=== PATIENT | male | born 1950 ===

== ENCOUNTER 2021-04-10 09:48 | Outpatient (REF) | payer MEDICARE, MEDICAID, SELFPAY ==
[2021-04-10 10:56] LABS: Alanine Aminotransferase 21 U/L (0-40); Albumin Level 3.9 g/dL (3.5-5.0); Alkaline Phosphatase 98 U/L (39-117); Anion Gap 12 (12-20); Aspartate Amino Transferase 16 U/L (5-37); Bilirubin Total 0.5 mg/dL (0.0-1.0); Blood Urea Nitrogen 16 mg/dL (9-16); Calcium 9.4 mg/dL (8.4-10.2); Carbon Dioxide 27 mmol/L (22-29); Chloride 106 mmol/L (96-108); Cholesterol 157 mg/dL; Estimated Glomerular Filt Rate > 60; Glucose Fasting 119 mg/dL (60-99); HDL Cholesterol 52 mg/dL; LDL Cholesterol Calculated 87 mg/dl; Potassium 4.5 mmol/L (3.3-5.1); Sodium 140 mmol/L (135-145); Triglycerides 91 mg/dL
[2021-04-10 11:18] LABS: TSH reflex Free T4 3.36 uIU/mL (0.32-4.0)
[2021-04-10 11:25] LABS: Estimated Average Glucose 258 mg/dL; Hemoglobin A1c % 10.6 %
[2021-04-10 15:30] LABS: Creatinine Urine 91.51 mg/dL; Microalbum/Creatinine Ratio Ur 170.4 ug/mg cr
== END 2021-04-10 09:49 | disposition home or self-care (01) ==
LOC: HO.WFDLDS 09:48
PROVIDERS: Visit Provider Family Medicine
DX: Z00.00 Encounter for general adult medical examination without abnormal findings (principal); R73.01 Impaired fasting glucose; I10 Essential (primary) hypertension
CPT/HCPCS: 36415; 80053; 80061; 82043; 83036; 84443

== ENCOUNTER → 2021-04-30 09:56 | Outpatient (BNVA) | payer MEDICARE, MEDICAID, SELFPAY | PROVIDERS: Visit Provider Orthopaedic Surgery | DX: M72.0 Palmar fascial fibromatosis [Dupuytren] (principal); M65.331 Trigger finger, right middle finger; M65.341 Trigger finger, right ring finger; M79.642 Pain in left hand; R20.0 Anesthesia of skin; R20.2 Paresthesia of skin | CPT/HCPCS: 99202; J1100 ==

== ENCOUNTER 2021-06-23 13:00 | Outpatient (RCR) | payer MEDICARE, MEDICAID, SELFPAY ==
--- NOTE | 2021-06-24 07:56 | MHC.PT.EP ---
[facility] [place] Office [place] Office [place] Office [address] Veronica Combs [address] [phone] F: [phone] F: [phone] F: [phone] F: [phone] Physical Therapy Plan of Care Date of Evaluation: Date of Surgery: Diagnosis: PT eval and treat; Pain in R shoulder M25.[address] Graff 05/28/21 Assessment: Pt is a pleasant RHD 70 y/o male with PMH significant for L CVA 2019, HTN, poorly controlled DMII, and high cholesterol. Pt was referred to PT from PCP following recent annual physical exam for treatment of R shoulder pain. Upon exam it appears pt's cause of R shoulder pain is multifactorial. Pt exhibits gross strength impairments of trunk, periscap, R shoulder, and R LE following history of L CVA in 2019. Pt exhibits R shoulder sulcus, protracted scap, increased trunk flexion, contributed from years of poor posture, stretched and weakened musculature. He exhibits tenderness and reports history of neck pain/ R UT/ R GH joint/R biceps region. He expresses pain radiating in dermatomal pattern consistent with C5/C6 region and may have underlying radicular sx on top of poor R shoulder ROM, poor strength, and impaired function of his R UE. He exhibited (+) sx of radiating pain into the R UE with AROM end range rotation R>L. Due to chronicity of symptoms and pt's ability to attend appointments, therapist is recommending 1x/weekly x 4-6 weeks to address listed impairments. Due to the severity and intensity of his sx (he was noted to repeatedly rub his shoulder). He was trialed with application of ROCKTAPE applied in a manner to support GH stability as well as support his tight and weakened periscap region. He received an additional piece of tape extending into his R bicep which he stated eased his symptoms considerably post application. Pt was educated re: removal, indications for use, and goals of us, advised to remove tape prior to going to bed in the evening. Pt presents with noted gait instability and would benefit from use of a walker to improve safety and efficiency with ambulation. Pt would benefit from trial of AAROM program to aide in R shoulder ROM as well as cervical/postural stab program. He would also benefit from integration of gentle R LE strength program to address deficits in his knee and hip however due to chronicity of symptoms and questionable carryover with instruction goals may be limited. Pt has a RW at home. Pt prognosis is fair>good due to chronicity of sx, overall health status, and pt carryover. Frequency and Duration: The patient will be seen 1x/week x 4-6 weeks Short Term Goals: 1. Improve R shoulder AAROM flexion to 120. 2. Strength R shoulder flexion 3/5 3. Reduce pain in R shoulder by 25%. 4. Initiate posture awareness in sitting. Flour Blender Goals: 1. AAROM program MOD I for R UE all planes. 2. Strength 4-/5 R UE. 3. I HEP for cervical/postural stab. 4. Reduce pain by 75% R shoulder. Treatment Plan: Modalities to reduce pain, spasms and effusion. Manual therapy to restore motion and function. Therapeutic exercise to improve strength and flexibility. Neuromuscular re-education for posture and balance. Therapeutic activities to return to functional activities of daily living. Electronically signed by: Alberta Hanna, PT, DPT Please sign and return to therapist. Thank you for your referral.
--- NOTE | 2021-06-24 08:06 | MHC.PT.OD ---
[facility] [place] Office [place] Office [place] Office [address] Veronica Combs [address] [phone] F: [phone] F: [phone] F: [phone] F: [phone] Physical Therapy Daily Note Diagnosis: PT eval and treat; Pain in R shoulder M25.[address] Graff 05/28/21 Date of Surgery: Date of Evaluation: 06/05/21 Date of Treatment: 06/23/21 Treatments to Date: 4 Cancellations to Date: No Shows to Date: Authorized Visits: 2 Insurance End Date: Precautions/ Contraindications:hx L CVA 2018 resulting in R UE/R LE weakness hx HTN hx DMII Subjective: Feels about the same really. Pain Score and Location: Objective Flowsheet: Tests & Measures SPO2 96%, HR 74 bpm, BP 134/84 mmHG taken from L UE manually Exercises Seated Krank cycle x five minutes backward and fwd with periodic intermittent rest breaks for movement secondary to fatigue in R proximal shoulder Unsupported seated ROWS with Red stroop bungee with feet flat on mat with tactile and verbal cues for upright posture/stability (improved ability to sit unsupported with improved scap retraction vs upper trap judith observed today, seated shoulder extension with RTB x 2 sets 10R, review of AAROM table slides for shoulder flexion and scaption in sitting, trial supine AAROM cane flexion however increased sx reported down UE. Sit<>stand and stand<>sit with use of UE support chair arms (encouraged to position table in front of him for home to maximize safety for completion) x 2 sets 5R with UE support with cues to use balance/table support in effort to increase functional mobility, strength, and safety. AAROM cane flexion in sitting as poor tolerance was exhibited for trial in supine. Poor previous tolerance for AAROM with R UE via tomas secondary to pain, mechanics of shoulder. Sit<>stand with use of chair with arms for assessment Pt able to complete 3 reps of standing with repeated attempts observed for each in 30 second duration of sx. Held from taping this date to provide skin rest and assess response without use . Education and time spent on postural cues and impact of performing HEP at home to make gains in mobility HEP sheet in chart to address Seated ROW issued RTB for home, sit<>stand and stand<>with use of chair with arms positioned in front of table for balance/safety concerns, iso scap retraction, LAQ Modalities Held from [facility] today with focus on active therapy to Assessment: Rey has attended 4 session of PT to date, continues with pain and gross weakness in R proximal shoulder. He has demonstrated limited gains in overall improvement thus far due to poor compliance/carryover with HEP. He has pain with attempt for AAROM but has been encouraged to use arm within ranges to tolerance. He was trialed with a postural/support taping for GH instability patterning expressing limited short term relief of sx. 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 Pt expressing onset of R shoulder pain following history of stroke. He also demonstrates weakness of his R LE as well. He has been encouraged to use a RW to maximize safety and mobility, however he continues to present to the office with use of std cane. He demonstrates occassional bouts of instability when in the office and appears unstable when performing dynamic standing tasks such as donning a coat. He requires CGA for safety; he expresses he is seeing his PCP on of this week for a routine follow-up. He will continue to be seen in therapy at a frequency of 1x/week. He was issued several exercises for home program at time of session today and we will assess his tolerance, compliance, and carryover going forward. 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
== END 2022-01-02 13:28 | disposition home or self-care (01) ==
LOC: HO.PTWFD 13:00
PROVIDERS: PCP Family Medicine; Visit Provider Family Medicine
DX: M25.511 Pain in right shoulder (principal)
CPT/HCPCS: 97110; 97140; 97163; 97535

== ENCOUNTER → 2021-08-06 12:44 | Outpatient (BNVA) | payer MEDICARE, MEDICAID, SELFPAY | PROVIDERS: PCP Family Medicine; Visit Provider Orthopaedic Surgery | DX: M65.341 Trigger finger, right ring finger (principal); M65.331 Trigger finger, right middle finger; M72.0 Palmar fascial fibromatosis [Dupuytren]; M79.642 Pain in left hand; R20.0 Anesthesia of skin; R20.2 Paresthesia of skin | CPT/HCPCS: 99212 ==

== ENCOUNTER 2021-08-21 11:58 | Outpatient (REF) | payer MEDICARE, MEDICAID, SELFPAY ==
[2021-08-21 14:31] LABS: Alanine Aminotransferase 21 U/L (0-40); Albumin Level 3.7 g/dL (3.5-5.0); Alkaline Phosphatase 92 U/L (39-117); Anion Gap 11 (12-20); Aspartate Amino Transferase 19 U/L (5-37); Bilirubin Total 0.5 mg/dL (0.0-1.0); Blood Urea Nitrogen 19 mg/dL (9-16); Calcium 8.9 mg/dL (8.4-10.2); Carbon Dioxide 28 mmol/L (22-29); Chloride 106 mmol/L (96-108); Estimated Glomerular Filt Rate > 60; Glucose Random 109 mg/dL (60-115); Potassium 4.7 mmol/L (3.3-5.1); Sodium 140 mmol/L (135-145); Total Protein 6.4 g/dL (6.5-8.0)
[2021-08-21 14:52] LABS: Vitamin D 25-OH Total 21.9 ng/mL (>30)
[2021-08-21 15:16] LABS: Erythrocyte Sedimentation Rate 16 MM/HR (0-15)
== END 2021-08-21 11:59 | disposition home or self-care (01) ==
LOC: HO.WFDLDS 11:58
PROVIDERS: Visit Provider Family Medicine
DX: R25.2 Cramp and spasm (principal); E55.9 Vitamin D deficiency, unspecified
CPT/HCPCS: 36415; 80053; 82306; 85652; 86141

== ENCOUNTER 2022-05-12 22:34 | Observation (INO) | payer MEDICARE, OTHER, SELFPAY ==
--- NOTE | 2022-05-12 | ECG_ITS ---
Test Reason : CHEST PAIN Blood Pressure : / mmHG Vent. Rate : 069 BPM Atrial Rate : 069 BPM P-R Int : 158 ms QRS Dur : 078 ms QT Int : 412 ms P-R-T Axes : 048 -11 011 degrees QTc Int : 441 ms Normal sinus rhythm Normal ECG When compared with ECG of 02-APR-2019 13:34, No significant change was found Referred By: Generic ED Physician Electronically Signed By:CARL BROWN MD
--- NOTE | ~2022-05-12 | CT_ITS ---
EXAMINATION: CT ANGIOGRAM OF THE CHEST WITH AND WITHOUT CONTRAST (CT PULMONARY ANGIOGRAM FOR PE) CT ABDOMEN AND PELVIS WITH CONTRAST CLINICAL INFORMATION: Diffuse abdominal pain. Pleuritic chest pain with shortness of breath. COMPARISON: None TECHNIQUE: Prior to contrast administration, noncontrast localization images were obtained. Subsequently, multidetector volumetric imaging was performed from the thoracic inlet to the pubic symphysis following the administration of 85 mL Omnipaque 350 intravenous contrast. This was followed by multidetector acquisition of the abdomen and pelvis. No contrast reaction reported Sagittal, coronal, and MIP oblique sagittal reformatted images were obtained on the CT workstation, uploaded to PACS, and reviewed. This CT examination was performed using dose optimization techniques as appropriate, variously including the following: *Automated exposure control *Adjustment of mA and/or kV according to patient size (this includes techniques or standardized protocols for targeted exams where dose is matched to indication/reason for exam; i.e. extremities or head) *Use of iterative reconstruction technique Total exam dose-length product 1234 mGy-cm FINDINGS: QUALITY OF STUDY/CONTRAST BOLUS: Satisfactory. PULMONARY ARTERIES: No central or segmental pulmonary emboli. THORACIC AORTA: No aneurysm or dissection. LUNG: No focal consolidation, nodules or masses. The central airways are patent. Mild bronchial wall thickening noted. Minimal groundglass opacification in the right lower lobe. PLEURA: No pleural effusion or pneumothorax. MEDIASTINUM: Normal heart size. Coronary artery calcifications. No pericardial effusion. No hilar or mediastinal lymphadenopathy. No evidence of septal bowing or right heart strain. CHEST WALL/AXILLA: No axillary or internal mammary lymphadenopathy. Bilateral gynecomastia . LIVER, GALLBLADDER, AND BILIARY TREE: The liver is normal in size, shape, and attenuation. No focal hepatic lesion or biliary ductal dilatation is present. Multiple small stones. No wall thickening or adjacent inflammation. PANCREAS: Unremarkable. SPLEEN: Unremarkable. ADRENAL GLANDS: Unremarkable. KIDNEYS AND URETERS: The kidneys are normal in size, shape, and attenuation. No hydronephrosis, hydroureter, or calculi seen. No perinephric stranding. Hypoattenuating lesion at the midpole of the left kidney measures 1.9 cm. This measures higher than simple attenuation. BLADDER: Unremarkable. GASTROINTESTINAL TRACT: The small and large bowel are unremarkable. The appendix is unremarkable. ABDOMINAL WALL: No significant hernia is appreciated. LYMPH NODES: Normal. VASCULAR: Normal caliber aorta with mild atherosclerotic calcification. PELVIC VISCERA: The prostate and seminal vesicles are unremarkable. OSSEOUS STRUCTURES: No acute or suspicious osseous abnormality. Degenerative changes throughout the spine. Mild degenerative changes of the hips. CT/CT angio chest PE protocol IMPRESSION: 1. No pulmonary embolism. 2. Bronchial wall thickening can be seen with a small airways process such as asthma or atypical/viral infection. Minimal groundglass opacification in the right lower lobe may be associated with infectious/inflammatory process. 3. Cholelithiasis without evidence of acute cholecystitis. VTE: negative
--- NOTE | ~2022-05-12 | US_ITS ---
EXAMINATION: US VENOUS ULTRASOUND WITH DOPPLER LOWER EXTREMITY, BILATERAL CLINICAL INFORMATION: Bilateral lower extremity swelling. COMPARISON: None TECHNIQUE: Ultrasound of the deep veins is performed from the hip to the calf with compression sonography and color and pulse Doppler assessment. Spectral analysis with color-flow imaging is performed. FINDINGS: RIGHT: There is normal venous compression and respiratory variation and augmented flow. The visualized common femoral vein, superficial femoral vein, profunda femoral vein, popliteal vein, and the trifurcation region shows no evidence of deep venous thrombosis. Mcdowell's cyst measures 2.7 x 0.8 x 0.8 cm. There is a deeper component measuring up to 1.9 cm. LEFT: There is normal venous compression and respiratory variation and augmented flow. The visualized common femoral vein, superficial femoral vein, profunda femoral vein, popliteal vein, and the trifurcation region shows no evidence of deep venous thrombosis. 3.7 x 0.8 x 1.7 cm Mcdowell's cyst. If the patient's symptoms persist, followup ultrasound in 5 days 7 days might be of value to exclude proximal propagation from a non-visualized calf vein. US/US venous duplex LE BI IMPRESSION: No DVT demonstrated in the bilateral lower extremities. Bilateral Mcdowell's cysts.
--- NOTE | ~2022-05-12 | CT_ITS ---
EXAMINATION: CT HEAD WITHOUT CONTRAST CLINICAL INFORMATION: Headache COMPARISON: 04/03/2019 TECHNIQUE: Contiguous axial imaging was performed from the skull base to vertex without intravenous contrast. This CT examination was performed using dose optimization techniques as appropriate, variously including the following: * Automated exposure control * Adjustment of mA and/or kV according to patient size (this includes techniques or standardized protocols for targeted exams where dose is matched to indication/reason for exam; i.e. extremities or head) Use of iterative reconstruction technique DLP: 699 mGy-cm. FINDINGS: There is no evidence of acute intracranial hemorrhage or territorial infarction. No abnormal mass effect or midline shift is seen. Kimbrough to white matter differentiation is well preserved. No extra-axial fluid collections are identified. No hydrocephalus. Proportional prominence of the ventricles and sulcal spaces is consistent with mild volume loss. Patchy periventricular and deep white matter hypoattenuation is consistent with mild small vessel ischemic changes. The osseous structures and soft tissues are normal. The mastoid air cells and visualized portions of the paranasal sinuses are well aerated. CT/CT head/brain wo IV con IMPRESSION: No acute intracranial pathology.
[2022-05-12 22:35] VITALS: BP 167/74; PULSE 76; RESP 20; TEMP 36.4; O2SAT 98; BMI 27.7
--- NOTE | 2022-05-12 23:01 | ED.CHESTPAIN ---
HPI - Chest Pain General Chief Complaint: Chest Pain Stated Complaint: Chest pain, headache Time Seen by Provider: 05/12/22 23:01 Source: patient and family Mode of arrival: ambulatory Limitations: no limitations History of Present Illness HPI narrative: 71-year-old male with past medical history is significant for hypertension, hyperlipidemia, insulin-dependent diabetes with A1c of 9.7 who has been experiencing chest pain, SOB x1 day history most reported through son states that he has had a recent flight approximately 24 hours back from his home country approximately 24 hours agp and over the past day or so has had some increased chest pain, sob also been complaining of more severe headache and what seems to be slightly more altered at times. Patient reports substernal chest pain that time radiates to bilateral side, pain is sharp, uncomfortable in nature, has a hard time rating it on a scale of 1-10. Tells me that chest pain is worse with deep breathing and is also associated with shortness of breath both at rest and with exertion. Symptoms have been gone for greater than a week however chest pain only today. He is supposed to be on Plavix for prior TIA however he has not been taking his for past several months as he was on vacation and ran out. Out patient MRI today showed lacunar infarct. LKWT 1 week ago. Related Data Home Medications Medication Instructions Recorded Confirmed meclizine 25 mg tablet mg PO 04/09/21 blood sugar diagnostic (FreeStyle #10 ea 05/27/21 Lite Strips) blood-glucose meter (FreeStyle #1 ea 05/27/21 [place] Lite kit) lancets 28 gauge (FreeStyle #100 ea 05/27/21 Lancets) Previous Rx's Medication Instructions Recorded miscellaneous medical supply #1 ea 04/09/21 naproxen 500 mg tablet 500 mg PO BID PRN pain 14 days #28 07/23/21 tabs aspirin 81 mg tablet,delayed 81 mg PO DAILY #90 tabs 07/28/21 release betamethasone dipropionate 0.05 % 1 appl topical BID PRN itching 30 09/24/21 topical spray with pump days #120 mL atorvastatin 40 mg tablet 40 mg PO DAILY #90 tabs 10/06/21 cholecalciferol (vitamin D3) 50 50 mcg PO DAILY #90 caps 10/06/21 mcg (2,000 unit) capsule clopidogrel 75 mg tablet 75 mg PO DAILY 90 days #90 tabs 10/06/21 cyanocobalamin (vitamin B-12) 1,000 mcg PO DAILY 90 days #90 tabs 10/06/21 1,000 mcg tablet dulaglutide 0.75 mg/0.5 mL 0.75 mg (0.5 mL) subcut QWEEK 90 10/06/21 subcutaneous pen injector days #6.5 mL (Trulicity) gabapentin 600 mg tablet 600 mg PO TID 90 days #270 tabs 10/06/21 hydroxyzine HCl 25 mg tablet 25 mg PO TID 90 days #270 tabs 10/06/21 insulin aspart U-100 100 unit/mL 1 sliding scale dose subcut 10/06/21 (3 mL) subcutaneous pen (Novolog TIDWMEAL 3 months #15 mL Flexpen U-100 Insulin aspart) insulin glargine 100 unit/mL (3 See Rx Instructions subcut BID 90 10/06/21 mL) subcutaneous pen (Basaglar days #21 mL KwikPen U-100 Insulin) lidocaine 5 % topical gel 1 ea topical BID 30 days #113 grams 10/06/21 lidocaine 5 % topical patch 1 patch topical DAILY 30 days #30 10/06/21 (Lidoderm) ea lisinopril 10 mg tablet 10 mg PO BID 90 days #180 tabs 10/06/21 metformin 1,000 mg tablet 1,000 mg PO BID 90 days #180 tabs 10/06/21 omeprazole 20 mg capsule,delayed 40 mg PO DAILY 90 days #180 caps 10/06/21 release pen needle, diabetic 31 gauge x #1,200 ea 05/03/2211/03 (BD Ultra-Fine Short Pen Needle) Allergies Allergy/AdvReac Type Severity Reaction Status Date / Time No Known Allergies Allergy Verified 10/06/21 11:03 [No Known Allergies*] Review of Systems Review of Systems: Constitutional : No Weight loss, No Fever, No Chills, No Fatigue, No Malaise ENT/Mouth : No sore throat, No Rhinorrhea Eyes: No Eye Pain, No Swelling, No Redness Cardiovascular : + Chest Pain, + SOB, + Dyspnea on Exertion, No Orthopnea, No Edema, No Palpitations Respiratory : No Cough, No Sputum, No Wheezing Gastrointestinal : No Nausea, No Vomiting, No Diarrhea, No Constipation, No abdominal Pain, No Hematochezia, No Melena Genitourinary : No Dysuria, No Urinary Frequency, No Hematuria, Musculoskeletal : No joint pain, No Myalgias, No Joint Swelling Skin : No Skin Lesions, No rash Neuro : No Weakness, No Numbness, No Dizziness, No Headache Psych : No Anxiety/Panic, No Depression All other systems reviewed and are negative Yes all other systems are reviewed and are negative [facility] Past Medical History Attestation statement: The following information was validated with the patient. 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 Oriented X3.? No acute distress.? Head: Normocephalic, atraumatic, no step-offs or deformities Eyes: Pupils equal, round and reactive to light.? Neck: Normal inspection.? Neck supple.? CVS: Normal heart rate and rhythm.? Pulses normal.? Respiratory: No respiratory distress.? Breath sounds diminished b/l.? Abdomen: Soft and + diffusely tender.? Skin: Skin warm and dry.? Normal skin color.? Normal skin turgor.? Extremities: 1+ non pitting edema b/l.? No calf ttp. 4/5 strength to right upper and right lower extremities. 5/5 to left UE and LE. Neuro: Oriented X 3.? No motor deficit.? No sensory deficit. CN 2-12 intact. Ambulating with steady gait with cane w/ normal coordination. Normal [id number]. 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 Negative pronator drift. NIHSS- Course Reevaluation(s) Reevaluation #1: Patient's CBC appears to have a normocytic anemia which appears to be chronic in nature. Chemistry with no acute electrolyte abnormalities requiring intervention. Patient's troponin negative, BNP within normal limits. Patient has a normal D-dimer. However CTA was obtained which was negative for PE. COVID negative. Although patient had an outpatient MRI patient did complain of a sudden-onset headache dry CT was obtained which showed no acute findings. CTA of the chest with no pulmonary embolism, CT negative. Concerns for possible viral infection with noted ground-glass opacification in the right lower lobe. Cholelithiasis without evidence of acute cholecystitis noted. Will give ceftriaxone for possible infection. Venous duplex pending. Plan is for hospital admission for acute CVA noted on outpatient MRI. Time: 01:58 Reevaluation #2: Negative venous duplex. Time: 02:06 Medications Administered Discontinued Medications Generic Name Dose Route Start Last Admin Trade Name Freq PRN Reason Stop Dose Admin Iohexol 85 ml 05/13/22 01:20 05/13/22 01:21 Iohexol 350 Mg/Ml 100 Ml Infus..Btl IV 05/13/22 01:21 85 ml ONCE ONE Administration Morphine Sulfate 4 mg 05/12/22 23:44 05/13/22 00:15 Morphine Sulfate 4 Mg/Ml Cartridge IVPUSH 05/12/22 23:45 4 mg ONCE ONE Administration Protocol MDM - Chest Pain MDM Narrative Medical decision making narrative: [id number] 71-year-old male presents with pleuritic chest pain, shortness of breath, weakness times a week worsening. Recent long travel overseas within the past week. Patient was on Plavix however patient has not taken for a while as he was on vacation and ran out. An outpatient MRI was obtained from [facility] which showed punctate focus of restricted diffusion within the left body of the corpus callosum most likely a punctate acute clean or infarct. No mass effect and there is no hemorrhagic transformation. There is global cerebellar volume loss as well as moderate chronic microangiopathy and there are chronic lacunar infarcts within the supratentorial white matter that are increased in number when compared to previous MRI of 04/03/2019. MRI report in patient's chart. Physical exam with 1+ nonpitting edema to bilateral lower extremities, negative Gy[place] bilaterally. Diffusely tender abdomen. Regular rate and rhythm. Diminished breath sounds bilaterally. Neuro nonfocal. Vital signs stable. Concerns for possible PE/DVT will rule these out. Will also rule out ACS. Unlikely that this is pneumonia however will obtain chest x-ray. Will also rule out electrolyte abnormalities and urinary tract infection. Medical Records Data Attestation: I reviewed the patient's medical records. Lab Data Attestation: I reviewed the patient's lab results. Result diagrams: 05/12/22 23:40 05/12/22 23:40 Labs: Lab Results 05/12/22 05/12/22 05/12/22 Range/Units 23:39 23:39 23:39 WBC (4.8-10.8) X10*3/uL RBC (4.60-5.80) X10*6/uL Hgb (14.0-18.0) g/dl Hct (42.0-52.0) % MCV (80.0-98.0) fL MCH (27.0-33.0) pg MCHC (31.0-36.0) g/dl RDW (11.0-16.0) % Plt Count (160-400) X10*3/uL MPV (9.4-12.4) fL Immature Gran % (Auto) (0.0-0.4) % Neut % (Auto) (45-73) % Lymph % (Auto) (20-40) % [place] % (Auto) (2-11) % Eos % (Auto) (0-4) % Baso % (Auto) (0-2) % Lymph # (Auto) (1.2-4.9) X10*3/uL [place] # (Auto) (0.1-1.2) X10*3/uL Eos # (Auto) (0.0-0.4) X10*3/uL Baso # (Auto) (0.0-0.2) X10*3/uL Abs Immat Gran (auto) (0.00-0.03) X10*3/uL Absolute Neuts (auto) (2.0-8.3) x10*3/uL Absolute Nucleated RBC (0.0-0.012) X10*3/uL Nucleated RBC % (auto) (0.0-0.2) /100WBC D-Dimer High Sensitivty NG/ML Sodium (135-145) mmol/L Potassium (3.3-5.1) mmol/L Chloride (96-108) mmol/L Carbon Dioxide (22-29) mmol/L Anion Gap (12-20) BUN (9-16) mg/dL Creatinine (0.5-1.4) mg/dL Estim Creat Clear Calc Estimated GFR Random Glucose (60-115) mg/dL Calcium (8.4-10.2) mg/dL Magnesium 1.9 (1.6-2.6) mg/dL Total Bilirubin (0.0-1.0) mg/dL AST (5-37) U/L ALT (0-40) U/L Alkaline Phosphatase (39-117) U/L Troponin I High Sens 3.5 (<3.5-35.0) ng/L B-Natriuretic Peptide (<100) pg/mL Total Protein (6.5-8.0) g/dL Albumin (3.5-5.0) g/dL COVID-19 ([facility]) Negative (Negative) COVID-19 Clin Com See Note 05/12/22 05/12/22 05/12/22 Range/Units 23:39 23:40 23:40 WBC 8.3 (4.8-10.8) X10*3/uL RBC 4.54 L (4.60-5.80) X10*6/uL Hgb 12.3 L (14.0-18.0) g/dl Hct 37.9 L (42.0-52.0) % MCV 83.5 (80.0-98.0) fL MCH 27.1 (27.0-33.0) pg MCHC 32.5 (31.0-36.0) g/dl RDW 14.9 (11.0-16.0) % Plt Count 276 (160-400) X10*3/uL MPV 11.3 (9.4-12.4) fL Immature Gran % (Auto) 0.2 (0.0-0.4) % Neut % (Auto) 52.4 (45-73) % Lymph % (Auto) 34.8 (20-40) % [place] % (Auto) 8.3 (2-11) % Eos % (Auto) 3.6 (0-4) % Baso % (Auto) 0.7 (0-2) % Lymph # (Auto) 2.9 (1.2-4.9) X10*3/uL [place] # (Auto) 0.7 (0.1-1.2) X10*3/uL Eos # (Auto) 0.3 (0.0-0.4) X10*3/uL Baso # (Auto) 0.1 (0.0-0.2) X10*3/uL Abs Immat Gran (auto) 0.02 (0.00-0.03) X10*3/uL Absolute Neuts (auto) 4.3 (2.0-8.3) x10*3/uL Absolute Nucleated RBC 0.000 (0.0-0.012) X10*3/uL Nucleated RBC % (auto) 0.0 (0.0-0.2) /100WBC D-Dimer High Sensitivty 185 NG/ML Sodium (135-145) mmol/L Potassium (3.3-5.1) mmol/L Chloride (96-108) mmol/L Carbon Dioxide (22-29) mmol/L Anion Gap (12-20) BUN (9-16) mg/dL Creatinine (0.5-1.4) mg/dL Estim Creat Clear Calc Estimated GFR Random Glucose (60-115) mg/dL Calcium (8.4-10.2) mg/dL Magnesium (1.6-2.6) mg/dL Total Bilirubin (0.0-1.0) mg/dL AST (5-37) U/L ALT (0-40) U/L Alkaline Phosphatase (39-117) U/L Troponin I High Sens (<3.5-35.0) ng/L B-Natriuretic Peptide 26 (<100) pg/mL Total Protein (6.5-8.0) g/dL Albumin (3.5-5.0) g/dL COVID-19 ([facility]) (Negative) COVID-19 Clin Com 11/22/22 Range/Units 23:40 WBC (4.8-10.8) X10*3/uL RBC (4.60-5.80) X10*6/uL Hgb (14.0-18.0) g/dl Hct (42.0-52.0) % MCV (80.0-98.0) fL MCH (27.0-33.0) pg MCHC (31.0-36.0) g/dl RDW (11.0-16.0) % Plt Count (160-400) X10*3/uL MPV (9.4-12.4) fL Immature Gran % (Auto) (0.0-0.4) % Neut % (Auto) (45-73) % Lymph % (Auto) (20-40) % [place] % (Auto) (2-11) % Eos % (Auto) (0-4) % Baso % (Auto) (0-2) % Lymph # (Auto) (1.2-4.9) X10*3/uL [place] # (Auto) (0.1-1.2) X10*3/uL Eos # (Auto) (0.0-0.4) X10*3/uL Baso # (Auto) (0.0-0.2) X10*3/uL Abs Immat Gran (auto) (0.00-0.03) X10*3/uL Absolute Neuts (auto) (2.0-8.3) x10*3/uL Absolute Nucleated RBC (0.0-0.012) X10*3/uL Nucleated RBC % (auto) (0.0-0.2) /100WBC D-Dimer High Sensitivty NG/ML Sodium 137 (135-145) mmol/L Potassium 4.2 (3.3-5.1) mmol/L Chloride 103 (96-108) mmol/L Carbon Dioxide 23 (22-29) mmol/L Anion Gap 15 (12-20) BUN 13 (9-16) mg/dL Creatinine 0.92 (0.5-1.4) mg/dL Estim Creat Clear Calc 84.4 Estimated GFR > 60 Random Glucose 266 H D (60-115) mg/dL Calcium 8.9 (8.4-10.2) mg/dL Magnesium (1.6-2.6) mg/dL Total Bilirubin 0.3 (0.0-1.0) mg/dL AST 21 (5-37) U/L ALT 29 (0-40) U/L Alkaline Phosphatase 106 (39-117) U/L Troponin I High Sens (<3.5-35.0) ng/L B-Natriuretic Peptide (<100) pg/mL Total Protein 7.2 (6.5-8.0) g/dL Albumin 4.0 (3.5-5.0) g/dL COVID-19 ([facility]) (Negative) COVID-19 Clin Com Critical Care Time Critical Care Time Critical Care Time: No Discharge Plan Discharge Clinical Impression: Acute CVA (cerebrovascular accident), Chest pain, Shortness of breath, Headache Patient Disposition: Admitted As Inpatient
[2022-05-13] VITALS (7 sets, daily range): BP systolic 119–172; BP diastolic 56–82; PULSE 66–69; RESP 15–20; TEMP 36.5–36.9; O2SAT 95–98
--- NOTE | 2022-05-13 | ECG_ITS ---
Test Reason : cp Blood Pressure : / mmHG Vent. Rate : 071 BPM Atrial Rate : 071 BPM P-R Int : 164 ms QRS Dur : 078 ms QT Int : 412 ms P-R-T Axes : 044 000 001 degrees QTc Int : 447 ms Normal sinus rhythm Nonspecific T wave abnormality Borderline ECG When compared with ECG of 12-MAY-2022 22:41, No significant change was found Referred By: Aguila Choe Electronically Signed By:CARL BROWN MD
[2022-05-13 00:13] LABS: Basophils Absolute Auto 0.1 X10*3/uL (0.0-0.2); Basophils Percent Auto 0.7 % (0-2); Eosinophils Absolute Auto 0.3 X10*3/uL (0.0-0.4); Eosinophils Percent Auto 3.6 % (0-4); Hematocrit 37.9 % (42.0-52.0); Hemoglobin 12.3 g/dl (14.0-18.0); Imm Gran Abs Auto 0.02 X10*3/uL (0.00-0.03); Imm Gran Pct Auto 0.2 % (0.0-0.4); Lymphocytes Absolute Auto 2.9 X10*3/uL (1.2-4.9); Lymphocytes Percent Auto 34.8 % (20-40); MANUAL DIFF FLAG NO; Mean Corpuscular HGB Conc 32.5 g/dl (31.0-36.0); Mean Corpuscular Hemoglobin 27.1 pg (27.0-33.0); Mean Corpuscular Volume 83.5 fL (80.0-98.0); Mean Platelet Volume 11.3 fL (9.4-12.4); Monocytes Absolute Auto 0.7 X10*3/uL (0.1-1.2); Monocytes Percent Auto 8.3 % (2-11); Neutrophils Absolute Auto 4.3 x10*3/uL (2.0-8.3); Neutrophils Percent Auto 52.4 % (45-73); Platelet Count 276 X10*3/uL (160-400); Red Blood Count 4.54 X10*6/uL (4.60-5.80); Red Cell Distribution Width 14.9 % (11.0-16.0); White Blood Count 8.3 X10*3/uL (4.8-10.8)
[2022-05-13] MEDS: Morphine Sulfate 4 MG/ML CARTRIDGE IVPUSH ×2 (00:15→06:38)
[2022-05-13 00:32] LABS: Magnesium 1.9 mg/dL (1.6-2.6)
[2022-05-13 00:34] LABS: Alanine Aminotransferase 29 U/L (0-40); Alkaline Phosphatase 106 U/L (39-117); Anion Gap 15 (12-20); Aspartate Amino Transferase 21 U/L (5-37); Bilirubin Total 0.3 mg/dL (0.0-1.0); Blood Urea Nitrogen 13 mg/dL (9-16); Calcium 8.9 mg/dL (8.4-10.2); Carbon Dioxide 23 mmol/L (22-29); Chloride 103 mmol/L (96-108); Creatinine Clr Calc Pharmacy 84.4; Estimated Glomerular Filt Rate > 60; Glucose Random 266 mg/dL (60-115); Potassium 4.2 mmol/L (3.3-5.1); Sodium 137 mmol/L (135-145); Total Protein 7.2 g/dL (6.5-8.0)
[2022-05-13 00:37] LABS: COVID-19 Test Negative (Negative); IDNOW Serial# BCCEAD1C
[2022-05-13 00:39] LABS: D Dimer High Sensitivity 185 NG/ML
[2022-05-13 00:39] LABS: B Type Natriuretic Peptide 26 pg/mL (<100); Troponin-I High Sensitivity 3.5 ng/L (<3.5-35.0)
[2022-05-13] MEDS: iohexoL 350 MG/ML 100 ML INFUS..BTL 85 ML IV (01:21)
[2022-05-13 02:10] LABS: Prothrombin Time 10.9 SEC (10.0-13.1)
[2022-05-13 02:32] LABS: Glucose, Whole Blood 153 mg/dL (60-115)
--- NOTE | 2022-05-13 02:32 | P.HPHOSP_ITS ---
History of Present Illness Date of Service: 05/13/22 Chief Complaint: weakness, lethargy 71-year-old male with past medical history of CVA, HTN, HLD, diabetes brought in by son for increased weakness, and chest pain. Patient reports the chest pain is midsternal, burning stabbing in sensation, going of his chest, not radiating to the left arm or right, the discomfort started about few days ago on and off, not associated with exertion or not relieved with rest. Patient also complaining of weakness on the right side. Son reports that he noticed him sleeping more than usual, and obtained an MRI outpatient which showed a acute punctate lacunar infarct. When asked about any weakness patient reports that he has chronic right-sided weakness but has worsened in the past week and a half. Specially in the lower extremity. Patient is also complaining of shortness of breath, coughing for 1 week. He felt febrile and chills. Of note patient just came back from pockets done after 6 months drip, it appears that he ran out of his Plavix for over a month and has not been taking it. Patient otherwise denies any nausea, no vomiting, no abdominal pain, no diarrhea constipation, no urinary symptoms and no lower extremity edema. On arrival to the ED patient hemodynamically stable no significant abnormal vitals Labs are significant for WBC count of 8.3, hemoglobin 12.3, troponin negative x2, BNP negative, UA negative, CT angiogram shows no pulmonary embolism, is shows a small airway process which may be seen with atypical viral infection, minimal ground-glass opacity in the right lower lobe associated with infection/inflammatory process. Cholelithiasis without cholecystitis. Review of Systems Review of Systems: Yes all other systems are reviewed and are negative [facility] Medical History (Updated 05/13/22 @ 06:04 by Aguila Choe MD) Diabetes type 2, uncontrolled Dupuytren's disease of palm Essential hypertension History of CVA (cerebrovascular accident) Neuropathy Trigger finger, right ring finger Surgical History No pertinent past surgical history Social History Household Members: Family Housing: House Do you presently have visiting nurse or other home services: No Alcohol intake: never Patient Tobacco Use Status: Never used Tobacco Smoked in Last 30 Days: No e-Cigarette/Vaping Use: Never Used Second Hand Smoke Exposure: No Use of substances other than those prescribed or required for medical reasons: No Have you been hit, kicked, punched, or otherwise hurt by someone within the past year? 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 Current occupational exposures/hazards: No Cognitive needs: Yes (Cane) Hearing needs: No Vision needs: Yes (Glasses) Meds Allergies Allergy/AdvReac Type Severity Reaction Status Date / Time No Known Allergies Allergy Verified 10/06/21 11:03 [No Known Allergies*] Active Medications: Current Medications Pharmacy Consult (Consult Rx Perform Med Rec) 1 each MISCELLANE ONCE PRN PRN Reason: Consult order Home Medications Medication Instructions Recorded Confirmed Last Taken Type meclizine 25 mg tablet mg PO 04/09/21 Unknown History blood sugar diagnostic (FreeStyle #10 ea 05/27/21 Unknown History Lite Strips) blood-glucose meter (FreeStyle #1 ea 05/27/21 Unknown History [place] Lite kit) lancets 28 gauge (FreeStyle #100 ea 05/27/21 Unknown History Lancets) Physical Exam Vital Signs and Narrative: Vital Signs: Last Vital Signs Temp 97.6 F 05/12/22 22:35 Pulse 76 05/12/22 22:35 Resp 20 05/12/22 22:35 BP 167/74 H 05/12/22 22:35 Pulse Ox 98 05/12/22 22:35 O2 Del Method 05/12/22 22:35 BMI result Body Mass Index 27.7 Const: General: cooperative and no acute distress Orientation/consciousness: patient oriented x3 Eyes: General: appearance normal, both eyes and all related structures Pupils: Equal, round and reactive pupils present Resp: Effort & Inspection: normal respiratory effort Auscultation: clear to auscultation bilaterally Cardio: Rate: regular rate Rhythm: regular rhythm GI: Palpation (GI): Soft to palpation Auscultation: normal bowel sounds Skin: General skin exam: no rashes or lesions noted Neuro: Other: Strength is 3/5 in right lower extremity 4/5 in right upper extremity Normal speech, cranial nerves 2-12 intact General: patient oriented x3 Cranial nerves: Yes Equal, round and reactive pupils present Cognition (Neuro): normal cognition Extrem: General: Yes normal to inspection and Yes no pedal edema Results Labs CBC and Chem 7: 05/12/22 23:40 05/12/22 23:40 Labs: Laboratory Results - last 24 hr 05/12/22 05/12/22 05/12/22 23:39 23:39 23:39 MCV MCH MCHC RDW Plt Count MPV Immature Gran % (Auto) Neut % (Auto) Lymph % (Auto) [place] % (Auto) Eos % (Auto) Baso % (Auto) Lymph # (Auto) [place] # (Auto) Eos # (Auto) Baso # (Auto) Abs Immat Gran (auto) Absolute Neuts (auto) Absolute Nucleated RBC Nucleated RBC % (auto) PT INR D-Dimer High Sensitivty Anion Gap Estim Creat Clear Calc Estimated GFR POC Glucose Random Glucose Calcium Magnesium 1.9 Total Bilirubin AST ALT Alkaline Phosphatase Troponin I High Sens 3.5 B-Natriuretic Peptide Total Protein Albumin COVID-19 ([facility]) Negative COVID-19 Clin Com See Note 05/12/22 05/12/22 05/12/22 23:39 23:40 23:40 MCV 83.5 MCH 27.1 MCHC 32.5 RDW 14.9 Plt Count 276 MPV 11.3 Immature Gran % (Auto) 0.2 Neut % (Auto) 52.4 Lymph % (Auto) 34.8 [place] % (Auto) 8.3 Eos % (Auto) 3.6 Baso % (Auto) 0.7 Lymph # (Auto) 2.9 [place] # (Auto) 0.7 Eos # (Auto) 0.3 Baso # (Auto) 0.1 Abs Immat Gran (auto) 0.02 Absolute Neuts (auto) 4.3 Absolute Nucleated RBC 0.000 Nucleated RBC % (auto) 0.0 PT 10.9 INR 1.0 D-Dimer High Sensitivty 185 Anion Gap Estim Creat Clear Calc Estimated GFR POC Glucose Random Glucose Calcium Magnesium Total Bilirubin AST ALT Alkaline Phosphatase Troponin I High Sens B-Natriuretic Peptide 26 Total Protein Albumin COVID-19 ([facility]) COVID-19 [email or web address] Com 05/12/22 05/13/22 23:40 02:27 MCV MCH MCHC RDW Plt Count MPV Immature Gran % (Auto) Neut % (Auto) Lymph % (Auto) [place] % (Auto) Eos % (Auto) Baso % (Auto) Lymph # (Auto) [place] # (Auto) Eos # (Auto) Baso # (Auto) Abs Immat Gran (auto) Absolute Neuts (auto) Absolute Nucleated RBC Nucleated RBC % (auto) PT INR D-Dimer High Sensitivty Anion Gap 15 Estim Creat Clear Calc 84.4 Estimated GFR > 60 POC Glucose 153 H Random Glucose 266 H D Calcium 8.9 Magnesium Total Bilirubin 0.3 AST 21 ALT 29 Alkaline Phosphatase 106 Troponin I High Sens B-Natriuretic Peptide Total Protein 7.2 Albumin 4.0 COVID-19 ([facility]) COVID-19 Clin Com Imaging Radiologist's Impressions: Impressions Head CT 05/13/22 01:07 IMPRESSION: No acute intracranial pathology. Abdomen/Pelvis CT 05/13/22 01:22 IMPRESSION: 1. No pulmonary embolism. 2. Bronchial wall thickening can be seen with a small airways process such as asthma or atypical/viral infection. Minimal groundglass opacification in the right lower lobe may be associated with infectious/inflammatory process. 3. Cholelithiasis without evidence of acute cholecystitis. VTE: negative Chest CTA 05/13/22 01:22 IMPRESSION: 1. No pulmonary embolism. 2. Bronchial wall thickening can be seen with a small airways process such as asthma or atypical/viral infection. Minimal groundglass opacification in the right lower lobe may be associated with infectious/inflammatory process. 3. Cholelithiasis without evidence of acute cholecystitis. VTE: negative Venous Duplex 05/13/22 01:45 IMPRESSION: No DVT demonstrated in the bilateral lower extremities. Bilateral Mcdowell's cysts. Assessment and Plan (1) Acute CVA (cerebrovascular accident): Status: Acute (2) Chest pain: Qualifiers: Chest pain type: other chest pain Qualified Code(s): R07.89 - Other chest pain Status: Acute (3) Shortness of breath: Status: Acute (4) Pneumonia: Qualifiers: Pneumonia type: due to unspecified organism Laterality: right Lung location: lower lobe of lung Qualified Code(s): J18.9 - Pneumonia, unspecified organism Status: Acute Plan 71-year-old male with past medical history of CVA, diabetes, hypertension presents to the hospital with complaints of weakness increased lethargy found to have acute # acute CVA - patient with history of CVA, mass Plavix for more than 1 month while on vacation - MRI done outpatient showed lacunar infarct - will resume Plavix, high-dose statin - consult neurology - echocardiogram - admit to telemetry # chest pain - likely secondary to heartburn - not cardiogenic, has not troponin negative x2, EKG with no changes suggestive of ACS - patient admitted to telemetry - will treat with heartburn medications # shortness of breath - likely secondary to pneumonia - evidence of pneumonia on chest CT - will treat with IV antibiotics, - no hypoxia # pneumonia - community-acquired pneumonia - will cover with IV antibiotics - follow cultures # diabetes - low-dose sinus scale insulin - diabetic diet # hypertension - stable - stable continue home antihypertensives DVT prophylaxis: Lovenox Quality Stroke Does the patient have a stroke diagnosis?: No VTE Prior VTE?: No VTE Risk Level:: Medical - moderate - high VTE Device Contraindication: Patient Refused VTE Drug Contraindication: N/A - Med Ordered
[2022-05-13 02:36] LABS: Appearance Urine Clear; Color Urine Yellow; Glucose Urine UA 500 mg/dL (Negative); Leukocyte Esterase Urine Negative (Negative); Nitrite Urine Negative (Negative); Specific Gravity - Urine 1.015 (1.005-1.025); UMIC TRIGGER UACC YES; Urine Blood Trace (Negative); Urine Ketones Negative (Negative); Urine Protein Negative (Neg-Trace)
[2022-05-13 02:39] LABS: Lactic Acid 1.6 mmol/L (0.5-2.0)
--- OUTSIDE RECORDS SUMMARY | 2022-05-13 02:41 | XMS_ITS | Continuity of Care Document ---
:1950 Author Organization [facility] Address [address] [place] [id number]- Care Team Providers Name Role Phone Edgar Sidhu MD Primary Care Physician Encounter [facility] [place] Date(s): 08/29/21 - 09/28/21 [facility] [address] [place] [id number] Attending Physician: Ling Fried Admitting Physician: AdmtrLing Referring Physician: Admtr, Ar8 Allergies, Adverse Reactions, Alerts No Known Allergies Medications aspirin 81 mg oral tablet 1 tablet = 81 mg, By Mouth, Daily, # 30 tablet, 0 Refills, Maintenance, 04/06/19 17:34:40 EDT, Tablet Start Date: 04/06/19 Status: Ordereddocusate sodium 100 mg oral capsule 100 mg, 1, capsule, By Mouth, 2 times a day, # 60 capsule, Refills 0, Tot. Refills 0, Maintenance, 04/19/19 9:32:29 EDT, Print Requisition Start Date: 04/19/19 Status: Orderedgabapentin 300 mg oral capsule 300 mg, By Mouth, 3 times a day, # 90 capsule, Refills 0, Tot. Refills 0, Maintenance, 04/19/19 8:17:26 EDT, Print Requisition Start Date: 04/19/19 Status: Orderedinsulin glargine 100 units/mL subcutaneous solution 0.55 mL = 55 units, Subcutaneous Injection, Daily at bedtime, # 16.5 mL, 0 Refills, Maintenance, 04/19/19 8:17:54 EDT, Injection Start Date: 04/19/19 Status: Orderedinsulin lispro 100 u/ml subcutaneous injection 3-12 units, Subcutaneous Injection, 3 times a day before meals, << Sliding Scale Comments >> 201 - 250 3 units Call if less than 70 251 - 300 6 units 301 - 350 9 units 351 - 400 12 units Call if greater than 400 << Sliding Scale Comment... Start Date: 04/19/19 Status: OrderedLipitor 40 mg oral tablet 1 tablet = 40 mg, By Mouth, Daily at bedtime, # 30 tablet, 0 Refills, Maintenance, 04/19/19 8:16:28 EDT, Tablet Start Date: 04/19/19 Status: Orderedlisinopril 10 mg oral tablet 10 mg, 1, tablet, By Mouth, Daily, # 30 tablet, Refills 0, Maintenance, 04/06/19 17:35:03 EDT Start Date: 04/06/19 Status: OrderedmetFORMIN 1000 mg oral tablet 1 tablet = 1,000 mg, By Mouth, 2 times a day, # 60 tablet, 0 Refills, Maintenance, 04/06/19 17:31:59EDT, Tablet Start Date: 04/06/19 Status: OrderedPlavix 75 mg oral tablet 75 mg, 1, tablet, By Mouth, Daily, # 30 tablet, Refills 0, Tot. Refills 0, Maintenance, 04/19/19 8:16:34 EDT, Print Requisition Start Date: 04/19/19 Status: OrderedProtonix 40 mg oral delayed release tablet 1 tablet = 40 mg, By Mouth, Daily, # 30 tablet, 0 Refills, Maintenance, 04/06/19 17:24:34 EDT, EC Tablet Start Date: 04/06/19 Status: OrderedVitamin B-12 1000 mcg oral tablet 1,000 mcg, 1, tablet, By Mouth, Daily, # 30 tablet, Refills 0, Tot. Refills 0, Maintenance, :17:18 EDT, Print Requisition Start Date: 04/19/19 Status: Orderedwheeled walker wheeled walker, See Instructions, # 1 units, Refills 0, Tot. Refills 0, Maintenance, as dorected, 04/12/19 11:36:09 EDT, Compound Start Date: 04/12/19 Status: Ordered Problem List Condition Effective Dates Status Health Status Informant CVA (cerebral vascular Active accident)(Confirmed) DM (diabetes mellitus)(Confirmed) Active GERD (gastroesophageal reflux Active disease)(Confirmed) Hyperlipidemia(Confirmed) Active HTN (hypertension)(Confirmed) Active OA (osteoarthritis)(Confirmed) Active
--- OUTSIDE RECORDS SUMMARY | 2022-05-13 02:41 | XMS_ITS | Continuity of Care Document ---
:1950 Author Organization [facility] Address [address] [place] [id number]- Care Team Providers Name Role Phone Edgar Sidhu MD Primary Care Physician Encounter [facility] [place] Date(s): 08/25/21 - 09/28/21 [facility] [address] [place] [id number] Attending Physician: Valreie Cortez MD Admitting Physician: Valerie Cortez MD Referring Physician: John Graff MD Allergies, Adverse Reactions, Alerts No Known Allergies [...]
[2022-05-13 02:49] LABS: Troponin-I High Sensitivity 4.1 ng/L (<3.5-35.0)
[2022-05-13 02:55] LABS: Bacteria Urine Trace (None Seen); Calcium Oxalate Crystals Urine Present; Hyaline Casts Urine 0-2 /LPF (0-2); RBC Urine 0-2 /HPF (0-2); Squamous Epithelial Cell Urine 0-2 /HPF (0-2); WBC Urine 0-5 /HPF (0-5)
--- NOTE | 2022-05-13 03:01 | PC.NURSE ---
pt is content, he used rest room , gave him a pitcher of water and 2 warm blankets, pt is resting comfortably
[2022-05-13] MEDS: cefTRIAXone sodium 1 GM in 0.9 % Sodium Chloride 50 ML IV (04:09)
--- NOTE | 2022-05-13 06:01 | CA_ITS ---
Transthoracic Echocardiogram Patient (Last, First, Middle): Anupama Marroquin, Gender: Male Date of : 1950 Age: 71 Procedure Date: 05/13/2022 Procedure Type: Transthoracic Echocardiogram Location: [facility] [place] Height: 185.42 cm Weight: 95.26 kg BSA: 2.20 m2 Heart Rate: 64 bpm BP: 172 / 82 mmHg Highballer: FANG Referring MD: Aguila Choe MD Symptoms: CVA Study Quality: Poor/Contrast ECG Rhythm: Sinus Conclusions: - The left ventricular systolic function is normal. The visually estimated ejection fraction is between 65-70%. - There is moderate septal and moderate basal asymmetric hypertrophy. - No obvious valvular pathology seen on this study. Findings Procedure Information Contrast agent, definity, is being given per protocol without apparent complications. Left Ventricle Normal left ventricular cavity size. There is mildly increased left ventricular wall thickness. The left ventricular systolic function is normal. The visually estimated ejection fraction is between 65-70%. There is no evidence of regional wall motion abnormalities. Diastolic function is normal for age. There is moderate septal and moderate basal asymmetric hypertrophy. Right Ventricle Normal right ventricular cavity size and systolic function. Atria Both atria are normal in size. Aortic Valve There is a normal trileaflet aortic valve. There is no aortic valve stenosis. There is no aortic valve regurgitation. Mitral Valve The mitral valve appears normal. There is no mitral valve regurgitation. There is no mitral valve stenosis. Pulmonic Valve The pulmonic valve is likely normal. Tricuspid Valve There is no tricuspid valve regurgitation. Tricuspid regurgitation envelope is inadequate for calculation of right ventricular systolic pressure. Great Vessels There is mild dilatation of the ascending aorta measuring 4.00 cm. Venous The inferior vena cava was not well visualized. Pericardium/Pleural There is no evidence of pericardial effusion. Prior Study Comparison No prior study available for comparison. Recommendations, Care & Conclusions No obvious valvular pathology seen on this study. Measurements 2D Linear Measurements IVSd: 1.04 0.6-0.9/0.6-1.0 cm LVIDd: 5.26 3.9-5.3/4.2-5.9 cm LVIDd Index: 2.39 2.4-3.2/2.2-3.1 cm/m2 LVIDs: 2.50 2.0-3.6 cm LVPWd: 1.02 0.7-1.1 cm LA Diam: 3.90 2.7-3.8/3.0-4.0 cm LAIDs Index: 1.77 1.5-2.3 cm/m2 LV Mass: 256.56 67-162/88-224 g LV Mass Index: 116.62 43-95/49-115 g/m2 LVOT Diam: 2.20 3.0+(-)1.3 cm 2D Systolic Function EF 4C: 70.80 >55% EF 2C: 73.00 >55% EF BiP: 70.50 >55% Mitral Valve MV Pk E: 0.72 MV PK A: 0.85 MV Decel Time: 274.00 E/A: 0.80 E'Lateral: 7.27 E'Medial: 5.34 E/E' Med: 13.40 E/E' Lat: 9.80 PHT: 80.00 MVA PHT: 2.75 Decel [place]: 2.61 Aortic Valve AoV Pk Edu: 1.07 AoV Mn Edu: 0.81 AoV VTI: 0.27 AoV Pk Grad: 5.00 Aov Mn Grad: 3.00 SRIKANTH Cont.VTI: 3.31 LVOT LVOT Pk Edu: 0.89 LVOT Mn Edu: 0.66 LVOT VTI: 0.23 LVOT Pk Grad: 3.00 LVOT Mn Grad: 2.00 LVOT Diam: 2.20 LVOT Area: 3.80 Diastolic Function MV Pk E: 0.72 MV Pk A: 0.85 E/A: 0.80 E'Medial: 5.34 E/E' Med: 13.40 E' Laterial: 7.27 E/E' Lat: 9.80 Right Ventricle TAPSE (mm): 21.40 TVS' Edu: 13.40 Great Vessels Aorta Sinus of Valsalva: 4.00 2.0-3.5 cm Ao Asc: 4.00 2.1-3.4 cm Pulmonary Valve PV Pk Edu: 0.95 Peak PV Grad: 4.00 Updated in Other Vendor System with Status of Final Isai Peacock MD electronically signed on 05/13/2022 1:20:40 PM with status of Final
[2022-05-13 06:19] LABS: MANUAL DIFF FLAG NO
[2022-05-13 06:21] LABS: Basophils Absolute Auto 0.1 X10*3/uL (0.0-0.2); Basophils Percent Auto 0.8 % (0-2); Eosinophils Absolute Auto 0.3 X10*3/uL (0.0-0.4); Eosinophils Percent Auto 3.5 % (0-4); Hematocrit 38.8 % (42.0-52.0); Hemoglobin 12.8 g/dl (14.0-18.0); Imm Gran Abs Auto 0.01 X10*3/uL (0.00-0.03); Imm Gran Pct Auto 0.1 % (0.0-0.4); Lymphocytes Absolute Auto 2.7 X10*3/uL (1.2-4.9); Mean Corpuscular Hemoglobin 27.9 pg (27.0-33.0); Mean Corpuscular Volume 84.5 fL (80.0-98.0); Mean Platelet Volume 11.6 fL (9.4-12.4); Monocytes Absolute Auto 0.7 X10*3/uL (0.1-1.2); Monocytes Percent Auto 8.5 % (2-11); Neutrophils Absolute Auto 4.7 x10*3/uL (2.0-8.3); Neutrophils Percent Auto 55.1 % (45-73); Platelet Count 252 X10*3/uL (160-400); Red Blood Count 4.59 X10*6/uL (4.60-5.80); Red Cell Distribution Width 14.9 % (11.0-16.0); White Blood Count 8.6 X10*3/uL (4.8-10.8)
[2022-05-13 06:38] LABS: Anion Gap 15 (12-20); Blood Urea Nitrogen 10 mg/dL (9-16); Carbon Dioxide 22 mmol/L (22-29); Chloride 105 mmol/L (96-108); Creatinine Clr Calc Pharmacy 98.3; Estimated Glomerular Filt Rate > 60; Glucose Random 173 mg/dL (60-115); Potassium 4.4 mmol/L (3.3-5.1); Sodium 138 mmol/L (135-145)
[2022-05-13] MEDS: Azithromycin 500 MG in 0.9 % Sodium Chloride 250 ML 125 MG IV (06:38)
[2022-05-13] MEDS: Magnesium Hydrox/Alum Hydrox 30 ML ORAL.SUSP 15 ML PO (06:38)
[2022-05-13 06:49] LABS: Troponin-I High Sensitivity 4.3 ng/L (<3.5-35.0)
[2022-05-13 08:01] LABS: Glucose, Whole Blood 144 mg/dL (60-115)
--- NOTE | 2022-05-13 08:44 | MHC.CM.PN ---
CM met with Patient at bedside and addressed GUY with him, providing him with the original and placing a copy on the chart. Patient lives in a house with his Son/HCP and he uses both a cane and a walker to assist with mobility. Home, self care is the goal and CM has initiated and will follow for dc planning. Patient has received Covid vax x2 and his PCP is Dr. John Graff.
--- NOTE | 2022-05-13 08:49 | MHC.CM.PN ---
CORRECTION! PT is recommending Acute Rehab; CM will make appropriate referrals and continue to follow.
[2022-05-13] MEDS: 0.9 % Sodium Chloride Flush 3 ML SYRINGE IVFLUSH ×2 (09:38→16:55)
[2022-05-13] MEDS: Clopidogrel Bisulfate 75 MG TABLET PO (09:38)
[2022-05-13] MEDS: Enoxaparin Sodium 40 MG/0.4 ML SYRINGE SUBCUT (09:38)
[2022-05-13] MEDS: ondansetron HCL 4 MG/2 ML VIAL IVPUSH (10:00)
--- NOTE | 2022-05-13 10:18 | PM.EVENT ---
Event Note Date of Service: 05/13/22 Event Note: Pt admitted this morning d/t stroke, PNA. Clinically doing fine, awaiting Neuro eval and proable DC to subacute rehab
--- NOTE | 2022-05-13 10:43 | PM.NEUROCN ---
History of Present Illness Data of Consult Service Date: 05/13/22 Primary Care Provider: John Graff MD [facility] Reason for consult: Stroke 71 years old man of [place] origin suffering from hypertension for some reason stopped taking his medicines including clopidogrel few months ago while he was in [place]. He got admitted few days ago in [place] and stated that this was due to high blood pressure. [place] complain of lethargy chest pain and right-sided weakness. He had an MRI of brain few days ago at [facility] that revealed a punctate area of restricted diffusion in left carpus callosum. He got admitted in this hospital with chest discomfort. Review of Systems Review of Systems: No recent cold or flu-like illness though he was complaining of chest discomfort. [facility] Past Medical History Medical History Diabetes type 2, uncontrolled Dupuytren's disease of palm Essential hypertension History of CVA (cerebrovascular accident) Neuropathy Trigger finger, right ring finger Surgical History Surgical History No pertinent past surgical history Social History Social History Household Members: Family Housing: House Do you presently have visiting nurse or other home services: No Alcohol intake: never Patient Tobacco Use Status: Never used Tobacco Smoked in Last 30 Days: No e-Cigarette/Vaping Use: Never Used Second Hand Smoke Exposure: No Use of substances other than those prescribed or required for medical reasons: No Have you been hit, kicked, punched, or otherwise hurt by someone within the past year? 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 Current occupational exposures/hazards: No Cognitive needs: Yes (Canaudra) Hearing needs: No Vision needs: Yes (Glasses) Meds Allergies Allergy/AdvReac Type Severity Reaction Status Date / Time No Known Allergies Allergy Verified 10/06/21 11:03 [No Known Allergies*] Active Medications: Current Medications Acetaminophen (Acetaminophen 325 Mg Tablet) 650 mg PO Q6H PRN PRN Reason: Pain, Mild (Pain Scale 1-3) Al Hydroxide/Mg Hydroxide (Magnesium Hydrox/Alum Hydrox 30 Ml Oral.Susp) 15 ml PO Q4H PRN PRN Reason: eheartburn Last Admin: 05/13/22 06:38 Dose: 15 ml Atorvastatin Calcium (Atorvastatin Calcium 80 Mg Tablet) 80 mg PO BEDTIME JOSE LUIS Calcium Carbonate (Calcium Carbonate 750 Mg Tab.Chew) 750 mg PO Q6H PRN PRN Reason: heartburn Clopidogrel Bisulfate (Clopidogrel Bisulfate 75 Mg Tablet) 75 mg PO DAILY [facility] Last Admin: 05/13/22 09:38 Dose: 75 mg Dextrose (Dextrose 50 % 25 Gm/50 Ml Syringe) 25 gm IVPUSH Q15M PRN; Protocol PRN Reason: per Hypoglycemia Standing Ord. Docusate Sodium (Docusate Sodium 100 Mg Capsule) 100 mg PO DAILY PRN PRN Reason: Constipation Enoxaparin Sodium (Enoxaparin Sodium 40 Mg/0.4 Ml Syringe) 40 mg SUBCUT Q24H [facility] Last Admin: 05/13/22 09:38 Dose: 40 mg Glucose (Glucose Gel 15 Gm Gel..Gram.) 15 gm PO Q15M PRN; Protocol PRN Reason: per Hypoglycemia Standing Ord. Ceftriaxone Sodium 1 gm/ (Sodium Chloride) 50 mls @ 100 mls/hr IV Q24H [facility] Azithromycin 500 mg/ Sodium (Chloride) 250 mls @ 125 mls/hr IV Q24H [facility] Last Infusion: 05/13/22 10:04 Dose: Infused Insulin Human Lispro (Insulin Lispro 100 Unit/Ml 3 Ml Vial) 0 unit SUBCUT QIDACHS [facility]; Protocol Last Admin: 05/13/22 08:31 Dose: Not Given Ondansetron HCl (Ondansetron Hcl 4 Mg/2 Ml Vial) 4 mg IVPUSH Q8H PRN PRN Reason: Nausea and Vomiting Last Admin: 05/13/22 10:00 Dose: 4 mg Pharmacy Consult (Consult Rx Perform Med Rec) 1 each MISCELLANE ONCE PRN PRN Reason: Consult order Sodium Chloride (0.9 % Sodium Chloride Flush 3 Ml Syringe) 3 ml IVFLUSH QSHIFT [facility] Last Admin: 05/13/22 09:38 Dose: 3 ml Home Medications Medication Instructions Recorded Confirmed Last Taken Type meclizine 25 mg tablet mg PO 04/09/21 Unknown History blood sugar diagnostic (FreeStyle #10 ea 05/27/21 Unknown History Lite Strips) blood-glucose meter (FreeStyle #1 ea 05/27/21 Unknown History [place] Lite kit) lancets 28 gauge (FreeStyle #100 ea 05/27/21 Unknown History Lancets) Physical Exam Vital Signs: Vital Signs: Last Vital Signs Temp 98.5 F 05/13/22 07:27 Pulse 66 05/13/22 08:29 Resp 20 05/13/22 07:27 BP 144/70 H 05/13/22 09:43 Pulse Ox 95 05/13/22 08:29 O2 Del Method 05/13/22 07:27 BMI result Body Mass Index 27.7 Neuro: Other: He was alert and awake with normal spontaneity of speech fluency comprehension and affect. Face was symmetrical. Visual kelley are full. There was no obvious focal weakness. Deep tendon reflexes are absent. Results Labs CBC & Chem 7: 05/13/22 06:06 05/13/22 06:06 Labs: Short CBC 05/12/22 05/13/22 Range/Units 23:40 06:06 WBC 8.3 8.6 (4.8-10.8) X10*3/uL Hgb 12.3 L 12.8 L (14.0-18.0) g/dl Hct 37.9 L 38.8 L (42.0-52.0) % Plt Count 276 252 (160-400) X10*3/uL BMP 05/12/22 05/13/22 23:40 06:06 Sodium 137 138 Potassium 4.2 4.4 Chloride 103 105 Carbon Dioxide 23 22 BUN 13 10 Creatinine 0.92 0.79 Calcium 8.9 9.0 Liver Function 05/12/22 Range/Units 23:40 Total Bilirubin 0.3 (0.0-1.0) mg/dL AST 21 (5-37) U/L ALT 29 (0-40) U/L Alkaline Phosphatase 106 (39-117) U/L Albumin 4.0 (3.5-5.0) g/dL Urine 05/13/22 Range/Units 02:09 Urine Color Yellow Urine Appearance Clear Urine pH 6.0 (5.0-9.0) Ur Specific [place] 1.015 (1.005-1.025) Urine Protein Negative (Neg-Trace) mg/dL Urine Glucose (UA) 500 H (Negative) mg/dL noncontrast head CT revealed [id number] diffuse cerebral atrophy and [id number] chronic microvascular ischemic changes. Assessment and Plan (1) Acute CVA (cerebrovascular accident): Status: Acute 71 years old man with underlying hypertension and associated atherothrombotic microvascular disease of brain stop taking his medicines while he was in [place]. On coming back, he has complained of multiple symptoms including lethargy, chest pain, right-sided weakness. He had an MRI of brain done at [facility] few days ago that revealed a punctate area of acute ischemic infarction in left carpus callosum. This time he was admitted with chest discomfort. His examination did not reveal any change from his baseline. He was educated about value of taking these medicines on regular basis and not stopping them. Recommendation is to continue blood pressure medicines, anti-platelet agent and statin. He should follow through with his primary care physician Procedures Date of Service Date of Service: 05/13/22
[2022-05-13] MEDS: Acetaminophen 325 MG TABLET 650 MG PO (10:52)
[2022-05-13 11:07] LABS: Glucose, Whole Blood 165 mg/dL (60-115)
--- NOTE | 2022-05-13 11:35 | PHA.MEDREC ---
Pharmacy Consult ? Medication Reconciliation Pharmacy has completed the medication reconciliation. Patient's son and patient confirmed medicaitons. Reports a new medications for sleep but unsure the name. Abby Gallegos, VickeyD
[2022-05-13] MEDS: Insulin Lispro 100 UNIT/ML 3 ML VIAL SUBCUT ×2 (12:16→16:55)
--- NOTE | 2022-05-13 12:27 | P.DS_ITS ---
DS: Providers Provider Date of Service: 05/13/22 Date of admission: 05/13/22 01:48 Primary care physician: John Graff MD Consults: 05/13/22 02:30 Consult to Neurology Routine Consulting Provider: [facility] Reason for consultation: CVA Has provider been notified: No DS: Diagnosis Discharge Diagnosis (1) Acute CVA (cerebrovascular accident): Status: Inactive DS: Summary Hospital Course Hospital Course: ?71 years old man with underlying hypertension and associated atherothrombotic microvascular disease of brain, hypertension, hyperlipidemia, insulin- dependent diabetes with A1c of 9.7 who has been experiencing chest pain, SOB x1. He .? On coming back, he has complained of multiple symptoms including lethargy, chest pain, right-sided weakness.? He had an MRI of brain done at [facility] few days ago that revealed a punctate area of acute ischemic infarction in left carpus callosum.? This time he was admitted with chest discomfort.? His examination did not reveal any change from his baseline.? He was educated about value of taking these medicines on regular basis and not stopping them.? Recommendation is to continue blood pressure medicines, anti- platelet agent and statin.? He should follow through with his primary care physician Time Spent with Patient Time attestation: Total time spent providing and/or coordinating discharge services: Discharge coordination time: Greater than 30 minutes Quality: Safe Use of Opioids Does Pt have an Active Cancer Diagnosis on the Problem List?: No Quality: Stroke Does the patient have a stroke diagnosis?: No Physical Exam Vital Signs: Vital Signs: Last Vital Signs Temp 97.7 F 05/13/22 11:34 Pulse 67 05/13/22 11:34 Resp 20 05/13/22 11:34 BP 130/56 L 05/13/22 11:34 Pulse Ox 97 05/13/22 11:34 O2 Del Method 05/13/22 11:34 BMI result Body Mass Index 27.7 DS: Data Data Completed and Pending Labs on day of discharge: Laboratory Results - last 24 hr 05/12/22 05/12/22 05/12/22 23:39 23:39 23:39 WBC RBC Hgb Hct MCV MCH MCHC RDW Plt Count MPV Immature Gran % (Auto) Neut % (Auto) Lymph % (Auto) [place] % (Auto) Eos % (Auto) Baso % (Auto) Lymph # (Auto) [place] # (Auto) Eos # (Auto) Baso # (Auto) Abs Immat Gran (auto) Absolute Neuts (auto) Absolute Nucleated RBC Nucleated RBC % (auto) PT INR D-Dimer High Sensitivty Sodium Potassium Chloride Carbon Dioxide Anion Gap BUN Creatinine Estim Creat Clear Calc Estimated GFR POC Glucose Random Glucose Lactic Acid Calcium Magnesium 1.9 Total Bilirubin AST ALT Alkaline Phosphatase Troponin I High Sens 3.5 B-Natriuretic Peptide Total Protein Albumin Urine Color Urine Appearance Urine pH Ur Specific [place] Urine Protein Urine Glucose (UA) Urine Ketones Urine Blood Urine Nitrite Ur Leukocyte Esterase Urine RBC Urine WBC Ur Squamous Epith Cells Calcium Oxalate Crystal Urine Bacteria Hyaline Casts COVID-19 ([facility]) Negative COVID-19 Clin Com See Note 05/12/22 05/12/22 05/12/22 23:39 23:40 23:40 WBC 8.3 RBC 4.54 L Hgb 12.3 L Hct 37.9 L MCV 83.5 MCH 27.1 MCHC 32.5 RDW 14.9 Plt Count 276 MPV 11.3 Immature Gran % (Auto) 0.2 Neut % (Auto) 52.4 Lymph % (Auto) 34.8 [place] % (Auto) 8.3 Eos % (Auto) 3.6 Baso % (Auto) 0.7 Lymph # (Auto) 2.9 [place] # (Auto) 0.7 Eos # (Auto) 0.3 Baso # (Auto) 0.1 Abs Immat Gran (auto) 0.02 Absolute Neuts (auto) 4.3 Absolute Nucleated RBC 0.000 Nucleated RBC % (auto) 0.0 PT 10.9 INR 1.0 D-Dimer High Sensitivty 185 Sodium Potassium Chloride Carbon Dioxide Anion Gap BUN Creatinine Estim Creat Clear Calc Estimated GFR POC Glucose Random Glucose Lactic Acid Calcium Magnesium Total Bilirubin AST ALT Alkaline Phosphatase Troponin I High Sens B-Natriuretic Peptide 26 Total Protein Albumin Urine Color Urine Appearance Urine pH Ur Specific [place] Urine Protein Urine Glucose (UA) Urine Ketones Urine Blood Urine Nitrite Ur Leukocyte Esterase Urine RBC Urine WBC Ur Squamous Epith Cells Calcium Oxalate Crystal Urine Bacteria Hyaline Casts COVID-19 ([facility]ESA) COVID-Shoppilot Com 05/12/22 05/13/22 05/13/22 23:40 02:09 02:19 WBC RBC Hgb Hct MCV MCH MCHC RDW Plt Count MPV Immature Gran % (Auto) Neut % (Auto) Lymph % (Auto) [place] % (Auto) Eos % (Auto) Baso % (Auto) Lymph # (Auto) [place] # (Auto) Eos # (Auto) Baso # (Auto) Abs Immat Gran (auto) Absolute Neuts (auto) Absolute Nucleated RBC Nucleated RBC % (auto) PT INR D-Dimer High Sensitivty Sodium 137 Potassium 4.2 Chloride 103 Carbon Dioxide 23 Anion Gap 15 BUN 13 Creatinine 0.92 Estim Creat Clear Calc 84.4 Estimated GFR > 60 POC Glucose Random Glucose 266 H D Lactic Acid 1.6 Calcium 8.9 Magnesium Total Bilirubin 0.3 AST 21 ALT 29 Alkaline Phosphatase 106 Troponin I High Sens B-Natriuretic Peptide Total Protein 7.2 Albumin 4.0 Urine Color Yellow Urine Appearance Clear Urine pH 6.0 Ur Specific [place] 1.015 Urine Protein Negative Urine Glucose (UA) 500 H Urine Ketones Negative Urine Blood Trace Urine Nitrite Negative Ur Leukocyte Esterase Negative Urine RBC 0-2 Urine WBC 0-5 Ur Squamous Epith Cells 0-2 Calcium Oxalate Crystal Present Urine Bacteria Trace Hyaline Casts 0-2 COVID-19 ([facility]) COVID-19 Clin Com 05/13/22 05/13/22 05/13/22 02:19 02:27 06:06 WBC 8.6 RBC 4.59 L Hgb 12.8 L Hct 38.8 L MCV 84.5 MCH 27.9 MCHC 33.0 RDW 14.9 Plt Count 252 MPV 11.6 Immature Gran % (Auto) 0.1 Neut % (Auto) 55.1 Lymph % (Auto) 32.0 [place] % (Auto) 8.5 Eos % (Auto) 3.5 Baso % (Auto) 0.8 Lymph # (Auto) 2.7 [place] # (Auto) 0.7 Eos # (Auto) 0.3 Baso # (Auto) 0.1 Abs Immat Gran (auto) 0.01 Absolute Neuts (auto) 4.7 Absolute Nucleated RBC 0.000 Nucleated RBC % (auto) 0.0 PT INR D-Dimer High Sensitivty Sodium Potassium Chloride Carbon Dioxide Anion Gap BUN Creatinine Estim Creat Clear Calc Estimated GFR POC Glucose 153 H Random Glucose Lactic Acid Calcium Magnesium Total Bilirubin AST ALT Alkaline Phosphatase Troponin I High Sens 4.1 B-Natriuretic Peptide Total Protein Albumin Urine Color Urine Appearance Urine pH Ur Specific [place] Urine Protein Urine Glucose (UA) Urine Ketones Urine Blood Urine Nitrite Ur Leukocyte Esterase Urine RBC Urine WBC Ur Squamous Epith Cells Calcium Oxalate Crystal Urine Bacteria Hyaline Casts COVID-19 ([facility]) COVID-19 Clin Com 05/13/22 05/13/22 05/13/22 06:06 06:06 07:29 WBC RBC Hgb Hct MCV MCH MCHC RDW Plt Count MPV Immature Gran % (Auto) Neut % (Auto) Lymph % (Auto) [place] % (Auto) Eos % (Auto) Baso % (Auto) Lymph # (Auto) [place] # (Auto) Eos # (Auto) Baso # (Auto) Abs Immat Gran (auto) Absolute Neuts (auto) Absolute Nucleated RBC Nucleated RBC % (auto) PT INR D-Dimer High Sensitivty Sodium 138 Potassium 4.4 Chloride 105 Carbon Dioxide 22 Anion Gap 15 BUN 10 Creatinine 0.79 Estim Creat Clear Calc 98.3 Estimated GFR > 60 POC Glucose 144 H Random Glucose 173 H Lactic Acid Calcium 9.0 Magnesium Total Bilirubin AST ALT Alkaline Phosphatase Troponin I High Sens 4.3 B-Natriuretic Peptide Total Protein Albumin Urine Color Urine Appearance Urine pH Ur Specific [place] Urine Protein Urine Glucose (UA) Urine Ketones Urine Blood Urine Nitrite Ur Leukocyte Esterase Urine RBC Urine WBC Ur Squamous Epith Cells Calcium Oxalate Crystal Urine Bacteria Hyaline Casts COVID-19 ([facility]) COVID-19 Clin Com 05/13/22 11:02 WBC RBC Hgb Hct MCV MCH MCHC RDW Plt Count MPV Immature Gran % (Auto) Neut % (Auto) Lymph % (Auto) [place] % (Auto) Eos % (Auto) Baso % (Auto) Lymph # (Auto) [place] # (Auto) Eos # (Auto) Baso # (Auto) Abs Immat Gran (auto) Absolute Neuts (auto) Absolute Nucleated RBC Nucleated RBC % (auto) PT INR D-Dimer High Sensitivty Sodium Potassium Chloride Carbon Dioxide Anion Gap BUN Creatinine Estim Creat Clear Calc Estimated GFR POC Glucose 165 H Random Glucose Lactic Acid Calcium Magnesium Total Bilirubin AST ALT Alkaline Phosphatase Troponin I High Sens B-Natriuretic Peptide Total Protein Albumin Urine Color Urine Appearance Urine pH Ur Specific [place] Urine Protein Urine Glucose (UA) Urine Ketones Urine Blood Urine Nitrite Ur Leukocyte Esterase Urine RBC Urine WBC Ur Squamous Epith Cells Calcium Oxalate Crystal Urine Bacteria Hyaline Casts COVID-19 ([facility]) COVID-19 Clin Com Discharge Plan Discharge Anticipated Discharge Date/Time: 05/13/22 12:07 Patient Disposition: Home, Self-Care Discharge Diagnosis: Post stroke headaches Referrals: John Graff MD [Primary Care Provider] - 1 Week Palma Roth MD [Physician] - 2 Weeks (headaches) Discharge Medications: Continued aspirin 81 mg tablet,delayed release (DR/EC) 81 mg PO DAILY Qty: 90 1RF lidocaine [Lidoderm] 5 % adhesive patch,medicated 1 patch topical DAILY PRN (Reason: Pain) Rx Instructions: leave on most painful area for up to 12 hrs meclizine 25 mg tablet 25 mg PO Q8H PRN (Reason: Dizziness) (DME) miscellaneous medical supply [facility] See Rx Instructions .ROUTE .MEDSUPPLY Qty: 1 0RF Rx Instructions: Diabetic Shoes, Daily As directed. 999 days. 1 Pair (DME) lancets [FreeStyle Lancets] 28 gauge [facility] See Rx Instructions topical .MEDSUPPLY Qty: 100 Rx Instructions: As directed atorvastatin 40 mg tablet 40 mg PO DAILY Qty: 90 2RF cyanocobalamin (vitamin B-12) 1,000 mcg tablet 1,000 mcg PO DAILY 90 Days Qty: 90 2RF gabapentin 600 mg tablet 600 mg PO TID 90 Days Qty: 270 2RF lisinopril 10 mg tablet 10 mg PO BID 90 Days Qty: 180 4RF metformin 1,000 mg tablet 1,000 mg PO BID 90 Days Qty: 180 3RF omeprazole 20 mg capsule,delayed release(DR/EC) 40 mg PO DAILY 90 Days Qty: 180 3RF No Action (DME) pen needle, diabetic [BD Ultra-Fine Short Pen Needle] 31 gauge x 5/16 needle See Rx Instructions subcut .MEDSUPPLY Qty: 400 2RF Rx Instructions: 4 times a day As directed. 90 days clopidogrel 75 mg tablet 75 mg PO DAILY 90 Days Qty: 90 3RF (DME) FreeStyle Lite Strips Strip See Rx Instructions Not Applicable .MEDSUPPLY Qty: 400 3RF Rx Instructions: Test BS 4 times daily, As directed, 90 days (DME) blood-glucose meter [FreeStyle [place] Lite] Kit See Rx Instructions .ROUTE .MEDSUPPLY Qty: 1 0RF Rx Instructions: Test BS 4 times a day. As directed, 999 days insulin aspart U-100 [Novolog FlexPen U-100 Insulin] 100 unit/mL (3 mL) insulin pen 15 unit subcut TIDAC 30 Days Qty: 15 3RF Rx Instructions: 15-20 units tid. Pt is travelling and needs 3 month supply (DME) miscellaneous medical supply Misc See Rx Instructions .ROUTE .MEDSUPPLY Qty: 1 0RF Rx Instructions: Diabetic shoes. Daily As directed, 999 days. One pair. ferrous sulfate 325 mg (65 mg iron) tablet 325 mg PO DAILY insulin glargine [Lantus Solostar U-100 Insulin] 100 unit/mL (3 mL) insulin pen 60 unit subcut QPM 30 Days Qty: 21 3RF quetiapine [Seroquel] 25 mg tablet 25 mg PO BEDTIME 30 Days Qty: 30 1RF clobetasol 0.05 % cream 1 appl topical BID 14 Days Qty: 60 1RF (DME) FreeStyle [place]ole 2 [place] Misc See Rx Instructions .Route Qty: 1 8RF Rx Instructions: As directed (DME) FreeStyle Nikole 2 [place] Misc See Rx Instructions .Route Qty: 1 8RF Rx Instructions: As directed topiramate 50 mg tablet 50 mg PO BID 30 Days Qty: 60 3RF diclofenac sodium [Arthritis Pain (diclofenac)] 1 % gel 2 g topical QID 30 Days Qty: 100 2RF Rx Instructions: apply to single elbow, wrist or hand; for hand includes palm/fingers/back of hand metoprolol succinate 25 mg tablet extended release 24 hr 12.5 mg PO DAILY 30 Days Qty: 15 1RF Discharge Orders: Discharge Order (Routine); Ordered 05/13/22 Ordered By: Meet Bloom Diet: Advance to usual diet Activity on Discharge: As tolerated Stand Alone Forms: Patient Portal Discharge page Care Plan Goals: full recovery from recent stroke and headaches Health Concerns: headache, weakness from recent stroke, pneumonia Plan of Treatment: Please take all your medications as directed Follow up with Dr Roth for headaches take Fioricet as needed for headache Assessment: As above Discharge Date/Time: 05/13/22 19:10
[2022-05-13] MEDS: Atorvastatin Calcium 40 MG TABLET PO (13:45)
[2022-05-13] MEDS: Aspirin Enteric Coated 81 MG TABLET.DR PO (13:45)
[2022-05-13] MEDS: Gabapentin 600 MG TABLET PO (13:45)
[2022-05-13] MEDS: Omeprazole 40 MG CAPSULE.DR PO (13:45)
[2022-05-13] MEDS: lisinopriL 10 MG TABLET PO (13:45)
[2022-05-13] MEDS: Cyanocobalamin (Vitamin B-12) 1,000 MCG TABLET 1000 MCG PO (13:45)
--- NOTE | 2022-05-13 13:51 | MHC.CM.PN ---
Patient has been accepted at all 3 Acute Rehab facilities in this area(recommended by PT & OT). Per MD, the plan is home with [facility]. CM will follow.
[2022-05-13] MEDS: NaPROXEN 500 MG TABLET PO (13:57)
--- NOTE | 2022-05-13 14:05 | MHC.CM.PN ---
Per MD, Patient likely to dc to home tomorrow. [facility] accepted Patient and CM will continue to follow.
[2022-05-13 16:11] LABS: Glucose, Whole Blood 269 mg/dL (60-115)
--- NOTE | 2022-05-13 16:19 | MHC.STROKE ---
Subacute Stroke, MRI done at [facility]. See Dr. Roth's neurology note.
== END 2022-05-13 19:10 | disposition home or self-care (01) ==
LOC: HO.ED 05-13 01:56 → HO.EDOVER 05-13 02:39 → HO.IMC 05-13 03:01
PROVIDERS: Physician Assistant; Admitting Provider Internal Medicine; Emergency Provider Emergency Medicine; PCP Family Medicine; Visit Provider Internal Medicine
DX: R06.02 Shortness of breath (principal); R07.89 Other chest pain; E11.9 Type 2 diabetes mellitus without complications; R60.0 Localized edema; R51.9 Headache, unspecified; R26.81 Unsteadiness on feet; Z20.822 Contact with and (suspected) exposure to COVID-19; Z79.4 Long term (current) use of insulin; Z79.899 Other long term (current) drug therapy; Z91.14 Patient's other noncompliance with medication regimen; Z86.73 Personal history of transient ischemic attack (TIA), and cerebral infarction without residual deficits
CPT/HCPCS: 36415; 70450; 71275; 74177; 80048; 80053; 81001; 82947; 83605; 83735; 83880; 84484; 85025; 85379; 85610; 87040; 87635; 93005; 93306; 93970; 96365; 96366; 96372; 96375; 97162; 97166; 99219; 99285; J0456; J0696; J1650; J2270; J2405; Q9957; Q9967

== ENCOUNTER → 2022-06-17 14:12 | Outpatient (BNVA) | payer MEDICARE, OTHER, SELFPAY | PROVIDERS: PCP Family Medicine; Visit Provider Orthopaedic Surgery | DX: M65.331 Trigger finger, right middle finger (principal); M65.341 Trigger finger, right ring finger; M72.0 Palmar fascial fibromatosis [Dupuytren]; M79.642 Pain in left hand; R20.0 Anesthesia of skin; R20.2 Paresthesia of skin | CPT/HCPCS: 20550; 99212; J1100 ==

== ENCOUNTER 2022-06-18 14:40 | Emergency (ER) | payer MEDICARE, OTHER, SELFPAY ==
[2022-06-18 14:55] VITALS: BMI 26.4
[2022-06-18 15:01] VITALS: BP 168/77; PULSE 67; RESP 16; TEMP 37.1; O2SAT 98
[2022-06-18 15:06] LABS: Glucose, Whole Blood 293 mg/dL (60-115)
--- NOTE | 2022-06-18 15:44 | ED.GENADULT ---
HPI - General Adult General Chief complaint: Psychiatric Symptoms <ENDER Crespo Last Filed: 06/18/22 17:45> Stated complaint: SEC 12 FOR SI FROM MD OFFICE PER EMS <ENDER Crespo - Last Filed: 06/18/22 17:45> Time Seen by Provider: 06/18/22 15:43 <ENDER Crespo Last Filed: 06/18/22 17:45> Source: patient and EMS <ENDER Crespo Last Filed: 06/18/22 17:45> Mode of arrival: EMS <ENDER Crespo Last Filed: 06/18/22 17:45> Limitations: no limitations <ENDER Crespo Last Filed: 06/18/22 17:45> History of Present Illness HPI narrative: Patient is a 71 year old assigned male at with a history of DM presenting to the emergency department today with suicidal ideation. Patient's primary physician called and stated the patient was in the office and was very cavalier about killing himself by taking his insulin. Patient's primary care doctor states that the patient seemed very serious about this and he recommended the patient be evaluated here. Patient states that he wishes he was and wants to kill himself with his insulin. Patient denies any dizziness, lightheadedness, abdominal pain, nausea, vomiting, fever, chills, blurry vision, double vision, loss of vision, chest pain, difficulty breathing, shortness of breath, back pain, night sweats, pain with urination, increased urinary frequency, increased urinary urgency, blood in his urine or stool, syncope or a near syncopal episode, recent trauma or falls, bowel incontinence, bladder incontinence, bowel retention, bladder retention, or any other complaints at this time. <ENDER Crespo - Last Filed: 06/18/22 17:45> Onset (ago): day(s) <ENDER Crespo Last Filed: 06/18/22 17:45> Severity: moderate <ENDER Crespo Last Filed: 06/18/22 17:45> Severity scale (1-10): 4 <ENDER Crespo Last Filed: 06/18/22 17:45> Relieving factors: none <ENDER Crespo Last Filed: 06/18/22 17:45> Exacerbating factors: none <ENDER Crespo - Last Filed: 06/18/22 17:45> Associated symptoms: denies other symptoms <ENDER Crespo - Last Filed: 06/18/22 17:45> Treatments prior to arrival: none <ENDER Crespo - Last Filed: 06/18/22 17:45> Related Data Home medications: Home Medications Medication Instructions Recorded Confirmed meclizine 25 mg tablet 25 mg PO Q8H PRN Dizziness 04/09/21 05/13/22 lancets 28 gauge (FreeStyle #100 ea 05/27/21 Lancets) lidocaine 5 % topical patch 1 patch topical DAILY PRN Pain 05/13/22 05/13/22 (Lidoderm) Previous Rx's Medication Instructions Recorded miscellaneous medical supply #1 ea 04/09/21 aspirin 81 mg tablet,delayed 81 mg PO DAILY #90 tabs 07/28/21 release atorvastatin 40 mg tablet 40 mg PO DAILY #90 tabs 10/06/21 cyanocobalamin (vitamin B-12) 1,000 mcg PO DAILY 90 days #90 tabs 10/06/21 1,000 mcg tablet gabapentin 600 mg tablet 600 mg PO TID 90 days #270 tabs 10/06/21 lisinopril 10 mg tablet 10 mg PO BID 90 days #180 tabs 10/06/21 metformin 1,000 mg tablet 1,000 mg PO BID 90 days #180 tabs 10/06/21 omeprazole 20 mg capsule,delayed 40 mg PO DAILY 90 days #180 caps 10/06/21 release pen needle, diabetic 31 gauge x #400 ea 05/13/22/ (BD Ultra-Fine Short Pen Needle) flash glucose scanning reader #1 ea 05/20/22 (FreeStyle Nikole 2 [place]) flash glucose scanning reader #1 ea 05/20/22 (FreeStyle Nikole 2 [place]) blood sugar diagnostic (FreeStyle #400 ea 05/29/22 Lite Strips) blood-glucose meter (FreeStyle #1 ea 05/29/22 [place] Lite kit) clopidogrel 75 mg tablet 75 mg PO DAILY 90 days #90 tabs 05/29/22 insulin aspart U-100 100 unit/mL 15 unit (0.15 mL) subcut TIDAC 30 05/29/22 (3 mL) subcutaneous pen (Novo days #15 mL Flexpen U-100 Insulin aspart) diclofenac sodium 1 % topical gel 2 g topical QID 30 days #100 grams 06/01/22 (Arthritis Pain (diclofenac)) metoprolol succinate 25 mg 12.5 mg PO DAILY 30 days #15 tabs 06/01/22 tablet,extended release 24 hr topiramate 50 mg tablet 50 mg PO BID 30 days #60 tabs 06/01/22 insulin glargine 100 unit/mL (3 67 unit (0.67 mL) subcut BEDTIME 06/18/22 mL) subcutaneous pen (Basaglar 30 days #21 mL KwikPen U-100 Insulin) quetiapine 25 mg tablet (Seroquel) 25 mg PO BEDTIME 30 days #30 tabs 06/18/22 <ENDER Crespo Last Filed: 06/18/22 17:45> Allergies/adverse reactions: Allergies Allergy/AdvReac Type Severity Reaction Status Date / Time No Known Allergies Allergy Verified 06/18/22 13:21 [No Known Allergies*] <ENDER Crespo Last Filed: 06/18/22 17:45> Review of Systems Constitutional: Constitutional: Reports no additional constitutional complaints, Denies chills, Denies fever(s) and Denies night sweats <ENDER Crespo Last Filed: 06/18/22 17:45> Eyes: Eyes: Reports no additional eye complaints, Denies blurry vision, Denies change in vision, Denies diplopia, Denies eye discharge, Denies loss of vision and Denies eye pain <ENDER Crespo Last Filed: 06/18/22 17:45> ENT: Denies dizziness <ENDER Crespo Last Filed: 06/18/22 17:45> Cardiovascular: Cardiovascular: Reports no additional cardiovascular complaints, Denies chest pain, Denies lightheadedness, Denies Loss of Consciousness and Denies dyspnea <ENDER Crespo Last Filed: 06/18/22 17:45> Respiratory: Respiratory: Reports no additional respiratory complaints and Denies dyspnea <ENDER Crespo Last Filed: 06/18/22 17:45> Gastrointestinal: Gastrointestinal: Reports no additional gastrointestinal complaints, Denies abdominal pain, Denies melena, Denies hematochezia, Denies change in bowel habits and Denies change in stool character <ENDER Crespo - Last Filed: 06/18/22 17:45> Genitourinary: Genitourinary: Reports no additional male genitourinary complaints, Denies hematuria, Denies oliguria, Denies difficulty urinating, Denies dysuria, Denies urinary frequency, Denies urinary hesitancy, Denies urinary incontinence and Denies urinary urgency <ENDER Crespo - Last Filed: 06/18/22 17:45> Musculoskeletal: Musculoskeletal: Reports no additional musculoskeletal complaints, Denies numbness and Denies tingling <ENDER Crespo - Last Filed: 06/18/22 17:45> Neurologic: Denies dizziness, Denies loss of vision, Denies numbness and Denies tingling <ENDER Crespo - Last Filed: 06/18/22 17:45> Psychiatric: Psychiatric: Reports no additional psychiatric complaints and Reports suicidal ideation <ENDER Crespo - Last Filed: 06/18/22 17:45> Endocrine: Endocrine: Reports no additional endocrine complaints <ENDER Crespo - Last Filed: 06/18/22 17:45> Hematologic/Lymphatic: Hematologic/Lymphatic: Reports no additional hematologic/lymphatic complaints <ENDER Crespo - Last Filed: 06/18/22 17:45> Allergic/Immunologic: Allergic/Immunologic: Reports no additional allergic/immunologic complaints <ENDER Crespo - Last Filed: 06/18/22 17:45> [facility] Past Medical History Attestation statement: The following information was validated with the patient. <ENDER Crespo - Last Filed: 06/18/22 17:45> Source: old records reviewed and nursing notes reviewed <ENDER Crespo - Last Filed: 06/18/22 17:45> Medical History: Medical History Acute CVA (cerebrovascular accident) Diabetes type 2, uncontrolled Dupuytren's disease of palm Essential hypertension History of CVA (cerebrovascular accident) Neuropathy Trigger finger, right ring finger <ENDER Crespo - Last Filed: 06/18/22 17:45> Surgical History: Surgical History No pertinent past surgical history <ENDER Crespo - Last Filed: 06/18/22 17:45> Social History Social History: Social History Household Members: Family Housing: House Do you presently have visiting nurse or other home services: No Alcohol intake: never Patient Tobacco Use Status: Never used Tobacco e-Cigarette/Vaping Use: Never Used Second Hand Smoke Exposure: No Advance Directives: No Advance Directives Information Provided: No service: No Current occupational status: disabled Current occupation: rt hand Current occupational exposures/hazards: No Cognitive needs: Yes (Cane) Hearing needs: No Vision needs: Yes (Glasses) <ENDER Crespo - Last Filed: 06/18/22 17:45> Physical Exam ED Vital Signs: Vital Signs - 24 hr 06/18/22 15:01 Temperature 98.7 F Pulse Rate 67 Respiratory Rate 16 Blood Pressure 168/77 H Pulse Oximetry 98 Oxygen Delivery Method Room Air BMI result Body Mass Index 26.4 <ENDER Crespo - Last Filed: 06/18/22 17:45> Vital Signs - 24 hr 06/18/22 15:01 Temperature 98.7 F Pulse Rate 67 Respiratory Rate 16 Blood Pressure 168/77 H Pulse Oximetry 98 Oxygen Delivery Method Room Air BMI result Body Mass Index 26.4 <ENDER Sandoval - Last Filed: 06/18/22 19:59> Const General: cooperative, no acute distress, alert and awake <ENDER Crespo - Last Filed: 06/18/22 17:45> Nutritional Appearance: well nourished <ENDER Crespo - Last Filed: 06/18/22 17:45> Orientation/consciousness: patient oriented x3 <ENDER Crespo - Last Filed: 06/18/22 17:45> Limitations: no limitations <ENDER Crespo Last Filed: 06/18/22 17:45> HENMT Head: Yes normal to inspection and Yes atraumatic <ENDER Crespo - Last Filed: 06/18/22 17:45> Ears: hearing grossly normal bilaterally and external ears normal <Ale Mathewselsa PA - Last Filed: 06/18/22 17:45> General nose exam: Normal external nose present, no nasal discharge noted and no epistaxis <Ale Mathewselsa PA - Last Filed: 06/18/22 17:45> Face and sinus: Yes normal facial exam, No abrasion and No laceration <Ale MathewsENDER hunter - Last Filed: 06/18/22 17:45> Mouth: Normal oral and palatal mucosa present, no drooling and no muffled voice <Ale Mathewselsa PA - Last Filed: 06/18/22 17:45> Eyes General: appearance normal, both eyes and all related structures <Alecharbel MathewsENDER hunter - Last Filed: 06/18/22 17:45> Periorbital: periorbital findings normal <Ale MathewsENDER hunter - Last Filed: 06/18/22 17:45> Eyelids: Yes eyelids normal <Alecharbel Mathewselsa CO - Last Filed: 06/18/22 17:45> Conjunctivae: conjunctivae normal <Ale Mathewselsa CO - Last Filed: 06/18/22 17:45> Pupils: Equal, round and reactive pupils present <Ale MathewsENDER hunter - Last Filed: 06/18/22 17:45> EOM: EOMs intact bilaterally <Ale Mathewselsa CO - Last Filed: 06/18/22 17:45> Neck Neck: Yes normal visual inspection, Yes full ROM and Yes no lymphadenopathy <ENDER Cerspo - Last Filed: 06/18/22 17:45> Chest Chest palpation & inspection: normal inspection of the chest <Ale Natalia PA - Last Filed: 06/18/22 17:45> Resp Effort & Inspection: normal respiratory effort and able to speak in complete sentences <ENDER Crespo - Last Filed: 06/18/22 17:45> Auscultation: clear to auscultation bilaterally <Ale ENDER Fisher - Last Filed: 06/18/22 17:45> Cardio Rate: regular rate <ENDER Crespo - Last Filed: 06/18/22 17:45> Rhythm: regular rhythm <ENDER Crespo - Last Filed: 06/18/22 17:45> GI Inspection: Yes normal to inspection <Ale Fisher PA - Last Filed: 06/18/22 17:45> Neuro General: patient oriented x3 and moves all extremities <Ale Fisher PA - Last Filed: 06/18/22 17:45> Cranial nerves: Yes Equal, round and reactive pupils present <Ale Fisher ENDER - Last Filed: 06/18/22 17:45> Cognition (Neuro): normal cognition <Ale Fisher ENDER - Last Filed: 06/18/22 17:45> Motor exam (neuro): 5/5 motor strength present throughout <Ale Fisher PA - Last Filed: 06/18/22 17:45> Sensory Exam: Normal double simultaneous stimulation for sensation <Ale Fisher PA - Last Filed: 06/18/22 17:45> Coordination: [id number] test normal <Ale Fisher ENDER - Last Filed: 06/18/22 17:45> Extrem General: Yes normal to inspection, Yes full ROM and Yes capillary refill normal <Ale Fisher PA - Last Filed: 06/18/22 17:45> Psych Mental Status: mental status grossly normal <Ale Fisher ENDER - Last Filed: 06/18/22 17:45> Affect: Indifferent affect present <Ale Fisher ENDER - Last Filed: 06/18/22 17:45> Attitude: Guarded attititude/behavior present <Ale Fisher ENDER - Last Filed: 06/18/22 17:45> Thought process: Circumstantial thought process present <Ale Fisher ENDER - Last Filed: 06/18/22 17:45> Thought content: Suicidality present <Ale Fisher PA - Last Filed: 06/18/22 17:45> Insight: Limited insight present (Psych) <Ale FisherENDER - Last Filed: 06/18/22 17:45> Judgement: Limited judgement present (Psych) <Ale FisherENDER - Last Filed: 06/18/22 17:45> Course Reevaluation(s) Reevaluation #1: Spoke to CARE team linsey Castillo depression, patient has a good support system. Reports depression sp stroke. No si or hi. Family very supportive. Educated patient on diagnosis and treatment plan, answered all question, patient verbalizes understanding. At this time patient will be discharged home, advised to return with new or worsening symptoms. Educated on worrisome signs and symptoms and when to return. At this time I feel comfortable discharge home. <ENDER Sandoval - Last Filed: 06/18/22 19:59> Time: 19:58 <ENDER Sandoval - Last Filed: 06/18/22 19:59> Medical Decision Making Medical Decision Making MDM Narrative: Patient is a 71 year old assigned male at with a history of DM presenting to the emergency department today with suicidal ideation. Patient's physical exam showed a depressed male who is suicidal. Patient's blood work was unremarkable. Patient's urine showed no acute process. I explained my physical exam findings as well as all test results to the patient. I answered all questions asked by the patient. Patient presently awaiting behavioral health evaluation. Patient should be kept on section 12 pending evaluation. <ENDER Crespo - Last Filed: 06/18/22 17:45> Differential Diagnosis Differential Diagnoses: The differential diagnosis associated with the presentation includes <ENDER Crespo - Last Filed: 06/18/22 17:45> suicidal ideation <ENDER Crespo - Last Filed: 06/18/22 17:45> Lab Data Result Diagrams: : 06/18/22 16:18 06/18/22 16:18 <ENDER Crespo - Last Filed: 06/18/22 17:45> Labs: Lab Results 06/18/22 06/18/22 06/18/22 Range/Units 15:02 16:11 16:18 WBC 11.1 H (4.8-10.8) X10*3/uL RBC 4.26 L (4.60-5.80) X10*6/uL Hgb 11.9 L (14.0-18.0) g/dl Hct 35.5 L (42.0-52.0) % MCV 83.3 (80.0-98.0) fL MCH 27.9 (27.0-33.0) pg MCHC 33.5 (31.0-36.0) g/dl RDW 14.3 (11.0-16.0) % Plt Count 235 (160-400) X10*3/uL MPV 11.3 (9.4-12.4) fL Immature Gran % (Auto) 0.3 (0.0-0.4) % Neut % (Auto) 63.0 (45-73) % Lymph % (Auto) 28.2 (20-40) % [place] % (Auto) 6.7 (2-11) % Eos % (Auto) 1.4 (0-4) % Baso % (Auto) 0.4 (0-2) % Lymph # (Auto) 3.1 (1.2-4.9) X10*3/uL [place] # (Auto) 0.7 (0.1-1.2) X10*3/uL Eos # (Auto) 0.2 (0.0-0.4) X10*3/uL Baso # (Auto) 0.0 (0.0-0.2) X10*3/uL Abs Immat Gran (auto) 0.03 (0.00-0.03) X10*3/uL Absolute Neuts (auto) 7.0 (2.0-8.3) x10*3/uL Absolute Nucleated RBC 0.000 (0.0-0.012) X10*3/uL Nucleated RBC % (auto) 0.0 (0.0-0.2) /100WBC Sodium (135-145) mmol/L Potassium (3.3-5.1) mmol/L Chloride (96-108) mmol/L Carbon Dioxide (22-29) mmol/L Anion Gap (12-20) BUN (9-16) mg/dL Creatinine (0.5-1.4) mg/dL Estim Creat Clear Calc Estimated GFR POC Glucose 293 H (60-115) mg/dL Random Glucose (60-115) mg/dL Calcium (8.4-10.2) mg/dL Total Bilirubin (0.0-1.0) mg/dL AST (5-37) U/L ALT (0-40) U/L Alkaline Phosphatase (39-117) U/L Total Protein (6.5-8.0) g/dL Albumin (3.5-5.0) g/dL Urine Color Urine Appearance Urine pH (5.0-9.0) Ur Specific [place] (1.005-1.025) Urine Protein (Neg-Trace) mg/dL Urine Glucose (UA) (Negative) mg/dL Urine Ketones (Negative) mg/dL Urine Blood (Negative) Urine Nitrite (Negative) Ur Leukocyte Esterase (Negative) Urine RBC (0-2) /HPF Urine WBC (0-5) /HPF Ur Squamous Epith Cells (0-2) /HPF Urine Bacteria (None Seen) Hyaline Casts (0-2) /LPF Salicylates (15-30) mg/dL Urine Opiates Screen (Not Detect) Urine Fentanyl Screen (Not Detect) Acetaminophen (<30) mcg/mL Ur Barbiturates Screen (Not Detect) Ur Phencyclidine Scrn (Not Detect) Ur Amphetamines Screen (Not Detect) U Benzodiazepines Scrn (Not Detect) Urine Cocaine Screen (Not Detect) U Marijuana (THC) Screen (Not Detect) Ethyl Alcohol mg/dL COVID-19 ([facility]) Negative (Negative) COVID-19 Clin Com See Note 06/18/22 06/18/22 06/18/22 Range/Units 16:18 18:14 18:34 WBC (4.8-10.8) X10*3/uL RBC (4.60-5.80) X10*6/uL Hgb (14.0-18.0) g/dl Hct (42.0-52.0) % MCV (80.0-98.0) fL MCH (27.0-33.0) pg MCHC (31.0-36.0) g/dl RDW (11.0-16.0) % Plt Count (160-400) X10*3/uL MPV (9.4-12.4) fL Immature Gran % (Auto) (0.0-0.4) % Neut % (Auto) (45-73) % Lymph % (Auto) (20-40) % [place] % (Auto) (2-11) % Eos % (Auto) (0-4) % Baso % (Auto) (0-2) % Lymph # (Auto) (1.2-4.9) X10*3/uL [place] # (Auto) (0.1-1.2) X10*3/uL Eos # (Auto) (0.0-0.4) X10*3/uL Baso # (Auto) (0.0-0.2) X10*3/uL Abs Immat Gran (auto) (0.00-0.03) X10*3/uL Absolute Neuts (auto) (2.0-8.3) x10*3/uL Absolute Nucleated RBC (0.0-0.012) X10*3/uL Nucleated RBC % (auto) (0.0-0.2) /100WBC Sodium 137 (135-145) mmol/L Potassium 4.9 (3.3-5.1) mmol/L Chloride 106 (96-108) mmol/L Carbon Dioxide 21 L (22-29) mmol/L Anion Gap 15 (12-20) BUN 25 H (9-16) mg/dL Creatinine 1.26 (0.5-1.4) mg/dL Estim Creat Clear Calc 61.6 Estimated GFR 57 POC Glucose 220 H (60-115) mg/dL Random Glucose 342 H (60-115) mg/dL Calcium 9.3 (8.4-10.2) mg/dL Total Bilirubin 0.2 (0.0-1.0) mg/dL AST 19 (5-37) U/L ALT 23 (0-40) U/L Alkaline Phosphatase 105 (39-117) U/L Total Protein 6.8 (6.5-8.0) g/dL Albumin 3.8 (3.5-5.0) g/dL Urine Color Yellow Urine Appearance Clear Urine pH 5.0 (5.0-9.0) Ur Specific [place] 1.020 (1.005-1.025) Urine Protein Negative (Neg-Trace) mg/dL Urine Glucose (UA) >=1000 H (Negative) mg/dL Urine Ketones Negative (Negative) mg/dL Urine Blood Negative (Negative) Urine Nitrite Negative (Negative) Ur Leukocyte Esterase Negative (Negative) Urine RBC 0-2 (0-2) /HPF Urine WBC 0-5 (0-5) /HPF Ur Squamous Epith Cells 0-2 (0-2) /HPF Urine Bacteria None Seen (None Seen) Hyaline Casts 3-5 (0-2) /LPF Salicylates < 5.0 L (15-30) mg/dL Urine Opiates Screen (Not Detect) Urine Fentanyl Screen (Not Detect) Acetaminophen 5 (<30) mcg/mL Ur Barbiturates Screen (Not Detect) Ur Phencyclidine Scrn (Not Detect) Ur Amphetamines Screen (Not Detect) U Benzodiazepines Scrn (Not Detect) Urine Cocaine Screen (Not Detect) U Marijuana (THC) Screen (Not Detect) Ethyl Alcohol < 10 mg/dL COVID-19 ([facility]) (Negative) COVID-19 Clin Com 06/18/22 Range/Units 18:34 WBC (4.8-10.8) X10*3/uL RBC (4.60-5.80) X10*6/uL Hgb (14.0-18.0) g/dl Hct (42.0-52.0) % MCV (80.0-98.0) fL MCH (27.0-33.0) pg MCHC (31.0-36.0) g/dl RDW (11.0-16.0) % Plt Count (160-400) X10*3/uL MPV (9.4-12.4) fL Immature Gran % (Auto) (0.0-0.4) % Neut % (Auto) (45-73) % Lymph % (Auto) (20-40) % [place] % (Auto) (2-11) % Eos % (Auto) (0-4) % Baso % (Auto) (0-2) % Lymph # (Auto) (1.2-4.9) X10*3/uL [place] # (Auto) (0.1-1.2) X10*3/uL Eos # (Auto) (0.0-0.4) X10*3/uL Baso # (Auto) (0.0-0.2) X10*3/uL Abs Immat Gran (auto) (0.00-0.03) X10*3/uL Absolute Neuts (auto) (2.0-8.3) x10*3/uL Absolute Nucleated RBC (0.0-0.012) X10*3/uL Nucleated RBC % (auto) (0.0-0.2) /100WBC Sodium (135-145) mmol/L Potassium (3.3-5.1) mmol/L Chloride (96-108) mmol/L Carbon Dioxide (22-29) mmol/L Anion Gap (12-20) BUN (9-16) mg/dL Creatinine (0.5-1.4) mg/dL Estim Creat Clear Calc Estimated GFR POC Glucose (60-115) mg/dL Random Glucose (60-115) mg/dL Calcium (8.4-10.2) mg/dL Total Bilirubin (0.0-1.0) mg/dL AST (5-37) U/L ALT (0-40) U/L Alkaline Phosphatase (39-117) U/L Total Protein (6.5-8.0) g/dL Albumin (3.5-5.0) g/dL Urine Color Urine Appearance Urine pH (5.0-9.0) Ur Specific [place] (1.005-1.025) Urine Protein (Neg-Trace) mg/dL Urine Glucose (UA) (Negative) mg/dL Urine Ketones (Negative) mg/dL Urine Blood (Negative) Urine Nitrite (Negative) Ur Leukocyte Esterase (Negative) Urine RBC (0-2) /HPF Urine WBC (0-5) /HPF Ur Squamous Epith Cells (0-2) /HPF Urine Bacteria (None Seen) Hyaline Casts (0-2) /LPF Salicylates (15-30) mg/dL Urine Opiates Screen Not Detected (Not Detect) Urine Fentanyl Screen Not Detected (Not Detect) Acetaminophen (<30) mcg/mL Ur Barbiturates Screen Not Detected (Not Detect) Ur Phencyclidine Scrn Not Detected (Not Detect) Ur Amphetamines Screen Not Detected (Not Detect) U Benzodiazepines Scrn Not Detected (Not Detect) Urine Cocaine Screen Not Detected (Not Detect) U Marijuana (THC) Screen Not Detected (Not Detect) Ethyl Alcohol mg/dL COVID-19 ([facility]) (Negative) COVID-19 Clin Com <ENDER Crespo - Last Filed: 06/18/22 17:45> Lab Results 06/18/22 06/18/22 06/18/22 Range/Units 15:02 16:11 16:18 WBC 11.1 H (4.8-10.8) X10*3/uL RBC 4.26 L (4.60-5.80) X10*6/uL Hgb 11.9 L (14.0-18.0) g/dl Hct 35.5 L (42.0-52.0) % MCV 83.3 (80.0-98.0) fL MCH 27.9 (27.0-33.0) pg MCHC 33.5 (31.0-36.0) g/dl RDW 14.3 (11.0-16.0) % Plt Count 235 (160-400) X10*3/uL MPV 11.3 (9.4-12.4) fL Immature Gran % (Auto) 0.3 (0.0-0.4) % Neut % (Auto) 63.0 (45-73) % Lymph % (Auto) 28.2 (20-40) % [place] % (Auto) 6.7 (2-11) % Eos % (Auto) 1.4 (0-4) % Baso % (Auto) 0.4 (0-2) % Lymph # (Auto) 3.1 (1.2-4.9) X10*3/uL [place] # (Auto) 0.7 (0.1-1.2) X10*3/uL Eos # (Auto) 0.2 (0.0-0.4) X10*3/uL Baso # (Auto) 0.0 (0.0-0.2) X10*3/uL Abs Immat Gran (auto) 0.03 (0.00-0.03) X10*3/uL Absolute Neuts (auto) 7.0 (2.0-8.3) x10*3/uL Absolute Nucleated RBC 0.000 (0.0-0.012) X10*3/uL Nucleated RBC % (auto) 0.0 (0.0-0.2) /100WBC Sodium (135-145) mmol/L Potassium (3.3-5.1) mmol/L Chloride (96-108) mmol/L Carbon Dioxide (22-29) mmol/L Anion Gap (12-20) BUN (9-16) mg/dL Creatinine (0.5-1.4) mg/dL Estim Creat Clear Calc Estimated GFR POC Glucose 293 H (60-115) mg/dL Random Glucose (60-115) mg/dL Calcium (8.4-10.2) mg/dL Total Bilirubin (0.0-1.0) mg/dL AST (5-37) U/L ALT (0-40) U/L Alkaline Phosphatase (39-117) U/L Total Protein (6.5-8.0) g/dL Albumin (3.5-5.0) g/dL Urine Color Urine Appearance Urine pH (5.0-9.0) Ur Specific [place] (1.005-1.025) Urine Protein (Neg-Trace) mg/dL Urine Glucose (UA) (Negative) mg/dL Urine Ketones (Negative) mg/dL Urine Blood (Negative) Urine Nitrite (Negative) Ur Leukocyte Esterase (Negative) Urine RBC (0-2) /HPF Urine WBC (0-5) /HPF Ur Squamous Epith Cells (0-2) /HPF Urine Bacteria (None Seen) Hyaline Casts (0-2) /LPF Salicylates (15-30) mg/dL Urine Opiates Screen (Not Detect) Urine Fentanyl Screen (Not Detect) Acetaminophen (<30) mcg/mL Ur Barbiturates Screen (Not Detect) Ur Phencyclidine Scrn (Not Detect) Ur Amphetamines Screen (Not Detect) U Benzodiazepines Scrn (Not Detect) Urine Cocaine Screen (Not Detect) U Marijuana (THC) Screen (Not Detect) Ethyl Alcohol mg/dL COVID-19 ([facility]) Negative (Negative) COVID-19 Clin Com See Note 06/18/22 06/18/22 06/18/22 Range/Units 16:18 18:14 18:34 WBC (4.8-10.8) X10*3/uL RBC (4.60-5.80) X10*6/uL Hgb (14.0-18.0) g/dl Hct (42.0-52.0) % MCV (80.0-98.0) fL MCH (27.0-33.0) pg MCHC (31.0-36.0) g/dl RDW (11.0-16.0) % Plt Count (160-400) X10*3/uL MPV (9.4-12.4) fL Immature Gran % (Auto) (0.0-0.4) % Neut % (Auto) (45-73) % Lymph % (Auto) (20-40) % [place] % (Auto) (2-11) % Eos % (Auto) (0-4) % Baso % (Auto) (0-2) % Lymph # (Auto) (1.2-4.9) X10*3/uL [place] # (Auto) (0.1-1.2) X10*3/uL Eos # (Auto) (0.0-0.4) X10*3/uL Baso # (Auto) (0.0-0.2) X10*3/uL Abs Immat Gran (auto) (0.00-0.03) X10*3/uL Absolute Neuts (auto) (2.0-8.3) x10*3/uL Absolute Nucleated RBC (0.0-0.012) X10*3/uL Nucleated RBC % (auto) (0.0-0.2) /100WBC Sodium 137 (135-145) mmol/L Potassium 4.9 (3.3-5.1) mmol/L Chloride 106 (96-108) mmol/L Carbon Dioxide 21 L (22-29) mmol/L Anion Gap 15 (12-20) BUN 25 H (9-16) mg/dL Creatinine 1.26 (0.5-1.4) mg/dL Estim Creat Clear Calc 61.6 Estimated GFR 57 POC Glucose 220 H (60-115) mg/dL Random Glucose 342 H (60-115) mg/dL Calcium 9.3 (8.4-10.2) mg/dL Total Bilirubin 0.2 (0.0-1.0) mg/dL AST 19 (5-37) U/L ALT 23 (0-40) U/L Alkaline Phosphatase 105 (39-117) U/L Total Protein 6.8 (6.5-8.0) g/dL Albumin 3.8 (3.5-5.0) g/dL Urine Color Yellow Urine Appearance Clear Urine pH 5.0 (5.0-9.0) Ur Specific [place] 1.020 (1.005-1.025) Urine Protein Negative (Neg-Trace) mg/dL Urine Glucose (UA) >=1000 H (Negative) mg/dL Urine Ketones Negative (Negative) mg/dL Urine Blood Negative (Negative) Urine Nitrite Negative (Negative) Ur Leukocyte Esterase Negative (Negative) Urine RBC 0-2 (0-2) /HPF Urine WBC 0-5 (0-5) /HPF Ur Squamous Epith Cells 0-2 (0-2) /HPF Urine Bacteria None Seen (None Seen) Hyaline Casts 3-5 (0-2) /LPF Salicylates < 5.0 L (15-30) mg/dL Urine Opiates Screen (Not Detect) Urine Fentanyl Screen (Not Detect) Acetaminophen 5 (<30) mcg/mL Ur Barbiturates Screen (Not Detect) Ur Phencyclidine Scrn (Not Detect) Ur Amphetamines Screen (Not Detect) U Benzodiazepines Scrn (Not Detect) Urine Cocaine Screen (Not Detect) U Marijuana (THC) Screen (Not Detect) Ethyl Alcohol < 10 mg/dL COVID-19 ([facility]) (Negative) COVID-19 Clin Com 06/18/22 Range/Units 18:34 WBC (4.8-10.8) X10*3/uL RBC (4.60-5.80) X10*6/uL Hgb (14.0-18.0) g/dl Hct (42.0-52.0) % MCV (80.0-98.0) fL MCH (27.0-33.0) pg MCHC (31.0-36.0) g/dl RDW (11.0-16.0) % Plt Count (160-400) X10*3/uL MPV (9.4-12.4) fL Immature Gran % (Auto) (0.0-0.4) % Neut % (Auto) (45-73) % Lymph % (Auto) (20-40) % [place] % (Auto) (2-11) % Eos % (Auto) (0-4) % Baso % (Auto) (0-2) % Lymph # (Auto) (1.2-4.9) X10*3/uL [place] # (Auto) (0.1-1.2) X10*3/uL Eos # (Auto) (0.0-0.4) X10*3/uL Baso # (Auto) (0.0-0.2) X10*3/uL Abs Immat Gran (auto) (0.00-0.03) X10*3/uL Absolute Neuts (auto) (2.0-8.3) x10*3/uL Absolute Nucleated RBC (0.0-0.012) X10*3/uL Nucleated RBC % (auto) (0.0-0.2) /100WBC Sodium (135-145) mmol/L Potassium (3.3-5.1) mmol/L Chloride (96-108) mmol/L Carbon Dioxide (22-29) mmol/L Anion Gap (12-20) BUN (9-16) mg/dL Creatinine (0.5-1.4) mg/dL Estim Creat Clear Calc Estimated GFR POC Glucose (60-115) mg/dL Random Glucose (60-115) mg/dL Calcium (8.4-10.2) mg/dL Total Bilirubin (0.0-1.0) mg/dL AST (5-37) U/L ALT (0-40) U/L Alkaline Phosphatase (39-117) U/L Total Protein (6.5-8.0) g/dL Albumin (3.5-5.0) g/dL Urine Color Urine Appearance Urine pH (5.0-9.0) Ur Specific [place] (1.005-1.025) Urine Protein (Neg-Trace) mg/dL Urine Glucose (UA) (Negative) mg/dL Urine Ketones (Negative) mg/dL Urine Blood (Negative) Urine Nitrite (Negative) Ur Leukocyte Esterase (Negative) Urine RBC (0-2) /HPF Urine WBC (0-5) /HPF Ur Squamous Epith Cells (0-2) /HPF Urine Bacteria (None Seen) Hyaline Casts (0-2) /LPF Salicylates (15-30) mg/dL Urine Opiates Screen Not Detected (Not Detect) Urine Fentanyl Screen Not Detected (Not Detect) Acetaminophen (<30) mcg/mL Ur Barbiturates Screen Not Detected (Not Detect) Ur Phencyclidine Scrn Not Detected (Not Detect) Ur Amphetamines Screen Not Detected (Not Detect) U Benzodiazepines Scrn Not Detected (Not Detect) Urine Cocaine Screen Not Detected (Not Detect) U Marijuana (THC) Screen Not Detected (Not Detect) Ethyl Alcohol mg/dL COVID-19 ([facility]) (Negative) COVID-19 Clin Com <ENDER Sandoval - Last Filed: 06/18/22 19:59> Discharge Plan Discharge Clinical Impression: Suicidal ideation, Depression <ENDER Crespo - Last Filed: 06/18/22 17:45> Patient Disposition: Home, Self-Care <ENDER Crespo - Last Filed: 06/18/22 17:45> Instructions: Depression (ED), Suicide Prevention (ED), Help Prevent Suicide (ED), Help Prevent Suicide in Older Adults (ED) <ENDER Crespo - Last Filed: 06/18/22 17:45> Additional Instructions: Take your medications as prescribed. If you were prescribed antibiotics today, it is important that you take your medication to their entirety, do not skip any doses, do not finish them early. Follow-up with your primary care provider this week. Return to the emergency department with new or worsening symptoms. Such as fevers, chills, chest pain, shortness of breath, nausea, vomiting, dizziness, headache, vision changes, lethargy In case of emergency call 911 <ENDER Crespo - Last Filed: 06/18/22 17:45> Prescriptions: No Action aspirin 81 mg tablet,delayed release (DR/EC) 81 mg PO DAILY Qty: 90 1RF (DME) pen needle, diabetic [BD Ultra-Fine Short Pen Needle] 31 gauge x 5/16 needle See Rx Instructions subcut .MEDSUPPLY Qty: 400 2RF Rx Instructions: 4 times a day As directed. 90 days clopidogrel 75 mg tablet 75 mg PO DAILY 90 Days Qty: 90 3RF (DME) FreeStyle Lite Strips Strip See Rx Instructions Not Applicable .MEDSUPPLY Qty: 400 3RF Rx Instructions: Test BS 4 times daily, As directed, 90 days (DME) blood-glucose meter [FreeStyle [place] Lite] Kit See Rx Instructions .ROUTE .MEDSUPPLY Qty: 1 0RF Rx Instructions: Test BS 4 times a day. As directed, 999 days insulin aspart U-100 [Novolog Flexpen U-100 Insulin] 100 unit/mL (3 mL) insulin pen 15 unit subcut TIDAC 30 Days Qty: 15 3RF Rx Instructions: 15-20 units tid. Pt is travelling and needs 3 month supply lidocaine [Lidoderm] 5 % adhesive patch,medicated 1 patch topical DAILY PRN (Reason: Pain) Rx Instructions: leave on most painful area for up to 12 hrs meclizine 25 mg tablet 25 mg PO Q8H PRN (Reason: Dizziness) (DME) miscellaneous medical supply Misc See Rx Instructions .ROUTE .MEDSUPPLY Qty: 1 0RF Rx Instructions: Diabetic Shoes, Daily As directed. 999 days. 1 Pair (DME) lancets [FreeStyle Lancets] 28 gauge misc See Rx Instructions topical .MEDSUPPLY Qty: 100 Rx Instructions: As directed atorvastatin 40 mg tablet 40 mg PO DAILY Qty: 90 2RF cyanocobalamin (vitamin B-12) 1,000 mcg tablet 1,000 mcg PO DAILY 90 Days Qty: 90 2RF gabapentin 600 mg tablet 600 mg PO TID 90 Days Qty: 270 2RF lisinopril 10 mg tablet 10 mg PO BID 90 Days Qty: 180 4RF metformin 1,000 mg tablet 1,000 mg PO BID 90 Days Qty: 180 3RF omeprazole 20 mg capsule,delayed release(DR/EC) 40 mg PO DAILY 90 Days Qty: 180 3RF quetiapine [Seroquel] 25 mg tablet 25 mg PO BEDTIME 30 Days Qty: 30 1RF insulin glargine [Basaglar KwikPen U-100 Insulin] 100 unit/mL (3 mL) insulin pen 67 unit subcut BEDTIME 30 Days Qty: 21 3RF (DME) FreeStyle Nikole 2 [place] Misc See Rx Instructions .Route Qty: 1 8RF Rx Instructions: As directed (DME) FreeStyle [place]ole 2 [place] Misc See Rx Instructions .Route Qty: 1 8RF Rx Instructions: As directed topiramate 50 mg tablet 50 mg PO BID 30 Days Qty: 60 3RF diclofenac sodium [Arthritis Pain (diclofenac)] 1 % gel 2 g topical QID 30 Days Qty: 100 2RF Rx Instructions: apply to single elbow, wrist or hand; for hand includes palm/fingers/back of hand metoprolol succinate 25 mg tablet extended release 24 hr 12.5 mg PO DAILY 30 Days Qty: 15 1RF <ENDER Crespo - Last Filed: 06/18/22 17:45> Referrals: [facility] [Provider Group] - 1 day <ENDER Crespo - Last Filed: 06/18/22 17:45>
[2022-06-18 16:24] LABS: MANUAL DIFF FLAG NO
[2022-06-18 16:31] LABS: Basophils Percent Auto 0.4 % (0-2); Eosinophils Absolute Auto 0.2 X10*3/uL (0.0-0.4); Eosinophils Percent Auto 1.4 % (0-4); Hematocrit 35.5 % (42.0-52.0); Hemoglobin 11.9 g/dl (14.0-18.0); Imm Gran Abs Auto 0.03 X10*3/uL (0.00-0.03); Imm Gran Pct Auto 0.3 % (0.0-0.4); Lymphocytes Absolute Auto 3.1 X10*3/uL (1.2-4.9); Lymphocytes Percent Auto 28.2 % (20-40); Mean Corpuscular HGB Conc 33.5 g/dl (31.0-36.0); Mean Corpuscular Hemoglobin 27.9 pg (27.0-33.0); Mean Corpuscular Volume 83.3 fL (80.0-98.0); Mean Platelet Volume 11.3 fL (9.4-12.4); Monocytes Absolute Auto 0.7 X10*3/uL (0.1-1.2); Monocytes Percent Auto 6.7 % (2-11); Platelet Count 235 X10*3/uL (160-400); Red Blood Count 4.26 X10*6/uL (4.60-5.80); Red Cell Distribution Width 14.3 % (11.0-16.0); White Blood Count 11.1 X10*3/uL (4.8-10.8)
[2022-06-18 16:49] LABS: COVID-19 Test Negative (Negative); IDNOW Serial# 16C4AD1C
[2022-06-18 16:54] LABS: Alanine Aminotransferase 23 U/L (0-40); Albumin Level 3.8 g/dL (3.5-5.0); Alkaline Phosphatase 105 U/L (39-117); Anion Gap 15 (12-20); Aspartate Amino Transferase 19 U/L (5-37); Bilirubin Total 0.2 mg/dL (0.0-1.0); Blood Urea Nitrogen 25 mg/dL (9-16); Calcium 9.3 mg/dL (8.4-10.2); Carbon Dioxide 21 mmol/L (22-29); Chloride 106 mmol/L (96-108); Creatinine Clr Calc Pharmacy 61.6; Estimated Glomerular Filt Rate 57; Ethanol < 10 mg/dL; Glucose Random 342 mg/dL (60-115); Potassium 4.9 mmol/L (3.3-5.1); Salicylate < 5.0 mg/dL (15-30); Sodium 137 mmol/L (135-145); Total Protein 6.8 g/dL (6.5-8.0)
[2022-06-18 17:31] LABS: Acetaminophen LAB 5 mcg/mL (<30)
[2022-06-18 18:18] LABS: Glucose, Whole Blood 220 mg/dL (60-115)
[2022-06-18 18:44] LABS: Appearance Urine Clear; Color Urine Yellow; Glucose Urine UA >=1000 mg/dL (Negative); Leukocyte Esterase Urine Negative (Negative); Nitrite Urine Negative (Negative); UMIC TRIGGER UA YES; Urine Blood Negative (Negative); Urine Ketones Negative (Negative); Urine Protein Negative (Neg-Trace)
[2022-06-18 18:54] LABS: Amphetamine Screen Urine Not Detected (Not Detect); Barbiturates, Urine Not Detected (Not Detect); Benzodiazepines Screen Urine Not Detected (Not Detect); Cannabinoid Screen Urine Not Detected (Not Detect); Cocaine Screen Urine Not Detected (Not Detect); Fentanyl, urine Not Detected (Not Detect); Opiate Screen Urine Not Detected (Not Detect); Phencyclidine Screen Urine Not Detected (Not Detect)
[2022-06-18 18:55] LABS: Bacteria Urine None Seen (None Seen); RBC Urine 0-2 /HPF (0-2); Squamous Epithelial Cell Urine 0-2 /HPF (0-2); WBC Urine 0-5 /HPF (0-5)
--- NOTE | 2022-06-18 21:00 | MHC.CARE ---
CARE TEAM met with patient in POD 2 due to arriving via EMS after endorsing suicidal ideation with a plan to overdose on insulin to his primary care doctor. Patient explained he has been experiencing severe headaches that radiate down his right side. He reported when experiencing this pain, he often lays in a dark room for about 30 mins or until pain has subsided. Patient expressed depressive and frustrated feelings due to loss of independence secondary to his medical concerns. He reported experiencing several strokes in the last couple months. He however denies current suicidal and homicidal ideation, plan or intent. [facility] [phone] (son) Son reported patient has suffered several strokes and since has been experiencing severe headaches. He explained patient had been prescribed several medications however reported patient has had no relief. He disclosed patient has family support at home and denied any safety concerns. Patient is a 71-year old, [place]ag[place] male who appears his stated age. He is observed laying on hospital bed. He is alert and orientated throughout assessment. Speech is clear. Eye contact is maintained. Memory is intact. Insight, judgment and impulse control appears to be fair. He reports lack of sleep due to racing thoughts and reports appetite is normal. He denies suicidal and homicidal ideation; and does not appear to be responding to an internal stimuli. It is in my clinical opinion that, patient appears to be experiencing increase depression which is exasperated by his severe headaches. Patient may benefit from following up with his Neurologist, to address his headaches. He may also benefit from being referred a mental health provider to address his depressive symptoms. Son was provided with referral information. Consulted with MATHEW Hubbard
== END 2022-06-18 20:26 | disposition home or self-care (01) ==
PROVIDERS: Physician Assistant Medical; Emergency Provider Student in an Organized Health Care Education/Training Program; PCP Family Medicine
DX: R45.851 Suicidal ideations (principal); F32.A Depression, unspecified; E11.9 Type 2 diabetes mellitus without complications; I10 Essential (primary) hypertension; E78.5 Hyperlipidemia, unspecified; Z86.73 Personal history of transient ischemic attack (TIA), and cerebral infarction without residual deficits; Z79.82 Long term (current) use of aspirin; Z79.02 Long term (current) use of antithrombotics/antiplatelets; Z79.4 Long term (current) use of insulin; Z79.899 Other long term (current) drug therapy; Z20.822 Contact with and (suspected) exposure to COVID-19
CPT/HCPCS: 36415; 80053; 80143; 80179; 80307; 81001; 82077; 82947; 85025; 87635; 99283

== ENCOUNTER → 2022-07-17 14:43 | Outpatient (BNVA) | payer MEDICARE, OTHER, SELFPAY | PROVIDERS: PCP Family Medicine; Visit Provider Orthopaedic Surgery | DX: M65.341 Trigger finger, right ring finger (principal); M65.331 Trigger finger, right middle finger; M72.0 Palmar fascial fibromatosis [Dupuytren]; M79.642 Pain in left hand; M65.332 Trigger finger, left middle finger; R20.0 Anesthesia of skin; R20.2 Paresthesia of skin; E11.65 Type 2 diabetes mellitus with hyperglycemia | CPT/HCPCS: 99212; J1100 ==

== ENCOUNTER → 2022-07-29 07:35 | Outpatient (BNVA) | payer MEDICARE, MEDICAID, SELFPAY | PROVIDERS: PCP Family Medicine; Visit Provider Student in an Organized Health Care Education/Training Program | DX: M67.911 Unspecified disorder of synovium and tendon, right shoulder (principal); M17.0 Bilateral primary osteoarthritis of knee | CPT/HCPCS: 99202 ==

== ENCOUNTER 2022-09-07 17:44 | Outpatient (REF) | payer OTHER, MEDICAID, SELFPAY ==
--- NOTE | ~2022-09-07 | US_ITS ---
EXAMINATION: US VENOUS ULTRASOUND WITH DOPPLER LOWER EXTREMITY, RIGHT CLINICAL INFORMATION: Right lower extremity edema COMPARISON: Bilateral DVT study 05/13/2022 TECHNIQUE: Ultrasound of the deep veins is performed from the hip to the calf with compression sonography and color and pulse Doppler assessment. Spectral analysis with color-flow imaging is performed. FINDINGS: There is normal venous compression and respiratory variation and augmented flow. The visualized common femoral vein, superficial femoral vein, profunda femoral vein, popliteal vein, and the trifurcation region shows no evidence of deep venous thrombosis. There is no significant popliteal fossa cyst. There is a prominent right groin lymph node is present measuring 2 cm. If the patient's symptoms persist, followup ultrasound in 5 days 7 days might be of value to exclude proximal propagation from a non-visualized calf vein. US/US venous duplex LE RT IMPRESSION: No DVT demonstrated in the right lower extremity.
== END 2022-09-07 17:45 | disposition home or self-care (01) ==
LOC: HO.US 17:44
PROVIDERS: Visit Provider Nurse Practitioner Primary Care
DX: M79.604 Pain in right leg (principal)
CPT/HCPCS: 93971

== ENCOUNTER 2022-10-21 10:47 | Outpatient (REF) | payer MEDICARE, MEDICAID, SELFPAY ==
--- NOTE | ~2022-10-21 | XR_ITS ---
EXAMINATION: Knee x-ray CLINICAL INFORMATION: Polyarticular osteoarthritis COMPARISON: Previous knee x-rays from 2017 and 2019 TECHNIQUE: 4 views of each knee FINDINGS: Right: Bone alignment is normal. No fracture or dislocation. Femoral tibial joints are normal. There is arthritis at the patellofemoral joint with small osteophytes. There is a small joint effusion. There are periarticular soft tissue calcifications. Left: Bone alignment is normal. No fracture or dislocation. There is arthritis at the medial femoral tibial and patellofemoral joints with joint space narrowing and osteophyte formation. There is an osteophyte at the quadriceps tendon insertion to the patella. There is a small joint effusion. XR/XR knee LT 3V IMPRESSION: Bilateral osteoarthritis, left greater than right.
--- NOTE | ~2022-10-21 | XR_ITS ---
EXAMINATION: Bilateral shoulder x-ray CLINICAL INFORMATION: Pain COMPARISON: None. TECHNIQUE: 3 views of each shoulder FINDINGS: Right: Bone alignment is normal. No fracture or dislocation. Osteoarthritis at the glenohumeral and acromioclavicular joints with joint space narrowing and osteophyte formation. Degenerative changes of the greater tuberosity. Normal soft tissues. Left: Bone alignment is normal. No fracture or dislocation. Normal glenohumeral joint. Arthritis at the acromioclavicular joint with joint space narrowing and osteophyte formation. Degenerative changes of the greater tuberosity. Normal soft tissues. XR/XR shoulder LT min 2V IMPRESSION: Bilateral osteoarthritis.
--- NOTE | ~2022-10-21 | XR_ITS ---
EXAMINATION: Knee x-ray CLINICAL INFORMATION: Polyarticular osteoarthritis COMPARISON: Previous knee x-rays from 2017 and 2019 TECHNIQUE: 4 views of each knee FINDINGS: Right: Bone alignment is normal. No fracture or dislocation. Femoral tibial joints are normal. There is arthritis at the patellofemoral joint with small osteophytes. There is a small joint effusion. There are periarticular soft tissue calcifications. Left: Bone alignment is normal. No fracture or dislocation. There is arthritis at the medial femoral tibial and patellofemoral joints with joint space narrowing and osteophyte formation. There is an osteophyte at the quadriceps tendon insertion to the patella. There is a small joint effusion. XR/XR knee RT 3V IMPRESSION: Bilateral osteoarthritis, left greater than right.
--- NOTE | ~2022-10-21 | XR_ITS ---
EXAMINATION: Bilateral shoulder x-ray CLINICAL INFORMATION: Pain COMPARISON: None. TECHNIQUE: 3 views of each shoulder FINDINGS: Right: Bone alignment is normal. No fracture or dislocation. Osteoarthritis at the glenohumeral and acromioclavicular joints with joint space narrowing and osteophyte formation. Degenerative changes of the greater tuberosity. Normal soft tissues. Left: Bone alignment is normal. No fracture or dislocation. Normal glenohumeral joint. Arthritis at the acromioclavicular joint with joint space narrowing and osteophyte formation. Degenerative changes of the greater tuberosity. Normal soft tissues. XR/XR shoulder RT min 2V IMPRESSION: Bilateral osteoarthritis.
--- NOTE | ~2022-10-21 | XR_ITS ---
EXAMINATION: Knee x-ray CLINICAL INFORMATION: Polyarticular osteoarthritis COMPARISON: Previous knee x-rays from 2017 and 2019 TECHNIQUE: 4 views of each knee FINDINGS: Right: Bone alignment is normal. No fracture or dislocation. Femoral tibial joints are normal. There is arthritis at the patellofemoral joint with small osteophytes. There is a small joint effusion. There are periarticular soft tissue calcifications. Left: Bone alignment is normal. No fracture or dislocation. There is arthritis at the medial femoral tibial and patellofemoral joints with joint space narrowing and osteophyte formation. There is an osteophyte at the quadriceps tendon insertion to the patella. There is a small joint effusion. XR/XR knee standing BI IMPRESSION: Bilateral osteoarthritis, left greater than right.
== END 2022-10-21 10:48 | disposition home or self-care (01) ==
LOC: HO.XRAY 10:47
PROVIDERS: PCP Family Medicine; Visit Provider Student in an Organized Health Care Education/Training Program
DX: M15.9 Polyosteoarthritis, unspecified (principal); M25.561 Pain in right knee; M25.562 Pain in left knee; M25.511 Pain in right shoulder; M25.512 Pain in left shoulder
CPT/HCPCS: 73030; 73562; 73564; 73565

== ENCOUNTER → 2022-10-23 10:16 | Outpatient (BNVA) | payer MEDICARE, MEDICAID, SELFPAY | PROVIDERS: PCP Family Medicine; Visit Provider Student in an Organized Health Care Education/Training Program | DX: M79.7 Fibromyalgia (principal) | CPT/HCPCS: 99212 ==

== ENCOUNTER → 2022-10-27 14:58 | Outpatient (BNVA) | payer MEDICARE, MEDICAID, SELFPAY | PROVIDERS: PCP Family Medicine; Visit Provider Orthopaedic Surgery | DX: M65.341 Trigger finger, right ring finger (principal); M65.331 Trigger finger, right middle finger; M65.332 Trigger finger, left middle finger; M72.0 Palmar fascial fibromatosis [Dupuytren]; M79.642 Pain in left hand; R20.0 Anesthesia of skin; R20.2 Paresthesia of skin; E11.65 Type 2 diabetes mellitus with hyperglycemia | CPT/HCPCS: 99212 ==

== ENCOUNTER → 2022-11-05 14:06 | Outpatient (BNVA) | payer MEDICARE, MEDICAID, SELFPAY | PROVIDERS: PCP Family Medicine; Visit Provider Internal Medicine Endocrinology, Diabetes & Metabolism | DX: E11.65 Type 2 diabetes mellitus with hyperglycemia (principal); Z79.4 Long term (current) use of insulin | CPT/HCPCS: 82947; 99202 ==

== ENCOUNTER → 2022-12-17 16:08 | Outpatient (BNVA) | payer MEDICARE, MEDICAID, SELFPAY | PROVIDERS: PCP Family Medicine; Visit Provider Internal Medicine Endocrinology, Diabetes & Metabolism | DX: E11.65 Type 2 diabetes mellitus with hyperglycemia (principal) | CPT/HCPCS: 82947; 99212 ==

== ENCOUNTER 2023-01-19 14:11 | Outpatient (AMB) | payer MEDICARE, MEDICAID, SELFPAY ==
--- NOTE | 2023-01-19 14:14 | MHC.PC.OV ---
Vital Signs 01/19/23 14:20 Height 6 ft 1 in Weight 225 lb BMI 29.7 BP 130/78 Blood Pressure Location Rt brachial Position Sitting Pulse 76 Pulse Source Pulse Oximeter Pulse Oximetry (%) 97 Intake Visit Reasons: f/u diabetes and chronic conditions Intake Note: pt is here for f/u dm and chronic cond Medical Office Representative Required: No Allergies No Known Allergies [No Known Allergies*] Allergy (Verified 01/19/23 14:14) Medication List - Last Reconciled 01/19/23 by John Graff MD aspirin 81 mg PO DAILY atorvastatin 40 mg PO DAILY blood sugar diagnostic (FreeStyle Lite Strips) DX: E11.9, test blood sugar 4 times a day, 90 days blood sugar diagnostic (FreeStyle Lite Strips) Test BS 4 times daily, As directed, 90 days blood-glucose meter (FreeStyle Lite Meter kit) DX: E11.9, test blood sugar 4 times a day, duration 999 days cholecalciferol (vitamin D3) (Vitamin D3) 50 mcg PO DAILY 90 days clobetasol 0.05% 1 appl topical BID 2 weeks clopidogrel 75 mg PO DAILY 90 days cyanocobalamin (vitamin B-12) 1,000 mcg PO DAILY 90 days diclofenac sodium 1% (Arthritis Pain (diclofenac)) 2 grams topical QID 30 days ferrous sulfate 325 mg PO DAILY flash glucose scanning reader (FreeStyle Nikole 2 [place]) As directed flash glucose scanning reader (FreeStyle [place] 2 [place]) As directed flash glucose sensor (FreeStyle [place] 2 Sensor kit) As directed gabapentin 600 mg PO TID 90 days insulin aspart U-100 (Novolog FlexPen U-100 Insulin aspart) 150 - 200 take 2 Units, 201- 250 take 4 Units, 251 - 300 take 6 Units, 301 - 350 take 8 Units, 351 - 400 take 10 Units, 401 or more take 12 Units and call physician 30 days insulin glargine (Lantus Solostar U-100 Insulin) 55 units subcut BID lancets (FreeStyle Lancets) Test blood sugar 4 times a day As directed, 90 days lidocaine 5% (Lidoderm) 1 patch topical DAILY 30 days lisinopril-hydrochlorothiazide 20-12.5 mg 1 tab PO DAILY 30 days meclizine 25 mg PO Q8H PRN metformin 1,000 mg PO BID 90 days metoprolol succinate ER 12.5 mg (1/2 x 25 mg) PO DAILY 30 days miscellaneous medical supply Diabetic Shoes, Daily As directed. 999 days. 1 Pair miscellaneous medical supply Diabetic shoes. Daily As directed, 999 days. One pair. omeprazole 40 mg (2 x 20 mg) PO DAILY 90 days pen needle, diabetic (BD Ultra-Fine Mini Pen Needle) As directed pen needle, diabetic (BD Ultra-Fine Short Pen Needle) 4 times a day As directed. 90 days quetiapine (Seroquel) 25 mg PO BEDTIME 30 days topiramate 50 mg PO BID Tobacco use date assessed: 08/10/22 Fall risk assessment: No Falls in past year Last assessed Fall Risk: 01/19/23 Dental Screening Dental Screen Date: 01/19/23 Did you have a dental visit in the last 12 months?: Yes Did you have a dental problem in the last 6 months where you did not have access to dental care?: No Was dental information given to patient?: Patient has dentist HPI f/u diabetes and chronic conditions HPI Details Patient is here to discuss increasing [employer] hours and review diabetes. Diabetes now managed by endocrinology, Dr. Hampton. Pt notes he has not used Trulicity before. Patient has a history of CVA and also worsening diabetic retinopathy and neuropathy. Currently receiving 14.5 hours per week [employer] care Since his last evaluation 09/25/22, he has had worsening unsteadiness of gait and neuropathy in lower extremities with resultant lower extremity weakness and deconditioning. Also worsening retinopathy and vision. HPI Comments History of Present Illness Details Documentation assistance for John Graff MD, was provided by Leonardo Mclean, [employer]oultry [employer] on 01/19/2023 2:35 PM DEXTER. Veto, Dr. Graff, have read, observed, and verified documentation. [facility] Medical History Acute CVA (cerebrovascular accident) Diabetes type 2, uncontrolled Dupuytren's disease of palm Essential hypertension History of CVA (cerebrovascular accident) Neuropathy Trigger finger, right ring finger Surgical History No pertinent past surgical history Social History Household Members: Family Housing: House Do you presently have visiting nurse or other home services: No Alcohol intake: never Patient Tobacco Use Status: Never used Tobacco e-Cigarette/Vaping Use: Never Used Second Hand Smoke Exposure: No service: No Current occupational status: disabled Current occupational exposures/hazards: No Cognitive needs: Yes (Cane) Hearing needs: No Vision needs: Yes (Glasses) Questionnaire SHAYNA-7 AMB Questionnaire SHAYNA-7 Date SHAYNA - 7 assessed: 07/23/22 Source: Developed by Drs. Tam Andrews, Cathy Barajas, Jesse Stewart and colleagues, with an educational carolin from [employer]. Review of Systems Const Denies chills, Denies fatigue, Denies fever(s), Denies headache(s) and Denies weakness ENT Denies dizziness and Denies headache(s) Card Denies chest pain, Denies lightheadedness, Denies dyspnea and Denies other (Palpitations) Resp Denies cough, Denies dyspnea, Denies wheezing and Denies other ( shortness of breath) Musc Denies numbness and Denies tingling Neuro Denies dizziness, Denies headache(s), Denies numbness, Denies tingling, Denies paresthesias and Denies weakness Psych Reports anxiety and Reports depression Endo Denies fatigue Aller/Immun Denies wheezing Physical exam (Primary Care) Vital Signs: Last Vital Signs Pulse 76 01/19/23 14:20 BP 130/78 01/19/23 14:20 Pulse Ox 97 01/19/23 14:20 BMI result Body Mass Index 29.7 Tobacco/Smoking Status: Tobacco use Status Tobacco use date assessed 08/10/22 01/19/23 14:17 Patient Tobacco Use Status Never used Tobacco 01/19/23 14:17 e-Cigarette/Vaping Use Never Used 01/19/23 14:17 Const General: no acute distress and well developed Nutritional Appearance: well nourished Orientation/consciousness: patient oriented x3 HENMT Head: Yes normocephalic and Yes atraumatic Eyes General: appearance normal, both eyes and all related structures Pupils: Equal, round and reactive pupils present EOM: EOMs intact bilaterally Resp Effort & Inspection: normal respiratory effort Auscultation: clear to auscultation bilaterally Cardio Rate: regular rate Rhythm: regular rhythm Heart sounds: S1 normal heart sound present, S2 normal heart sound present, no gallops, no murmurs and no rubs Neuro General: patient oriented x3 and gait normal Cranial nerves: Yes Equal, round and reactive pupils present Gait exam (Neuro): gait abnormal and Assisted gait required (Cane) Psych Affect: normal affect Results AMB Hemoglobin A1c AMB Hemoglobin A1c 9.0 % Last Edit by Jack Mehta CMA on 01/19/23 14:44 Assessment and Plan Assessment & Plan (1) Diabetes type 2, uncontrolled: Code(s): E11.65 - Type 2 diabetes mellitus with hyperglycemia Plan: A1c 9.0% Followed by Dr. Hampton, endocrinology who mentioned starting Trulicity Will start low-dose Trulicity and he has a follow-up appointment with Dr. Hampton month Positive diabetic retinopathy on recent eye exam in August Positive lower extremity neuropathy, some of which is due to diabetes and some is due to lumbar radiculopathy (2) Physical deconditioning: Code(s): R53.81 - Other malaise Plan: Unsteady gait and patient has back pain and neuropathy which lead to decreased ambulation and physical deconditioning He is using a cane Advise physical therapy Increased [employer] hours; currently getting up 14.5 hours weekly and I recommend a minimum of an additional 4 hours, up to an additional 5.5 hours. Filled out paperwork today (3) Unsteady gait: Code(s): R26.81 - Unsteadiness on feet Plan: As above (4) Lower extremity weakness: Code(s): R29.898 - Other symptoms and signs involving the musculoskeletal system Plan: Partly due to lumbar radiculopathy, neuropathy and partly due to prior CVA Referred back to Neurology (5) Depression with anxiety: Code(s): F41.8 - Other specified anxiety disorders Plan: He has an appointment with a therapist but notes that he has worsened depression today I have asked our nurse navigator to see him and evaluate. Orders: Orders AMB Hemoglobin A1c Today E11.40 - Type 2 diabetes mellitus with diabetic neuropathy, unspecified, E11.65 - Type 2 diabetes mellitus with hyperglycemia, E11.69 - Type 2 diabetes mellitus with other specified complication, E78.2 - Mixed hyperlipidemia Coding Level of Care Code Est Pt Level 4 (00344) Diagnoses Diabetes type 2, uncontrolled E11.65 Physical deconditioning R53.81 Unsteady gait R26.81 Lower extremity weakness R29.898 Depression with anxiety F41.8
[2023-01-19 14:20] VITALS: BP 130/78; PULSE 76; O2SAT 97; BMI 29.7
== END 2023-01-19 15:05 | disposition home or self-care (01) ==
PROVIDERS: PCP Family Medicine; Visit Provider Family Medicine
DX: E11.65 Type 2 diabetes mellitus with hyperglycemia (principal); F41.8 Other specified anxiety disorders; E11.40 Type 2 diabetes mellitus with diabetic neuropathy, unspecified; E11.69 Type 2 diabetes mellitus with other specified complication; R53.81 Other malaise; R29.898 Other symptoms and signs involving the musculoskeletal system; R26.81 Unsteadiness on feet; E78.2 Mixed hyperlipidemia
CPT/HCPCS: 83036; 99214

== ENCOUNTER 2023-02-18 12:54 | Outpatient (AMB) | payer MEDICARE, MEDICAID, SELFPAY ==
[2023-02-18 12:59] VITALS: BP 118/64; PULSE 70; RESP 12; TEMP 36.6; O2SAT 99; BMI 30.8
--- NOTE | 2023-02-18 12:59 | A.OFFPC_ITS ---
Vital Signs 02/18/23 12:59 Height 6 ft 1 in Weight 233 lb 8 oz BMI 30.8 BP 118/64 Blood Pressure Location Rt brachial Position Sitting Respiration 12 Pulse 70 Pulse Source Pulse Oximeter Temp 97.8 F Temp Source Temporal Artery Scan Pulse Oximetry (%) 99 Oxygen Delivery Method Room Air Intake Visit Reasons: f/u Chronic conditions Intake Note: Patient states that one of his medication is causing dizziness. Came into today appt a little dizzy. Patient states he needs a refill on his Meclizine. 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 Accompanied by: Self / Same As Patient Allergies No Known Allergies [No Known Allergies*] Allergy (Verified 02/18/23 13:08) Medication List - Last Reconciled 02/18/23 by John Graff MD aspirin 81 mg PO DAILY atorvastatin 40 mg PO DAILY blood sugar diagnostic (FreeStyle Lite Strips) DX: E11.9, test blood sugar 4 times a day, 90 days blood sugar diagnostic (FreeStyle Lite Strips) Test BS 4 times daily, As directed, 90 days blood-glucose meter (FreeStyle Lite Meter kit) DX: E11.9, test blood sugar 4 times a day, duration 999 days cholecalciferol (vitamin D3) (Vitamin D3) 50 mcg PO DAILY 90 days clobetasol 0.05% 1 appl topical BID 2 weeks clopidogrel 75 mg PO DAILY 90 days cyanocobalamin (vitamin B-12) 1,000 mcg PO DAILY 90 days diclofenac sodium 1% (Arthritis Pain (diclofenac)) 2 grams topical QID 30 days dulaglutide (Trulicity) 0.75 mg (0.5 mL) subcut QWEEK 28 days ferrous sulfate 325 mg PO DAILY flash glucose scanning reader (FreeStyle Nikole 2 [place]) As directed flash glucose sensor (FreeStyle Nikole 2 Sensor kit) As directed gabapentin 600 mg PO TID 90 days insulin aspart U-100 (Novolog FlexPen U-100 Insulin aspart) 150 - 200 take 2 Units, 201- 250 take 4 Units, 251 - 300 take 6 Units, 301 - 350 take 8 Units, 351 - 400 take 10 Units, 401 or more take 12 Units and call physician 30 days insulin glargine (Lantus Solostar U-100 Insulin) 55 units subcut BID lancets (FreeStyle Lancets) Test blood sugar 4 times a day As directed, 90 days lidocaine 5% (Lidoderm) 1 patch topical DAILY 30 days lisinopril-hydrochlorothiazide 20-12.5 mg 1 tab PO DAILY 30 days meclizine 25 mg PO Q8H PRN metformin 1,000 mg PO BID 90 days metoprolol succinate ER 12.5 mg (1/2 x 25 mg) PO DAILY 30 days miscellaneous medical supply Diabetic Shoes, Daily As directed. 999 days. 1 Pair miscellaneous medical supply Diabetic shoes. Daily As directed, 999 days. One pair. omeprazole 40 mg (2 x 20 mg) PO DAILY 90 days pen needle, diabetic (BD Ultra-Fine Mini Pen Needle) As directed pen needle, diabetic (BD Ultra-Fine Short Pen Needle) 4 times a day As directed. 90 days quetiapine (Seroquel) 25 mg PO BEDTIME 30 days topiramate 50 mg PO BID Tobacco use date assessed: 08/10/22 Fall risk assessment: No Falls in past year Last assessed Fall Risk: 02/18/23 Dental Screening Dental Screen Date: 02/18/23 Did you have a dental visit in the last 12 months?: No Did you have a dental problem in the last 6 months where you did not have access to dental care?: No Was dental information given to patient?: Patient has dentist HPI f/u Chronic conditions HPI Details 72 y/o male presents to f/u chronic conditions. Pt reports dizziness and questions whether or not it could be one of his medication. Random blood sugar today 192. He is being managed by Dr. Hampton for his blood sugars. Headaches and I increased topiramate. Lidoderm patches for neuropathy and back pain. He reports he does not think it has been helping much. He reports he has not seen pain management. He reports chest wall pain. He does note some shortness of breath associated with the chest pain. HPI Comments History of Present Illness Details Documentation assistance for John Graff MD, was provided by Leonardo Mclean,? Adolescent Coordinator on 02/18/2023 1:36 PM EST. I, Dr. Graff, have read, observed, and verified documentation.? [facility] Medical History Acute CVA (cerebrovascular accident) Diabetes type 2, uncontrolled Dupuytren's disease of palm Essential hypertension History of CVA (cerebrovascular accident) Neuropathy Trigger finger, right ring finger Surgical History No pertinent past surgical history Social History Household Members: Family Housing: House Do you presently have visiting nurse or other home services: No Alcohol intake: never Patient Tobacco Use Status: Former Tobacco user e-Cigarette/Vaping Use: Never Used Second Hand Smoke Exposure: No service: No Current occupational status: disabled Current occupational exposures/hazards: No Cognitive needs: Yes (Cane) Hearing needs: No Vision needs: Yes (Glasses) Questionnaire SHAYNA-7 AMB Questionnaire SHAYNA-7 Date SHAYNA - 7 assessed: 07/23/22 Source: Developed by Drs. Tam Andrews, Cathy Barajas, Jesse Stewart and colleagues, with an educational carolin from [employer]. Review of Systems Const Denies fatigue and Reports headache(s) ENT Reports headache(s) Card Denies chest pain, Denies lightheadedness, Denies dyspnea and Denies other (Palpitations) Resp Denies cough, Denies dyspnea, Denies wheezing and Denies other ( shortness of breath) Musc Reports back pain Neuro Reports headache(s) Psych Denies anxiety and Denies depression Endo Denies fatigue Aller/Immun Denies wheezing Physical exam (Primary Care) Vital Signs: Last Vital Signs Temp 97.8 F 02/18/23 12:59 Pulse 70 02/18/23 12:59 Resp 12 02/18/23 12:59 BP 118/64 02/18/23 12:59 Pulse Ox 99 02/18/23 12:59 Oxygen Delivery Method Room Air 02/18/23 12:59 BMI result Body Mass Index 30.8 Tobacco/Smoking Status: Tobacco use Status Tobacco use date assessed 08/10/22 02/18/23 13:12 Patient Tobacco Use Status Former Tobacco user 02/18/23 13:12 e-Cigarette/Vaping Use Never Used 02/18/23 13:12 Const General: no acute distress and well developed Nutritional Appearance: well nourished Orientation/consciousness: patient oriented x3 HENMT Head: Yes normocephalic and Yes atraumatic Eyes General: appearance normal, both eyes and all related structures Pupils: Equal, round and reactive pupils present EOM: EOMs intact bilaterally Resp Effort & Inspection: normal respiratory effort Auscultation: clear to auscultation bilaterally Cardio Rate: regular rate Rhythm: regular rhythm Heart sounds: S1 normal heart sound present, S2 normal heart sound present, no gallops, no murmurs and no rubs Neuro General: patient oriented x3 and gait normal Cranial nerves: Yes Equal, round and reactive pupils present Gait exam (Neuro): gait abnormal and Assisted gait required Psych Affect: normal affect Results AMB Random Glucose (hemocue) AMB Random Glucose (hemocue) 192 mg/dL Last Edit by Janie Eric CMA on 02/18/23 13:31 Results Reviewed Results Reviewed: Laboratory Last Values Random Glu (Clinic) 192 mg/dL 02/18/23 13:28 Assessment and Plan Assessment & Plan (1) Diabetes type 2, uncontrolled: Code(s): E11.65 - Type 2 diabetes mellitus with hyperglycemia Plan: Followed by Dr. Hampton Random fasting blood sugar today 192 checked due to complaints of some dizziness. No low blood sugar Continue follow-up with endocrinology for diabetes care (2) Unsteady gait: Code(s): R26.81 - Unsteadiness on feet Plan: Ongoing lower extremity weakness with multifactorial causes including Back pain Dizziness Neuropathy Deconditioning Have asked him to follow-up with Neurology though he has still not had an appointment. Had asked the office to help him with arranging an appointment but this has still not happened. Have sent a message to administration today and will continue to insist that he is scheduled as soon as possible. (3) Dizziness: Code(s): R42 - Dizziness and giddiness Plan: Dizziness today. Blood pressure is okay and blood sugar is not low. He seems to think this may coincide with increasing his topiramate but this medication has been helping with his severe headaches and is part of the issue for which he needs to be seen by Neurology. 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 Referral is made. Hopefully this will improve his ability to walk and improved conditioning and gait (5) Unsteady gait: Code(s): R26.81 - Unsteadiness on feet Plan: As above (6) Chest wall pain: Code(s): R07.89 - Other chest pain Plan: At end of visit patient notes he has been having some left-sided chest pain. This appears reproducible but patient does acknowledge it sometimes coincides with some shortness of breath and he requests an EKG EKG: (7) Atypical chest pain: Code(s): R07.89 - Other chest pain Plan: As above Orders: Orders AMB Random Glucose (hemocue) Today E11.65 - Type 2 diabetes mellitus with hyperglycemia, R42 - Dizziness and giddiness AMB EKG-In Office Today R07.89 - Other chest pain Referrals Physiatry Referral E11.40 - Type 2 diabetes mellitus with diabetic neuropathy, unspecified, M17.0 - Bilateral primary osteoarthritis of knee, M54.9 - Dorsalgia, unspecified, R26.81 - Unsteadiness on feet, R29.898 - Other symptoms and signs involving the musculoskeletal system, R53.81 - Other malaise Medications: Changed From meclizine 25 mg PO Q8H PRN Dizziness To meclizine 25 mg PO Q8H 30 days PRN 30 tabs 1RF Dizziness Coding Level of Care Code Est Pt Level 4 (26455) Diagnoses Diabetes type 2, uncontrolled E11.65 Unsteady gait R26.81 Dizziness R42 Back pain M54.9 Chest wall pain R07.89 Atypical chest pain R07.89
== END 2023-02-18 14:37 | disposition home or self-care (01) ==
PROVIDERS: PCP Family Medicine; Visit Provider Family Medicine
DX: E11.65 Type 2 diabetes mellitus with hyperglycemia (principal); R26.81 Unsteadiness on feet; R42 Dizziness and giddiness; M54.9 Dorsalgia, unspecified; R07.89 Other chest pain
CPT/HCPCS: 82948; 99214

== ENCOUNTER 2023-04-16 21:07 | Emergency (ER) | payer MEDICARE, MEDICAID, SELFPAY ==
--- NOTE | 2023-04-16 | ECG_ITS ---
Test Reason : WEAKNESS Blood Pressure : / mmHG Vent. Rate : 063 BPM Atrial Rate : 063 BPM P-R Int : 154 ms QRS Dur : 082 ms QT Int : 426 ms P-R-T Axes : 051 006 041 degrees QTc Int : 435 ms Normal sinus rhythm Normal ECG When compared with ECG of 13-MAY-2022 05:15, No significant change was found Referred By: Generic ED Physician Electronically Signed By:CARL BROWN MD
--- NOTE | ~2023-04-16 | CT_ITS ---
EXAMINATION: CT ABDOMEN AND PELVIS WITH CONTRAST CLINICAL INFORMATION: Lower abdominal pain, nausea, diarrhea COMPARISON: 05/13/2022 TECHNIQUE: Multidetector volumetric images were obtained from the superior aspect of the liver through the pubic symphysis following administration 85 mL of Omnipaque 350 intravenous contrast. Sagittal and coronal reformatted images were obtained on the technologist's workstation. Oral contrast: No This CT examination was performed using dose optimization techniques as appropriate, variously including the following: *Automated exposure control *Adjustment of mA and/or kV according to patient size (this includes techniques or standardized protocols for targeted exams where dose is matched to indication/reason for exam; i.e. extremities or head) *Use of iterative reconstruction technique DLP: 851 mGy-cm FINDINGS: LUNG BASES: The visualized lung bases are unremarkable. Coronary artery calcifications are present. LIVER, GALLBLADDER, AND BILIARY TREE: The liver is normal in size, shape, and attenuation. No focal hepatic lesion or biliary ductal dilatation is present. Multiple gallstones are present. No appreciable gallbladder wall thickening or surrounding inflammation. PANCREAS: Unremarkable. SPLEEN: Unremarkable. ADRENAL GLANDS: Unremarkable. KIDNEYS AND URETERS: Bilateral nephrograms are symmetric. No hydronephrosis or obstructing calculus identified. There is an approximately 2 cm mildly hypodense lesion in the mid left kidney, not cystic by CT criteria and similar to prior. BLADDER: Mildly distended and grossly unremarkable. GASTROINTESTINAL TRACT: There is some fecalization of distal small bowel loops suggesting delayed intestinal transit, without convincing evidence for obstruction. No significant bowel wall thickening. Moderate stool in the colon. The appendix is unremarkable. No free fluid or free air is seen. ABDOMINAL WALL: No significant hernia is appreciated. LYMPH NODES: Normal. VASCULAR: Scattered atherosclerotic calcification. PELVIC VISCERA: Unremarkable. OSSEOUS STRUCTURES: Multilevel degenerative changes in the spine. CT/CT abdomen pelvis w IV con IMPRESSION: 1. Fecalization of distal small bowel loops suggesting delayed intestinal transit, without convincing evidence for obstruction. Moderate stool in the colon. 2. Cholelithiasis. 3. Approximately 2 cm mildly hypodense lesion in the mid left kidney, not cystic by CT criteria. This may represent a complex cyst, though a solid mass cannot be excluded. Further workup with renal ultrasound is recommended. 4. Coronary artery calcifications. Correlation with cardiac risk factors is recommended.
[2023-04-16 21:11] VITALS: BP 153/64; PULSE 65; RESP 16; TEMP 36.7; O2SAT 95; BMI 25.1
--- NOTE | 2023-04-16 21:18 | MHC.EDTECH ---
Patient check his Blood Sugar while in Triage chair, with his own- 194
--- NOTE | 2023-04-16 21:36 | ED.GENADULT ---
HPI - General Adult General Chief complaint: Weakness Stated complaint: Weakness Time Seen by Provider: 04/16/23 21:36 Source: patient, family and RN notes reviewed Limitations: no limitations History of Present Illness HPI narrative: 72-year-old male with history of hypertension, diabetes, CVA with residual right-sided deficit, hyperlipidemia, presents with family for evaluation of weakness, diarrhea. Patient and family report that the patient began having episodes of diarrhea approximately 2 weeks ago. He reports it as loose and watery during this time. He had been taking Pepto-Bismol which offered some relief. He actually reports that he had approximately 3 days without diarrhea. Today, patient began having intermittent episodes of nausea, and burning, epigastric pain as well. He denies any chest pain or shortness of breath. He denies any hematochezia or melena. No syncope. No nocturnal symptoms. He has had decreased PO intake. Related Data Home Medications Medication Instructions Recorded Confirmed ferrous sulfate 325 mg (65 mg 325 mg PO DAILY 07/08/22 02/18/23 iron) tablet pen needle, diabetic 31 gauge x #50 ea 08/10/22 02/18/2309/03 (BD Ultra-Fine Mini Pen Needle) Previous Rx's Medication Instructions Recorded miscellaneous medical supply #1 ea 04/09/21 aspirin 81 mg tablet,delayed 81 mg PO DAILY #90 tabs 07/28/21 release blood sugar diagnostic (FreeStyle #400 ea 05/29/22 Lite Strips) clopidogrel 75 mg tablet 75 mg PO DAILY 90 days #90 tabs 05/29/22 miscellaneous medical supply #1 ea 06/19/22 omeprazole 20 mg capsule,delayed 40 mg (2 x 20 mg) PO DAILY 90 days 07/12/22 release #180 caps blood sugar diagnostic (FreeStyle #400 ea 08/10/22 Lite Strips) blood-glucose meter (FreeStyle #1 ea 08/10/22 Lite Meter kit) flash glucose scanning reader #1 ea 09/15/22 (FreeStyle Nikole 2 [place]) atorvastatin 40 mg tablet 40 mg PO DAILY #90 tabs 11/03/22 clobetasol 0.05 % topical cream 1 appl topical BID 2 weeks #60 11/03/22 grams lidocaine 5 % topical patch 1 patch topical DAILY 30 days #30 12/15/22 (Lidoderm) ea cyanocobalamin (vitamin B-12) 1,000 mcg PO DAILY 90 days #90 tabs 12/28/22 1,000 mcg tablet lancets 28 gauge (FreeStyle #400 ea 12/28/22 Lancets) cholecalciferol (vitamin D3) 50 50 mcg PO DAILY 90 days #90 tabs 12/29/22 mcg (2,000 unit) tablet (Vitamin D3) pen needle, diabetic 31 gauge x #400 ea 12/29/22 5/16 (BD Ultra-Fine Short Pen Needle) dulaglutide 0.75 mg/0.5 mL 0.75 mg (0.5 mL) subcut QWEEK 28 01/19/23 subcutaneous pen injector days #2 mL (Trulicity) metoprolol succinate 25 mg 12.5 mg (1/2 x 25 mg) PO DAILY 30 01/21/23 tablet,extended release 24 hr days #15 tabs quetiapine 25 mg tablet (Seroquel) 25 mg PO BEDTIME 30 days #30 tabs 01/24/23 diclofenac sodium 1 % topical gel 2 g topical QID 30 days #100 grams 01/25/23 (Arthritis Pain (diclofenac)) topiramate 50 mg tablet 50 mg PO BID #60 tabs 03/03/23 lisinopril 20 1 tab PO DAILY 30 days #90 tabs 03/29/23 mg-hydrochlorothiazide 12.5 mg tablet insulin glargine 100 unit/mL (3 55 unit (0.55 mL) subcut DAILY 90 04/12/23 mL) subcutaneous pen (Lantus days #49.5 mL Solostar U-100 Insulin) metformin 1,000 mg tablet 1,000 mg PO BID 90 days #180 tabs 04/12/23 flash glucose sensor (FreeStyle #6 ea 04/13/23 Nikole 2 Sensor kit) gabapentin 600 mg tablet 600 mg PO TID 90 days #270 tabs 04/14/23 meclizine 25 mg tablet 25 mg PO Q8H PRN Dizziness 30 days 04/14/23 #30 tabs Allergies Allergy/AdvReac Type Severity Reaction Status Date / Time No Known Allergies Allergy Verified 02/18/23 13:08 [No Known Allergies*] Review of Systems Constitutional: Constitutional: Denies chills, Denies fever(s) and Denies headache(s) Eyes: Eyes: Denies change in vision ENT: Denies headache(s), Denies nasal congestion, Denies nasal discharge, Denies neck pain and Denies sore throat Cardiovascular: Cardiovascular: Denies chest pain, Denies palpitations, Denies dyspnea, Denies dyspnea on exertion and Denies orthopnea Respiratory: Respiratory: Denies cough, Denies dyspnea and Denies dyspnea on exertion Gastrointestinal: Gastrointestinal: Reports abdominal pain, Denies melena, Denies hematochezia, Denies constipation, Reports diarrhea, Reports nausea and Denies vomiting Genitourinary: Genitourinary: Denies difficulty urinating, Denies dysuria and Denies urinary urgency Musculoskeletal: Musculoskeletal: Denies back pain, Denies muscle weakness, Denies neck pain and Denies numbness Integumentary/Breasts: Skin/Breast: Denies rash Neurologic: Denies headache(s), Denies focal weakness and Denies numbness Psychiatric: Psychiatric: Denies depression Endocrine: Endocrine: Denies palpitations PMFSH Past Medical History Attestation statement: The following information was validated with the patient. Medical History Acute CVA (cerebrovascular accident) Diabetes type 2, uncontrolled Dupuytren's disease of palm Essential hypertension History of CVA (cerebrovascular accident) Neuropathy Trigger finger, right ring finger Surgical History No pertinent past surgical history Social History Social History Household Members: Family Housing: House Do you presently have visiting nurse or other home services: No Alcohol intake: never Patient Tobacco Use Status: Former Tobacco user Smoked in Last 30 Days: No e-Cigarette/Vaping Use: Never Used Second Hand Smoke Exposure: No Use of substances other than those prescribed or required for medical reasons: No Advance Directives: No Advance Directives Information Provided: No service: No Current occupational status: disabled Current occupational exposures/hazards: No Cognitive needs: Yes (Cane) Hearing needs: No Vision needs: Yes (Glasses) Physical Exam ED Vital Signs: Vital Signs - 24 hr 04/16/23 21:11 04/16/23 22:03 Temperature 98.1 F 98.8 F Pulse Rate 65 64 Respiratory Rate 16 18 Blood Pressure 153/64 H 155/65 H Pulse Oximetry 95 Oxygen Delivery Method Room Air BMI result Body Mass Index 25.1 Const General: cooperative, alert and awake; No acute distress Resp Effort & Inspection: normal respiratory effort Auscultation: clear to auscultation bilaterally Cardio Rate: regular rate Rhythm: regular rhythm GI Palpation (GI): Soft to palpation and Tenderness to palpation present (GI) (Mild periumbilical tenderness) Rectal Exam - Male: Yes other (Patient refused rectal exam) Extrem Other: No calf tenderness or pedal edema Course Reevaluation(s) Reevaluation #1: Patient is awake and alert and resting comfortably at this time. He denies any nausea. Reviewed all labs with daughter. No acute process. Patient is requesting discharge home. CT of the abdomen and pelvis is still pending at this time. IV fluids are nearly completely. Patient does report continued mid abdominal epigastric burning, sour eructations. Trial of a GI cocktail for symptomatic relief. Time: 22:56 Reevaluation #2: CT returned, no acute process. Moderate stool is noted. The CT results were reviewed with the patient and his daughter. Remainder of labs also reviewed. Patient is requesting discharge home and he is feeling better after IV fluids and antiemetics. Symptoms resolved after GI cocktail. Patient states he takes omeprazole at home and will continue this. Patient was previously taking Pepto-Bismol. He actually just picked up a modicum today but did not start taking it. He will try this. Reviewed all discharge instructions including brat diet. Time: 23:40 Medications Administered Discontinued Medications Generic Name Dose Route Start Last Admin Trade Name Brandie PRN Reason Stop Dose Admin Al Hydroxide/Mg Hydroxide 30 ml 04/16/23 22:55 04/16/23 23:04 Magnesium Hydrox/Alum Hydrox 30 Ml Oral.Susp PO 04/16/23 22:56 30 ml ONCE ONE Administration Sodium Chloride 1,000 mls @ 999 mls/hr 04/16/23 22:00 04/16/23 22:29 Ns IV 04/16/23 23:00 999 mls/hr .Q1H1M JOSE LUIS Administration Iohexol 100 ml 04/16/23 22:28 04/16/23 22:28 Iohexol 350 Mg/Ml 100 Ml Infus..Btl IV 04/16/23 22:29 85 ml ONCE ONE Administration Lidocaine HCl 15 ml 04/16/23 22:55 04/16/23 23:04 Lidocaine Hcl Viscous 2 % 15 Ml Solution MUCOUS MEM 04/16/23 22:56 15 ml ONCE ONE Administration Ondansetron HCl 4 mg 04/16/23 21:47 04/16/23 22:29 Ondansetron Hcl 4 Mg/2 Ml Vial IVPUSH 04/16/23 21:48 4 mg ONCE ONE Administration Medical Decision Making Medical Decision Making [facility] Narrative: 72-year-old male with a history of CVA, diabetes, presents for evaluation of prolonged diarrhea. Increased weakness and nausea today. Associated lower abdominal pain which is new. Check labs, CT. Differential Diagnosis Differential Diagnoses: The differential diagnosis associated with the presentation includes Colitis Diverticulitis GI bleed Dehydration Metabolic abnormality Lab Data 04/16/23 21:32 04/16/23 21:32 Labs: Lab Results 04/16/23 04/16/23 Range/Units 21:32 22:08 WBC 8.4 (4.8-10.8) X10*3/uL RBC 4.21 L (4.60-5.80) X10*6/uL Hgb 12.0 L (14.0-18.0) g/dl Hct 35.5 L (42.0-52.0) % MCV 84.3 (80.0-98.0) fL MCH 28.5 (27.0-33.0) pg MCHC 33.8 (31.0-36.0) g/dl RDW 13.9 (11.0-16.0) % Plt Count 245 (160-400) X10*3/uL MPV 11.1 (9.4-12.4) fL Immature Gran % (Auto) 0.2 (0.0-0.4) % Neut % (Auto) 52.5 (45-73) % Lymph % (Auto) 36.5 (20-40) % [facility] % (Auto) 7.4 (2-11) % Eos % (Auto) 2.7 (0-4) % Baso % (Auto) 0.7 (0-2) % Lymph # (Auto) 3.1 (1.2-4.9) X10*3/uL [facility] # (Auto) 0.6 (0.1-1.2) X10*3/uL Eos # (Auto) 0.2 (0.0-0.4) X10*3/uL Baso # (Auto) 0.1 (0.0-0.2) X10*3/uL Abs Immat Gran (auto) 0.02 (0.00-0.03) X10*3/uL Absolute Neuts (auto) 4.4 (2.0-8.3) x10*3/uL Absolute Nucleated RBC 0.000 (0.0-0.012) X10*3/uL Nucleated RBC % (auto) 0.0 (0.0-0.2) /100WBC Sodium 139 (135-145) mmol/L Potassium 4.2 (3.3-5.1) mmol/L Chloride 106 (96-108) mmol/L Carbon Dioxide 22 (22-29) mmol/L Anion Gap 15 (12-20) BUN 17 H (9-16) mg/dL Creatinine 0.88 (0.5-1.4) mg/dL Estim Creat Clear Calc 87.0 Estimated GFR > 60 Random Glucose 184 H (60-115) mg/dL Calcium 9.5 (8.4-10.2) mg/dL Magnesium 1.9 (1.6-2.6) mg/dL Total Bilirubin 0.3 (0.0-1.0) mg/dL Direct Bilirubin 0.1 (0.0-0.5) mg/dL AST 22 (5-37) U/L ALT 23 (0-40) U/L Alkaline Phosphatase 92 (39-117) U/L Troponin I High Sens < 2.7 (<3.5-35.0) ng/L Total Protein 7.6 (6.5-8.0) g/dL Albumin 4.2 (3.5-5.0) g/dL Lipase 47 (8-78) U/L Urine Color Yellow Urine Appearance Clear Urine pH 5.5 (5.0-9.0) Ur Specific [place] 1.025 (1.005-1.025) Urine Protein Trace (Neg-Trace) mg/dL Urine Glucose (UA) Negative (Negative) mg/dL Urine Ketones Negative (Negative) mg/dL Urine Blood Small (1+) H (Negative) Urine Nitrite Negative (Negative) Ur Leukocyte Esterase Negative (Negative) Urine RBC 6-10 H (0-2) /HPF Urine WBC 0-5 (0-5) /HPF Ur Squamous Epith Cells 0-2 (0-2) /HPF Urine Bacteria None Seen (None Seen) Hyaline Casts 0-2 (0-2) /LPF Radiology Impression Discussion of test interpretation with radiology: I have reviewed the radiologist's reading. Radiologist Impression: [address] [address] [address] Scan Report Signed Patient: Anupama Marroquin MR#: [id number] : 1950 Acct:[id number] Age/Sex: 72 / M ADM Date: 04/16/23 Loc: .ED Attending Dr: Ordering Physician: Keo Monroe Date of Service: 04/16/23 Procedure(s): CT abdomen pelvis w IV con Accession Number(s): [id number] cc: John Graff MD; Keo Monroe~ EXAMINATION: CT ABDOMEN AND PELVIS WITH CONTRAST CLINICAL INFORMATION: Lower abdominal pain, nausea, diarrhea COMPARISON: 05/13/2022 TECHNIQUE: Multidetector volumetric images were obtained from the superior aspect of the liver through the pubic symphysis following administration 85 mL of Omnipaque 350 intravenous contrast. Sagittal and coronal reformatted images were obtained on the technologist's workstation. Oral contrast: No This CT examination was performed using dose optimization techniques as appropriate, variously including the following: *Automated exposure control *Adjustment of mA and/or kV according to patient size (this includes techniques or standardized protocols for targeted exams where dose is matched to indication/reason for exam; i.e. extremities or head) *Use of iterative reconstruction technique DLP: 851 mGy-cm FINDINGS: LUNG BASES: The visualized lung bases are unremarkable. Coronary artery calcifications are present. LIVER, GALLBLADDER, AND BILIARY TREE: The liver is normal in size, shape, and attenuation. No focal hepatic lesion or biliary ductal dilatation is present. Multiple gallstones are present. No appreciable gallbladder wall thickening or surrounding inflammation. PANCREAS: Unremarkable. SPLEEN: Unremarkable. ADRENAL GLANDS: Unremarkable. KIDNEYS AND URETERS: Bilateral nephrograms are symmetric. No hydronephrosis or obstructing calculus identified. There is an approximately 2 cm mildly hypodense lesion in the mid left kidney, not cystic by CT criteria and similar to prior. BLADDER: Mildly distended and grossly unremarkable. GASTROINTESTINAL TRACT: There is some fecalization of distal small bowel loops suggesting delayed intestinal transit, without convincing evidence for obstruction. No significant bowel wall thickening. Moderate stool in the colon. The appendix is unremarkable. No free fluid or free air is seen. ABDOMINAL WALL: No significant hernia is appreciated. LYMPH NODES: Normal. VASCULAR: Scattered atherosclerotic calcification. PELVIC VISCERA: Unremarkable. OSSEOUS STRUCTURES: Multilevel degenerative changes in the spine. CT/CT abdomen pelvis w IV con IMPRESSION: 1. Fecalization of distal small bowel loops suggesting delayed intestinal transit, without convincing evidence for obstruction. Moderate stool in the colon. 2. Cholelithiasis. 3. Approximately 2 cm mildly hypodense lesion in the mid left kidney, not cystic by CT criteria. This may represent a complex cyst, though a solid mass cannot be excluded. Further workup with renal ultrasound is recommended. 4. Coronary artery calcifications. Correlation with cardiac risk factors is recommended. Dictated By: Ridge Woo MD Signed By: <Electronically signed by Ridge Woo MD in [place]> 04/16/232315 DD/ 46 TD/TT: [place]ame [place]er: TH Discharge Plan Discharge Clinical Impression: Diarrhea Qualifiers: Diarrhea type: unspecified type Qualified Code(s): R19.7 - Diarrhea, unspecified Abdominal pain Qualifiers: Abdominal location: periumbilical Qualified Code(s): R10.33 - Periumbilical pain Patient Disposition: Home, Self-Care Instructions: Acute Abdominal Pain (ED) Additional Instructions: Drink plenty of fluids. Trial of Imodium, as directed. Brat diet: bananas, white rice, applesauce, toast. Follow-up with your primary care provider. Call this week to schedule a follow-up appointment. Return to the emergency department if you have any worsening of symptoms, or any concerns. Get well soon! Prescriptions: No Action aspirin 81 mg tablet,delayed release (DR/EC) 81 mg PO DAILY Qty: 90 1RF clopidogrel 75 mg tablet 75 mg PO DAILY 90 Days Qty: 90 3RF (DME) FreeStyle Lite Strips Strip See Rx Instructions Not Applicable .MEDSUPPLY Qty: 400 3RF Rx Instructions: Test BS 4 times daily, As directed, 90 days omeprazole 20 mg capsule,delayed release(DR/EC) 40 mg PO DAILY 90 Days Qty: 180 3RF (DME) FreeStyle Nikole 2 [place] Misc See Rx Instructions .Route Qty: 1 8RF Rx Instructions: As directed clobetasol 0.05 % cream 1 appl topical BID 14 Days Qty: 60 1RF atorvastatin 40 mg tablet 40 mg PO DAILY Qty: 90 2RF cyanocobalamin (vitamin B-12) 1,000 mcg tablet 1,000 mcg PO DAILY 90 Days Qty: 90 2RF (DME) lancets [FreeStyle Lancets] 28 gauge misc See Rx Instructions topical .MEDSUPPLY Qty: 400 0RF Rx Instructions: Test blood sugar 4 times a day As directed, 90 days (DME) pen needle, diabetic [BD Ultra-Fine Short Pen Needle] 31 gauge x 5/16 needle See Rx Instructions subcut .MEDSUPPLY Qty: 400 2RF Rx Instructions: 4 times a day As directed. 90 days cholecalciferol (vitamin D3) [Vitamin D3] 50 mcg (2,000 unit) tablet 50 mcg PO DAILY 90 Days Qty: 90 3RF metoprolol succinate 25 mg tablet extended release 24 hr 12.5 mg PO DAILY 30 Days Qty: 15 1RF quetiapine [Seroquel] 25 mg tablet 25 mg PO BEDTIME 30 Days Qty: 30 1RF diclofenac sodium [Arthritis Pain (diclofenac)] 1 % gel 2 g topical QID 30 Days Qty: 100 2RF Rx Instructions: apply to single elbow, wrist or hand; for hand includes palm/fingers/back of hand topiramate 50 mg tablet 50 mg PO BID Qty: 60 0RF lisinopril-hydrochlorothiazide 20-12.5 mg tablet 1 tab PO DAILY 30 Days Qty: 90 0RF insulin glargine [Lantus Solostar U-100 Insulin] 100 unit/mL (3 mL) insulin pen 55 unit subcut DAILY 90 Days Qty: 49.5 5RF metformin 1,000 mg tablet 1,000 mg PO BID 90 Days Qty: 180 3RF (DME) FreeStyle Nikole 2 Sensor Kit See Rx Instructions .Route Qty: 6 3RF Rx Instructions: As directed change every 14 days gabapentin 600 mg tablet 600 mg PO TID 90 Days Qty: 270 2RF meclizine 25 mg tablet 25 mg PO Q8H PRN (Reason: Dizziness) 30 Days Qty: 30 1RF (DME) [facility] See Rx Instructions .ROUTE .MEDSUPPLY Qty: 1 0RF Rx Instructions: Diabetic Shoes, Daily As directed. 999 days. 1 Pair (DME) [facility] medical supply [facility] See Rx Instructions .ROUTE .MEDSUPPLY Qty: 1 0RF Rx Instructions: Diabetic shoes. Daily As directed, 999 days. One pair. ferrous sulfate 325 mg (65 mg iron) tablet 325 mg PO DAILY (DME) pen needle, diabetic [BD Ultra-Fine Mini Pen Needle] 31 gauge x 3/16 needle See Rx Instructions .ROUTE QID Qty: 50 Rx Instructions: As directed (DME) FreeStyle Lite Strips Strip See Rx Instructions .ROUTE .MEDSUPPLY Qty: 400 4RF Rx Instructions: DX: E11.9, test blood sugar 4 times a day, 90 days (DME) blood-glucose meter [FreeStyle Lite Meter] Kit See Rx Instructions .ROUTE .MEDSUPPLY Qty: 1 0RF Rx Instructions: DX: E11.9, test blood sugar 4 times a day, duration 999 days lidocaine [Lidoderm] 5 % adhesive patch,medicated 1 patch topical DAILY 30 Days Qty: 30 3RF Rx Instructions: leave on most painful area for up to 12 hrs Trulicity 0.75 mg/0.5 mL pen injector 0.75 mg subcut QWEEK 28 Days Qty: 2 2RF
[2023-04-16 21:37] LABS: MANUAL DIFF FLAG NO
[2023-04-16 21:39] LABS: Basophils Absolute Auto 0.1 X10*3/uL (0.0-0.2); Basophils Percent Auto 0.7 % (0-2); Eosinophils Absolute Auto 0.2 X10*3/uL (0.0-0.4); Eosinophils Percent Auto 2.7 % (0-4); Hematocrit 35.5 % (42.0-52.0); Imm Gran Abs Auto 0.02 X10*3/uL (0.00-0.03); Imm Gran Pct Auto 0.2 % (0.0-0.4); Lymphocytes Absolute Auto 3.1 X10*3/uL (1.2-4.9); Lymphocytes Percent Auto 36.5 % (20-40); Mean Corpuscular HGB Conc 33.8 g/dl (31.0-36.0); Mean Corpuscular Hemoglobin 28.5 pg (27.0-33.0); Mean Corpuscular Volume 84.3 fL (80.0-98.0); Mean Platelet Volume 11.1 fL (9.4-12.4); Monocytes Absolute Auto 0.6 X10*3/uL (0.1-1.2); Monocytes Percent Auto 7.4 % (2-11); Neutrophils Absolute Auto 4.4 x10*3/uL (2.0-8.3); Neutrophils Percent Auto 52.5 % (45-73); Platelet Count 245 X10*3/uL (160-400); Red Blood Count 4.21 X10*6/uL (4.60-5.80); Red Cell Distribution Width 13.9 % (11.0-16.0); White Blood Count 8.4 X10*3/uL (4.8-10.8)
[2023-04-16 22:01] LABS: Alanine Aminotransferase 23 U/L (0-40); Albumin Level 4.2 g/dL (3.5-5.0); Alkaline Phosphatase 92 U/L (39-117); Anion Gap 15 (12-20); Aspartate Amino Transferase 22 U/L (5-37); Bilirubin Direct 0.1 mg/dL (0.0-0.5); Bilirubin Total 0.3 mg/dL (0.0-1.0); Blood Urea Nitrogen 17 mg/dL (9-16); Calcium 9.5 mg/dL (8.4-10.2); Carbon Dioxide 22 mmol/L (22-29); Chloride 106 mmol/L (96-108); Estimated Glomerular Filt Rate > 60; Glucose Random 184 mg/dL (60-115); Lipase 47 U/L (8-78); Magnesium 1.9 mg/dL (1.6-2.6); Potassium 4.2 mmol/L (3.3-5.1); Sodium 139 mmol/L (135-145); Total Protein 7.6 g/dL (6.5-8.0)
[2023-04-16 22:03] VITALS: BP 155/65; PULSE 64; RESP 18; TEMP 37.1
[2023-04-16 22:19] LABS: Appearance Urine Clear; Color Urine Yellow; Glucose Urine UA Negative (Negative); Leukocyte Esterase Urine Negative (Negative); Nitrite Urine Negative (Negative); PH 5.5 (5.0-9.0); Specific Gravity - Urine 1.025 (1.005-1.025); UMIC TRIGGER UACC YES; Urine Blood Small (1+) (Negative); Urine Ketones Negative (Negative); Urine Protein Trace mg/dL (Neg-Trace)
[2023-04-16 22:24] LABS: Bacteria Urine None Seen (None Seen); Hyaline Casts Urine 0-2 /LPF (0-2); Squamous Epithelial Cell Urine 0-2 /HPF (0-2); WBC Urine 0-5 /HPF (0-5)
[2023-04-16] MEDS: iohexoL 350 MG/ML 100 ML INFUS..BTL IV (22:28)
[2023-04-16] MEDS: ondansetron HCL 4 MG/2 ML VIAL IVPUSH (22:29)
[2023-04-16] MEDS: 0.9 % Sodium Chloride 1,000 ML 999 ML IV (22:29)
--- NOTE | 2023-04-16 22:34 | PC.NURSE ---
Pt medicated per aug. Pt IV started. Plan of care ongoing.
[2023-04-16 22:37] LABS: Troponin-I High Sensitivity < 2.7 ng/L (<3.5-35.0)
[2023-04-16] MEDS: Lidocaine HCl Viscous 2 % 15 ML SOLUTION MUCOUS MEM (23:04)
[2023-04-16] MEDS: Magnesium Hydrox/Alum Hydrox 30 ML ORAL.SUSP PO (23:04)
--- NOTE | 2023-04-16 23:08 | PC.NURSE ---
Pt ca&ox4, no signs of distress. Pt reports less lethargy and beginning to feel better. Pts family remains at bedside. Plan of care ongoing.
== END 2023-04-16 23:58 | disposition home or self-care (01) ==
PROVIDERS: Physician Assistant; Emergency Provider Emergency Medicine; PCP Family Medicine
DX: R10.33 Periumbilical pain (principal); R19.7 Diarrhea, unspecified; R53.1 Weakness; E11.9 Type 2 diabetes mellitus without complications; I10 Essential (primary) hypertension; I69.351 Hemiplegia and hemiparesis following cerebral infarction affecting right dominant side; E78.5 Hyperlipidemia, unspecified; Z87.891 Personal history of nicotine dependence; Z79.82 Long term (current) use of aspirin; Z79.899 Other long term (current) drug therapy; Z79.4 Long term (current) use of insulin; Z79.02 Long term (current) use of antithrombotics/antiplatelets
CPT/HCPCS: 36415; 74177; 80053; 80076; 81001; 82248; 83690; 83735; 84484; 85025; 93005; 96374; 99284; J2405; Q9967

== ENCOUNTER 2023-04-22 13:33 | Outpatient (AMB) | payer MEDICARE, MEDICAID, SELFPAY ==
[2023-04-22 13:34] VITALS: BP 122/72; PULSE 84; O2SAT 98; BMI 29.9
--- NOTE | 2023-04-22 13:34 | A.OFFPC_ITS ---
Vital Signs 04/22/23 13:34 Height 6 ft 1 in Weight 227 lb BMI 29.9 BP 122/72 Blood Pressure Location Rt brachial Position Sitting Pulse 84 Pulse Source Pulse Oximeter Pulse Oximetry (%) 98 Oxygen Delivery Method Room Air Intake Visit Reasons: 1 mth f/u chronic conditions Intake Note: Patient is here for follow up on chronic conditions. Allergies No Known Allergies [No Known Allergies*] Allergy (Verified 04/22/23 13:38) Tobacco use date assessed: 04/22/23 Fall risk assessment: No Falls in past year Last assessed Fall Risk: 04/22/23 HPI 1 mth f/u chronic conditions HPI Details 72 y/o male [facility] Pt had went to the ED 04/16/23 with chief complaint of weakness and intermittent episodes of nausea, burning and epigastric pain. CT scan showed mildly hypodense lesion in mid L kidney. Further work up was recommended. A1c today 04/22/23 is 8.0%. [facility] Medical History History of CVA (cerebrovascular accident) Acute CVA (cerebrovascular accident) Trigger finger, right ring finger Dupuytren's disease of palm Diabetes type 2, uncontrolled Neuropathy Essential hypertension Surgical History No pertinent past surgical history Social History Household Members: Family Housing: House Do you presently have visiting nurse or other home services: No Alcohol intake: never Patient Tobacco Use Status: Former Tobacco user e-Cigarette/Vaping Use: Never Used Second Hand Smoke Exposure: No service: No Current occupational status: disabled Current occupational exposures/hazards: No Cognitive needs: Yes (Cane) Hearing needs: No Vision needs: Yes (Glasses) Questionnaire SHAYNA-7 AMB Questionnaire SHAYNA-7 Date SHAYNA - 7 assessed: 07/23/22 Source: Developed by Drs. Tam Andrews, Cathy Barajas, Jesse Stewart and colleagues, with an educational carolin from [employer]. Physical exam (Primary Care) Vital Signs: Last Vital Signs Pulse 84 04/22/23 13:34 BP 122/72 04/22/23 13:34 Pulse Ox 98 04/22/23 13:34 Oxygen Delivery Method Room Air 04/22/23 13:34 BMI result Body Mass Index 29.9 Tobacco/Smoking Status: Tobacco use Status Tobacco use date assessed 04/22/23 04/22/23 13:51 Patient Tobacco Use Status Former Tobacco user 04/22/23 13:39 e-Cigarette/Vaping Use Never Used 04/22/23 13:39 Results AMB Hemoglobin A1c AMB Hemoglobin A1c 8.0 % Last Edit by Janie Eric CMA on 04/22/23 13:57 Results Reviewed Results Reviewed: Laboratory Last Values Hgb A1c (Clinic) 8.0 % (4.0-6.0) H 04/22/23 13:56 Assessment and Plan Assessment & Plan (1) Mass of left kidney: Code(s): N28.89 - Other specified disorders of kidney and ureter Plan: Check?ultrasound (2) Diabetes type 2, uncontrolled: Code(s): E11.65 - Type 2 diabetes mellitus with hyperglycemia Plan: A1c?continues?to?improve.??Now?8.0%.??Goal?is?7% Will?increase?Trulicity Continue?metformin?and?basal?and?mealtime?insulin Follow-up?with?endocrinology?as?recommended (3) Diarrhea: Code(s): R19.7 - Diarrhea, unspecified Qualifiers: Diarrhea type: unspecified type Qualified Code(s): R19.7 - Diarrhea, unspecified Plan: Controlled?with?Imodium Can?continue?Imodium?and?wean?off?as?tolerated Orders: Orders US renal BI Today N28.89 - Other specified disorders of kidney and ureter AMB Hemoglobin A1c Today Z13.9 - Encounter for screening, unspecified Medications: Changed From dulaglutide (Trulicity) 0.75 mg (0.5 mL) subcut QWEEK 28 days 2 mL 2RF To dulaglutide 1.5 mg (0.5 mL) subcut QWEEK 28 days 2 mL 2RF From lisinopril-hydrochlorothiazide 20-12.5 mg 1 tab PO DAILY 30 days 90 tabs 0RF To lisinopril-hydrochlorothiazide 20-12.5 mg 1 tab PO DAILY 90 days 90 tabs 3RF Refilled gabapentin 600 mg PO TID 90 days 270 tabs 2RF insulin glargine (Lantus Solostar U-100 Insulin) 55 units (0.55 mL) subcut DAILY 90 days 60 mL 5RF Discontinued Novolog PenFill U-100 Insulin (insulin aspart U-100) Discontinued Reason: Doctor's Order Sq 24-26 units before meals subcutaneously 3 times a day; 90 days 45 mL 6RF NS Coding Level of Care Code Est Pt Level 4 (53342) Diagnoses Mass of left kidney N28.89 Diabetes type 2, uncontrolled E11.65 Diarrhea R19.7 Diarrhea type: unspecified type
== END 2023-04-22 14:18 | disposition home or self-care (01) ==
PROVIDERS: PCP Family Medicine; Visit Provider Family Medicine
DX: N28.89 Other specified disorders of kidney and ureter (principal); E11.65 Type 2 diabetes mellitus with hyperglycemia; R19.7 Diarrhea, unspecified
CPT/HCPCS: 83036; 99214

== ENCOUNTER 2023-04-23 12:00 | Outpatient (REF) | payer MEDICARE, MEDICAID, SELFPAY ==
--- NOTE | ~2023-04-23 | US_ITS ---
EXAMINATION: US RETROPERITONEAL LIMITED (RENAL ONLY) CLINICAL INFORMATION: Prior abnormal imaging. COMPARISON: CT abdomen/pelvis 04/16/2023 TECHNIQUE: Real-time imaging of the kidneys. FINDINGS: RIGHT KIDNEY: 10.7 x 4.4 x 5.0 cm (SAG x AP x TRV). The kidney is normal in size, contour, and echogenicity. Renal cortical thickness is normal. No calculi or focal parenchymal lesions. No hydronephrosis. LEFT KIDNEY: 10.9 x 5.7 x 5.2 cm (SAG x AP x TRV). The kidney is normal in size, contour, and echogenicity. Renal cortical thickness is normal. No calculi. No hydronephrosis. There is a solid lesion midpole left kidney measuring 2.4 x 2.1 x 2.5 cm. There is internal color Doppler flow. US/US renal BI IMPRESSION: Solid mass midpole left kidney measuring 2.4 x 2.1 x 2.5 cm likely representing neoplasm. MRI is recommended for further characterization. Advise consultation with urology.
== END 2023-04-23 12:01 | disposition home or self-care (01) ==
LOC: HO.US 12:00
PROVIDERS: PCP Family Medicine; Visit Provider Family Medicine
DX: N28.89 Other specified disorders of kidney and ureter (principal)
CPT/HCPCS: 76775

== ENCOUNTER 2023-04-29 16:09 | Outpatient (AMB) | payer MEDICARE, MEDICAID, SELFPAY ==
--- NOTE | 2023-04-29 16:22 | MHC.PC.OV ---
Intake Visit Reasons: follow up us results Intake Note: Patient is calling to follow up on ultrasound results. Allergies No Known Allergies [No Known Allergies*] Allergy (Verified 04/22/23 13:38) Tobacco use date assessed: 04/22/23 HPI follow up us results HPI Details Pt presents to f/u ultrasound for his mass of L kidney. Renal ultrasound 04/23/23 shows: Solid mass midpole left kidney measuring 2.4 x 2.1 x 2.5 cm likely representing neoplasm. MRI is recommended for further characterization. Had made a referral to urology. HPI Comments History of Present Illness Details Documentation assistance for John Graff MD, was provided by Leonardo Mclean, [employer] on 04/29/2023 5:27 PM EST. I, Dr. Graff, have read, observed, and verified documentation. [facility] Medical History (Reviewed 04/29/23 @ 16:25 by Janie Eric [facility]) History of CVA (cerebrovascular accident) Acute CVA (cerebrovascular accident) Trigger finger, right ring finger Dupuytren's disease of palm Diabetes type 2, uncontrolled Neuropathy Essential hypertension Surgical History No pertinent past surgical history Social History (Reviewed 04/29/23 @ 16:25 by Janie Eric [facility]) Household Members: Family Housing: House Do you presently have visiting nurse or other home services: No Alcohol intake: never Patient Tobacco Use Status: Former Tobacco user e-Cigarette/Vaping Use: Never Used Second Hand Smoke Exposure: No service: No Current occupational status: disabled Current occupational exposures/hazards: No Cognitive needs: Yes (Cane) Hearing needs: No Vision needs: Yes (Glasses) Questionnaire SHAYNA-7 AMB Questionnaire SHAYNA-7 Date SHAYNA - 7 assessed: 07/23/22 Source: Developed by Drs. Tam Andrews, Cathy Barajas, Jesse Stewart and colleagues, with an educational carolin from [employer]. Review of Systems Const Denies chills, Denies fatigue, Denies fever(s), Denies headache(s) and Denies weakness ENT Denies dizziness and Denies headache(s) Card Denies dyspnea Resp Denies cough, Denies dyspnea, Denies wheezing and Denies other (shortness of breath) Musc Denies numbness and Denies tingling Neuro Denies dizziness, Denies headache(s), Denies numbness, Denies tingling and Denies weakness Psych Denies anxiety and Denies depression Endo Denies fatigue Aller/Immun Denies wheezing Physical exam (Primary Care) Tobacco/Smoking Status: Tobacco use Status Tobacco use date assessed 04/22/23 04/29/23 16:27 Patient Tobacco Use Status Former Tobacco user 04/29/23 16:27 e-Cigarette/Vaping Use Never Used 04/29/23 16:27 Telehealth Telehealth Minutes spent on Phone/Video with Pt.: 5 Assessment and Plan Assessment & Plan (1) Mass of left kidney: Code(s): N28.89 - Other specified disorders of kidney and ureter Plan: Ultrasound?shows?neoplasm?on?left?kidney.??Recommends?MRI?and?referral?to?urology?which?are?made, however,?patient?is?leaving?for?the?next?3?months. Concern?for?malignancy. Discussed?with?daughter?need?to?get?more?information?by?MRI?and?possibly?biopsy. I?have?requested daughter's?phone?number?so?we?can?reach?him. [phone] Orders: Orders MR kidney wo/w con Today N28.89 - Other specified disorders of kidney and ureter Coding Level of Care Code Tele Est Pt Level 2 (02973) Diagnoses Mass of left kidney N28.89
== END 2023-04-30 16:18 | disposition home or self-care (01) ==
PROVIDERS: PCP Family Medicine; Visit Provider Family Medicine
DX: N28.89 Other specified disorders of kidney and ureter (principal)
CPT/HCPCS: 99441

== ENCOUNTER 2023-08-30 13:01 | Outpatient (AMB) | payer MEDICARE, MEDICAID, SELFPAY ==
--- NOTE | 2023-08-30 13:04 | MHC.OFFVIS ---
Intake Vital Signs 08/30/23 13:05 Height 6 ft 1 in Weight 235 lb 10.786 oz BMI 31.1 BP 130/68 Blood Pressure Location Lt brachial Position Sitting Pulse 75 Pulse Source Pulse Oximeter Intake Visit Reasons: DM-lvm Intake Note: Patient present today to follow up on Type 2 Diabetes Mellitus. Last Diabetic Eye exam: 02.26.2023 [facility] Last Podiatry Visit: Doesn't have one Random Glucose: 155 mg/dl HgA1C: 10.5% Hammerer Required: No Accompanied by: Self / Same As Patient Allergies No Known Allergies [No Known Allergies*] Allergy (Verified 08/30/23 13:10) Medication List - Last Reconciled 08/30/23 by Tam Hampton MD aspirin 81 mg PO DAILY atorvastatin 40 mg PO DAILY cholecalciferol (vitamin D3) (Vitamin D3) 50 mcg PO DAILY 90 days clobetasol 0.05% 1 appl topical BID 2 weeks clopidogrel 75 mg PO DAILY 90 days cyanocobalamin (vitamin B-12) 1,000 mcg PO DAILY 90 days diclofenac sodium 1% (Arthritis Pain (diclofenac)) 2 grams topical QID 30 days dulaglutide 1.5 mg (0.5 mL) subcut QWEEK 28 days ferrous sulfate 325 mg PO DAILY flash glucose scanning reader ([employer]Style Nikole 2 [place]) As directed flash glucose sensor (FreeStyle Nikole 2 Sensor kit) As directed change every 14 days gabapentin 600 mg PO TID 90 days insulin aspart (niacinamide) 100 unit/mL (3 mL) (Fiasp FlexTouch U-100 Insulin) 24-26 units subcutaneously 3 times a day; insulin glargine (Lantus Solostar U-100 Insulin) 55 units (0.55 mL) subcut DAILY 90 days lidocaine 5% (Lidoderm) 1 patch topical DAILY 30 days lisinopril-hydrochlorothiazide 20-12.5 mg 1 tab PO DAILY 90 days meclizine 25 mg PO Q8H PRN 30 days metformin 1,000 mg PO BID 90 days metoprolol succinate ER 12.5 mg (1/2 x 25 mg) PO DAILY 30 days miscellaneous medical supply Diabetic Shoes, Daily As directed. 999 days. 1 Pair miscellaneous medical supply Diabetic shoes. Daily As directed, 999 days. One pair. omeprazole 40 mg (2 x 20 mg) PO DAILY 90 days pen needle, diabetic (BD Ultra-Fine Mini Pen Needle) As directed pen needle, diabetic (BD Ultra-Fine Short Pen Needle) 4 times a day As directed. 90 days quetiapine (Seroquel) 25 mg PO BEDTIME 30 days topiramate 50 mg PO BID HPI HPI Comments History of Present Illness Details 73 YO M who is seen in consultation for T2DM at the request of PCP. Initially diagnosed with T2DM in 18 yrs . Never seen endo before Was initially started on treatment with metformin . Current regimen metformin 1000 mg BID Lantus 45 units NovoLog scale for breakfast and dinner 81-150 20 units , 151-200 22 units, >200 24 units (he never made the changes from the previous visit ) Per the CGM Nikole CGMS data the patient's predicted A1C is 8.5% Avg glucose is 218 . Variability of 36.5 The patient's blood sugars were in target 36% of the time, above bywvch99 % of the time, and below target 0% of the time. Pattern shows elevated point of cares post breakfast . Pattern shows increased point cares after breakfast with drops in blood sugar overnight Reports low sugars very occasionally over night . Treats lows with eats something . Checks sugar after to ensure it is rising. Treats 30 min later No Family history of T2DM Has eyes checked yearly, last eye exam 4 mos ago , has retinopathy. Denies neuropathy, , Does sees podiatry. Wants referral locally Denies nephropathy, on RADHA/ARB. . Has HLD, on statin. Denies CAD.Hx of CVA Not Had diabetes education. [facility] Medical History History of CVA (cerebrovascular accident) Acute CVA (cerebrovascular accident) Trigger finger, right ring finger Dupuytren's disease of palm Diabetes type 2, uncontrolled Neuropathy Essential hypertension Surgical History No pertinent past surgical history Social History Household Members: Family Housing: House Do you presently have visiting nurse or other home services: No Alcohol intake: never Comment: PT refuse bed alarm Patient Tobacco Use Status: Former Tobacco user e-Cigarette/Vaping Use: Never Used Second Hand Smoke Exposure: No service: No Current occupational status: disabled Current occupational exposures/hazards: No Cognitive needs: Yes (Cane) Hearing needs: No Vision needs: Yes (Glasses) Physical Exam Vital Signs: Last Vital Signs Pulse 75 08/30/23 13:05 BP 130/68 08/30/23 13:05 BMI result Body Mass Index 31.1 Results AMB Hemoglobin A1c AMB Hemoglobin A1c 10.5 % Last Edit by BITA Mayorga on 08/30/23 13:46 Results Reviewed Results Reviewed: Laboratory Last Values Glucose (Clinic) 155 mg/dL (60-115) H 08/30/23 13:12 Hgb A1c (Clinic) 10.5 % (4.0-6.0) H 08/30/23 13:16 Assessment & Plan Assessment & Plan (1) Diabetes type 2, uncontrolled: Code(s): E11.65 - Type 2 diabetes mellitus with hyperglycemia Plan: This is a 72-year-old male with a history of type 2 diabetes being treated with metformin and basal-bolus insulin with poor glycemic control and known microvascular and macrovascular complications namely retinopathy, neuropathy and CVA. Plan is to decrease Lantus to 40 units and increase the NovoLog scale for breakfast and dinner 81-150 20 units , 151-200 22 units, >200 24 units . Will also refer patient to restaurant kitchen manager and shipboard intelligence analyst. Will also check anti-GAD65 antibodies to rule out type 1 diabetes considering lack of family history. Assuming antibodies are negative, would consider adding a GLP 1 agonist like Trulicity. Will also check lipid profile and microalbumin to creatinine ratio. I did stress to the patient the necessity of doing the blood work and urine as well seen the restaurant kitchen manager and shipboard intelligence analyst. Glycemic management is somewhat limited by memory/neurocognitive impairment. I did suggest to the patient that he bring his daughter with him to follow-up appointments and to appointments with the educator and shipboard intelligence analyst Orders: Orders AMB Hemoglobin A1c Today E11.65 - Type 2 diabetes mellitus with hyperglycemia, Z13.9 - Encounter for screening, unspecified Coding Level of Care Code Est Pt Level 4 (70775) Diagnoses Diabetes type 2, uncontrolled E11.65
[2023-08-30 13:05] VITALS: BP 130/68; PULSE 75; BMI 31.1
[2023-08-30 13:16] LABS: Glucose, Whole Blood 155 mg/dL (60-115)
== END 2023-08-30 14:02 | disposition home or self-care (01) ==
PROVIDERS: PCP Family Medicine; Referring Provider Family Medicine; Visit Provider Internal Medicine Endocrinology, Diabetes & Metabolism
DX: Z13.9 Encounter for screening, unspecified (principal); E11.65 Type 2 diabetes mellitus with hyperglycemia
CPT/HCPCS: 99214

== ENCOUNTER → 2023-08-30 13:01 | Outpatient (BNVA) | payer MEDICARE, MEDICAID, SELFPAY | PROVIDERS: PCP Family Medicine; Referring Provider Family Medicine; Visit Provider Internal Medicine Endocrinology, Diabetes & Metabolism | DX: E11.65 Type 2 diabetes mellitus with hyperglycemia (principal); Z79.4 Long term (current) use of insulin; Z79.84 Long term (current) use of oral hypoglycemic drugs | CPT/HCPCS: 82947; 83036; 99212 ==

== ENCOUNTER 2023-09-03 14:41 | Outpatient (AMB) | payer MEDICARE, MEDICAID, SELFPAY ==
--- NOTE | 2023-09-03 14:41 | MHC.PC.OV ---
Intake Visit Reasons: follow up mri Allergies No Known Allergies [No Known Allergies*] Allergy (Verified 09/03/23 14:41) Tobacco use date assessed: 09/02/23 Fall risk assessment: 2 + Falls in past year Last assessed Fall Risk: 09/03/23 Dental Screening Dental Screen Date: 09/03/23 Did you have a dental visit in the last 12 months?: Yes Did you have a dental problem in the last 6 months where you did not have access to dental care?: No Was dental information given to patient?: Patient has dentist HPI follow up mri HPI Details Patient went to ED 04/16/[address] scan showed an incidental left renal mass. At Follow-up for ED visit, an ultrasound was ordered and we discussed the results on 04/29/2023. Patient had a solid mass of the left kidney suspicious for renal cancer. MRI was ordered. However, patient was going way for 3 months and was not going to be able to get this done in time at [facility]. Apparently, patient's son ordered MRI which was then done in [place], [place]. Daughter called this week to request an appointment to follow-up on results. However, the results were not sent to this office as the MRI was that was performed was not ordered by me and results not sent to us until yesterday. MRI shows left kidney midpole nonenhancing lesion measuring 2 cm. Renal cell carcinoma can not be excluded. Could also represent a complex proteinaceous cyst. Follow-up workup is recommended. Also, a 4 x 7 x 4 mm cystic lesion in the tail of pancreas is also seen and could represent IPMN. [facility] Medical History History of CVA (cerebrovascular accident) Acute CVA (cerebrovascular accident) Trigger finger, right ring finger Dupuytren's disease of palm Diabetes type 2, uncontrolled Neuropathy Essential hypertension Surgical History No pertinent past surgical history Social History Household Members: Family Housing: House Do you presently have visiting nurse or other home services: No Alcohol intake: never Comment: PT refuse bed alarm Patient Tobacco Use Status: Former Tobacco user e-Cigarette/Vaping Use: Never Used Second Hand Smoke Exposure: No service: No Current occupational status: disabled Current occupational exposures/hazards: No Cognitive needs: Yes (Cane) Hearing needs: No Vision needs: Yes (Glasses) Questionnaire PHQ-9 Over the last 2 weeks, how often have you been bothered by any of the following problems? 1. Little interest or pleasure in doing things: several days 2. Feeling down, depressed, or hopeless: nearly every day 3. Trouble falling or staying asleep, or sleeping too much: more than half the days 4. Feeling tired or having little energy: several days 5. Poor appetite or overeating: nearly every day 6. Feeling bad about yourself - or that you are a failure or have let yourself or your family down: nearly every day 7. Trouble concentrating on things, such as reading the newspaper or watching television: more than half the days 8. Moving or speaking so slowly that other people could have noticed. Or the opposite - being so fidgety or restless that you have been moving around a lot more than usual: more than half the days 9. Thoughts that you would be better off or of hurting yourself in some way: not at all Total score: 17 Depression Screening Interpretation: Positive Depression Screening Done: Yes Source: Developed by Drs. Tam Andrews, Cathy Barajas, Jesse Stewart and colleagues, with an educational carolin from [employer]. Thrive Questionnaire Date Thrive assessed: 07/08/22 I am a: Patient What is your living situation today?: I have a steady place to live Within the past 12 months, did the food you bought not last and you didn't have the money to get more?: Never true Within the past 12 months, did you worry whether your food would run out before you got money to buy more?: Never true Do you have trouble paying for medicines?: No Do you have trouble getting transportation to medical appointments?: No Do you have trouble paying your heating and electricity bill?: No Do you have trouble taking care of your child, family member or friend?: No Do you have trouble with day-to-day activities such as bathing, preparing meals, shopping, managing finances, etc.?: No Are you currently unemployed and looking for a job?: No Are you interested in more education?: No THRIVE Score: 0 AUDIT C Alcohol Use Questionnaire (AUDIT-C) 1. How often do you have a drink containing alcohol?: Never 3. How often do you have six or more drinks on one occasion?: Never Total Score: 0 SHAYNA-7 AMB Questionnaire SHAYNA-7 Date SHAYNA - 7 assessed: 07/23/22 Feeling nervous, anxious, or on edge: 3 = Nearly every day Not being able to stop or control worryin = Nearly every day Worrying too much about different things: 3 = Nearly every day Trouble relaxin = Nearly every day Being so restless that it is hard to sit still: 3 = Nearly every day Becoming easily annoyed or irritable: 3 = Nearly every day Feeling afraid as if something awful might happen: 0 = Not at all Total SHAYNA-7 score (0-4 normal; 5-9 mild; 10-14 moderate; 15-21 severe): 18 Source: Developed by Drs. Tam Andrews, Cathy Barajas, Jesse Stewart and colleagues, with an educational carolin from [employer]. SHAYNA-7 Assessment Billing SHAYNA-7 Assessment Tool: SHAYNA-7 Assessment 65148 Physical exam (Primary Care) Tobacco/Smoking Status: Tobacco use Status Tobacco use date assessed 09/02/23 09/03/23 14:44 Patient Tobacco Use Status Former Tobacco user 09/03/23 14:44 e-Cigarette/Vaping Use Never Used 09/03/23 14:44 PHQ-9: PHQ-9 Score PHQ-9: Total score 17 09/03/23 14:44 Depression Screening Interpretation: Positive Thrive Assessment: Date of Thrive Assessment Date Thrive assessed 07/08/22 09/03/23 14:44 Assessment and Plan Assessment & Plan (1) Mass of left kidney: Code(s): N28.89 - Other specified disorders of kidney and ureter Plan: Patient?was?somewhat?lost?to?follow-up?as?he?left?on?a?vacation?for?3?months?and?the?MRI?that?I?had?ordered?could?not?be?performed?at?[facility]. Another?practitioner?ordered?an?MRI?which?was?performed?in?the?[place]?area?but?results?were?not?sent?to?us?until?yesterday. Possible renal cell carcinoma verses complex proteinaceous cyst Will refer to Nephrology. We?discussed?that?he?may?need?a?biopsy?and?may?need?referral?to?Hematology-Oncology (2) Pancreatic cyst: Code(s): K86.2 - Cyst of pancreas Plan: Possible intraductal papillary mucinous neoplasm (IPMN) Will reimage after 6 months to evaluate for stability Orders: Orders Complete Blood Count Auto Diff Today N28.89 - Other specified disorders of kidney and ureter, Z00.00 - Encounter for general adult medical examination without abnormal findings Comprehensive Met. Panel Today N28.89 - Other specified disorders of kidney and ureter UA and rflx microscopic Today N28.89 - Other specified disorders of kidney and ureter, Z00.00 - Encounter for general adult medical examination without abnormal findings Referrals Nephrology Referral N28.89 - Other specified disorders of kidney and ureter Coding Level of Care Code Tele Est Pt Level 2 (65593) Diagnoses Mass of left kidney N28.89 Pancreatic cyst K86.2 Additional Codes SHAYNA-7 Assessment Billing - SHAYNA-7 Assessment Tool: SHAYNA-7 Assessment [id number] ([id number])
== END 2023-09-03 15:27 | disposition home or self-care (01) ==
PROVIDERS: PCP Family Medicine; Visit Provider Family Medicine
DX: N28.89 Other specified disorders of kidney and ureter (principal); K86.2 Cyst of pancreas
CPT/HCPCS: 99441

== ENCOUNTER 2023-09-15 11:28 | Outpatient (AMB) | payer MEDICARE, MEDICAID, SELFPAY ==
[2023-09-15 11:30] VITALS: BP 116/64; PULSE 91; O2SAT 95; BMI 30.5
--- NOTE | 2023-09-15 11:30 | HO.NEPHOV_ITS ---
HPI HPI Comments History of Present Illness Details Pleasant 73-year-old man with history of essentially normal renal function was found to have renal mass of 2 cm. This mass was seen 2 years ago. The repeat CT scan showed the same mass and follow-up MRI revealed the same. He has been referred for the same. He has no gross hematuria. He has had chronic back pain from lumbar issues. He has a longstanding history of diabetes mellitus with minimal proteinuria He was accompanied by his family [facility] Medical History History of CVA (cerebrovascular accident) Acute CVA (cerebrovascular accident) Trigger finger, right ring finger Dupuytren's disease of palm Diabetes type 2, uncontrolled Neuropathy Essential hypertension Surgical History No pertinent past surgical history Social History Household Members: Family Housing: House Do you presently have visiting nurse or other home services: No Alcohol intake: never Comment: PT refuse bed alarm Patient Tobacco Use Status: Former Tobacco user e-Cigarette/Vaping Use: Never Used Second Hand Smoke Exposure: No service: No Current occupational status: disabled Current occupational exposures/hazards: No Cognitive needs: Yes (Cane) Hearing needs: No Vision needs: Yes (Glasses) Vital Signs 09/15/23 11:30 Height 6 ft 1 in Weight 231 lb BMI 30.5 BP 116/64 Blood Pressure Location Lt brachial Position Sitting Pulse 91 Pulse Source Pulse Oximeter Pulse Oximetry (%) 95 Oxygen Delivery Method Room Air Physical Exam Vital Signs: Last Vital Signs Pulse 91 09/15/23 11:30 BP 116/64 09/15/23 11:30 Pulse Ox 95 09/15/23 11:30 Oxygen Delivery Method Room Air 09/15/23 11:30 BMI result Body Mass Index 30.5 Repeat blood pressure 90/60 no orthostatic changes. He was lightheaded Const General: comfortable Nutritional Appearance: well nourished Orientation/consciousness: patient oriented x3 HEENT Head: No normal to inspection Mouth: moist mucous membranes Neck Neck: Yes supple and Yes no JVD Resp Auscultation: clear to auscultation bilaterally, no rales and rub present Cardio Jugular venous distension: no JVD Palpation: no palpable S3 and no palpable S4 Heart sounds: no rubs GI Palpation (GI): Soft to palpation and nontender Percussion: No Fluid wave present General: Yes no CVA tenderness Back/Spine/Pelvis Back: no CVA tenderness Skin General skin exam: no rashes or lesions noted Neuro General: patient oriented x3 Extrem General: Yes no pedal edema and No clubbing Assessment & Plan Assessment & Plan (1) Mass of left kidney: Code(s): N28.89 - Other specified disorders of kidney and ureter Plan: Obtain urine cytology. Referred to Urology. 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 Blood sugar needs to be tightly controlled to maintain A1c of less than 7% You will benefit from SGLT2 inhibitor (3) Essential hypertension: Code(s): I10 - Essential (primary) hypertension Plan: Blood pressure rather low today and he is symptomatic therefore I will hold the lisinopril HCTZ for the time being. Once that renal hemodynamics improve renal function should improve as well. I will restart RADHA inhibitors once blood pressure stabilizes Orders: Orders UA and rflx microscopic 09/15/23 N28.89 - Other specified disorders of kidney and ureter Urine Cytology 09/15/23 N28.89 - Other specified disorders of kidney and ureter Urine Culture 09/15/23 N28.89 - Other specified disorders of kidney and ureter Referrals Urology Referral N28.89 - Other specified disorders of kidney and ureter Medications: On Hold lisinopril-hydrochlorothiazide 20-12.5 mg Hold Comment: Doctor's Order 1 tab PO DAILY 90 days 90 tabs 3RF Coding Level of Care Code New Pt Level 4 (76710) Diagnoses Mass of left kidney N28.89 CKD (chronic kidney disease) N18.9 Essential hypertension I10 Results Reviewed Nephrology Results: Hgb 12.3 g/dl (14.0-18.0) L 09/15/23 WBC 5.8 X10*3/uL (4.8-10.8) 09/15/23 Plt Count 231 X10*3/uL (160-400) 09/15/23 Sodium 135 mmol/L (135-145) 09/15/23 Potassium 4.4 mmol/L (3.3-5.1) 09/15/23 Chloride 102 mmol/L (96-108) 09/15/23 Carbon Dioxide 24 mmol/L (22-29) 09/15/23 BUN 16 mg/dL (9-16) 09/15/23 Creatinine 1.01 mg/dL (0.5-1.4) 09/15/23 Calcium 9.2 mg/dL (8.4-10.2) 09/15/23 Urine Protein 30 (1+) mg/dL (Neg-Trace) H 09/15/23 Urine Creatinine 125.50 mg/dL 09/15/23 Renal US 04/23/23
== END 2023-09-15 12:21 | disposition home or self-care (01) ==
PROVIDERS: PCP Family Medicine; Referring Provider Family Medicine; Visit Provider Internal Medicine Hypertension Specialist
DX: N28.89 Other specified disorders of kidney and ureter (principal); I12.9 Hypertensive chronic kidney disease with stage 1 through stage 4 chronic kidney disease, or unspecified chronic kidney disease; E11.22 Type 2 diabetes mellitus with diabetic chronic kidney disease; N18.2 Chronic kidney disease, stage 2 (mild)
CPT/HCPCS: 99204

== ENCOUNTER → 2023-09-15 11:28 | Outpatient (BNVA) | payer MEDICARE, MEDICAID, SELFPAY | PROVIDERS: PCP Family Medicine; Referring Provider Family Medicine; Visit Provider Internal Medicine Hypertension Specialist ==

== ENCOUNTER 2023-09-15 12:09 | Outpatient (REF) | payer MEDICARE, MEDICAID, SELFPAY ==
[2023-09-15 18:21] LABS: MANUAL DIFF FLAG NO
[2023-09-15 18:23] LABS: Urine Cytology See Pathology rpt
[2023-09-15 18:39] LABS: Basophils Absolute Auto 0.1 X10*3/uL (0.0-0.2); Eosinophils Absolute Auto 0.2 X10*3/uL (0.0-0.4); Eosinophils Percent Auto 3.3 % (0-4); Hematocrit 37.4 % (42.0-52.0); Hemoglobin 12.3 g/dl (14.0-18.0); Imm Gran Abs Auto 0.01 X10*3/uL (0.00-0.03); Imm Gran Pct Auto 0.2 % (0.0-0.4); Lymphocytes Absolute Auto 1.3 X10*3/uL (1.2-4.9); Lymphocytes Percent Auto 21.9 % (20-40); Mean Corpuscular HGB Conc 32.9 g/dl (31.0-36.0); Mean Corpuscular Hemoglobin 28.3 pg (27.0-33.0); Mean Corpuscular Volume 86.2 fL (80.0-98.0); Mean Platelet Volume 12.2 fL (9.4-12.4); Monocytes Absolute Auto 0.7 X10*3/uL (0.1-1.2); Monocytes Percent Auto 11.9 % (2-11); Neutrophils Absolute Auto 3.6 x10*3/uL (2.0-8.3); Neutrophils Percent Auto 61.7 % (45-73); Platelet Count 231 X10*3/uL (160-400); Red Blood Count 4.34 X10*6/uL (4.60-5.80); Red Cell Distribution Width 13.7 % (11.0-16.0); White Blood Count 5.8 X10*3/uL (4.8-10.8)
[2023-09-15 18:54] LABS: Appearance Urine Clear; Color Urine Yellow; Glucose Urine UA Negative (Negative); Leukocyte Esterase Urine Negative (Negative); Nitrite Urine Negative (Negative); PH 5.5 (5.0-9.0); Specific Gravity - Urine 1.015 (1.005-1.025); UMIC TRIGGER UA YES; Urine Blood Moderate (2+) (Negative); Urine Ketones Negative (Negative); Urine Protein 30 (1+) mg/dL (Neg-Trace)
[2023-09-15 18:54] LABS: Alanine Aminotransferase 36 U/L (0-40); Albumin Level 3.9 g/dL (3.5-5.0); Alkaline Phosphatase 102 U/L (39-117); Anion Gap 13 (12-20); Aspartate Amino Transferase 37 U/L (5-37); Bilirubin Total 0.3 mg/dL (0.0-1.0); Blood Urea Nitrogen 16 mg/dL (9-16); Calcium 9.2 mg/dL (8.4-10.2); Carbon Dioxide 24 mmol/L (22-29); Chloride 102 mmol/L (96-108); Cholesterol 249 mg/dL (<200); Estimated Glomerular Filt Rate > 60; Glucose Random 177 mg/dL (60-115); HDL Cholesterol 56 mg/dL (>40); LDL Cholesterol Calculated 169 mg/dL (<100); Potassium 4.4 mmol/L (3.3-5.1); Sodium 135 mmol/L (135-145); Total Protein 7.4 g/dL (6.5-8.0); Triglycerides 121 mg/dL (<150)
[2023-09-15 20:01] LABS: Bacteria Urine None Seen (None Seen); Squamous Epithelial Cell Urine 0-2 /HPF (0-2); WBC Urine 0-5 /HPF (0-5)
[2023-09-15 21:30] LABS: Microalbum/Creatinine Ratio Ur 168.9 ug/mg cr (<30)
[2023-09-19 15:28] LABS: Glutamic acid decarboxylase Ab <5 IU/mL (<5)
== END 2023-09-15 12:10 | disposition home or self-care (01) ==
LOC: HO.HKASLDS 12:09
PROVIDERS: Internal Medicine Endocrinology, Diabetes & Metabolism; Internal Medicine Hypertension Specialist; Referring Provider Psychiatry & Neurology Neurology; Visit Provider Family Medicine
DX: Z00.00 Encounter for general adult medical examination without abnormal findings (principal); E11.65 Type 2 diabetes mellitus with hyperglycemia; N28.89 Other specified disorders of kidney and ureter; M54.9 Dorsalgia, unspecified; G89.29 Other chronic pain; I12.9 Hypertensive chronic kidney disease with stage 1 through stage 4 chronic kidney disease, or unspecified chronic kidney disease; N18.9 Chronic kidney disease, unspecified
CPT/HCPCS: 36415; 80053; 80061; 81001; 82043; 82570; 85025; 86341; 87086; 88112; 99202

== ENCOUNTER 2023-09-27 13:05 | Outpatient (AMB) | payer MEDICARE, MEDICAID, SELFPAY ==
[2023-09-27 13:17] VITALS: BMI 30.4
--- NOTE | 2023-09-27 13:17 | A.OFFVIS_ITS ---
Intake VS Expanded 09/27/23 13:17 09/30/23 12:29 Height 6 ft 1 in 6 ft 1 in Weight 230 lb 9.656 oz 231 lb BMI 30.4 30.5 Intake Visit Reasons: DM/CONFIRMED Allergies No Known Allergies [No Known Allergies*] Allergy (Verified 09/28/23 14:14) HPI Nutrition Presentation Details Pt presents for MNT for T2DM The Pt was referred by Dr. Hampton, visitor service assistant Pt reports eating with family members Pt reports having 3 meals/day and snacks in between meals B: hot cereal with milk and nuts and dried fruits L: bread, legumes, chicken,) water or tea D: same as lunch or salad , fruit juices snacks on dried fruits, nuts KAI-Rzlkzwe-Uk.Jeor Equation Height 6 ft 1 in Weight 231 lb Resting Metabolic Rate 1856.39 Calculated Activity Level Mild Activity Calories Needed to Maintain Weight 2552.54 Diagnosis Nutrition problem #1 food nutri know defi As related to (etiology) #1 diagnosis As evidenced by (sign/symptom) #1 knowledge deficit of diet Monitoring/Goals Nutrition problem monitoring level of knowledge/skill Nutrition goal/outcome list 3 CHO foods Learning/Education Readiness to learn fair Stages of change preparation Educational materials provided Yes (Meal planning) Most Recent Diabetes Results: Microalb/Creat Ratio 168.9 ug/mg cr (<30) H 09/15/23 Cholesterol 249 mg/dL (<200) H 09/15/23 HDL Cholesterol 56 mg/dL (>40) 09/15/23 Triglycerides 121 mg/dL (<150) 09/15/23 Creatinine 1.01 mg/dL (0.5-1.4) 09/15/23 Blood Urea Nitrogen 16 mg/dL (9-16) 09/15/23 Sodium 135 mmol/L (135-145) 09/15/23 Potassium 4.4 mmol/L (3.3-5.1) 09/15/23 Chloride 102 mmol/L (96-108) 09/15/23 Carbon Dioxide 24 mmol/L (22-29) 09/15/23 Calcium 9.2 mg/dL (8.4-10.2) 09/15/23 AST 37 U/L (5-37) 09/15/23 ALT 36 U/L (0-40) 09/15/23 Total Protein 7.4 g/dL (6.5-8.0) 09/15/23 Albumin 3.9 g/dL (3.5-5.0) 09/15/23 [facility] Medical History History of CVA (cerebrovascular accident) Acute CVA (cerebrovascular accident) Trigger finger, right ring finger Dupuytren's disease of palm Diabetes type 2, uncontrolled Neuropathy Essential hypertension Surgical History No pertinent past surgical history Social History Household Members: Family Housing: House Do you presently have visiting nurse or other home services: No Alcohol intake: never Comment: PT refuse bed alarm Patient Tobacco Use Status: Former Tobacco user e-Cigarette/Vaping Use: Never Used Second Hand Smoke Exposure: No service: No Current occupational status: disabled Current occupational exposures/hazards: No Cognitive needs: Yes (Cane) Hearing needs: No Vision needs: Yes (Glasses) Assessment & Plan Assessment & Plan (1) Diabetes type 2, uncontrolled: Code(s): E11.65 - Type 2 diabetes mellitus with hyperglycemia Plan: Wt: 105 Kg ( 10/12 ) Est kcal needs as per MSJ: 2600 (40% carb, 30% protein/fat) Est fluid needs as per 30 ml/d: 3200 Est prot per day as per 1 g/kg bw: 105 Recommend fiber intake : 8-10 g per day and gradually increase to 25-28 g per day for women and 35-38 g for men or as tolerated Recommend sodium intake per day : less than 1500 mg less than 2000 mg Educated patient on: ( R = reviewed V = verbalizes understanding N/R = needs review N/A = not applicable * Food sources of carbohydrate, adequate serving sizes and its role in various health conditions: R * Differences between complex carbohydrates a simple carbohydrates, role of fiber in diet: R V N/R * Lean protein sources of foods: R * Differences between types of fats and role in diet (mono on saturated fat fatty acids, saturated fatty acids, trans fats): R V N/R * Food sources of sodium in salt and healthy modifications for heart health in kidney health: R V R/V * Vitamins and minerals: N/R * Healthy plate method concept: R * Physical activity: Benefits a precaution: R V N/R * Hypoglycemia protocol (rule of 15): R V N/R * Dietary prevention of Hyperglycemia: R V R/V Medications: Discontinued insulin aspart (niacinamide) 100 unit/mL (3 mL) (Fiasp FlexTouch U-100 Insulin) Discontinued Reason: Doctor's Order 24-26 units subcutaneously 3 times a day; 45 mL 5RF Patient Instructions: Drink water with meals/snacks Do not add sugar to tea Have a yogurt in place of pastries 1-2 a day Coding Level of Care Code Nutr Indiv Intake (22002) Diagnoses Diabetes type 2, uncontrolled E11.65 Time Spent (min) 30
[2023-09-30 12:29] VITALS: BMI 30.5
== END 2023-09-27 13:41 | disposition home or self-care (01) ==
PROVIDERS: PCP Family Medicine; Visit Provider Dietitian, Registered
DX: E11.65 Type 2 diabetes mellitus with hyperglycemia (principal)

== ENCOUNTER → 2023-09-27 13:05 | Outpatient (BNVA) | payer MEDICARE, MEDICAID, SELFPAY | PROVIDERS: PCP Family Medicine; Visit Provider Dietitian, Registered | DX: E11.65 Type 2 diabetes mellitus with hyperglycemia (principal); E11.40 Type 2 diabetes mellitus with diabetic neuropathy, unspecified; Z71.3 Dietary counseling and surveillance | CPT/HCPCS: 97802 ==

== ENCOUNTER 2023-09-28 14:03 | Outpatient (AMB) | payer MEDICARE, MEDICAID, SELFPAY ==
[2023-09-28 14:08] VITALS: BP 118/66; PULSE 82; O2SAT 96; BMI 30.5
--- NOTE | 2023-09-28 14:08 | A.OFFPC_ITS ---
Vital Signs 09/28/23 14:08 Height 6 ft 1 in Weight 231 lb BMI 30.5 BP 118/66 Blood Pressure Location Lt brachial Position Sitting Pulse 82 Pulse Source Pulse Oximeter Pulse Oximetry (%) 96 Intake Visit Reasons: follow up chronic conditions Intake Note: Patient is here for follow up on chronic conditions. Patient is comolaining of left lower leg rash. Allergies No Known Allergies [No Known Allergies*] Allergy (Verified 09/28/23 14:14) Medication List - Last Reconciled 09/28/23 by John Graff MD aspirin 81 mg PO DAILY atorvastatin 40 mg PO DAILY cholecalciferol (vitamin D3) (Vitamin D3) 50 mcg PO DAILY 90 days clobetasol 0.05% 1 appl topical BID 2 weeks clopidogrel 75 mg PO DAILY 90 days cyanocobalamin (vitamin B-12) 1,000 mcg PO DAILY 90 days diclofenac sodium 1% (Arthritis Pain (diclofenac)) 2 grams topical QID 30 days dulaglutide 1.5 mg (0.5 mL) subcut QWEEK 28 days ferrous sulfate 325 mg PO DAILY flash glucose scanning reader (Ecozen SolutionsStyle Nikole 2 Wells) As directed flash glucose sensor (FreeStyle Nikole 2 Sensor kit) As directed change every 14 days gabapentin 600 mg PO TID 90 days insulin aspart U-100 (Novolog FlexPen U-100 Insulin aspart) 24 - 26 units (0.24 - 0.26 mL) subcut TID Lantus Solostar U-100 Insulin (insulin glargine) 55 units (0.55 mL) subcut DAILY 90 days NS lidocaine 5% (Lidoderm) 1 patch topical DAILY PRN lisinopril-hydrochlorothiazide 20-12.5 mg 1 tab PO DAILY 90 days meclizine 25 mg PO Q8H PRN 30 days metformin 1,000 mg PO BID 90 days metoprolol succinate ER 12.5 mg (1/2 x 25 mg) PO DAILY 30 days miscellaneous medical supply Diabetic Shoes, Daily As directed. 999 days. 1 Pair miscellaneous medical supply Diabetic shoes. Daily As directed, 999 days. One pair. omeprazole 40 mg (2 x 20 mg) PO DAILY 90 days pen needle, diabetic (BD Ultra-Fine Mini Pen Needle) As directed pen needle, diabetic (BD Ultra-Fine Short Pen Needle) 4 times a day As directed. 90 days quetiapine (Seroquel) 25 mg PO BEDTIME 30 days topiramate 50 mg PO BID Tobacco use date assessed: 09/28/23 Dental Screening Dental Screen Date: 09/28/23 HPI follow up chronic conditions HPI Details 73 y/o male presents to f/u renal mass a s well as pancreatic lesion seen on MRI. Had referred to nephrology. Had seen nephrology 09/15/23. They had referred to urology to obtain urine cytology. They recommended tight blood sugar control and A1c of less than 7%. They held his lisinopril-HCTZ. Last A1c 08/30/23 10.5%. Pt reports he has been taking novolog, Jardiance and metformin for his diabetes regimen. He notes blood sugars this morning was 207. HPI Comments History of Present Illness Details Documentation assistance for John Graff MD, was provided by Leonardo Mclean, Bee Rancher on 09/28/2023 3:05 PM EST. I, Dr. Graff, have read, observed, and verified documentation. [facility] Medical History History of CVA (cerebrovascular accident) Acute CVA (cerebrovascular accident) Trigger finger, right ring finger Dupuytren's disease of palm Diabetes type 2, uncontrolled Neuropathy Essential hypertension Surgical History No pertinent past surgical history Social History Household Members: Family Housing: House Do you presently have visiting nurse or other home services: No Alcohol intake: never Comment: PT refuse bed alarm Patient Tobacco Use Status: Former Tobacco user e-Cigarette/Vaping Use: Never Used Second Hand Smoke Exposure: No service: No Current occupational status: disabled Current occupational exposures/hazards: No Cognitive needs: Yes (Cane) Hearing needs: No Vision needs: Yes (Glasses) Questionnaire Thrive Questionnaire Date Thrive assessed: 07/08/22 SHAYNA-7 AMB Questionnaire SHAYNA-7 Date SHAYNA - 7 assessed: 07/23/22 Source: Developed by Drs. Tam Andrews, Cathy Barajas, Jesse Stewart and colleagues, with an educational carolin from [employer]. Review of Systems Const Denies chills, Denies fatigue, Denies fever(s), Denies headache(s) and Denies weakness ENT Denies dizziness and Denies headache(s) Card Denies dyspnea Resp Denies cough, Denies dyspnea, Denies wheezing and Denies other (shortness of breath) Musc Denies numbness and Denies tingling Neuro Denies dizziness, Denies headache(s), Denies numbness, Denies tingling and Denies weakness Psych Denies anxiety and Denies depression Endo Denies fatigue Aller/Immun Denies wheezing Physical exam (Primary Care) Vital Signs: Last Vital Signs Pulse 82 09/28/23 14:08 BP 118/66 09/28/23 14:08 Pulse Ox 96 09/28/23 14:08 BMI result Body Mass Index 30.5 Tobacco/Smoking Status: Tobacco use Status Tobacco use date assessed 09/28/23 09/28/23 14:17 Patient Tobacco Use Status Former Tobacco user 09/28/23 14:10 e-Cigarette/Vaping Use Never Used 09/28/23 14:10 Thrive Assessment: Date of Thrive Assessment Date Thrive assessed 07/08/22 09/28/23 14:10 Const General: well developed; No acute distress Nutritional Appearance: well nourished Orientation/consciousness: patient oriented x3 HENMT Head: Yes normocephalic and Yes atraumatic Eyes General: appearance normal, both eyes and all related structures Pupils: Equal, round and reactive pupils present EOM: EOMs intact bilaterally Resp Effort & Inspection: normal respiratory effort Auscultation: clear to auscultation bilaterally Cardio Rate: regular rate Rhythm: regular rhythm Heart sounds: S1 normal heart sound present, S2 normal heart sound present, no gallops, no murmurs and no rubs Neuro General: patient oriented x3 and gait normal Cranial nerves: Yes Equal, round and reactive pupils present Psych Affect: normal affect Assessment and Plan Assessment & Plan (1) CKD (chronic kidney disease): Comment: Mild CKD with 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 Blood?sugars?are?still?running?high?and?he?has?not?been?able?to?get?all?of?his?m edications. Refilled?Jardiance Continue?metformin Continue?insulins - follow-up?with?endocrinology?regardin g?getting?these?medications?and?prior?authorization (4) Essential hypertension: Code(s): I10 - Essential (primary) hypertension Plan: Blood?pressure?is?controlled.??Goal?is?less?than?140/90 Continue?current?medication (5) Dermatitis: Code(s): L30.9 - Dermatitis, unspecified Plan: Dermatitis?with?broken?skin?and?bilateral?infection/cellulitis Start?cephalexin (6) Pancreatic cyst: Code(s): K86.2 - Cyst of pancreas Plan: Pancreatic?cyst?seen?on?MRI Will?repeat?to?follow-up (7) Cellulitis: Code(s): L03.90 - Cellulitis, unspecified Plan: As above start cephalexin Orders: Orders MR abdomen wo con Today K86.89 - Other specified diseases of pancreas Medications: New empagliflozin (Jardiance) 25 mg PO QAM 90 days 90 tabs 2RF cephalexin 500 mg PO Q12H 10 days 20 caps 0RF Refilled meclizine 25 mg PO Q8H 30 days PRN 30 tabs 1RF Dizziness gabapentin 600 mg PO TID 90 days 270 tabs 2RF Coding Level of Care Code Est Pt Level 4 (07708) Diagnoses CKD (chronic kidney disease) N18.9 Mass of left kidney N28.89 Diabetes type 2, uncontrolled E11.65 Essential hypertension I10 Dermatitis L30.9 Pancreatic cyst K86.2 Cellulitis L03.90
== END 2023-09-28 15:34 | disposition home or self-care (01) ==
PROVIDERS: PCP Family Medicine; Visit Provider Family Medicine
DX: I12.9 Hypertensive chronic kidney disease with stage 1 through stage 4 chronic kidney disease, or unspecified chronic kidney disease (principal); E11.65 Type 2 diabetes mellitus with hyperglycemia; N18.9 Chronic kidney disease, unspecified; N28.89 Other specified disorders of kidney and ureter; L30.9 Dermatitis, unspecified; K86.2 Cyst of pancreas; L03.90 Cellulitis, unspecified
CPT/HCPCS: 99214

== ENCOUNTER 2023-10-06 13:29 | Outpatient (AMB) | payer MEDICARE, MEDICAID, SELFPAY ==
[2023-10-06 13:30] VITALS: BP 140/64; PULSE 75; O2SAT 96
--- NOTE | 2023-10-06 13:30 | HO.NEPHOV ---
HPI HPI Comments History of Present Illness Details Pleasant 73-year-old man with history of essentially normal renal function was found to have renal mass of 2 cm. This mass was seen 2 years ago. The repeat CT scan showed the same mass and follow-up MRI revealed the same. He has been referred for the same. He has no gross hematuria. He has had chronic back pain from lumbar issues. He has a longstanding history of diabetes mellitus with minimal proteinuria 10/06/23 BP was low last visit Lisinopril HCT 20/12.5 was stopped Feels better now Has Appointment next week for renal mass [facility] Medical History History of CVA (cerebrovascular accident) Acute CVA (cerebrovascular accident) Trigger finger, right ring finger Dupuytren's disease of palm Diabetes type 2, uncontrolled Neuropathy Essential hypertension Surgical History No pertinent past surgical history Social History Household Members: Family Housing: House Do you presently have visiting nurse or other home services: No Alcohol intake: never Comment: PT refuse bed alarm Patient Tobacco Use Status: Former Tobacco user e-Cigarette/Vaping Use: Never Used Second Hand Smoke Exposure: No service: No Current occupational status: disabled Current occupational exposures/hazards: No Cognitive needs: Yes (Cane) Hearing needs: No Vision needs: Yes (Glasses) Vital Signs 10/06/23 13:30 Height 6 ft 1 in BP 140/64 H Blood Pressure Location Lt brachial Position Sitting Pulse 75 Pulse Source Pulse Oximeter Pulse Oximetry (%) 96 Oxygen Delivery Method Room Air Physical Exam Vital Signs: Last Vital Signs Pulse 75 10/06/23 13:30 BP 140/64 H 10/06/23 13:30 Pulse Ox 96 10/06/23 13:30 Oxygen Delivery Method Room Air 10/06/23 13:30 Repeat blood pressure 90/60 no orthostatic changes. He was lightheaded Const General: comfortable Nutritional Appearance: well nourished Orientation/consciousness: patient oriented x3 HEENT Head: No normal to inspection Mouth: moist mucous membranes Neck Neck: Yes supple and Yes no JVD Resp Auscultation: clear to auscultation bilaterally, no rales and rub present Cardio Jugular venous distension: no JVD Palpation: no palpable S3 and no palpable S4 Heart sounds: no rubs GI Palpation (GI): Soft to palpation and nontender Percussion: No Fluid wave present General: Yes no CVA tenderness Back/Spine/Pelvis Back: no CVA tenderness Skin General skin exam: no rashes or lesions noted Neuro General: patient oriented x3 Extrem General: Yes no pedal edema and No clubbing Assessment & Plan Assessment & Plan (1) Mass of left kidney: Code(s): N28.89 - Other specified disorders of kidney and ureter Plan: urine cytology - unremarkable UA shows trace blood Referred to Urology. Has appointment next week (2) CKD (chronic kidney disease): Comment: Mild CKD with microalbuminuria due to underlying diabetic kidney disease Code(s): N18.9 - Chronic kidney disease, unspecified Plan: Goal is to slow the portion disease Agree with RADHA inhibition. Blood sugar needs to be tightly controlled to maintain A1c of less than 7% You will benefit from SGLT2 inhibitor (3) Essential hypertension: Comment: BP has improved after stopping Lisinopril HCT 20/12.5 daily during last visit Code(s): I10 - Essential (primary) hypertension Plan: I will restart RADHA inhibitors - Lisinopril 10 mg DAILY No need for HCTZ yet Orders: Orders Basic Metabolic Panel Today N18.9 - Chronic kidney disease, unspecified Medications: New lisinopril 10 mg PO DAILY 30 tabs 3RF Discontinued lisinopril-hydrochlorothiazide 20-12.5 mg Discontinued Reason: Doctor's Order 1 tab PO DAILY 90 days 90 tabs 3RF Coding Level of Care Code Est Pt Level 4 (37014) Diagnoses Mass of left kidney N28.89 CKD (chronic kidney disease) N18.9 Essential hypertension I10 Results Reviewed Nephrology Results: Hgb 12.3 g/dl (14.0-18.0) L 09/15/23 WBC 5.8 X10*3/uL (4.8-10.8) 09/15/23 Plt Count 231 X10*3/uL (160-400) 09/15/23 Sodium 135 mmol/L (135-145) 09/15/23 Potassium 4.4 mmol/L (3.3-5.1) 09/15/23 Chloride 102 mmol/L (96-108) 09/15/23 Carbon Dioxide 24 mmol/L (22-29) 09/15/23 BUN 16 mg/dL (9-16) 09/15/23 Creatinine 1.01 mg/dL (0.5-1.4) 09/15/23 Calcium 9.2 mg/dL (8.4-10.2) 09/15/23 Urine Protein 30 (1+) mg/dL (Neg-Trace) H 09/15/23 Urine Creatinine 125.50 mg/dL 09/15/23
== END 2023-10-06 13:59 | disposition home or self-care (01) ==
PROVIDERS: PCP Family Medicine; Visit Provider Internal Medicine Hypertension Specialist
DX: N28.89 Other specified disorders of kidney and ureter (principal); I12.9 Hypertensive chronic kidney disease with stage 1 through stage 4 chronic kidney disease, or unspecified chronic kidney disease; N18.9 Chronic kidney disease, unspecified
CPT/HCPCS: 99214

== ENCOUNTER → 2023-10-06 13:29 | Outpatient (BNVA) | payer MEDICARE, MEDICAID, SELFPAY | PROVIDERS: PCP Family Medicine; Visit Provider Internal Medicine Hypertension Specialist | DX: I12.9 Hypertensive chronic kidney disease with stage 1 through stage 4 chronic kidney disease, or unspecified chronic kidney disease (principal); N18.9 Chronic kidney disease, unspecified; N28.89 Other specified disorders of kidney and ureter | CPT/HCPCS: 99212 ==

== ENCOUNTER 2023-11-02 12:55 | Outpatient (AMB) | payer MEDICARE, MEDICAID, SELFPAY ==
--- NOTE | 2023-11-02 13:01 | A.OFFVIS_ITS ---
VS Expanded 11/02/23 13:02 Height 6 ft 1 in Weight 229 lb 11.547 oz BMI 30.3 Intake Visit Reasons: DM/ CONFIRMED Allergies No Known Allergies [No Known Allergies*] Allergy (Verified 10/06/23 13:32) Nutrition Presentation Details: Pt presents for MNT follow up for T2DM with ckd Pt reports doing ok, has 3 meals a day and including a variety of foods home made B: toast with nut butter or eggs or oats with fruit, milk and tea L/D rice/vegetables/poultry, water or tea or juice snacks on fruits and seeds or has cookies Reports taking insulin with meals as rx by MD , no questions or concerns expressed at this time. BS Monitoring Most Recent Diabetes Results: Microalb/Creat Ratio 168.9 ug/mg cr (<30) H 09/15/23 Cholesterol 249 mg/dL (<200) H 09/15/23 HDL Cholesterol 56 mg/dL (>40) 09/15/23 Triglycerides 121 mg/dL (<150) 09/15/23 Creatinine 1.01 mg/dL (0.5-1.4) 09/15/23 Blood Urea Nitrogen 16 mg/dL (9-16) 09/15/23 Sodium 135 mmol/L (135-145) 09/15/23 Potassium 4.4 mmol/L (3.3-5.1) 09/15/23 Chloride 102 mmol/L (96-108) 09/15/23 Carbon Dioxide 24 mmol/L (22-29) 09/15/23 Calcium 9.2 mg/dL (8.4-10.2) 09/15/23 AST 37 U/L (5-37) 09/15/23 ALT 36 U/L (0-40) 09/15/23 Total Protein 7.4 g/dL (6.5-8.0) 09/15/23 Albumin 3.9 g/dL (3.5-5.0) 09/15/23 [facility] Medical History History of CVA (cerebrovascular accident) Acute CVA (cerebrovascular accident) Trigger finger, right ring finger Dupuytren's disease of palm Diabetes type 2, uncontrolled Neuropathy Essential hypertension Surgical History No pertinent past surgical history Social History Household Members: Family Housing: House Do you presently have visiting nurse or other home services: No Alcohol intake: never Comment: PT refuse bed alarm Patient Tobacco Use Status: Former Tobacco user e-Cigarette/Vaping Use: Never Used Second Hand Smoke Exposure: No service: No Current occupational status: disabled Current occupational exposures/hazards: No Cognitive needs: Yes (Cane) Hearing needs: No Vision needs: Yes (Glasses) Assessment & Plan Assessment & Plan (1) Diabetes type 2, uncontrolled: Code(s): E11.65 - Type 2 diabetes mellitus with hyperglycemia Category: Medical Plan: Wt: 105 Kg ( 10/12, 10/2023 Est kcal needs as per MSJ: 2600 (40% carb, 30% protein/fat) Est fluid needs as per 30 ml/d: 3200 Est prot per day as per 1 g/kg bw: 105 Recommend fiber intake : 8-10 g per day and gradually increase to 25-28 g per day for women and 35-38 g for men or as tolerated Recommend sodium intake per day : less than 1500 mg less than 2000 mg Educated patient on: ( R = reviewed V = verbalizes understanding N/R = needs review N/A = not applicable * Food sources of carbohydrate, adequate serving sizes and its role in various health conditions: R * Differences between complex carbohydrates a simple carbohydrates, role of fiber in diet: R * Lean protein sources of foods: R * Differences between types of fats and role in diet (mono on saturated fat fatty acids, saturated fatty acids, trans fats): R V N/R * Food sources of sodium in salt and healthy modifications for heart health in kidney health: R * Healthy plate method concept: R * Physical activity: Benefits a precaution: R * Hypoglycemia protocol (rule of 15): R V * Dietary prevention of Hyperglycemia: R V Patient Instructions: Reduce on fried foods including foods with batter due to high fat/salt and its effect on blood glucose Include fish in your diet at least twice a week Do not add salt to the foods (table salt) be mindful of high salt foods (pastries/cookies and similar foods) choose a fruit instead , aim at having at least 2 fruits a day Coding Level of Care Code Nutr Indiv Subseq (51113) Diagnoses Diabetes type 2, uncontrolled E11.65 Time Spent (min) 30
[2023-11-02 13:02] VITALS: BMI 30.3
== END 2023-11-02 13:27 | disposition home or self-care (01) ==
PROVIDERS: PCP Family Medicine; Visit Provider Dietitian, Registered
DX: E11.65 Type 2 diabetes mellitus with hyperglycemia (principal)

== ENCOUNTER → 2023-11-02 12:55 | Outpatient (BNVA) | payer MEDICARE, MEDICAID, SELFPAY | PROVIDERS: PCP Family Medicine; Visit Provider Dietitian, Registered | DX: E11.65 Type 2 diabetes mellitus with hyperglycemia (principal); Z79.4 Long term (current) use of insulin; Z71.3 Dietary counseling and surveillance | CPT/HCPCS: 97803 ==

== ENCOUNTER 2023-11-22 11:40 | Outpatient (AMB) | payer MEDICARE, MEDICAID, SELFPAY ==
--- NOTE | 2023-11-22 11:47 | MHC.PC.OV ---
Vital Signs 11/22/23 11:48 Height 6 ft 1 in Weight 231 lb BMI 30.5 BP 136/58 L Blood Pressure Location Lt brachial Position Sitting Pulse 81 Pulse Source Pulse Oximeter Pulse Oximetry (%) 96 Oxygen Delivery Method Room Air Intake Visit Reasons: f/u chronic conditions Intake Note: Patient is here with complaint of bilateral leg pain, right one is worse. Patient is also requesting refills of his Freestyle Nikole sensors. Allergies No Known Allergies [No Known Allergies*] Allergy (Verified 11/22/23 11:52) Medication List - Last Reconciled 11/22/23 by John Graff MD aspirin 81 mg PO DAILY atorvastatin 40 mg PO DAILY cephalexin 500 mg PO Q12H 10 days cholecalciferol (vitamin D3) (Vitamin D3) 50 mcg PO DAILY 90 days clobetasol 0.05% 1 appl topical BID 2 weeks clopidogrel 75 mg PO DAILY 90 days cyanocobalamin (vitamin B-12) 1,000 mcg PO DAILY 90 days diclofenac sodium 1% (Arthritis Pain (diclofenac)) 2 grams topical QID 30 days dulaglutide 1.5 mg (0.5 mL) subcut QWEEK 28 days empagliflozin (Jardiance) 25 mg PO QAM 90 days ferrous sulfate 325 mg PO DAILY flash glucose scanning reader (FreeStyle Nikole 2 [place]) As directed flash glucose sensor (FreeStyle Nikole 2 Sensor kit) As directed change every 14 days gabapentin 600 mg PO TID 90 days insulin aspart (niacinamide) 100 unit/mL (3 mL) (Fiasp FlexTouch U-100 Insulin) 26 units subcut TID insulin degludec (Tresiba FlexTouch U-100 insulin) 55 units (0.55 mL) subcut DAILY lidocaine 5% (Lidoderm) 1 patch topical DAILY PRN lisinopril 10 mg PO DAILY meclizine 25 mg PO Q8H PRN 30 days metformin 1,000 mg PO BID 90 days metoprolol succinate ER 12.5 mg (1/2 x 25 mg) PO DAILY 30 days miscellaneous medical supply Diabetic Shoes, Daily As directed. 999 days. 1 Pair miscellaneous medical supply Diabetic shoes. Daily As directed, 999 days. One pair. omeprazole 40 mg (2 x 20 mg) PO DAILY 90 days pen needle, diabetic (BD Ultra-Fine Mini Pen Needle) As directed pen needle, diabetic (BD Ultra-Fine Short Pen Needle) 4 times a day As directed. 90 days quetiapine (Seroquel) 25 mg PO BEDTIME 30 days topiramate 50 mg PO BID Tobacco use date assessed: 09/28/23 Fall risk assessment: 2 + Falls in past year Last assessed Fall Risk: 11/22/23 Dental Screening Dental Screen Date: 09/28/23 HPI f/u chronic conditions HPI Details 73 y/o male presents to f/u diabetes. A1c today 11/22/23 8.9%. Last A1c 08/30/23 10.5%. He has an appt. with Dr. Hampton Endocrinology in December. Pt has complaints of bilateral knee/leg pain. [facility] Medical History History of CVA (cerebrovascular accident) Acute CVA (cerebrovascular accident) Trigger finger, right ring finger Dupuytren's disease of palm Diabetes type 2, uncontrolled Neuropathy Essential hypertension Surgical History No pertinent past surgical history Social History (Reviewed 10/06/23 @ 13:32 by Minnie Rankin, [facility]) Household Members: Family Housing: House Do you presently have visiting nurse or other home services: No Alcohol intake: never Comment: PT refuse bed alarm Patient Tobacco Use Status: Former Tobacco user e-Cigarette/Vaping Use: Never Used Second Hand Smoke Exposure: No service: No Current occupational status: disabled Current occupational exposures/hazards: No Cognitive needs: Yes (Cane) Hearing needs: No Vision needs: Yes (Glasses) Questionnaire Thrive Questionnaire Date Thrive assessed: 07/08/22 SHAYNA-7 AMB Questionnaire SHAYNA-7 Date SHAYNA - 7 assessed: 07/23/22 Source: Developed by Drs. Tam Andrews, Cathy Barajas, Jesse Stewart and colleagues, with an educational carolin from [employer]. Review of Systems Const Denies chills, Denies fatigue, Denies fever(s), Denies headache(s) and Denies weakness ENT Denies dizziness and Denies headache(s) Card Denies chest pain, Denies lightheadedness, Denies dyspnea and Denies other (Palpitations) Resp Denies cough, Denies dyspnea, Denies wheezing and Denies other ( shortness of breath) Musc Denies numbness and Denies tingling Neuro Denies dizziness, Denies headache(s), Denies numbness, Denies tingling, Denies paresthesias and Denies weakness Psych Denies anxiety and Denies depression Endo Denies fatigue Aller/Immun Denies wheezing Physical exam (Primary Care) Vital Signs: Last Vital Signs Pulse 81 11/22/23 11:48 BP 136/58 L 11/22/23 11:48 Pulse Ox 96 11/22/23 11:48 Oxygen Delivery Method Room Air 11/22/23 11:48 BMI result Body Mass Index 30.5 Tobacco/Smoking Status: Tobacco use Status Tobacco use date assessed 09/28/23 11/22/23 11:48 Patient Tobacco Use Status Former Tobacco user 11/22/23 11:48 e-Cigarette/Vaping Use Never Used 11/22/23 11:48 Thrive Assessment: Date of Thrive Assessment Date Thrive assessed 07/08/22 11/22/23 11:48 Const General: no acute distress and well developed Nutritional Appearance: well nourished Orientation/consciousness: patient oriented x3 HENMT Head: Yes normocephalic and Yes atraumatic Eyes General: appearance normal, both eyes and all related structures Pupils: Equal, round and reactive pupils present EOM: EOMs intact bilaterally Resp Effort & Inspection: normal respiratory effort Auscultation: clear to auscultation bilaterally Cardio Rate: regular rate Rhythm: regular rhythm Heart sounds: S1 normal heart sound present, S2 normal heart sound present, no gallops, no murmurs and no rubs Neuro General: patient oriented x3 and gait normal Cranial nerves: Yes Equal, round and reactive pupils present Psych Affect: normal affect Results AMB Hemoglobin A1c AMB Hemoglobin A1c 8.9 % Last Edit by Janie Eric CMA on 11/22/23 12:15 Results Reviewed Results Reviewed: Laboratory Last Values Hgb A1c (Clinic) 8.9 % (4.0-6.0) H 11/22/23 12:04 Assessment and Plan Assessment & Plan (1) Diabetes type 2, uncontrolled: Code(s): E11.65 - Type 2 diabetes mellitus with hyperglycemia Plan: A1c?has?improved?from?10%?to?8.9%. Will?increase?dulaglutide?to?3?mg?weekly Continue?remainder?of?diabetic?regimen?as?prescribed Follow-up?with?endocrinology?as?recommended - appreciate?endocrinology?is?help (2) Bilateral knee pain: Code(s): M25.561 - Pain in right knee; M25.562 - Pain in left knee Plan: Start?physical?therapy Ice/heat Acetaminophen If?not?improving?will?refer?to?ortho (3) Mass of left kidney: Code(s): N28.89 - Other specified disorders of kidney and ureter Plan: 2?cm?mass?of?left?kidney Patient?was?referred?to?Urology?but?missed?his?appointment?due?to?memory?changes Will?ask?Urology?to?reschedule?patient (4) Memory changes: Code(s): R41.3 - Other amnesia Orders: Orders AMB Hemoglobin A1c 11/22/23 Z13.9 - Encounter for screening, unspecified PT Evaluation and Treatment 11/22/23 M25.561 - Pain in right knee, M25.562 - Pain in left knee Referrals [facility] Referral I10 - Essential (primary) hypertension, R41.3 - Other amnesia Neuropsychiatry Referral R41.3 - Other amnesia Medications: Changed From dulaglutide 1.5 mg (0.5 mL) subcut QWEEK 28 days 2 mL 2RF To dulaglutide 3 mg (0.5 mL) subcut QWEEK 2 mL 2RF 28 days Refilled flash glucose sensor (FreeStyle Nikole 2 Sensor kit) As directed change every 14 days 6 ea 3RF E11.65 - Type 2 diabetes mellitus with hyperglycemia Coding Level of Care Code Est Pt Level 4 (15818) Diagnoses Diabetes type 2, uncontrolled E11.65 Bilateral knee pain M25.561; M25.562 Mass of left kidney N28.89 Memory changes R41.3
[2023-11-22 11:48] VITALS: BP 136/58; PULSE 81; O2SAT 96; BMI 30.5
== END 2023-11-22 12:54 | disposition home or self-care (01) ==
PROVIDERS: PCP Family Medicine; Visit Provider Family Medicine
DX: E11.65 Type 2 diabetes mellitus with hyperglycemia (principal); M25.561 Pain in right knee; M25.562 Pain in left knee; N28.89 Other specified disorders of kidney and ureter; R41.3 Other amnesia
CPT/HCPCS: 83036; 99214

== ENCOUNTER 2023-12-30 12:57 | Outpatient (AMB) | payer MEDICARE, MEDICAID, SELFPAY ==
[2023-12-30 13:00] VITALS: BP 118/60; PULSE 79
--- NOTE | 2023-12-30 13:00 | A.OFFVIS_ITS ---
Vital Signs 12/30/23 13:00 Height 6 ft 1 in Weight 227 lb 8.273 oz BMI 30.0 BP 118/60 Blood Pressure Location Rt brachial Position Sitting Pulse 79 Pulse Source Pulse Oximeter Intake Visit Reasons: DM-lvm Intake Note: Patient presents today to follow up on D2MT. 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 Initially diagnosed with T2DM in 18 yrs . Never seen endo before Was initially started on treatment with metformin . Current regimen metformin 1000 mg BID Lantus 45 units NovoLog scale for breakfast and dinner 81-150 26 units , 151-200 32 units, >200 26 units (he never made the changes from the previous visit ) jardiance 25 mg QD Trulicity 3 mg Qwkly Per the CGM Nikole CGMS data the patient's predicted A1C is 7.5% Avg glucose is 174 . Variability of 40.2 The patient's blood sugars were in target 61% of the time, above target 38 % of the time, and below target 1% of the time. Pattern shows elevated point of cares post breakfast and post dinner. Pattern shows increased point cares after breakfast with drops in blood sugar overnight Reports low sugars very occasionally over night . Treats lows with eats something . Checks sugar after to ensure it is rising. Treats 30 min later No Family history of T2DM Has eyes checked yearly, last eye exam this mo , has retinopathy. Denies neuropathy, , Does sees podiatry. Wants referral locally Denies nephropathy, on RADHA/ARB. . Has HLD, on statin. Denies CAD.Hx of CVA Not Had diabetes education. [facility] Medical History History of CVA (cerebrovascular accident) Acute CVA (cerebrovascular accident) Trigger finger, right ring finger Dupuytren's disease of palm Diabetes type 2, uncontrolled Neuropathy Essential hypertension Surgical History No pertinent past surgical history Social History Household Members: Family Housing: House Do you presently have visiting nurse or other home services: No Alcohol intake: never Comment: PT refuse bed alarm Patient Tobacco Use Status: Former Tobacco user e-Cigarette/Vaping Use: Never Used Second Hand Smoke Exposure: No service: No Current occupational status: disabled Current occupational exposures/hazards: No Cognitive needs: Yes (Cane) Hearing needs: No Vision needs: Yes (Glasses) Physical Exam Vital Signs: Last Vital Signs Pulse 79 12/30/23 13:00 BP 118/60 12/30/23 13:00 BMI result Body Mass Index 30.0 Absence of Cushingoid features. Absence of acromegalic features. Neck exam reveals nl size thyroid about 15 gms. No thyroid nodules palpable. No carotid bruits present. Lungs CTA. Heart S1 S2, Reg R/R. No M/R/ G. Skin exam reveals absence of vitiligo or acanthosis nigricans. Abdominal exam reveals Soft NT/ND with NA BS. No organomegaly present. Neck Other: . Extrem Other: Visual exam of foot performed. No ulcerations or open lesions. No onchomycosis, no callouses.Pulses 2 + distally Sensation intact to monofilament exam. Vibratory sensation sensed is decreased with 128 Hz tuning fork Assessment & Plan Assessment & Plan (1) Diabetes type 2, uncontrolled: Code(s): E11.65 - Type 2 diabetes mellitus with hyperglycemia Category: Medical Plan: This is a 72-year-old male with a history of type 2 diabetes being treated with metformin, Jardiance 25 and Trulicity and basal-bolus insulin with improving but fair glycemic control and known microvascular and macrovascular complications namely retinopathy, neuropathy and CVA. Patient has pancreatic cyst which is a relative contraindication to starting a GLP 1 Plan is to increase the NovoLog scale for breakfast and dinner 81-150 32 units , 151-200 22 units, >200 36 units . Will have patient follow-up with the primary care diabetes team here (2) Combined hyperlipidemia associated with type 2 diabetes mellitus: Code(s): E11.69 - Type 2 diabetes mellitus with other specified complication; E78.2 - Mixed hyperlipidemia Category: Medical Plan: Patient was previously noncompliant with the atorvastatin but now admits to compliance. Recheck lipid profile Orders: Orders Lipid Panel Today E11.69 - Type 2 diabetes mellitus with other specified complication, E78.2 - Mixed hyperlipidemia Medications: New insulin aspart U-100 (Novolog U-100 Insulin aspart) 36 units (0.36 mL) subcut TID 30 mL 4RF Discontinued insulin aspart (niacinamide) 100 unit/mL (3 mL) (Fiasp FlexTouch U-100 Insulin) Discontinued Reason: Doctor's Order 26 units subcut TID 30 mL 4RF Coding Level of Care Code Est Pt Level 4 (04788) Complex EM visit Add On G2211 Diagnoses Diabetes type 2, uncontrolled E11.65 Combined hyperlipidemia associated with type 2 diabetes mellitus E11.69; E78.2
[2023-12-30 13:14] LABS: Glucose, Whole Blood 198 mg/dL (60-115)
== END 2023-12-30 13:52 | disposition home or self-care (01) ==
PROVIDERS: PCP Family Medicine; Visit Provider Internal Medicine Endocrinology, Diabetes & Metabolism
DX: E11.65 Type 2 diabetes mellitus with hyperglycemia (principal); E11.69 Type 2 diabetes mellitus with other specified complication; E78.2 Mixed hyperlipidemia
CPT/HCPCS: 99214; G2211

== ENCOUNTER → 2023-12-30 12:57 | Outpatient (BNVA) | payer MEDICARE, MEDICAID, SELFPAY | PROVIDERS: PCP Family Medicine; Visit Provider Internal Medicine Endocrinology, Diabetes & Metabolism | DX: E11.65 Type 2 diabetes mellitus with hyperglycemia (principal); E11.69 Type 2 diabetes mellitus with other specified complication; E78.2 Mixed hyperlipidemia; Z79.4 Long term (current) use of insulin; Z79.84 Long term (current) use of oral hypoglycemic drugs; Z79.85 Long-term (current) use of injectable non-insulin antidiabetic drugs | CPT/HCPCS: 82947; 99212 ==

== ENCOUNTER 2023-12-31 12:58 | Outpatient (REF) | payer MEDICARE, MEDICAID, SELFPAY ==
--- NOTE | ~2023-12-31 | MR_ITS ---
EXAMINATION: MR ABDOMEN WITHOUT AND WITH CONTRAST CLINICAL INFORMATION: Evaluate pancreas. COMPARISON: 04/16/2023 TECHNIQUE: MR abdomen was performed without and with use of 10 mL intravenous Gadavist gadolinium contrast. Postcontrast images are performed in multiphase dynamic sequences. Imaging was performed in 3 planes. MRCP was also performed. FINDINGS: LUNG BASES: No pleural or pericardial effusion. Gynecomastia. LIVER, GALLBLADDER, AND BILIARY TREE: Hepatic steatosis. No focal hepatic lesion or biliary ductal dilatation is present. Cholelithiasis. PANCREAS: 7 mm T2 hyperintense focus in the head of the pancreas. No abnormal enhancement. No definite communication with the main pancreatic duct. No dilatation of main pancreatic duct. No peripancreatic stranding. SPLEEN: Not enlarged. ADRENAL GLANDS: No adrenal mass. KIDNEYS AND URETERS: Relatively hypoenhancing solid midpole left renal mass measuring 2.1 x 2.3 cm. No hydronephrosis or perinephric fluid collection. GASTROINTESTINAL TRACT: No bowel obstruction. No ascites or fluid collection. ABDOMINAL WALL: No significant hernia is appreciated. LYMPH NODES: No bulky lymphadenopathy. VASCULAR: Normal caliber abdominal aorta. MR/MR abdomen wo/w con IMPRESSION: 2.1 x 2.3 cm midpole left renal mass suspicious for neoplasm. This was previously identified on renal ultrasound performed 04/23/2023. Cholelithiasis. Hepatic steatosis. 7 mm cystic lesion in the head of the pancreas. Follow-up imaging in 2 years is recommended.
[2023-12-31] MEDS: gadobutroL 10 ML VIAL IVPUSH (14:37)
== END 2023-12-31 12:59 | disposition home or self-care (01) ==
LOC: HO.MRI 12:58
PROVIDERS: PCP Family Medicine; Visit Provider Family Medicine
DX: K86.89 Other specified diseases of pancreas (principal)
CPT/HCPCS: 74183; A9585

== ENCOUNTER 2024-01-11 15:11 | Outpatient (AMB) | payer MEDICARE, MEDICAID, SELFPAY ==
--- NOTE | 2024-01-11 15:25 | A.OFFPC_ITS ---
Vital Signs 01/11/24 15:32 Height 6 ft 1 in Weight 225 lb 2 oz BMI 29.7 BP 122/60 Blood Pressure Location Lt brachial Position Sitting Respiration 1 L Pulse 61 Pulse Source Pulse Oximeter Pulse Oximetry (%) 97 Oxygen Delivery Method Room Air Intake Visit Reasons: f/u diabetes, chronic conditions Intake Note: Follow up diabetes. Needs refill on aspirin 81, meclizine 25, Atorvastatin 40, and Novolog Head Sulfide Operator Required: No Allergies No Known Allergies [No Known Allergies*] Allergy (Verified 12/30/23 13:06) Medication List - Last Reconciled 01/11/24 by John Graff MD aspirin 81 mg PO DAILY atorvastatin 40 mg PO DAILY cholecalciferol (vitamin D3) (Vitamin D3) 50 mcg PO DAILY 90 days clobetasol 0.05% 1 appl topical BID 2 weeks clopidogrel 75 mg PO DAILY 90 days cyanocobalamin (vitamin B-12) 1,000 mcg PO DAILY 90 days diclofenac sodium 1% (Arthritis Pain (diclofenac)) 2 grams topical QID 30 days dulaglutide 3 mg (0.5 mL) subcut QWEEK 28 days empagliflozin (Jardiance) 25 mg PO QAM 90 days famotidine 20 mg PO BID 90 days ferrous sulfate 325 mg PO DAILY flash glucose scanning reader ([email or web address] Nikole 2 [place]) As directed flash glucose sensor (FreeStyle Nikole 2 Sensor kit) As directed change every 14 days gabapentin 600 mg PO TID 90 days insulin aspart (niacinamide) 100 unit/mL (Fiasp U-100 Insulin) 36 units subcut TID insulin aspart U-100 (Novolog FlexPen U-100 Insulin aspart) 1 sliding scale dose subcut USEASDIRECTD 30 days MDD 108 units insulin degludec (Tresiba FlexTouch U-100 insulin) 55 units (0.55 mL) subcut DAILY lidocaine 5% (Lidoderm) 1 patch topical DAILY PRN lisinopril 10 mg PO DAILY meclizine 25 mg PO Q8H PRN 30 days metformin 1,000 mg PO BID 90 days metoprolol succinate ER 12.5 mg (1/2 x 25 mg) PO DAILY 30 days miscellaneous medical supply Diabetic Shoes, Daily As directed. 999 days. 1 Pair miscellaneous medical supply Diabetic shoes. Daily As directed, 999 days. One pair. pen needle, diabetic (BD Ultra-Fine Mini Pen Needle) As directed pen needle, diabetic (BD Ultra-Fine Short Pen Needle) 4 times a day As directed. 90 days pen needle, diabetic (BD Ultra-Fine Sara Pen Needle) 100 ea miscellaneous .3x/day quetiapine (Seroquel) 25 mg PO BEDTIME 30 days topiramate 50 mg PO BID Tobacco use date assessed: 09/28/23 Fall risk assessment: No Falls in past year Last assessed Fall Risk: 01/11/24 Dental Screening Dental Screen Date: 09/28/23 HPI f/u diabetes, chronic conditions HPI Details 73 y/o male presents to f/u diabetes, ch ronic conditions. Last A1c 11/22/23 8.9%. A1c today 01/11/24 worsened to 9.1%. Had recently seen Dr. Hampton endocrinology. They had planned to increase NovoLog scale for breakfast and dinner. Pt notes he is out of his Trulicity and his novolog. [facility] Medical History History of CVA (cerebrovascular accident) Acute CVA (cerebrovascular accident) Trigger finger, right ring finger Dupuytren's disease of palm Diabetes type 2, uncontrolled Neuropathy Essential hypertension Surgical History No pertinent past surgical history Social History Household Members: Family Housing: House Do you presently have visiting nurse or other home services: No Alcohol intake: never Comment: PT refuse bed alarm Patient Tobacco Use Status: Former Tobacco user e-Cigarette/Vaping Use: Never Used Second Hand Smoke Exposure: No service: No Current occupational status: disabled Current occupational exposures/hazards: No Cognitive needs: Yes (Cane) Hearing needs: No Vision needs: Yes (Glasses) Questionnaire Thrive Questionnaire Date Thrive assessed: 07/08/22 SHAYNA-7 AMB Questionnaire SHAYNA-7 Date SHAYNA - 7 assessed: 07/23/22 Source: Developed by Drs. Tam Andrews, Cathy Barajas, Jesse Stewart and colleagues, with an educational carolin from [employer]. Review of Systems Const Denies chills, Denies fatigue, Denies fever(s), Denies headache(s) and Denies weakness ENT Denies dizziness and Denies headache(s) Card Denies dyspnea Resp Denies cough, Denies dyspnea, Denies wheezing and Denies other (shortness of breath) Musc Denies numbness and Denies tingling Neuro Denies dizziness, Denies headache(s), Denies numbness, Denies tingling and Denies weakness Psych Denies anxiety and Denies depression Endo Denies fatigue Aller/Immun Denies wheezing Physical exam (Primary Care) Vital Signs: Last Vital Signs Pulse 61 01/11/24 15:32 Resp 1 L 01/11/24 15:32 BP 122/60 01/11/24 15:32 Pulse Ox 97 01/11/24 15:32 Oxygen Delivery Method Room Air 01/11/24 15:32 BMI result Body Mass Index 29.7 Tobacco/Smoking Status: Tobacco use Status Tobacco use date assessed 09/28/23 01/11/24 15:25 Patient Tobacco Use Status Former Tobacco user 01/11/24 15:25 e-Cigarette/Vaping Use Never Used 01/11/24 15:25 Thrive Assessment: Date of Thrive Assessment Date Thrive assessed 07/08/22 01/11/24 15:25 Const General: well developed; No acute distress Nutritional Appearance: well nourished Orientation/consciousness: patient oriented x3 HENMT Head: Yes normocephalic and Yes atraumatic Eyes General: appearance normal, both eyes and all related structures Pupils: Equal, round and reactive pupils present EOM: EOMs intact bilaterally Resp Effort & Inspection: normal respiratory effort Neuro General: patient oriented x3 and gait normal Cranial nerves: Yes Equal, round and reactive pupils present Psych Affect: normal affect Results AMB Hemoglobin A1c AMB Hemoglobin A1c 9.1 % Last Edit by Domenica Hough CMA on 01/11/24 15:36 Results Reviewed Results Reviewed: Laboratory Last Values Hgb A1c (Clinic) 9.1 % (4.0-6.0) H 01/11/24 15:35 Assessment and Plan Assessment & Plan (1) Diabetes type 2, uncontrolled: Code(s): E11.65 - Type 2 diabetes mellitus with hyperglycemia Plan: A1c?9.1%.??Uncontrolled?diabetes.??Goal?is?7.0% He?is?taking?Tresiba?but?has?not?been?able?to?get?NovoLog.??Will?try?switching?t o?Humalog. No?changes?to?his?other?medications?at?this?time Relative?contraindication?to?GLP?1?due?to?pancreatic?cyst.??Will?consider?discon tinuing?when?he?has?a?more?stable?blood?sugar?control?and?regimen. Follow-up?with?endocrinology?as?recommended (2) Mass of left kidney: Code(s): N28.89 - Other specified disorders of kidney and ureter Plan: Patient?was?referred?to?Urology?but?missed?the?appointment. Had?ask?the?office?to?get?him?another?appointment?but?he?is?still?not?scheduled. Made?new?referral?to?urology. Close?follow-up.? (3) Vertigo: Code(s): R42 - Dizziness and giddiness Plan: Refilled?meclizine Orders: Orders AMB Hemoglobin A1c Today E11.69 - Type 2 diabetes mellitus with other specified complication, E78.2 - Mixed hyperlipidemia Referrals Urology Referral N28.89 - Other specified disorders of kidney and ureter Medications: New insulin lispro (Humalog KwikPen (U-100) Insulin) 36 units (0.36 mL) subcut TID 33 mL 3RF 30 days Refilled aspirin 81 mg PO DAILY 90 tabs 1RF meclizine 25 mg PO Q8H PRN 30 tabs 1RF Dizziness 30 days Coding Level of Care Code Est Pt Level 3 (10844) Diagnoses Diabetes type 2, uncontrolled E11.65 Mass of left kidney N28.89 Vertigo R42
[2024-01-11 15:32] VITALS: BP 122/60; PULSE 61; RESP 1; O2SAT 97; BMI 29.7
== END 2024-01-11 15:56 | disposition home or self-care (01) ==
PROVIDERS: PCP Family Medicine; Visit Provider Family Medicine
DX: E11.65 Type 2 diabetes mellitus with hyperglycemia (principal); E11.69 Type 2 diabetes mellitus with other specified complication; N28.89 Other specified disorders of kidney and ureter; R42 Dizziness and giddiness; E78.2 Mixed hyperlipidemia
CPT/HCPCS: 83036; 99213

== ENCOUNTER 2024-02-02 14:07 | Outpatient (AMB) | payer MEDICARE, MEDICAID, SELFPAY ==
--- NOTE | 2024-02-02 14:08 | A.OFFVIS_ITS ---
Vital Signs 02/02/24 14:19 Height 6 ft 1 in Weight 227 lb 1.218 oz BMI 30.0 BP 130/78 Blood Pressure Location Rt brachial Position Sitting Pulse 86 Pulse Source Pulse Oximeter Intake Visit Reasons: DM/CONFIRMED Intake Note: Patient presents today to re-establish treatment on Type 2 Diabetes Mellitus: Last Diabetic Eye exam: DUE Last Podiatry Exam: Does not see a Networking Technician Most recent HbA1c: 9.1%, 01/11/2024 Random Glucose- 149 mg/dL, Today Servicer Travel Trailers Required: No Accompanied by: Self / Same As Patient Allergies No Known Allergies [No Known Allergies*] Allergy (Verified 02/02/24 14:09) HPI Comments Details: 73 YO M who is seen in follow up for type 2 diabetes Medical history: CVA, HTN, HLD. PCP: Dr Graff Initially diagnosed with T2DM 20 years ago Was initially started on treatment with metformin . Current regimen metformin 1000 mg BID Lantus/Tresiba 45 units TWICE daily NovoLog/Humalog 25 units with breakfast and dinner. jardiance 25 mg QD Trulicity 3 mg Qwkly A1C 12/2023 9.1%. Per the CGM Nikole avg 150, GMI 6.9% 26% high, 73% target, low 1%. Most lows are overnight though has had infrequent daytime in 60s. Patient reports the recent improvement in glucose control came after starting the long acting insulin twice daily. No Family history of T2DM Has eyes checked frequently: (+) retinopathy. Denies neuropathy, , Does sees podiatry. Denies nephropathy, on RADHA/ARB. . Has HLD, on statin. Denies CAD. Hx of CVA ROS CONSTITUTIONAL: Denies weight loss, fever and chills. HEENT: Denies changes in vision and hearing. RESPIRATORY: Denies SOB and cough. CV: Denies palpitations and CP GI: Denies abdominal pain, nausea, vomiting and diarrhea. : Denies dysuria and urinary frequency. MSK: Denies new myalgia and joint pain. SKIN: Denies rash and pruritus. NEUROLOGICAL: Denies headache PSYCHIATRIC: Denies recent changes in mood. PHYSICAL EXAM: GENERAL: Alert and oriented x 3. NAD EYES: EOMI. Anicteric. HENT: Moist mucous membranes. No scleral icterus. No cervical lymphadenopathy. LUNGS: Clear to auscultation bilaterally. CARDIOVASCULAR: Regular rate and rhythm. ABDOMEN: Soft, non-tender +bs EXTREMITIES: No edema. Non-tender. SKIN: No rashes or lesions. Warm. NEUROLOGIC: No NEW focal neurological deficits. PSYCHIATRIC: Cooperative. Appropriate mood and affect [facility] Medical History History of CVA (cerebrovascular accident) Acute CVA (cerebrovascular accident) Trigger finger, right ring finger Dupuytren's disease of palm Diabetes type 2, uncontrolled Neuropathy Essential hypertension Surgical History No pertinent past surgical history Social History Household Members: Family Housing: House Do you presently have visiting nurse or other home services: No Alcohol intake: never Comment: PT refuse bed alarm Patient Tobacco Use Status: Former Tobacco user e-Cigarette/Vaping Use: Never Used Second Hand Smoke Exposure: No service: No Current occupational status: disabled Current occupational exposures/hazards: No Cognitive needs: Yes (Cane) Hearing needs: No Vision needs: Yes (Glasses) Physical Exam Vital Signs: Last Vital Signs Pulse 86 02/02/24 14:19 BP 130/78 02/02/24 14:19 BMI result Body Mass Index 30.0 Results Reviewed Results Reviewed: Laboratory Last Values Glucose (Clinic) 149 mg/dL (60-115) H 02/02/24 14:24 Assessment & Plan Assessment & Plan (1) Diabetes type 2, uncontrolled: Code(s): E11.65 - Type 2 diabetes mellitus with hyperglycemia Category: Medical Qualifiers: Glycemic state: with hyperglycemia Qualified Code(s): E11.65 - Type 2 diabetes mellitus with hyperglycemia Plan: Controlled but with lows. Decrease long acting insulin to 40 units twice daily. Decrease short acting insulin from 25 twice dailly to 25 with breakfast and 20 with dinner. Instructions written to patient. (2) Diabetic neuropathy: Code(s): E11.40 - Type 2 diabetes mellitus with diabetic neuropathy, unspecified Category: Medical Qualifiers: Diabetes mellitus complication detail: diabetic polyneuropathy Diabetes mellitus type: type 2 Qualified Code(s): E11.42 - Type 2 diabetes mellitus with diabetic polyneuropathy Plan: see above (3) Non-proliferative diabetic retinopathy: Code(s): E11.3299 - Type 2 diabetes mellitus with mild nonproliferative diabetic retinopathy without macular edema, unspecified eye Category: Medical Plan: continue routine eye exam Medications: Changed From insulin degludec (Tresiba FlexTouch U-100 insulin) 55 units (0.55 mL) subcut DAILY 30 mL 4RF To insulin degludec (Tresiba FlexTouch U-100 insulin) 40 units (0.4 mL) subcut BID 72 mL 4RF 90 days From insulin lispro (Humalog KwikPen (U-100) Insulin) 36 units (0.36 mL) subcut TID 30 days 33 mL 3RF To Humalog KwikPen Insulin (insulin lispro) Inject 25 units subcutaneous daily with breakfast, 20 units daily with dinner. If you eat lunch take 20 units with lunch; 45 mL 3RF 90 days NS From pen needle, diabetic (BD Ultra-Fine Sara Pen Needle) 100 ea miscellaneous .3x/day 100 ea 5RF E11.65 - Type 2 diabetes mellitus with hyperglycemia To BD Ultra-Fine Sara Pen Needle (pen needle, diabetic) 1 ea miscellaneous QID 400 ea 3RF 90 days NS E11.65 - Type 2 diabetes mellitus with hyperglycemia Discontinued insulin aspart (niacinamide) 100 unit/mL (Fiasp U-100 Insulin) Discontinued Reason: Doctor's Order 36 units subcut TID 45 mL 5RF insulin aspart U-100 (Novolog FlexPen U-100 Insulin aspart) 81-150 32 units 151-200 22 units over 200 36 units Discontinued Reason: Doctor's Order 1 sliding scale dose subcut USEASDIRECTD 30 days 35 mL 6RF diabetes MDD 108 units E11.65 - Type 2 diabetes mellitus with hyperglycemia Coding Level of Care Code Est Pt Level 4 (66077) Diagnoses Uncontrolled type 2 diabetes mellitus with hyperglycemia E11.65 Glycemic state: with hyperglycemia Diabetic polyneuropathy associated with type 2 diabetes mellitus E11.42 Diabetes mellitus complication detail: diabetic polyneuropathy Diabetes mellitus type: type 2 Non-proliferative diabetic retinopathy E11.9704
[2024-02-02 14:19] VITALS: BP 130/78; PULSE 86
[2024-02-02 14:28] LABS: Glucose, Whole Blood 149 mg/dL (60-115)
== END 2024-02-02 14:50 | disposition home or self-care (01) ==
PROVIDERS: PCP Family Medicine; Visit Provider Internal Medicine
DX: E11.65 Type 2 diabetes mellitus with hyperglycemia (principal); E11.42 Type 2 diabetes mellitus with diabetic polyneuropathy; E11.3299 Type 2 diabetes mellitus with mild nonproliferative diabetic retinopathy without macular edema, unspecified eye
CPT/HCPCS: 99214

== ENCOUNTER → 2024-02-02 14:07 | Outpatient (BNVA) | payer MEDICARE, MEDICAID, SELFPAY | PROVIDERS: PCP Family Medicine; Visit Provider Internal Medicine | DX: E11.65 Type 2 diabetes mellitus with hyperglycemia (principal); E11.42 Type 2 diabetes mellitus with diabetic polyneuropathy; E11.3299 Type 2 diabetes mellitus with mild nonproliferative diabetic retinopathy without macular edema, unspecified eye; E78.5 Hyperlipidemia, unspecified; Z86.73 Personal history of transient ischemic attack (TIA), and cerebral infarction without residual deficits; Z79.4 Long term (current) use of insulin | CPT/HCPCS: 82947; 99212 ==

== ENCOUNTER 2024-02-17 13:31 | Outpatient (AMB) | payer MEDICARE, MEDICAID, SELFPAY ==
--- NOTE | 2024-02-17 13:47 | MHC.PC.OV ---
Vital Signs 02/17/24 13:52 02/17/24 13:58 Height 5 ft 11 in Weight 229 lb BMI 31.9 BP 160/80 H 124/60 Blood Pressure Location Rt brachial Rt brachial Position Sitting Sitting Respiration 16 Pulse 68 Pulse Source Pulse Oximeter Temp 96.0 F L Temp Source Tympanic Pulse Oximetry (%) 97 Oxygen Delivery Method Room Air Intake Visit Reasons: f/u diabetes, chronic conditions Intake Note: follow up for DM pt also states he was having blurr vision and headache before coming to visit Allergies No Known Allergies [No Known Allergies*] Allergy (Verified 02/17/24 13:49) Medication List - Last Reconciled 02/17/24 by John Graff MD aspirin 81 mg PO DAILY atorvastatin 40 mg PO DAILY BD Ultra-Fine Sara Pen Needle (pen needle, diabetic) 1 ea miscellaneous QID 90 days NS cholecalciferol (vitamin D3) (Vitamin D3) 50 mcg PO DAILY 90 days clobetasol 0.05% 1 appl topical BID 2 weeks clopidogrel 75 mg PO DAILY 90 days cyanocobalamin (vitamin B-12) 1,000 mcg PO DAILY 90 days diclofenac sodium 1% (Arthritis Pain (diclofenac)) 2 grams topical QID 30 days dulaglutide 3 mg (0.5 mL) subcut QWEEK 28 days empagliflozin (Jardiance) 25 mg PO QAM 90 days famotidine 20 mg PO BID 90 days ferrous sulfate 325 mg PO DAILY flash glucose scanning reader (FreeStyle Nikole 2 [place]) As directed flash glucose sensor (FreeStyle Nikole 2 Sensor kit) As directed change every 14 days gabapentin 600 mg PO TID 90 days Humalog KwikPen Insulin (insulin lispro) Inject 25 units subcutaneous daily with breakfast, 20 units daily with dinner. If you eat lunch take 20 units with lunch; 90 days NS insulin degludec (Tresiba FlexTouch U-100 insulin) 40 units (0.4 mL) subcut BID 90 days lidocaine 5% (Lidoderm) 1 patch topical DAILY PRN lisinopril 10 mg PO DAILY meclizine 25 mg PO Q8H PRN 30 days metformin 1,000 mg PO BID 90 days metoprolol succinate ER 12.5 mg (1/2 x 25 mg) PO DAILY 30 days miscellaneous medical supply Diabetic Shoes, Daily As directed. 999 days. 1 Pair miscellaneous medical supply Diabetic shoes. Daily As directed, 999 days. One pair. pen needle, diabetic (BD Ultra-Fine Mini Pen Needle) As directed pen needle, diabetic (BD Ultra-Fine Short Pen Needle) 4 times a day As directed. 90 days quetiapine (Seroquel) 25 mg PO BEDTIME 30 days topiramate 50 mg PO BID Tobacco use date assessed: 09/28/23 Dental Screening Dental Screen Date: 09/28/23 HPI f/u diabetes, chronic conditions HPI Details 73 y/o male presents to f/u diabetes, chronic conditions. Last A1c 01/11/24 9.1%. Pt had been taking Tresiba but had not been able to get NovoLog. Had met endocrinology 02/02/24 and has an appt. with them next month. He is on Jardiance 25mg, dulaglutide 3mg, Tresiba 40 units, metformin 1000mg b.i.d. Pt notes blood sugars continue to fluctuate, most between 96-150, some high numbers in the low 300s. He notes he has been watching his diet. Blood pressure today 124/60, 68p. He is on lisinopril 10mg, metoprolol 12.5mg daily. Has complaints of a headache which was worse earlier. Ongoing complaints of blurry visions. HPI Comments History of Present Illness Details Documentation assistance for John Graff MD, was provided by Leonardo Mclean, Manufacturing Quality Engineer on 02/17/2024 at 2:09 PM EST. I, Dr. Graff, have read, observed, and verified documentation. [facility] Medical History History of CVA (cerebrovascular accident) Acute CVA (cerebrovascular accident) Trigger finger, right ring finger Dupuytren's disease of palm Diabetes type 2, uncontrolled Neuropathy Essential hypertension Surgical History No pertinent past surgical history Social History Household Members: Family Housing: House Do you presently have visiting nurse or other home services: No Alcohol intake: never Comment: PT refuse bed alarm Patient Tobacco Use Status: Former Tobacco user e-Cigarette/Vaping Use: Never Used Second Hand Smoke Exposure: No service: No Current occupational status: disabled Current occupational exposures/hazards: No Cognitive needs: Yes (Cane) Hearing needs: No Vision needs: Yes (Glasses) Questionnaire Thrive Questionnaire Date Thrive assessed: 07/08/22 SHAYNA-7 AMB Questionnaire SHAYNA-7 Date SHAYNA - 7 assessed: 07/23/22 Source: Developed by Drs. Tam Andrews, Cathy Barajas, Jesse Stewart and colleagues, with an educational carolin from [email or web address]. Review of Systems Const Reports headache(s) ENT Reports headache(s) Neuro Reports headache(s) Physical exam (Primary Care) Vital Signs: Last Vital Signs Temp 96.0 F L 02/17/24 13:52 Pulse 68 02/17/24 13:52 Resp 16 02/17/24 13:52 BP 124/60 02/17/24 13:58 Pulse Ox 97 02/17/24 13:52 Oxygen Delivery Method Room Air 02/17/24 13:52 BMI result Body Mass Index 31.9 Tobacco/Smoking Status: Tobacco use Status Tobacco use date assessed 09/28/23 02/17/24 13:57 Patient Tobacco Use Status Former Tobacco user 02/17/24 13:57 e-Cigarette/Vaping Use Never Used 02/17/24 13:57 Thrive Assessment: Date of Thrive Assessment Date Thrive assessed 07/08/22 02/17/24 13:57 Assessment and Plan Assessment & Plan (1) Diabetes type 2, uncontrolled: Code(s): E11.65 - Type 2 diabetes mellitus with hyperglycemia Qualifiers: Glycemic state: with hyperglycemia Qualified Code(s): E11.65 - Type 2 diabetes mellitus with hyperglycemia Plan: Now?followed?closely?by?endocrinology Recent?medication?changes?made?2?weeks?ago. His?continuous?glucose?monitor?show?most?of?his?blood?sugars?are?between?90?and?140?though?in?the?afternoons?it?is?going?higher. No?medication?changes?made?today Follow-up?with?endocrinology?as?recommended Encouraged?diabetic?diet (2) Pancreatic cyst: Code(s): K86.2 - Cyst of pancreas Plan: May?recommend?switching?him?off?of?GLP?1?when?his?blood?sugars?are?more?stable. (3) Hypertension: Code(s): I10 - Essential (primary) hypertension Plan: Blood?pressure?is?controlled.??Goal?is?less?than?140/90 Continue?current?medications (4) Headache: Code(s): R51.9 - Headache, unspecified Plan: Mild?headaches?in?the?morning.??Worse?with?loud?noise Also?associated?with?sinus?pressure. Hydrate?well Can?try?Flonase (5) Vision changes: Code(s): H53.9 - Unspecified visual disturbance Plan: Not?always?associated?with?his?headaches. Referred?him?back?to?his?renewable energy consultant (6) Mass of left kidney: Code(s): N28.89 - Other specified disorders of kidney and ureter Plan: Has?appointment?with?urology?next?month. Reminded?patient?of?appointment?date Orders: Referrals Ophthalmology Referral H53.9 - Unspecified visual disturbance Medications: New fluticasone propionate 50 mcg/actuation (Flonase Allergy Relief) administer into each nostril 1 spray intranasal Q12H 30 days 16 grams 2RF Refilled empagliflozin (Jardiance) 25 mg PO QAM 90 days 90 tabs 2RF gabapentin 600 mg PO TID 90 days 270 tabs 2RF Coding Level of Care Code Est Pt Level 4 (99359) Diagnoses Uncontrolled type 2 diabetes mellitus with hyperglycemia E11.65 Glycemic state: with hyperglycemia Pancreatic cyst K86.2 Hypertension I10 Headache R51.9 Vision changes H53.9 Mass of left kidney N28.89
[2024-02-17 13:52] VITALS: BP 160/80; PULSE 68; RESP 16; TEMP 35.6; O2SAT 97; BMI 31.9
[2024-02-17 13:58] VITALS: BP 124/60
== END 2024-02-17 14:26 | disposition home or self-care (01) ==
PROVIDERS: PCP Family Medicine; Visit Provider Family Medicine
DX: E11.65 Type 2 diabetes mellitus with hyperglycemia (principal); K86.2 Cyst of pancreas; I10 Essential (primary) hypertension; R51.9 Headache, unspecified; H53.9 Unspecified visual disturbance; N28.89 Other specified disorders of kidney and ureter
CPT/HCPCS: 99214

== ENCOUNTER 2024-03-09 14:47 | Outpatient (AMB) | payer MEDICARE, MEDICAID, SELFPAY ==
--- OUTSIDE RECORDS SUMMARY | 2024-03-09 14:49 | XMS_ITS | Continuity of Care Document ---
Author Organization [facility] ter Address [address] [place] [id number]- Care Team Providers Care Caving Guide Name Role Phone Prerna MASTERSON, John Caldera Primary Care Physician [phone] Encounter [facility] Date(s): 10/30/23 - 10/31/[address] [address]- Encounter Diagnosis Aphasia(Final) - 10/30/23 Altered mental status(Final) - 10/30/23 History of depression(Final) - 10/30/23 Discharge Disposition: A-D/C Home Attending Physician: Palma Torres MD Admitting Physician: Yael Guevara DO Referring Physician: Not on Staff, Referring MD Allergies, Adverse Reactions, Alerts No Known Allergies Medications aspirin 81 mg oral tablet 1 tablet = 81 mg, By Mouth, Daily, # 30 tablet, 0 Refills, Maintenance, 04/06/19 17:34:40 EDT, Tablet Start Date: 04/06/19 Status: Ordered docusate sodium 100 mg oral capsule 100 mg, 1, capsule, By Mouth, 2 times a day, # 60 capsule, Refills 0, Tot. Refills 0, Maintenance, 04/19/19 9:32:29 EDT, Print Requisition Start Date: 04/19/19 Status: Ordered gabapentin 300 mg oral capsule 600 mg, Capsule, By Mouth, 10/31/23 9:00:00 EDT Start Date: 10/31/23 Stop Date: 10/31/23 Status: Completed gabapentin 600 mg oral tablet 1 tablet = 600 mg, By Mouth, 3 times a day, # 270 tablet, 0 Refills, Maintenance, 10/30/23 15:31:00EDT, Tablet, Partial fill upon patient request if the prescription is for a schedule II opioid drug. Start Date: 10/30/23 Status: Ordered insulin glargine 100 units/mL subcutaneous solution 0.55 mL = 55 units, Subcutaneous Injection, Daily at bedtime, # 16.5 mL, 0 Refills, Maintenance, 04/19/19 8:17:54 EDT, Injection Start Date: 04/19/19 Status: Ordered insulin lispro 100 u/ml subcutaneous injection = 20 units, Subcutaneous Injection, 3 times a day before meals, # 10 mL, 0 Refills, Maintenance, 04/19/19 8:18:54 EDT, Injection Start Date: 04/19/19 Status: Ordered Jardiance 25 mg oral tablet 1 tablet = 25 mg, By Mouth, Daily in AM, # 30 tablet, 0 Refills, Maintenance, 10/30/23 15:30:00 EDT, Tablet, Partial fill upon patient request if the prescription is for a schedule II opioid drug. Start Date: 10/30/23 Status: Ordered Lipitor 80 mg oral tablet 1 tablet = 80 mg, By Mouth, Daily, # 90 tablet, 1 Refills, Maintenance, 10/31/23 9:26:00 EDT, Tablet, [facility]/pharmacy #[id number], Partial fill upon patient request if the prescription is for a schedule II opioid drug., 180, cm, 10/31/23 7:47:00 EDT, Height, 8... Start Date: 10/31/23 Status: Ordered lisinopril 10 mg oral tablet 10 mg, 1, tablet, By Mouth, Daily, # 30 tablet, Refills 0, Maintenance, 04/06/19 17:35:03 EDT Start Date: 04/06/19 Status: Ordered metFORMIN 1000 mg oral tablet 1 tablet = 1,000 mg, By Mouth, 2 times a day, # 60 tablet, 0 Refills, Maintenance, 04/06/19 17:31:59 EDT, Tablet Start Date: 04/06/19 Status: Ordered omeprazole 20 mg oral enteric coated capsule TAKE 2 CAPSULES (40 MG) ORALLY DAILY FOR 90 DAYS Start Date: 10/30/23 Status: Ordered Vitamin B-12 1000 mcg oral tablet 1,000 mcg, 1, tablet, By Mouth, Daily, # 30 tablet, Refills 0, Tot. Refills 0, Maintenance, 04/19/19 8:17:18 EDT, Print Requisition Start Date: 04/19/19 Status: Ordered wheeled walker wheeled walker, See Instructions, # 1 units, Refills 0, Tot. Refills 0, Maintenance, as dorected, 04/12/19 11:36:09 EDT, Compound Start Date: 04/12/19 Status: Ordered Problem List Condition Confirmation Course Effective Dates Status H ealth Status Informant CVA (cerebral vascular accident) Confirmed Active DM (diabetes mellitus) Confirmed Active GERD (gastroesophageal reflux disease) Confirmed Active Hyperlipidemia Confirmed Active HTN (hypertension) Confirmed Active OA (osteoarthritis) Confirmed Active Results Radiology Reports * Exam Date Time Procedure Performing Provider Status 10/31/23 1:31 AM MRI Brain W/O Contrast Brianna Cintron; Au th (Verified) Notes: (MRI Brain W/O Contrast) Reason For Exam: Aphasia RESULT: MRI Brain W/O Contrast MRI Brain W/O Contrast INDICATION: Reason: Aphasia; Clinical Question(s): Infarction; Order Comment: Please see Reference Text for complete list of contraindications Infarction TECHNIQUE: MRI of the brain was performed without contrast utilizing sagittal T1, axial T2, axial FLAIR, axial SWAN, and axial DWI sequences. COMPARISON: CT/CTA head 10/30/2023. FINDINGS: BRAIN and EXTRA-AXIAL SPACES: On diffusion weighted imaging, there are no regions of restricted diffusion to indicate an acute or subacute infarct. There is no evidence of acute or space-occupying intracranial hemorrhage on susceptibility sensitive sequence. There is no mass effect, midline shift, or effacement of the basal cisterns. Major intracranial flow voids are present. Mild scattered foci of T2 prolongation are seen in the white matter. Foci of cavitation compatible with chronic lacunar infarcts are present in bilateral saunders radiata, as well as in the more anterior left centrum semiovale and left anterior frontal periventricular white matter. There is trace associated susceptibility artifact at these sites compatible with minimal hemosiderin staining. Ventricles, cisterns, and sulci are mildly prominent, consistent with volume loss, without hydrocephalus. No abnormal extra-axial fluid collections are seen. Meningeal surfaces are normal. The midline structures, including sella, corpus callosum, and craniocervical junction, are unremarkable. EXTRACRANIAL SOFT TISSUES: There have been lens replacements bilaterally. Paranasal sinuses and mastoids are unremarkable. BONES: Marrow signal is preserved. IMPRESSION: 1. No acute/subacute infarct, mass, hematoma, or other acute intracranial abnormality. 2. Small chronic lacunar infarcts in the deep white matter, as well as mild small vessel disease ofthe white matter. WSN: [id number] Ordering Physician: Williams Diaz Dictated By: Fiona Estrada MD Dictated Date/Time: 10/31/23 7:15 am Reviewed By: Fiona Estrada MD Signed By: Fiona Estrada MD Signed Date/Time: 10/31/23 7:15 am Transcribed By: DOMINICK Transcribed Date/Time: 10/31/23 7:11 am * Exam Date Time Procedure Performing Provider Status 10/30/23 2:37 PM Chest 2 Views Frontal and Lat Lakshmi Alatorre; Auth (Verified) Notes: (Chest 2 Views Frontal and Lat) Reason For Exam: Shortness of Breath RESULT: Chest 2 Views Frontal and Lat Chest 2 Views Frontal and Lat Hx of Present Illness: patient had a syncopal episode and passed out for few seconds and his speechwas garbbed, patient on arrival crying ,not answering any questions; Reason: Shortness of Breath; Clinical Question(s): CHF COMPARISON: 08/05/2016. FINDINGS: LINES AND TUBES: None. LUNGS AND PLEURA: No focal consolidation or pulmonary edema. No pleural effusion. No pneumothorax. HEART, MEDIASTINUM AND JOSE: Heart is normal in size. Normal mediastinal and hilar contour. BONES AND SOFT TISSUES: No acute abnormality. IMPRESSION: No acute abnormality. WSN: [id number] Ordering Physician: Alexa Schmidt Dictated By: Ricardo Argueta MD Dictated Date/Time: 10/30/23 2:42 pm Reviewed By: Ricardo Argueta MD Signed By: Ricardo Argueta MD Signed Date/Time: 10/30/23 2:42 pm Transcribed By: DOMINICK Transcribed Date/Time: 10/30/23 2:40 pm * Exam Date Time Procedure Performing Provider Status 10/30/23 12:[address] Head-Hyper Acute Stroke Jameson Goetz; Auth (Verified) Notes: (CT Head-Hyper Acute Stroke) Reason For Exam: Neuro deficit, acute, stroke suspected;Other: RESULT: CT Head-Hyper Acute Stroke CT Head-Hyper Acute Stroke INDICATION: Reason: Other:; Neuro deficit, acute, stroke suspected; Clinical Question(s): Other:; Hematoma Infarction TECHNIQUE: Noncontrast head CT using axial technique and reconstructed in axial and coronal planes.Iterative reconstruction techniques are used to optimize dose and image quality. CTDIvol Body: 14.30 mGy, DLP Body: 649 mGy*cm. CTDIvol Head: 45.80 mGy, DLP Head: 773 mGy*cm. COMPARISON: None. FINDINGS: Pot Room Tapper view findings, lines and tubes: None. BRAIN AND EXTRA-AXIAL SPACES: No parenchymal hemorrhage, midline shift, or mass effect. Kimbrough-white matter differentiation is wellpreserved. No acute infarct. Negative insular ribbon sign. Atherosclerotic vascular calcification of the carotid arteries but negative hyperdense vessel sign. Mild prominence of the ventricles and sulci consistent with parenchymal volume loss. Moderate low-density white matter changes. No subarachnoid hemorrhage. No subdural or epidural collection. CALVARIUM, SKULL BASE, AND SOFT TISSUES: No fractures or suspicious bony lesions. The paranasal sinuses and mastoid air cells are clear. Status-post bilateral lens extraction. The extracranial soft tissues are unremarkable. IMPRESSION: No acute intracranial pathology. WSN: [id number] Ordering Physician: Ghanshyam Fernandez Dictated By: Ricardo Argueta MD Dictated Date/Time: 10/30/23 12:46 p Reviewed By: Ricardo Argueta MD Signed By: Ricardo Argueta MD Signed Date/Time: 10/30/23 12:46 pm Transcribed By: DOMINICK Transcribed Date/Time: 10/30/23 12:42 pm * Exam Date Time Procedure Performing Provider Status 10/30/23 12:[address] Angio Neck Hyperacute Stroke Reji Goetz; Auth (Verified) Notes: (CT Angio Neck Hyperacute Stroke) Reason For Exam: Aneurysm, neck vessel(s);Other: RESULT: CT Angio Neck Hyperacute Stroke CT Angio Head Hyperacute Stroke, CT Angio Neck Hyperacute Stroke Reason: Other:; Stroke; Clinical Question(s): Other:; Hematoma Aneurysm / Other: TECHNIQUE: CT angiogram of the head and neck was performed after bolus administration of intravenous contrast. 100 mL of Omnipaque 300 was administered intravenously. Coronal and sagittal MIP reformatted images were obtained. Additional 3-D images were created on a separate workstation under concurrent supervision by the attending radiologist. All stenoses are measured using NASCET criteria. Weight-based protocol using automatic tube modulation was used to optimize exposure parameters. RADIATION DOSE PARAMETERS: CTDIvol Body: 14.30 mGy, DLP Body: 649 mGy*cm. CTDIvol Head: 45.80 mGy, DLP Head: 773 mGy*cm. COMPARISON: Noncontrast CT head performed concurrently. FINDINGS: CTA OF THE NECK: Arch: There is a two vessel aortic arch, with common origin of the brachiocephalic artery and left common carotid artery. There is mild atherosclerotic plaque of the aortic arch, but origins of the supra aortic vessels are patent. Right carotid system: The common carotid and cervical internal carotid arteries are patent. There is calcified atherosclerotic plaque at the carotid bifurcation, but no ICA stenosis (0%) by NASCET criteria. Left carotid system: The common carotid and cervical internal carotid arteries are patent. There iscalcified atherosclerotic plaque at the carotid bifurcation, but no ICA stenosis (0%) by NASCET criteria. There is a mildly right-dominant vertebral artery system. Right vertebral: There is noncalcified atherosclerotic plaque at the origin with mild stenosis. Minimal atherosclerotic plaque is noted in the V2 segment without stenosis. Left vertebral: No significant stenosis. No evidence of dissection or aneurysm. Other: Soft tissues and bones: No evidence of lymphadenopathy or mass. The thyroid is unremarkable. Visualized lung apices are clear. Multilevel degenerative changes of the spine are noted, without acute osseous abnormality. CTA OF THE HEAD: Anterior circulation: Bilateral intracranial ICAs demonstrate atherosclerotic calcification, with moderate stenosis of the bilateral supraclinoid segments. There is focal moderate stenosis of the proximal right M1 segment with preserved distal branches. Bilateral BETH and left MCA branches are patent. There is no significant stenosis, proximal cutoff, aneurysm, or vascular malformation. Posterior circulation: Bilateral intracranial vertebral arteries, the basilar artery, and bilateralsuperior cerebellar and posterior cerebral branches are patent. There is multifocal moderate stenosis of the left P3 branches probably related to atherosclerotic disease. There is no significant stenosis, proximal cutoff, aneurysm, or vascular malformation. Veins: Major dural venous sinuses are patent. Other: Soft tissues and bones: No midline shift or effacement of the basal cisterns. No space-occupying hemorrhage. No territorial loss of kimbrough-white matter differentiation. There have been lens extractions bilaterally. No significant opacification in the paranasal sinusesor mastoid air cells. IMPRESSION: Focal moderate stenosis of the bilateral supraclinoid segments and focal moderate stenosis of the proximal right M1 segment with preserved distal branches. Moderate multifocal stenoses of the left [id number] likely related to atherosclerotic disease. Otherwise, no proximal occlusion or high grade stenosis in the major arteries of the head and neck. WSN: [id number] Ordering Physician: Ghanshyam Fernandez Dictated By: Catalina Hernandez MD Dictated Date/Time: 10/30/23 3:39 pm Reviewed By: Catalina Hernandez MD Signed By: Catalina Hernandez MD Signed Date/Time: 10/30/23 3:39 pm Transcribed By: DOMINICK Transcribed Date/Time: 10/30/23 12:48 pm * Exam Date Time Procedure Performing Provider Status 10/30/23 12:[address] Angio Head Hyperacute Stroke Bishnu , Reji; Auth (Verified) Notes: (CT Angio Head Hyperacute Stroke) Reason For Exam: Stroke;Other: RESULT: CT Angio Head Hyperacute Stroke CT Angio Head Hyperacute Stroke, CT Angio Neck Hyperacute Stroke Reason: Other:; Stroke; Clinical Question(s): Other:; Hematoma Aneurysm / Other: TECHNIQUE: CT angiogram of the head and neck was performed after bolus administration of intravenous contrast. 100 mL of Omnipaque 300 was administered intravenously. Coronal and sagittal MIP reformatted images were obtained. Additional 3-D images were created on a separate workstation under concurrent supervision by the attending radiologist. All stenoses are measured using NASCET criteria. Weight-based protocol using automatic tube modulation was used to optimize exposure parameters. RADIATION DOSE PARAMETERS: CTDIvol Body: 14.30 mGy, DLP Body: 649 mGy*cm. CTDIvol Head: 45.80 mGy, DLP Head: 773 mGy*cm. COMPARISON: Noncontrast CT head performed concurrently. FINDINGS: CTA OF THE NECK: Arch: There is a two vessel aortic arch, with common origin of the brachiocephalic artery and left common carotid artery. There is mild atherosclerotic plaque of the aortic arch, but origins of the supra aortic vessels are patent. Right carotid system: The common carotid and cervical internal carotid arteries are patent. There is calcified atherosclerotic plaque at the carotid bifurcation, but no ICA stenosis (0%) by NASCET criteria. Left carotid system: The common carotid and cervical internal carotid arteries are patent. There iscalcified atherosclerotic plaque at the carotid bifurcation, but no ICA stenosis (0%) by NASCET criteria. There is a mildly right-dominant vertebral artery system. Right vertebral: There is noncalcified atherosclerotic plaque at the origin with mild stenosis. Minimal atherosclerotic plaque is noted in the V2 segment without stenosis. Left vertebral: No significant stenosis. No evidence of dissection or aneurysm. Other: Soft tissues and bones: No evidence of lymphadenopathy or mass. The thyroid is unremarkable. Visualized lung apices are clear. Multilevel degenerative changes of the spine are noted, without acute osseous abnormality. CTA OF THE HEAD: Anterior circulation: Bilateral intracranial ICAs demonstrate atherosclerotic calcification, with moderate stenosis of the bilateral supraclinoid segments. There is focal moderate stenosis of the proximal right M1 segment with preserved distal branches. Bilateral BETH and left MCA branches are patent. There is no significant stenosis, proximal cutoff, aneurysm, or vascular malformation. Posterior circulation: Bilateral intracranial vertebral arteries, the basilar artery, and bilateralsuperior cerebellar and posterior cerebral branches are patent. There is multifocal moderate stenosis of the left P3 branches probably related to atherosclerotic disease. There is no significant stenosis, proximal cutoff, aneurysm, or vascular malformation. Veins: Major dural venous sinuses are patent. Other: Soft tissues and bones: No midline shift or effacement of the basal cisterns. No space-occupying hemorrhage. No territorial loss of kimbrough-white matter differentiation. There have been lens extractions bilaterally. No significant opacification in the paranasal sinusesor mastoid air cells. IMPRESSION: Focal moderate stenosis of the bilateral supraclinoid segments and focal moderate stenosis of the proximal right M1 segment with preserved distal branches. Moderate multifocal stenoses of the left [id number] likely related to atherosclerotic disease. Otherwise, no proximal occlusion or high grade stenosis in the major arteries of the head and neck. WSN: [id number] Ordering Physician: Ghanshyam Fernandez Dictated By: Catalina Hernandez MD Dictated Date/Time: 10/30/23 3:39 pm Reviewed By: Catalina Hernandez MD Signed By: Catalina Hernandez MD Signed Date/Time: 10/30/23 3:39 pm Transcribed By: DOMINICK Transcribed Date/Time: 10/30/23 12:48 pm Vital Signs Most recent to oldest [Reference Range]: 1 2 3 Height 180 cm (10/31/23 7:47 AM) 180 cm (10/31/23 3:42 AM) 180 cm (10/30/23 10:50 PM) Weight 84 kg (10/30/23 5:00 PM) Oxygen Saturation [94-100 %] 99 % (10/31/23 7:47 AM) 97 % (10/31/23 3:42 AM) 97 % (10/30/23 10:50 PM) Pulse Rate [55-90 bpm] 68 bpm (10/31/23 7:47 AM) 61 bpm (10/31/23 3:42 AM) 68 bpm (10/30/23 10:50 PM) Body Mass Index [18.5-24.99 kg/m2] 25.93 kg/m2 *H* (10/30/23 5:00 PM) Blood Pressure [90-138/55-84 mm Hg] 130/64mm Hg (10/31/23 7:47 AM) 126/51mm Hg (10/31/23 3:42 AM) 138/61mm Hg (10/30/23 10:50 PM) Respiratory Rate [16-30 br/min] 19 br/min (10/31/23 8:11 AM) 19 br/min (10/31/23 7:47 AM) 18 br/min (10/31/23 3:42 AM) Temperature [96.8-100.4 DegF] 97.6 DegF (10/31/23 7:47 AM) 97.5 DegF (10/31/23 3:42 AM) 98.1 DegF (10/30/23 10:50 PM) Mode of Delivery (Oxygen) Room air (10/31/23 7:47 AM) Room air (10/31/23 3:42 AM) Room air (10/30/23 10:50 PM) Blood pressure sites Arm, right (10/31/23 7:47 AM) Arm, right (10/31/23 3:42 AM) Arm, right (10/30/23 10:50 PM) Temperature Route Oral (10/31/23 7:47 AM) Oral (10/31/23 3:42 AM) Oral (10/30/23 10:50 PM) Dry Weight 84 kg (10/30/23 5:00 PM) Weight Obtained Via Patient/family state d (10/30/23 5:00 PM) Admission evaluation note * Williams Escamilla: PERFORM Event Display: Admission Note Authored Date: Patient: ??QURESHE, SHAMIM ? Age:??73 Years?Sex:??Male?:??1950?? Chief Complaint/Reason for Consultation Aphasia History of Present Illness Patient with a history CVA with right hemineglect in 2019, diabetes, hypertension, hyperlipidemia, GERD??presents with altered mental status.?Patient states??he has been having intermittent??spells of aphasia.?? During these??spells??his hands cramp up??and are painful.?? He had an episode??while on the couch with his family today.?? There was no seizure activity noted.?? No focal weakness.?? He was back to baseline in the emergency department.?? CT head??and CTA negative.?? Metabolic workupnonrevealing.?? No sign of infection, or??electrolyte??abnormality.?? He was admitted for stroke rule out. Review of Systems CONSTITUTIONAL: ??Denies any fever, chills, changes to weight or fatigue. EYES: Denies any changes to vision, burning or diplopia. HEENT: Denies any WORRELL, nasal d/c, nose bleeds, changes to voice, vertigo, photophobia, hearing changes or dental problems. CV: Denies any CP, orthopnea, PND, edema, palpitations. PULM: Denies any SOB, wheezing, cough or production of phlegm. ABD: Denies any abdominal pain, N/V/D, heartburn, PRBPR, melena, or changes to bowel habits. : Denies any changes to frequency. ??Denies dysuria, urgency, straining, hematuria, incontinence.?? MS: Denies any joint or muscle pain, falls or changes to gait. NEURO:??See HPI SKIN: Denies any rashes or lesions. ?? PSYCH: Denies any depression or anxiety. SIGECAPS negative. FUNCTIONAL: At baseline the patient uses a walker Objective Vital Signs?? Temperature: 97.8 DegF (10/30/23 12:42:00) Temperature Route: Oral (10/30/23 12:42:00) Pulse Rate: 66 bpm (10/30/23 14:57:00) Respiratory Rate: 18 br/min (10/30/23 14:57:00) Systolic Blood Pressure:??146 mm Hg??High (10/30/23 14:57:00) Diastolic Blood Pressure: 76 mm Hg (10/30/23 14:57:00) Blood pressure sites: Arm, right (10/30/23 14:57:00) Mean Arterial Pressure: 110 mm Hg (10/30/23 12:42:00) Pulse Pressure: 70 mm Hg (10/30/23 14:57:00) Oxygen Saturation: 98 % (10/30/23 14:57:00) Mode of Delivery (Oxygen): Room air (10/30/23 14:57:00) Early Warning Score: 2 (10/30/23 16:03:32) ? Physical Exam General: 73??year old male??lies in bed comfortably in no acute distress HEENT: NCAT, moist oral mucosa, good dentition, oropharynx without erythema Card: RRR no murmur, non displaced PMI, no JVD, 2+ radial pulse B/L Resp: CTA B/L, no wheezing, rales, ronchi Abdomen: soft and non tender, bowel sounds WNL Extremities: no pitted edema B/L lower extremities Skin: Without rashes or lesions, good turgor Hem/Lymph: without bruising or lymphadenopathy Psych: appropriate affect Neuro: A&OX3, no focal motor deficits Assessment/Plan Patient with a history CVA with right hemineglect in 2019, diabetes, hypertension, hyperlipidemia, GERD??presents with altered mental status ?? Altered mental status (R41.82):??. History of CVA in adulthood (Z86.73):??. Aphasia (R47.01):?? He was back to baseline in the emergency department.??CT head??and CTA negative.??Metabolic workup nonrevealing.??No sign of infection, or??electrolyte??abnormality.??He was admitted for stroke rule out. ?? Plan Telemetry MRI Check lipids and A1c Permissive hypertension Passed swallow diabetic diet Continue aspirin and statin ?? Diabetes (E11.9):??Continue basal bolus insulin ?? Neuropathy (G62.9):??Continue gabapentin ?? History of depression (Z86.59):??Not on any home meds.?Denies SI ?? VTE Prophylaxis:??Ambulatory ?? Code Status:??Full code ?Order Code Status:??Code Status Ordered ?? Discharge Planning:??Home tomorrow ? Histories Allergies Allergies ?(Active and Proposed Allergies Only) NKA? (Severity: Unknown severity, Onset: Unknown) ? Past Medical History/Problem List Active Problems(6) CVA (cerebral vascular accident) DM (diabetes mellitus) GERD (gastroesophageal reflux disease) HTN (hypertension) Hyperlipidemia OA (osteoarthritis) ? Past Surgical History No surgery history documented. ? Social History No social history documented. ? Family History No Family History documented. ? Medications Home Medications Aspirin (aspirin 81 mg oral tablet)?1?tab(s)?81?Milligram?By Mouth?Daily Atorvastatin (Lipitor 40 mg oral tablet)?1?tab(s)?40?Milligram?By Mouth?Daily at bedtime Clopidogrel (Plavix 75 mg oral tablet)?75?Milligram?1?tablet?By Mouth?Daily Cyanocobalamin (Vitamin B-12 1000 mcg oral tablet)?1,000?Microgram?1?tablet?By Mouth?Daily Docusate (docusate sodium 100 mg oral capsule)?100?Milligram?1?capsule?By Mouth?2times a day Durable Medical Equipment (wheeled walker)?See Instructions?as dorected empagliflozin (Jardiance 25 mg oral tablet)?1?tab(s)?25?Milligram?By Mouth?Daily in AM Gabapentin (gabapentin 600 mg oral tablet)?1?tab(s)?600?Milligram?By Mouth?3 times a day Insulin Glargine (insulin glargine 100 units/mL subcutaneous solution)?0.55?Milliliter?55?unit(s)?Subcutaneous Injection?Daily at bedtime Insulin Lispro (insulin lispro 100 u/ml subcutaneous injection)?3-12 units?Subcutaneous Injection?3 times a day before meals?<< Sliding Scale Comments >>201 - 250 ?? 3 units Call if less than [id number] - 300 ?? 6 units 301 - 350 ?? 9 units 351 - 400 ?? 12 units Call if greater than 400<< Sliding Scale Comments >> Lisinopril (lisinopril 10 mg oral tablet)?10?Milligram?1?tablet?By Mouth?Daily Metformin (metFORMIN 1000 mg oral tablet)?1?tab(s)?1,000?Milligram?By Mouth?2 times a day Omeprazole (omeprazole 20 mg oral enteric coated capsule)?TAKE 2 CAPSULES (40 MG) ORALLY DAILY FOR 90 DAYS Pantoprazole (Protonix 40 mg oral delayed release tablet)?1?tab(s)?40?Milligram?By Mouth?Daily ? Results Recent Labs BLOOD BANK Blood Type B Positive ()?? 10/30/2023 12:14 Antibody Screen Negative ()?? 10/30/2023 12:14 ?? BLOOD COUNT & DIFF WBC 7.9 k/mm3 ()?? 10/30/2023 12:52 RBC 4.34 m/mm3 (Low)?? 10/30/2023 12:52 Hgb 11.9 Gm/dL (Low)?? 10/30/2023 12:52 Hct 37.1 % (Low)?? 10/30/2023 12:52 MCV 85.5 femtoliters ()?? 10/30/2023 12:52 MCH 27.4 pg ()?? 10/30/2023 12:52 MCHC 32.1 g/dL (Low)?? 10/30/2023 12:52 Platelet Count 274 k/mm3 ()?? 10/30/2023 12:52 RDW-SD 43.2 femtoliters ()?? 10/30/2023 12:52 MPV 11.4 femtoliters ()?? 10/30/2023 12:52 Nucleated RBC (Automated) 0.0 #/100 WBC'S ()?? 10/30/2023 12:52 Abs. NRBC 0.0 k/mm3 ()?? 10/30/2023 12:52 Abs. Neut 4.3 k/mm3 ()?? 10/30/2023 12:52 Abs. Lymph 2.5 k/mm3 ()?? 10/30/2023 12:52 Abs. [place] 0.6 k/mm3 ()?? 10/30/2023 12:52 Abs. Eo 0.4 k/mm3 ()?? 10/30/2023 12:52 Abs. Baso 0.1 k/mm3 ()?? 10/30/2023 12:52 Neut % 54.2 % ()?? 10/30/2023 12:52 Lymph % 30.9 % ()?? 10/30/2023 12:52 [place] % 8.1 % ()?? 10/30/2023 12:52 Eos % 5.5 % ()?? 10/30/2023 12:52 Baso % 0.9 % ()?? 10/30/2023 12:52 Imm Gran 0.4 % ()?? 10/30/2023 12:52 Abs. Imm Gran 0.0 k/mm3 ()?? 10/30/2023 12:52 ?? CARDIAC High Sensitivity Troponin (HSTnT) 29 ng/L (High)?? 10/30/2023 12:52 ?? CHEM GENERAL Sodium 139 mmol/L ()?? 10/30/2023 12:52 Potassium 4.7 mmol/L ()?? 10/30/2023 12:52 Chloride 100 mmol/L ()?? 10/30/2023 12:52 Bicarbonate Level 24 mmol/L ()?? 10/30/2023 12:52 Anion Gap 15 ()?? 10/30/2023 12:52 Glucose Level 264 mg/dL (High)?? 10/30/2023 12:52 Glucose, POC 246 mg/dL (High)?? 10/30/2023 15:26 BUN 23 mg/dL ()?? 10/30/2023 12:52 Creatinine-Blood 1.06 mg/dL ()?? 10/30/2023 12:52 Estimated GFR Creatinine 75 ML/MIN/1.73 M2 ()?? 10/30/2023 12:52 Calcium 9.2 mg/dL ()?? 10/30/2023 12:52 AST (SGOT) 18 units/L ()?? 10/30/2023 12:52 ?? COAG INR 1.0 ()?? 10/30/2023 12:52 Protime (PT) 10.6 seconds ()?? 10/30/2023 12:52 APTT <22.0 seconds (Low)?? 10/30/2023 12:52 ?? ENDOCRINE/TUMOR MARKER TSH 1.73 uIU/mL ()?? 10/30/2023 12:52 ? EKG study * Event Display: ECG 12-Lead Authored Date: Please click on pdf link to open report * Event Display: ECG 12-Lead Authored Date: Ventricular Rate: 64 BPM Atrial Rate: 64 BPM P-R Interval: 166 ms QRS Duration: 82 ms Q-T Interval: 434 ms QTC Calculation(Bazett): 447 ms P [place]: 61 degrees R [place]: -2 degrees T [place]: 6 degrees Normal sinus rhythm Nonspecific T wave abnormality Abnormal ECG When compared with ECG of 03-APR-2017 19:30, Nonspecific T wave abnormality now evident in Lateral leads Confirmed by Lawrence Garcia ([id number]) on 10/31/2023 7:09:25 AM [place]: Lawrence Garcia [facility] Progress note * Rafi PEÑA, Gerri: PERFORM, SIGN, VERIFY Event Display: [facility] Authored Date: Patient: DEMETRIUS VILLAFUERTE Age: 73 years Sex: Male : 1950 Associated Diagnoses: None Author: Rafi PEÑA, Gerri Findings Narrative/Incidental Patient admitted to unit. S pads applied to bed. No sz activity. A/O x3. Glucose monitor attached to left arm. Oriented to room and call light.. Consult note * Jen Kahn MD, Dinah: PERFORM Event Display: Consultation Note Authored Date: Patient: ??DEMETRIUS VILLAFUERTE ? Age:??73 Years?Sex:??Male?:??1950?? Chief Complaint/Reason for Consult from home, was laying on the couch with his had a period of unresponsiveness lasting 5-6 minutes; LKW 1120; pt not following commands, unable to complete FAST exam due to unresponsiveness #18 toleft and right ac History of Present Illness 73-year-old male with history of hypertension, diabetes, hyperlipidemia,??depression, prior stroke??who presents with altered mental status. ??Reportedly, patient was in his usual state of health earlier today??when he was noted to be unresponsiveness for a few minutes??after which he was noted to be??back to his baseline.?No reported seizures or??incontinence. Per EMS, patient was??nonverbal and not following commands and the same was reported by??ED providers. ??During my initial evaluation,??he??was tearful and would not follow??commands or talk to me, however, I did not appreciate any??gaze abnormality or facial symmetry,??he was able to keep??both arms elevated and was able to keep??both legs in a flexed position.?? During my reevaluation,??he was??able to follow simple??commands,however he had??giveaway weakness in 4 extremities and did not talk to me, however, it seems to me he mumbled some words to his daughters in his circle language and pointed to the back of his head when I asked him if he had any pain. Review of Systems Unable to obtain review of systems given altered mental status.?? No reported seizures Physical Exam Vitals & Measurements T:??97.8?F?? HR:??68??(Peripheral)?? RR:??17?? BP:??177/76?? SpO2:??99%? General Examination: Patient appear well and comfortable. Conjunctiva are clear, mucous membranes are moist. Breathing is unlabored. ?? Neurological Examination: ?? NIH Stroke Scale?? Level of Consciousness for Stroke Scale : ?Alert?? Response Month/Age : ?Answers neither question correctly?? Response Open/Close Eyes : ?Performs both tasks correctly?? Best Gaze : ?Normal?? Visual : ?No visual loss?? Facial Palsy : ?Normal symmetrical movements?? Motor Function Left Arm : ?No drift?? Motor Function Right Arm : ?No drift?? Motor Function Left Leg : ?Some effort against gravity?? Motor Function Right Leg : ?Some effort against gravity?? Limb Ataxia : ?Absent?? Sensory : ?Normal; no sensory loss?? Best Language : ?Severe aphasia?? Dysarthria NIH Stroke Scale : ?Normal?? Extinction and Inattention : ?No abnormality?? NIH Stroke Scale Score : ?8? Mental Status: Awake and alert. Mute, follows simple commands. Cranial Nerves: Pupils equal, EOMI, visual kelley intact to confrontation, no facial asymmetry, mute. Motor: Equal antigravity movements of 4 extremities, giveaway weakness of upper extremities, will only elevate the legs a few inches above the bed,??but was able to keep??knees flexed. Sensory: Reacts to touch in 4 extremities. Coordination: No ataxia in upper extremities noted. Gait: Deferred. Assessment/Plan 73-year-old male with history of hypertension, diabetes, hyperlipidemia,??depression, prior stroke??who presents with altered mental status.?Exam with no clear??focal deficits and functional findings.?? Per my review, CT head is negative for acute intracranial bleeding or acute infarcts and CTA with multifocal intracranial atherosclerosis but no intracranial LVO and carotid arteries widely patent at the neck.?? Presentation is??likely due to??a functional disorder, however, differential diagnosis includes toxic metabolic encephalopathy,??and less likely acute stroke.?? We discussed the possibility of administering??IV thrombolytics with his daughters at bedside, however,??we have agreed that??this would not be??in his best interest given??low suspicion for stroke??and the potential risk for??bleeding??as a side effect.?? Low suspicion for seizures given no??witnessed convulsion, no postictal??state immediately following??the unresponsive spell, no urinary incontinence or tongue biting. ? - Infectious/toxic/metabolic workup per ED team ?-??NPO until swallow evaluation is complete ?- ASA 300mg rectally until cleared for oral, then can continue home antiplatelets. ?- Telemetry ?- MRI brain if symptoms persist with no clear etiology. ??Will need??echocardiogram and hall monitor if MRI with embolic appearing stroke. ?- Check Lipid panel, HbA1c?- Permissive hypertension to 220/120 for today, then can restart home blood pressure medications. ?-??Rehab considered: PM&R consult needed ?- Consider psychiatry consultation ?- DVT prophylaxis with LMWH/Heparin subcutaneous??and SCDs ?- Stroke education provided ? I discussed his case with ED provider. ?? Dinah Kahn M.D Attending Vascular Neurology Department of Neurosciences ?? Problem List/Past Medical History Ongoing CVA (cerebral vascular accident) DM (diabetes mellitus) GERD (gastroesophageal reflux disease) HTN (hypertension) Hyperlipidemia OA (osteoarthritis) Procedure/Surgical History No qualifying data available. Home Medications Aspirin: 81 mg = 1 tablet, By Mouth, Daily Atorvastatin: 40 mg = 1 tablet, By Mouth, Daily at bedtime Clopidogrel: 75 mg = 1 tablet, By Mouth, Daily Cyanocobalamin: 1,000 mcg = 1 tablet, By Mouth, Daily Docusate: 100 mg = 1 capsule, By Mouth, 2 times a day Durable Medical Equipment (wheeled walker): See Instructions, as dorected Gabapentin: 300 mg, By Mouth, 3 times a day Insulin Glargine: 55 units = 0.55 mL, Subcutaneous Injection, Daily at bedtime Insulin Lispro: 3-12 units, Subcutaneous Injection, 3 times a day before meals, << Sliding Scale Comments >>201 - 250 ?? 3 units Call if less than [address]17 - 300 ?? 6 units 301 - 350 ?? 9 units 351 - 400 ?? 12 units Call if greater than 400<< Sliding Scale Comments >> Lisinopril: 10 mg = 1 tablet, By Mouth, Daily Metformin: 1,000 mg = 1 tablet, By Mouth, 2 times a day Pantoprazole: 40 mg = 1 tablet, By Mouth, Daily Allergies NKA Family History No family history recorded. Note * Torie Maldonado RN: PERFORM Event Display: Discharge/Transfer Note Hospital Authored Date: [id number] Nursing Discharge Note Entered On: 10/31/2023 10:52 EDT Performed On: 10/31/2023 10:51 EDT by Torie Maldonado RN Nursing Discharge Note 2 Discharge Time : 10/31/2023 10:51 EDT Discharge Level of Care at Discharge : Home/Long Term/Foster Care Patient Left Unit Via : Wheelchair Patient Accompanied Off Unit with : Responsible adult DC Instructions Provided & Signed by Pt : Yes Patient Understands D/C Instructions : Yes Patient Instructions Discharge Signed : Yes Did Pt have Specialty Bed or Wound Vac : No Torie Maldonado RN - 10/31/2023 10:51 EDT * Palma Torres MD: MODIFY Palma Torres MD: MODIFY, MODIFY Event Display: Discharge/Transfer Note Hospital Authored Date: [id number] Patient: ??QURESHE, SHAMIM ? Age:??73 Years?Sex:??Male?:??1950?? Patient Information Discharge Location: [facility] Primary Care Physician: John Graff MD Admit Date/Time: 10/30/23 12:10 Discharge Disposition Discharge Disposition: Home: No Services Discharge Diagnosis Aphasia (R47.01) Altered mental status (R41.82) _ Discharge Medications Aspirin (aspirin 81 mg oral tablet)?1?tab(s)?81?Milligram?By Mouth?Daily Atorvastatin (Lipitor 80 mg oral tablet)?1?tab(s)?80?Milligram?By Mouth?Daily Cyanocobalamin (Vitamin B-12 1000 mcg oral tablet)?1,000?Microgram?1?tablet?By Mouth?Daily Docusate (docusate sodium 100 mg oral capsule)?100?Milligram?1?capsule?By Mouth?2times a day Durable Medical Equipment (wheeled walker)?See Instructions?as dorected empagliflozin (Jardiance 25 mg oral tablet)?1?tab(s)?25?Milligram?By Mouth?Daily in AM Gabapentin (gabapentin 600 mg oral tablet)?1?tab(s)?600?Milligram?By Mouth?3 times a day Insulin Glargine (insulin glargine 100 units/mL subcutaneous solution)?0.55?Milliliter?55?unit(s)?Subcutaneous Injection?Daily at bedtime Insulin Lispro (insulin lispro 100 u/ml subcutaneous injection)?20?unit(s)?Subcutaneous Injection?3 times a day before meals Lisinopril (lisinopril 10 mg oral tablet)?10?Milligram?1?tablet?By Mouth?Daily Metformin (metFORMIN 1000 mg oral tablet)?1?tab(s)?1,000?Milligram?By Mouth?2 times a day Omeprazole (omeprazole 20 mg oral enteric coated capsule)?TAKE 2 CAPSULES (40 MG) ORALLY DAILY FOR 90 DAYS ? Medications Started none Medications Discontinued none Doses Changed Atorvastatin to 80mg PCP Follow-Up/Heads-Up For follow up anemia, Depression,??DM management,??high LDL of 135--(dose of Lipitor has been increased) Hospital Course Patient with a history CVA with right hemineglect in 2019, diabetes, hypertension, hyperlipidemia, GERD presents with altered mental status ?? Altered mental status (R41.82): . Aphasia (R47.01): Short lived and returned to baseline History of CVA in adulthood (Z86.73): 5 Years ago Presented with complaints of??inability to speak??while aware of the surroundings??at home States he cannot recall??everybody??including his children and grandchildren??rushing to him??massaging his legs??and??giving him water He was back to baseline in the emergency department. CT head and CTA negative. Metabolic workup nonrevealing. No sign of infection, or electrolyte abnormality. For??new stroke or??seizures Patient mentions that since he has had stroke he has had??these??symptoms??occasionally, not sure if this is a??sequelae??post stroke CT is suggestive of chronic??atherosclerotic changes??in the brain??while??patient has dyslipidemia??with LDL??of 135??so increase his??atorvastatin to 80 Mg A1c is also high at 9.6??and recommended??follow-up with PCP as patient mentions that his PCP recently adjusted his insulin dosage ?? History of depression (Z86.59): Not on any home meds. Denies SI Appeared very content and had??family support on our discussion Will defer to PCP??for follow up ?? Objective Vital Signs?? Temperature: 97.6 DegF (10/31/23 07:47:00) Temperature Route: Oral (10/31/23 07:47:00) Pulse Rate: 68 bpm (10/31/23 07:47:00) Respiratory Rate: 19 br/min (10/31/23 08:11:00) Systolic Blood Pressure: 130 mm Hg (10/31/23 07:47:00) Diastolic Blood Pressure: 64 mm Hg (10/31/23 07:47:00) Blood pressure sites: Arm, right (10/31/23 07:47:00) Mean Arterial Pressure: 86 mm Hg (10/31/23 07:47:00) Pulse Pressure: 66 mm Hg (10/31/23 07:47:00) Oxygen Saturation: 99 % (10/31/23 07:47:00) Mode of Delivery (Oxygen): Room air (10/31/23 07:47:00) Early Warning Score: 2 (10/31/23 08:13:48) ? . Physical Exam Constitutional: Alert, in no distress. Mental Status: Oriented to person, place and time. Respiratory: Clear to auscultation. No wheezing, rales or rhonchi. Cardiovascular: S1 S2 regular. No murmurs, rubs or gallops. Gastrointestinal: Abdomen soft, non-tender, non-distended. Neurologic: Cranial nerves II-XII grossly intact. No focal neurological deficits.?? Moves all extremities spontaneously. Sensation intact bilaterally. Musculoskeletal: No cyanosis or clubbing. No gross deformities. Normal range of motion. Psychiatric: Normal mood and affect Consultants Neurology Patient Education Titles WebMD Ignite Patient Education - Atorvastatin Oral Tablet?? Web[employer] Ignite Patient Education - Confusion?? Follow-Up Appointments Added Follow Up ?Time Frame ?Comments Please dont take metformin for 2 days as you have recieved contrast for CT. Please restart from 11/02/23 John Graff MD?1 to 2 weeks?for the follow upanemiaDM amangement as your Hba1c is 9.6--highLDL of 135--dose of lipitor has been increased Patient Instructions Dear Shamim, ?? You presented to the hospital??with complaints of??inability to speak??and altered sensorium.?You mentioned to us that??this has been happening??occasionally??since he had a stroke 5 years back.?The workup that was done in the hospital??was reassuring that you do not have any new stroke??and we could not find??any other??reasoning??to explain??the symptoms he felt.?Fortunately by the time he arrived to the hospital??and in the ED your symptoms have completely resolved??and is back to baseline??and stable enough to be discharged home. ?? It appears that your??sugar levels are high with A1c??of 9.6??and your??lipid panel/cholesterol levels are deranged.?We are increasing your??atorvastatin to 80 Mg??and recommend you follow-up withyour PCP??for diabetes management.?We advise you to not take your metformin for the next 2 days as you have received contrast??for testing in the hospital.? You mention to us that??your daughter is a nurse on the fourth floor,??your son has urgent care clinic,??you have??good social support??and family support at home,??and it was very evident that you are very content with your life. ?? If anytime your symptoms??recur??or worsen??please not hesitate??to come back to the hospital.? Thank you for giving us the opportunity take part in your care! Post Discharge Care Discharge ?10/31/23 9:31:00 EDT Discharge Prescriptions ?ePrescribed, 10/31/23 9:31:00 EDT Results Discharge Labs BLOOD BANK Blood Type B Positive ()?? 10/30/2023 12:14 Antibody Screen Negative ()?? 10/30/2023 12:14 ?? BLOOD COUNT & DIFF WBC 7.9 k/mm3 ()?? 10/30/2023 12:52 RBC 4.34 m/mm3 (Low)?? 10/30/2023 12:52 Hgb 11.9 Gm/dL (Low)?? 10/30/2023 12:52 Hct 37.1 % (Low)?? 10/30/2023 12:52 MCV 85.5 femtoliters ()?? 10/30/2023 12:52 MCH 27.4 pg ()?? 10/30/2023 12:52 MCHC 32.1 g/dL (Low)?? 10/30/2023 12:52 Platelet Count 274 k/mm3 ()?? 10/30/2023 12:52 RDW-SD 43.2 femtoliters ()?? 10/30/2023 12:52 MPV 11.4 femtoliters ()?? 10/30/2023 12:52 Nucleated RBC (Automated) 0.0 #/100 WBC'S ()?? 10/30/2023 12:52 Abs. NRBC 0.0 k/mm3 ()?? 10/30/2023 12:52 Abs. Neut 4.3 k/mm3 ()?? 10/30/2023 12:52 Abs. Lymph 2.5 k/mm3 ()?? 10/30/2023 12:52 Abs. [place] 0.6 k/mm3 ()?? 10/30/2023 12:52 Abs. Eo 0.4 k/mm3 ()?? 10/30/2023 12:52 Abs. Baso 0.1 k/mm3 ()?? 10/30/2023 12:52 Neut % 54.2 % ()?? 10/30/2023 12:52 Lymph % 30.9 % ()?? 10/30/2023 12:52 [place] % 8.1 % ()?? 10/30/2023 12:52 Eos % 5.5 % ()?? 10/30/2023 12:52 Baso % 0.9 % ()?? 10/30/2023 12:52 Imm Gran 0.4 % ()?? 10/30/2023 12:52 Abs. Imm Gran 0.0 k/mm3 ()?? 10/30/2023 12:52 ?? CARDIAC High Sensitivity Troponin (HSTnT) 28 ng/L (High)?? 10/30/2023 15:30 ? CHEM GENERAL Sodium 139 mmol/L ()?? 10/30/2023 12:52 Potassium 4.7 mmol/L ()?? 10/30/2023 12:52 Chloride 100 mmol/L ()?? 10/30/2023 12:52 Bicarbonate Level 24 mmol/L ()?? 10/30/2023 12:52 Anion Gap 15 ()?? 10/30/2023 12:52 Glucose Level 264 mg/dL (High)?? 10/30/2023 12:52 Glucose, POC 179 mg/dL (High)?? 10/31/2023 05:31 Hemoglobin A1C (Monitoring) 9.6 % (High)?? 10/30/2023 12:52 BUN 23 mg/dL ()?? 10/30/2023 12:52 Creatinine-Blood 1.06 mg/dL ()?? 10/30/2023 12:52 Estimated GFR Creatinine 75 ML/MIN/1.73 M2 ()?? 10/30/2023 12:52 Calcium 9.2 mg/dL ()?? 10/30/2023 12:52 AST (SGOT) 18 units/L ()?? 10/30/2023 12:52 ? COAG INR 1.0 ()?? 10/30/2023 12:52 Protime (PT) 10.6 seconds ()?? 10/30/2023 12:52 APTT <22.0 seconds (Low)?? 10/30/2023 12:52 ? ENDOCRINE/TUMOR MARKER TSH 1.73 uIU/mL ()?? 10/30/2023 12:52 ? HEME OTHER Hold Lavender Top SPECIMEN DISCARDED AFTER 24 HOURS. ()?? 10/31/2023 00:34 ? LIPID STUDIES Cholesterol 224 mg/dL (High)?? 10/31/2023 00:34 Triglycerides 179 mg/dL (High)?? 10/31/2023 00:34 HDL Cholesterol 53 mg/dL ()?? 10/31/2023 00:34 LDL Cholesterol 135 mg/dL (High)?? 10/31/2023 00:34 Non HDL Cholesterol 171 mg/dL (High)?? 10/31/2023 00:34 ? MISC. CHEMISTRY Hold Gel Top SPECIMEN DISCARDED AFTER 1 WEEK ()?? 10/31/2023 00:34 ? URINE OTHER Est Creatinine Clearance 66.82 mL/min ()?? 10/30/2023 17:05 ? Result type:?Chest 2 Views Frontal and Lat Result date:?October 30, 2023 14:37 EDT Result status:?Auth (Verified) Result title:?XR Chest 2 Views Frontal and Lat Performed by:?Ricardo Argueta MD on October 30, 2023 14:42 EDT Verified by:?Ricardo Argueta MD on October 30, 2023 14:42 EDT Encounter info:?[id number], [facility] [place], Observation, 10/30/2023 -? Reason For Exam Shortness of Breath ?? RESULT: Chest 2 Views Frontal and Lat Chest 2 Views Frontal and Lat? Hx of Present Illness: patient had a syncopal episode and passed out for few seconds and his speechwas garbbed, patient on arrival crying ,not answering any questions; Reason: Shortness of Breath; Clinical Question(s): CHF ?? COMPARISON: 08/05/2016. ?? FINDINGS: ?? LINES AND TUBES:?? None. ?? LUNGS AND PLEURA: No focal consolidation or pulmonary edema.?? No pleural effusion.?? No pneumothorax. ?? HEART, MEDIASTINUM AND JOSE:?? Heart is normal in size. Normal mediastinal and hilar contour. ?? BONES AND SOFT TISSUES:?? No acute abnormality. ?? IMPRESSION: ?? No acute abnormality. ? WSN: [id number] ? Ordering Physician: Alexa Schmidt ?? Signature Line Dictated By: ?Ricardo Argueta MD Dictated Date/Time: ?10/30/23 2:42 pm Reviewed By: ?Ricardo Argueta MD Signed By: ? Ricardo Argueta MD Signed Date/Time: ? 10/30/23 2:42 pm Transcribed By: ? CSB Transcribed Date/Time: ?10/30/23 2:40 pm ? Chest 2 Views Frontal and Lat This document has an image ? Result type:?CT Angio Head Hyperacute Stroke Result date:?October 30, 2023 12:29 EDT Result status:?Auth (Verified) Result title:?CT Angio Head Hyperacute Stroke Performed by:?Catalina Hernandez MD on October 30, 2023 15:39 EDT Verified by:?Catalina Hernandez MD on October 30, 2023 15:39 EDT Encounter info:?[id number], [facility], Observation, 10/30/2023 -? * Final Report * ?? Reason For Exam Stroke;Other: ?? RESULT: CT Angio Head Hyperacute Stroke CT Angio Head Hyperacute Stroke, CT Angio Neck Hyperacute Stroke ?? Reason: Other:; Stroke; Clinical Question(s): Other:; Hematoma Aneurysm / Other: ?? TECHNIQUE: CT angiogram of the head and neck was performed after bolus administration of intravenous contrast. 100 mL of Omnipaque 300 was administered intravenously. Coronal and sagittal MIP reformatted images were obtained. Additional 3-D images were created on a separate workstation under concurrent supervision by the attending radiologist. All stenoses are measured using NASCET criteria. Weight-based protocol using automatic tube modulation was used to optimize exposure parameters.? RADIATION DOSE PARAMETERS:? CTDIvol Body: 14.30 mGy, ??DLP Body: 649 mGy*cm. ? CTDIvol Head: 45.80 mGy, DLP Head: 773 mGy*cm. ? COMPARISON: Noncontrast CT head performed concurrently. ?? FINDINGS:? CTA OF THE NECK:? Arch: There is a two vessel aortic arch, with common origin of the brachiocephalic artery and left common carotid artery. There is mild atherosclerotic plaque of the aortic arch, but origins of the supra aortic vessels are patent.? Right carotid system: The common carotid and cervical internal carotid arteries are patent. There is calcified atherosclerotic plaque at the carotid bifurcation, but no ICA stenosis (0%) by NASCET criteria. ?? Left carotid system: The common carotid and cervical internal carotid arteries are patent. There iscalcified atherosclerotic plaque at the carotid bifurcation, but no ICA stenosis (0%) by NASCET criteria. ?? There is a mildly right-dominant vertebral artery system.? Right vertebral: There is noncalcified atherosclerotic plaque at the origin with mild stenosis. Minimal atherosclerotic plaque is noted in the V2 segment without stenosis. ?? Left vertebral: No significant stenosis. No evidence of dissection or aneurysm. ?? Other: Soft tissues and bones: No evidence of lymphadenopathy or mass. ??The thyroid is unremarkable. Visualized lung apices are clear. Multilevel degenerative changes of the spine are noted, without acute osseous abnormality. ? CTA OF THE HEAD: ?? Anterior circulation: Bilateral intracranial ICAs demonstrate atherosclerotic calcification, with moderate stenosis of the bilateral supraclinoid segments. There is focal moderate stenosis of the proximal right M1 segment with preserved distal branches. Bilateral BETH and left MCA branches are patent. There is no significant stenosis, proximal cutoff, aneurysm, or vascular malformation.? Posterior circulation: Bilateral intracranial vertebral arteries, the basilar artery, and bilateralsuperior cerebellar and posterior cerebral branches are patent. There is multifocal moderate stenosis of the left P3 branches probably related to atherosclerotic disease. There is no significant stenosis, proximal cutoff, aneurysm, or vascular malformation. ?? Veins: Major dural venous sinuses are patent. ?? Other:?? Soft tissues and bones: No midline shift or effacement of the basal cisterns. No space-occupying hemorrhage. No territorial loss of kimbrough-white matter differentiation.?? There have been lens extractions bilaterally. No significant opacification in the paranasal sinusesor mastoid air cells.? IMPRESSION: ? Focal moderate stenosis of the bilateral supraclinoid segments and focal moderate stenosis of the proximal right M1 segment with preserved distal branches. Moderate multifocal stenoses of the left [id number] likely related to atherosclerotic disease. ?? Otherwise, no proximal occlusion or high grade stenosis in the major arteries of the head and neck. ? WSN: [id number] ? Ordering Physician: Ghanshyam Fernandez ?? Signature Line Dictated By: ?Catalina Hernandez MD Dictated Date/Time: ?10/30/23 3:39 pm Reviewed By: ?Catalina Hernandez MD Signed By: ? Catalina Hernandez MD Signed Date/Time: ? 10/30/23 3:39 pm Transcribed By: ? CSB Transcribed Date/Time: ?10/30/23 12:48 pm ? CT Angio Head Hyperacute Stroke This document has an image ? Patient has been??seen and discussed with Dr. Torres ?? Dr. Juana Wagoner Internal Medicine PGY1 Pager: [phone]? 30??minutes spent on discharge ? Attending Attestation (Palma Torres MD):??I have seen and evaluated this patient. ??I have discussed the case and its management with the resident and agree with the findings and plan as documentedin the resident???s note. ? Patient feeling better and back to baseline. ??No active complaint. Lengthy discussion with patient.?? Patient??speaks??same language as my circle language He told me that??he is doing well??and have good family support.?? One of his daughter is a RN??at [facility] and??one of??son is also in medicine field I explained to him that MRI is negative and it is difficult for us to explain why he has symptoms. ??Neurology was consulted Doubt seizure as patient was aware about the surroundings Because of the finding on CTA??and high cholesterol dose of Lipitor was increased. ??His [id number] is elevated. ??He told me that he takes Lantus 55 units along with Humalog??20 units 3 times daily. ??He told me that his primary care physician has reduced the dose of Humalog--advised him to continue with home regimen and to follow-up with primary care physician??for further??titration of??diabetic medication His questions were answered Was advised to follow-up with primary care physician * Brayden Ornelas RN: PERFORM Event Display: Patient Education/Instruction Authored Date: [id number] Inpatient Adult Discharge Instructions. [address] [address] Name: DEMETRIUS VILLAFUERTE : 1950?? Visit: 10/30/2023 12:10?? Current Date: 10/31/2023 09:33 ?? Account: [id number]?? Inpatient Adult Discharge Instructions We would like to thank you for allowing us to assist you with your healthcare needs. The following includes patient education materials and information regarding your injury/illness. Our entire staffstrives to provide an excellent experience for our patients and their families. PLEASE ENSURE YOU FOLLOW-UP PER THE INSTRUCTIONS BELOW! ?? YOUR OPINION IS IMPORTANT TO US! Please complete the survey you may receive by mail or email. Your feedback will be used to make improvements to the healthcare experiences of our patients and their families. Surveys are administered by [employer] ?? If further treatment with your primary care physician or another doctor is recommended, it is important for you to keep the appointment. Call your primary care physician or return to the Emergency Department immediately if your condition worsens, fails to improve, or new symptoms develop. If you need to find a doctor, you can call [facility] for a referral at [phone] or toll free at [phone]) or log in to [email or web address].. ?? [facility], in keeping with [facility] guidance, no longer requires face masks for staff, patientsor visitors in most situations. Similiar to time spent indoors at other locations, there is the chance that you were exposed to repiratory viruses during your time with us (such as flu or COVID-19). If you develop symptoms concerning for a viral respiratory infection, please seek testing (and treatment if indicated) from your medical provider or home test kit. ?? You can view and manage your care through the patient portal or by using a health care milla of your choosing. [employer] is a website that allows you to securely view your medical information including your hospital discharge summary, office visit summaries, medications and follow-up visits. You can also request appointments, renew medications, and request access to your medical information using a health care milla of your choosing, or just ask a question. You can enroll at [email or web address] or register during your next office visit. You have been discharged from [facility], Patient Care Unit: D3B??. If you have any questions regarding these instructions, including results of studies pending, afteryou leave, please call us and we will be happy to assist you 11/01. [facility] Your Care Team Attending Physician Palma Torres MD?? Consulting Providers Palma Torres MD?? Discharging Providers Palma Torres MD Reason for Your Visit from home, was laying on the couch with his had a period of unresponsiveness lasting 5-6 minutes; LKW 1120; pt not following commands, unable to complete FAST exam due to unresponsiveness #18 toleft and right ac?? Your Diagnosis Diabetes History of CVA in adulthood Neuropathy Potential stroke Tests Performed Below is a partial list of the tests performed during your hospitalization. You may have had other tests and procedures not included in this list. Please discuss all test results with your provider. AST Basic Metabolic Panel CBC w/ Differential GLUCOSE POC HEMOGLOBIN A1C High??Sensitivity??Troponin T HOLD GEL TUBE HOLD LAVENDER TUBE Lipid Panel PT (INR) PTT Troponin T, High Sensitivity TSH with T4 Reflex (Adults Only) Type and Screen CT Angio Head Hyperacute Stroke CT Angio Neck Hyperacute Stroke CT Head-Hyper Acute Stroke MRI Brain W/O Contrast XR Chest 2 Views Frontal and Lat No tests performed during this visit.?? Primary Care Provider Prerna MASTERSON , John Caldera? Advance Directive Health Care Proxy on File No Discharge Vitals Temperature: 97.6 DegF Height: 180 cm Pulse Rate: 68 bpm Weight: 84 kg Respiratory Rate: 19 br/min Body Mass Index:??25.93 kg/m2??High Systolic Blood Pressure: 130 mm Hg Body surface area: 2.05 Diastolic Blood Pressure: 64 mm Hg ?? Oxygen Saturation: 99 % ?? Studies Pending All studies ordered during this hospital stay have been completed unless listed below. Please discuss all pending results with your provider listed above in these instructions. ?? No incomplete studies found?? What to do next Instructions From Your Doctor ?? Orders? 10/31/23 9:31:00 EDT?? Prescriptions??, ??10/31/23 9:31:00 EDT?? You Need to Schedule the Following Appointments Follow Up with??Please dont take metformin for 2 days as you have recieved contrast for CT. Please restart from 11/02/23 Follow Up with??John Graff MD When:??Within 1 to 2 weeks Why: for the follow up anemia DM amangement as your Hba1c is 9.6--high LDL of 135--dose of lipitor has been increased Where: [address] [place] [address]- Business (2) Discharge Medications DEMETRIUS VILLAFUERTE :1950 Visit Date:10/30/2023 Medications: Please continue your medications until treatment is completed or stopped by your provider. Medications not listed below should be discontinued. Discuss any questions related to medications with your provider. What How Much When Instructions Next Dose Changed Atorvastatin (Lipitor 80 mg oral tablet) 1 tab(s) Oral Daily Pickup at [facility]/pharmacy #[id number] 10/31/23 5PM Changed Gabapentin (gabapentin 600 mg oral tablet) 1 tab(s) Oral 3 times a day 10/31/23 3PM Changed Insulin Lispro (insulin lispro 100 u/ ml subcutaneous injection) 20 unit(s) Subcutaneous Injection 3 times a day before meals With Next Meal Unchanged Aspirin (aspirin 81 mg oral tablet) 1 tab(s) Oral Daily 11/01/23 AM Unchanged Cyanocobalamin (Vitamin B-12 1000 mcg oral tablet) 1 tab(s) Oral Daily 11/01/23 AM Unchanged Docusate (docusate sodium 100 mg oral capsule) 1 capsule Oral Twice a day 10/31/23 PM Unchanged Durable Medical Equipment (wheeled walker) See instructions ?? As Directed Unchanged empagliflozin (Jardiance 25 mg oral tablet) 1 tab(s) Oral Daily in the morning 11/01/23 AM Unchanged Insulin Glargine (insulin glargine 100 units/ mL subcutaneous solution) 0.55 Milliliter Subcutaneous Injection Daily at Bedtime 10/31/23 PM Unchanged Lisinopril (lisinopril 10 mg oral tablet) 1 tab(s) Oral Daily 11/01/23 AM Unchanged Metformin (metFORMIN 1000 mg oral tablet) 1 tab(s) Oral Twice a day 10/31/23 PM Unchanged Omeprazole (omeprazole 20 mg oral enteric coated capsule) TAKE 2 CAPSULES (40 MG) ORALLY DAILY FOR 90 DAYS ?? 11/01/23 AM [address] Information [facility]/pharmacy #[id number]: [address] [place], [place] [id number] [phone] ?? What How Much When Comments Stop Taking Clopidogrel (Plavix 75 mg oral tablet) 1 tab(s) Oral Daily Stop Taking Pantoprazole (Protonix 40 mg oral delayed release tablet) 1 tab(s) Oral Daily Prescription Given During Visit Atorvastatin (Lipitor 80 mg oral tablet) - 1 tablet = 80 mg, By Mouth, Daily, # 90 tablet, 1 Refills, [facility]/pharmacy #1972, [address] [place] [phone]?? Laboratory Results Below is a partial list of the most recent Laboratory test results done prior to this discharge. You may have had other tests and procedures not included in this list. Please discuss all test resultswith your provider. Est Creatinine Clearance - 66.82 mL/min (10/30/2023) AST (10/30/2023) ???AST (SGOT) - 18 units/L Basic Metabolic Panel (10/30/2023) ???Sodium - 139 mmol/L???Potassium - 4.7 mmol/L???Chloride - 100 mmol/L???Bicarbonate Level - 24 mmol/L???Anion Gap - 15???Glucose Level - 264 mg/dL???BUN - 23 mg/dL???Creatinine-Blood - 1.06 mg/dL???Estimated GFR Creatinine - 75 ML/MIN/1.73 M2???Calcium - 9.2 mg/dL CBC w/ Differential (10/30/2023) ???WBC - 7.9 k/mm3???RBC - 4.34 m/mm3???Hgb - 11.9 Gm/dL???Hct - 37.1 %???MCV - 85.5 femtoliters???MCH - 27.4 pg???MCHC - 32.1 g/dL???Platelet Count - 274 k/mm3???RDW-SD - 43.2 femtoliters???MPV - 11.4 femtoliters???Nucleated RBC (Automated) - 0.0 #/100 WBC'S???Abs. NRBC - 0.0 k/mm3???Abs. Neut - 4.3 k/mm3???Abs. Lymph - 2.5 k/mm3???Abs. [place] - 0.6 k/mm3???Abs. Eo - 0.4 k/mm3???Abs. Baso - 0.1 k/mm3???Neut % - 54.2 %???Lymph % - 30.9 %???[place] % - 8.1 %???Eos % - 5.5 %???Baso % - 0.9 %???Imm Gran - 0.4 %???Abs. Imm Gran - 0.0 k/mm3 GLUCOSE POC (10/31/2023) ???Glucose, POC - 179 mg/dL HEMOGLOBIN A1C (10/30/2023) ???Hemoglobin A1C (Monitoring) - 9.6 % High??Sensitivity??Troponin T (10/30/2023) ???High Sensitivity Troponin (HSTnT) - 29 ng/L HOLD GEL TUBE (10/31/2023) ???Hold Gel Top - SPECIMEN DISCARDED AFTER 1 WEEK HOLD LAVENDER TUBE (10/31/2023) ???Hold Lavender Top - SPECIMEN DISCARDED AFTER 24 HOURS. Lipid Panel (10/31/2023) ???Cholesterol - 224 mg/dL???Triglycerides - 179 mg/dL???HDL Cholesterol - 53 mg/dL???LDL Cholesterol - 135 mg/dL???Non HDL Cholesterol - 171 mg/dL PT (INR) (10/30/2023) ???INR - 1.0???Protime (PT) - 10.6 seconds PTT (10/30/2023) ? ?APTT - <22.0 seconds Troponin T, High Sensitivity (10/30/2023) ???High Sensitivity Troponin (HSTnT) - 28 ng/L TSH with T4 Reflex (Adults Only) (10/30/2023) ???TSH - 1.73 uIU/mL Type and Screen (10/30/2023) ???Blood Type - B Positive???Antibody Screen - Negative Allergies (NKA means No Known Allergies) NKA Problems Active Problems??(6) CVA (cerebral vascular accident)?? DM (diabetes mellitus)?? GERD (gastroesophageal reflux disease)?? HTN (hypertension)?? Hyperlipidemia?? OA (osteoarthritis)?? Education Materials Below is the list of Educational Leaflet Providered with your Discharge Instructions. [employer] Patient Education - Confusion?? Valuables and Belongings I fully understand and agree that [facility] accepts no responsibility for all my personal property including clothing, toilet articles, radios, jewelry, dentures, hearing aids, rings, money, or any other property that is in my possession or is brought to me after admission. I understand certain valuables may be placed in a hospital safe for a short period of time. I understand that the hospital is not liable for loss or damage due to accident, fire, or other natural occurrence while said property is in the safe. I accept full responsibility for any personal property that I keep with me, and will not hold the hospital responsible in case of loss or disappearance. I acknowledge that i have been encouraged to send valuables and belongings home. ?? Review of Valuable and Belonging List: With family, With witness Date for Pt to Sign Valuables/Belongings: 10/30/23 14:29:00 ?? Other Discharge Information ? Pulmonary Rehab Status?? Pulmonary Rehab Discharge Status?? Respiratory Rate: 19 br/min ? Common Emergency Awareness Tips IS IT A STROKE? Act FAST and Check for these signs: FACE Does the face look uneven? ARM Does one arm drift down? SPEECH Does their speech sound strange? TIME Call at any sign of stroke ?? Heart Attack Signs Chest discomfort: Most heart attacks involve discomfort in the center of the chest and lasts more than a few minutes, or goes away and comes back. It can feel like uncomfortable pressure, squeezing, fullness or pain. Discomfort in upper body: Symptoms can include pain or discomfort in one or both arms, back, neck, jaw or stomach. Shortness of breath: With or without discomfort. Other signs: Breaking out in a cold sweat, nausea, or lightheaded. Remember, MINUTES DO MATTER. If you experience any of these heart attack warning signs, call to get immediate medical attention! ?? Smoking can increase your chances of developing chronic health problems and can cause harmful effects to other family members in your house. If you smoke, you are strongly encouraged to quit. Please call [facility] [employer] Link at [phone] or [phone] ([phone]) or log in to [email or web address] for referrals to smoking cessation programs. ?? 262 Suicide & Crisis Lifeline is available 11/01 if you or someone you know needs to find a reason to keep living. By calling 698 you'll be connected to a skilled, trained counselor at a crisis center in your area. INPATIENT DISCHARGE INSTRUCTIONS SIGNATURE PAGE DEMETRIUS VILLAFUERTE Location:[facility] Registration Date and Time:10/30/2023 12:10 EDT Primary Care Physician: Prerna MASTERSON , John Caldera, Attending Physician: Palma Torres MD, DEMETRIUS AGUILAR, have received the above patient education materials/instructions and have verbalized understanding. If ambulance or transport services are being used I further acknowledge being given a choice of service. ?? If you need to contact me, please call me at this number: . 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 05459-064 Atorvastatin Oral Tablet Brands: Lipitor Uses To lower high fat levels in blood. ?? Instructions This medicine may be taken with or without food. Store at room temperature away from heat, light, and moisture. Do not keep in the bathroom. Avoid grapefruit and grapefruit juice while on this medicine. It is important that you keep taking each dose of this medicine on time even if you are feeling well. If you forget a dose, just wait. Use the next dose at the usual time. Do not use 2 doses at once. Drug interactions can change how medicines work or increase risk for side effects. Tell your healthcare providers about all medicines taken. Include prescription and mxiy-jne-bmutqih medicines, vitamins, and herbal medicines. Speak with your doctor or pharmacist before starting or stopping any medicine. Keep all appointments for medical exams and tests while on this medicine. ?? Cautions Tell your doctor and pharmacist if you ever had an allergic reaction to a medicine. Do not use the medication any more than instructed. Please check with your doctor before drinking alcohol while on this medicine. Do not breastfeed while on this medicine. During , this medicine should be used only when clearly needed. Talk to your doctor about the risks and benefits. Do not share this medicine with anyone who has not been prescribed this medicine. ?? Side Effects Call your doctor or get medical help right away if you notice any of these more serious side effects: ??? confusion ??? signs of kidney damage (such as change in urine color or bubbly urine) ??? signs of liver damage (such as yellowing of eye or skin, dark urine, or unusual tiredness) ??? memory problems or loss ??? muscle pain or weakness A few people may have an allergic reaction to this medicine. Symptoms can include difficulty breathing, skin rash, itching, swelling, or severe dizziness. If you notice any of these symptoms, seek medical help quickly. ?? Extra Please speak with your doctor, nurse, or pharmacist if you have any questions about this medicine. ?? https://api.[employer]/V2.0/fdbpem/284 IMPORTANT NOTE: This document tells you briefly how to take your medicine, but it does not tell youall there is to know about it. Your doctor or pharmacist may give you other documents about your medicine. Please talk to them if you have any questions. Always follow their advice. There is a more complete description of this medicine available in Korean. Scan this code on your smartphone or tablet or use the web address below. You can also ask your pharmacist for a printout. If you have any questions, please ask your pharmacist. The display and use of this drug information is subject to Terms of Use. Copyright(c) 2023 [employer]. ?? [employer]. All rights reserved. This information is not intended as a substitute for professional medical care. Always follow your healthcare professional's instructions. ?? * Palma Torres MD: PERFORM Event Display: Patient Education Leaflets Authored Date: [id number] Confusion ?? [id number] Confusion Confusion (delirium) is a change in a person???s ability to think clearly. There may be trouble recognizing familiar people and places or knowing what day it is. Memory, judgment, and decision-makingmay also be affected. In severe cases, the person may have limited or no response to being spoken to. Confusion usually appears over a few days and can vary throughout the day. It can last weeks to mo nths or longer, depending on the cause. Confusion is usually a sign of an underlying problem. It may occur suddenly. Or it may develop gradually over time. Causes of confusion include brain injury, stroke, heart disease, low blood sugar indiabetes, medicines, alcohol, withdrawal from certain medicines or illegal drugs, and infection. Confusion can also be a sign of low blood oxygen levels, dementia, or a mental illness. In older adults, an infection such as a urinary tract infection or pneumonia is a common cause of confusion. Treatment will depend on the cause of the problem. If infection is found, your loved one may need antibiotics. If the issue is a medicine, stopping the medicine may help. Thiamine supplement may helpwith very little risk of side effects. Benzodiazepines may help people who are undergoing alcohol withdrawal. If confusion is chronic, your loved one may need medicines to treat forms of dementia. Home care ??? Be sure someone is with the confused person at all times. They should not be left alone or unsupervised. ??? Tell the healthcare provider about all medicines that the person takes. These include prescription, tfys-gqj-ellztcg, herbs, and supplements. ??? Dehydration can increase confus ion. Ask the healthcare provider how much fluid the person should be drinking. Offer liquids and ensure that they are taken. ??? Keep all medicines in a secure place under the caregiver???s control. To prevent overdose, a confused person should take medicines only under the supervision of a caregiver. ??? To help a person with confusion: o Establish a daily routine. Change can be a source of stress for someone with confusion. Make and keep a time schedule for common tasks such as bathing, dressing, taking medicines, meals, going for walks, shopping, naps and bed time. Make sure that the person has glasses and hearing aids if needed. o Don't use physical restraints. o Speak slowly and clearly with a gentle tone of voice. Use short simple words and sentences. Ask one question at a time. Don't interrupt, criticize, or argue. Be calm and supportive. Use friendly facial expressions. Use pointing and touching to help communicate. If there has been loss of long-term memory, don't ask questions about past events. This would only cause frustration for the person. o Use lists, signs, family ph otos, clocks and calendars as memory aids. Label cabinets and drawers. Try to distract, not confront, the person. When they become frustrated or upset, redirect attention to eating or some other activity of interest. o If this proves to be due to a permanent condition, talk to the healthcare provider or a supervisor erection shop about getting a Power of Assistant To The [employer] for healthcare and for financial decisions. It's best to do this while the person can still sign legal documents and make decisions. Otherwise, a courtorder will be required. ?? Follow-up care Follow up with the person's healthcare provider or as advised for further testing or changes in medical care. ?? When to seek medical advice Call the healthcare provider for any of the following: ??? Frequent falling ??? Refusal to eat or drink ??? Increased drowsiness ??? Nausea or vomiting ??? Unexplained fever over 100.4?? F (38.0?? C), or as directed by the healthcare provider ?? Call 911 Call 911 right away if any of the following occur: ??? Violent behavior or behavior too hard to manage at home ??? New hallucinations or delusions ??? Severe headache, numbness or weakness of the face, arm, or leg ??? Slurred speech or trouble speaking, walking, or seeing ??? Fainting spell, dizziness, or seizure ?? Last Reviewed Date: 2021 ?? 3696-2656 [employer]. All rights reserved. This information is not intended as a substitute for professional medical care. Always follow your healthcare professional's instructions. ?? Patient Care team information Care Team Personnel Name: Sandor Barrios RN Position: [facility] RN Member Role: Primary Care Nurse Name: Binta Calloway NP Position: [facility] PCO Associate Professional Member Role: Primary Care Nurse Address: Address: [address] [place] [id number]- Name: Liz Loo RN Position: [facility] AMB Nurse Member Role: Primary Care Nurse Name: John Graff MD Position: [facility] Outreach Member Role: PCP Address: Address: [address] [place] [id number]- Name: Kishore Castañeda RN Position: [facility] RN Member Role: Primary Care Nurse Name: Otilia Grande LPN Position: [facility] RN Member Role: Primary Care Nurse Name: Gerri Mckee RN Position: [facility] RN Member Role: Primary Care Nurse Care Team Related Persons Name: TESSY KAIAMELIE Address: [address] [place] [address] Name: JIMENA VALVERDE Address: home [address] [place] [address]
--- NOTE | 2024-03-09 14:57 | A.OFFVIS_ITS ---
Intake Visit Reasons: renal mass Intake Note: New Patient presents for initial visit for renal mass Urology Medications: none Blood Thinner: aspirin and clopidogrel Vp Compliance Required: No Accompanied by: Self / Same As Patient Allergies No Known Allergies [No Known Allergies*] Allergy (Verified 03/09/24 15:43) Medication List - Last Reconciled 03/09/24 by MONIQUE Cobos-AUSTIN aspirin 81 mg PO DAILY atorvastatin 40 mg PO DAILY BD Ultra-Fine Sara Pen Needle (pen needle, diabetic) 1 ea miscellaneous QID 90 days NS cholecalciferol (vitamin D3) (Vitamin D3) 50 mcg PO DAILY 90 days clobetasol 0.05% 1 appl topical BID 2 weeks clopidogrel 75 mg PO DAILY 90 days cyanocobalamin (vitamin B-12) 1,000 mcg PO DAILY 90 days diclofenac sodium 1% (Arthritis Pain (diclofenac)) 2 grams topical QID 30 days dulaglutide 3 mg (0.5 mL) subcut QWEEK 28 days empagliflozin (Jardiance) 25 mg PO QAM 90 days famotidine 20 mg PO BID 90 days ferrous sulfate 325 mg PO DAILY flash glucose scanning reader (BetableStyle Nikole 2 [place]) As directed flash glucose sensor (FreeStyle Nikole 2 Sensor kit) As directed change every 14 days fluticasone propionate 50 mcg/actuation (Flonase Allergy Relief) 1 spray intranasal Q12H 30 days gabapentin 600 mg PO TID 90 days Humalog KwikPen Insulin (insulin lispro) Inject 25 units subcutaneous daily with breakfast, 20 units daily with dinner. If you eat lunch take 20 units with lunch; 90 days NS insulin degludec (Tresiba FlexTouch U-100 insulin) 40 units (0.4 mL) subcut BID 90 days lidocaine 5% (Lidoderm) 1 patch topical DAILY PRN lisinopril 10 mg PO DAILY meclizine 25 mg PO Q8H PRN 30 days metformin 1,000 mg PO BID 90 days metoprolol succinate ER 12.5 mg (1/2 x 25 mg) PO DAILY 30 days miscellaneous medical supply Diabetic Shoes, Daily As directed. 999 days. 1 Pair miscellaneous medical supply Diabetic shoes. Daily As directed, 999 days. One pair. pen needle, diabetic (BD Ultra-Fine Mini Pen Needle) As directed pen needle, diabetic (BD Ultra-Fine Short Pen Needle) 4 times a day As directed. 90 days quetiapine (Seroquel) 25 mg PO BEDTIME 30 days topiramate 50 mg PO BID HPI Comments Details: Anupama is a pleasant 73-year-old male patient of . He has a past medical history of CVA, type 2 diabetes, neuropathy, and hypertension. He presents to the office today as a new patient for renal mass. In discussion with the patient today he reports having followed up with his PCP at which time an MRI was ordered for abnormal labs and MRI noted renal mass therefore urology referral was made for further assessment evaluation. These results were re viewed with the patient today. 2.3 cm mid pole left renal mass suspicious for neoplasm. In review of patient's chart it appears patient with imaging dating back to 2021 noting hypoattenuating lesion of the left kidney measuring 1.9 cm. We discussed further treatment options and risks and benefits of these treatment options. When asked he currently denies any bothersome urinary issues or concer ns. He denies urinary urgency, urinary frequency, incontinence, nocturia, hematuria, dysuria, foul smelling urine, changes to urinary stream, flank pain, fever, and or chills. He is happy with his current voiding parameters. In office urinalysis results reviewed with the patient today. He otherwise offers no other issues or concerns at this time. [facility] Medical History History of CVA (cerebrovascular accident) Acute CVA (cerebrovascular accident) Trigger finger, right ring finger Dupuytren's disease of palm Diabetes type 2, uncontrolled Neuropathy Essential hypertension Surgical History No pertinent past surgical history Social History Household Members: Family Housing: House Do you presently have visiting nurse or other home services: No Alcohol intake: never Comment: PT refuse bed alarm Patient Tobacco Use Status: Former Tobacco user e-Cigarette/Vaping Use: Never Used Second Hand Smoke Exposure: No service: No Current occupational status: disabled Current occupational exposures/hazards: No Cognitive needs: Yes (Cane) Hearing needs: No Vision needs: Yes (Glasses) Review of Systems Eyes Reports no additional complaints ENT Reports no additional complaints Card Reports as per HPI Resp Reports no additional complaints GI Reports no additional complaints Reports as per HPI Musc Reports as per [facility] Neuro Reports as per HPI Psych Reports no additional complaints Endo Reports as per HPI Merlin/Lymph Reports no additional complaints Aller/Immun Reports no additional complaints Physical Exam Const General: cooperative, comfortable, no acute distress, well developed, alert and awake Nutritional Appearance: overweight Orientation/consciousness: patient oriented x3 Limitations: ambulation with cane HEENT Head: Yes normal to inspection, Yes normocephalic and Yes atraumatic Ears: hearing grossly normal bilaterally Eyes General: appearance normal, both eyes and all related structures Neck Neck: Yes normal visual inspection and Yes trachea midline Chest Chest palpation & inspection: normal inspection of the chest Resp Effort & Inspection: normal respiratory effort and able to speak in complete sentences Cardio Rate: regular rate GI Inspection: Yes normal to inspection General: Yes no CVA tenderness Back/Spine/Pelvis Back: no CVA tenderness Skin General skin exam: no rashes or lesions noted Neuro General: patient oriented x3 Extrem General: Yes normal to inspection Psych Appearance: grossly normal and well kempt Mental Status: mental status grossly normal Speech and movement: Normal speech and movement present and Clear speech present Affect: normal affect Attitude: cooperative Thought process: Normal thought process present Thought content: Normal thought content present Insight: Fair insight present (Psych) Judgement: Fair judgement present (Psych) Results AMB Urinalysis, Automated UA Leukoctes 0 Mary/uL Last Edit by [employer] on 03/09/24 15:27 UA Nitrite Last Edit by [employer] on 03/09/24 15:27 UA Urobilinogen 0.2 mg/dL Last Edit by [employer] on 03/09/24 15:27 UA Protein 0 mg/dL Last Edit by [employer] on 03/09/24 15:27 UA pH 5.5 Last Edit by [employer] on 03/09/24 15:27 UA Blood 10 Sudheer/uL Last Edit by [employer] on 03/09/24 15:27 UA Specific [place] 1.025 Last Edit by [employer] on 03/09/24 15:27 UA Ketone Last Edit by [employer] on 03/09/24 15:27 UA Bilirubin 0 mg/dL Last Edit by Skye Davis on 03/09/24 15:27 UA Glucose 500 mg/dL Last Edit by Skye Davis on 03/09/24 15:27 Results Reviewed Results Reviewed: Laboratory Last Values Urine pH (Auto) 5.5 03/09/24 15:04 Specific [place] (Auto) 1.025 03/09/24 15:04 Urine Protein (Auto) 0 mg/dL 03/09/24 15:04 Glucose (UA)(Auto) 500 mg/dL 03/09/24 15:04 Urine Blood (Auto) 10 Sudheer/uL 03/09/24 15:04 Urine Bilirubin (Auto) 0 mg/dL 03/09/24 15:04 Urine Urobilinogen (Auto) 0.2 mg/dL 03/09/24 15:04 Leukocyte Esterase (Auto) 0 Mary/uL 03/09/24 15:04 Date of Service: 12/31/23 EXAMINATION: MR ABDOMEN WITHOUT AND WITH CONTRAST FINDINGS: LUNG BASES: No pleural or pericardial effusion. Gynecomastia. LIVER, GALLBLADDER, AND BILIARY TREE: Hepatic steatosis. No focal hepatic lesion or biliary ductal dilatation is present. Cholelithiasis. PANCREAS: 7 mm T2 hyperintense focus in the head of the pancreas. No abnormal enhancement. No definite communication with the main pancreatic duct. No dilatation of main pancreatic duct. No peripancreatic stranding. SPLEEN: Not enlarged. ADRENAL GLANDS: No adrenal mass. KIDNEYS AND URETERS: Relatively hypoenhancing solid midpole left renal mass measuring 2.1 x 2.3 cm. No hydronephrosis or perinephric fluid collection. GASTROINTESTINAL TRACT: No bowel obstruction. No ascites or fluid collection. ABDOMINAL WALL: No significant hernia is appreciated. LYMPH NODES: No bulky lymphadenopathy. VASCULAR: Normal caliber abdominal aorta. IMPRESSION: 2.1 x 2.3 cm midpole left renal mass suspicious for neoplasm. This was previously identified on renal ultrasound performed 04/23/2023. Cholelithiasis. Hepatic steatosis. 7 mm cystic lesion in the head of the pancreas. Follow-up imaging in 2 years is recommended. Assessment & Plan Assessment & Plan (1) Renal mass: Code(s): N28.89 - Other specified disorders of kidney and ureter Category: Medical (2) Microscopic hematuria: Code(s): R31.29 - Other microscopic hematuria Category: Medical Plan In office urinalysis results reviewed with the patient today; as noted above; will send for urine cytology. Recent MRI imaging results reviewed with the patient today; as noted above. Discussed further treatment options; risks and benefits of these interventions. Will refer to Interventional Radiology for question of guided cryo with biopsy. Patient currently denies any bothersome urinary issues or concerns. He reports be happy with current voiding parameters. Will obtain PSA for further assessment evaluation. Follow-up in 3 months; or sooner with any issues, concerns, and or questions. Orders: Orders AMB Urinalysis Automated Today Z13.9 - Encounter for screening, unspecified Prostate Specific Antigen Today N40.0 - Benign prostatic hyperplasia without lower urinary tract symptoms Referrals Interventional Radiology Referral N28.89 - Other specified disorders of kidney and ureter Patient Instructions: The patient had an opportunity to ask questions regarding the treatment plan. All questions were answered. Physical exam, labs, and imaging were discussed and reviewed in detail. As well as risks, benefits, and discussion of treatment choices. No major barriers to understanding were identified. The patient expressed understanding and agreement with the above treatment plan. The patient was made aware they should contact our office by phone for worsening of their current condition, the appearance of new symptoms, or with any questions or concerns. Compliance is encouraged with any medications and follow up testing that is ordered. It is a privilege to be allowed the opportunity to participate in? your urological care.? Again, if you have any questions or concerns If you have any questions or concerns please do not hesitate to contact me. The office is [phone]. This note is constructed using voice recognition software. While every effort has been made to ensure accuracy mold closer helper errors may have been included. Yours sincerely, WILD Cobos Coding Level of Care Code New Pt Level 4 (71898) Diagnoses Renal mass N28.89 Microscopic hematuria R31.29
== END 2024-03-09 15:52 | disposition home or self-care (01) ==
LOC: HO.HUSH 14:47
PROVIDERS: PCP Family Medicine; Visit Provider Nurse Practitioner Family
DX: N28.89 Other specified disorders of kidney and ureter (principal); R31.29 Other microscopic hematuria; Z13.9 Encounter for screening, unspecified
CPT/HCPCS: 99204

== ENCOUNTER 2024-03-09 14:47 | Outpatient (REF) | payer MEDICARE, MEDICAID, SELFPAY ==
[2024-03-09 16:55] LABS: Urine Cytology See Pathology rpt
== END 2024-03-09 14:48 | disposition home or self-care (01) ==
LOC: HO.LNP 14:47
PROVIDERS: PCP Family Medicine; Visit Provider Nurse Practitioner Family
DX: R31.29 Other microscopic hematuria (principal); N28.89 Other specified disorders of kidney and ureter
CPT/HCPCS: 81003; 88112; 99202

== ENCOUNTER 2024-04-05 13:55 | Outpatient (AMB) | payer MEDICARE, MEDICAID, SELFPAY ==
--- NOTE | 2024-04-05 13:58 | MHC.OFFVIS ---
Vital Signs 04/05/24 14:01 Height 5 ft 11 in Weight 227 lb 1.218 oz BMI 31.7 BP 132/78 Blood Pressure Location Rt brachial Position Sitting Pulse 71 Pulse Source Pulse Oximeter Intake Visit Reasons: DM Intake Note: Patient presents today for a follow-up on Type 2 Diabetes Mellitus: Last Diabetic Eye exam: DUE Last Podiatry Exam: Does not see a Machinist Class B Most recent HbA1c: 9.1%, 01/11/2024 Random Glucose- 190 mg/dL, Today Permastone Mechanic Required: No Accompanied by: Self / Same As Patient Allergies No Known Allergies [No Known Allergies*] Allergy (Verified 04/05/24 13:58) HPI Comments Details: 73 YO M who is seen in follow up for type 2 diabetes Medical history: CVA, HTN, HLD. PCP: Dr Graff Initially diagnosed with T2DM 20 years ago Was initially started on treatment with metformin . Current regimen metformin 1000 mg BID Lantus/Tresiba 40 BID (decreased from 45 units TWICE daily) NovoLog/Humalog 25,20,20 (decreased from 25,20,25) jardiance 25 mg QD Trulicity 3 mg Qwkly -he would like to try ozempic A1C 12/2023 9.1%. Per the CGM Nikole GMI 7.4% 34% high, 66% target, low 0%. Still having some readings in 60s-overnight though less. Most hyperglycemia is 12 to 5pm. No Family history of T2DM Has eyes checked frequently: (+) retinopathy. Denies neuropathy, , Does sees podiatry. Denies nephropathy, on RADHA/ARB. . Has HLD, on statin. Denies CAD. Hx of CVA ROS CONSTITUTIONAL: Denies weight loss, fever and chills. HEENT: Denies changes in vision and hearing. RESPIRATORY: Denies SOB and cough. CV: Denies palpitations and CP GI: Denies abdominal pain, nausea, vomiting and diarrhea. : Denies dysuria and urinary frequency. MSK: Denies new myalgia and joint pain. SKIN: Denies rash and pruritus. NEUROLOGICAL: Denies headache PSYCHIATRIC: Denies recent changes in mood. PHYSICAL EXAM: GENERAL: Alert and oriented x 3. NAD EYES: EOMI. Anicteric. HENT: Moist mucous membranes. No scleral icterus. No cervical lymphadenopathy. LUNGS: Clear to auscultation bilaterally. CARDIOVASCULAR: Regular rate and rhythm. ABDOMEN: Soft, non-tender +bs EXTREMITIES: No edema. Non-tender. SKIN: No rashes or lesions. Warm. NEUROLOGIC: No NEW focal neurological deficits. PSYCHIATRIC: Cooperative. Appropriate mood and affect [facility] Medical History History of CVA (cerebrovascular accident) Acute CVA (cerebrovascular accident) Trigger finger, right ring finger Dupuytren's disease of palm Diabetes type 2, uncontrolled Neuropathy Essential hypertension Surgical History No pertinent past surgical history Social History Household Members: Family Housing: House Do you presently have visiting nurse or other home services: No Alcohol intake: never Comment: PT refuse bed alarm Patient Tobacco Use Status: Former Tobacco user e-Cigarette/Vaping Use: Never Used Second Hand Smoke Exposure: No service: No Current occupational status: disabled Current occupational exposures/hazards: No Cognitive needs: Yes (Cane) Hearing needs: No Vision needs: Yes (Glasses) Physical Exam Vital Signs: Last Vital Signs Pulse 71 04/05/24 14:01 BP 132/78 04/05/24 14:01 BMI result Body Mass Index 31.7 Results Reviewed Results Reviewed: Laboratory Last Values Glucose (Clinic) 190 mg/dL (60-115) H 04/05/24 14:05 Assessment & Plan Assessment & Plan (1) Diabetes type 2, uncontrolled: Code(s): E11.65 - Type 2 diabetes mellitus with hyperglycemia Category: Medical Qualifiers: Glycemic state: with hyperglycemia Qualified Code(s): E11.65 - Type 2 diabetes mellitus with hyperglycemia Plan: Agree with switch to ozempic from trulicity. The patient could benefit from weight loss. Was on trulicity 3mg will start ozempic at 1mg. Will likely need to uptitrate. Given still some lows will only make this med change for now and follow up in one month. He will call sooner as needed Medications: New semaglutide 1 mg (0.75 mL) subcut QWEEK 3 mL 3RF Discontinued dulaglutide Discontinued Reason: Doctor's Order 3 mg (0.5 mL) subcut QWEEK 28 days 2 mL 2RF Coding Level of Care Code Est Pt Level 4 (25707) Diagnoses Uncontrolled type 2 diabetes mellitus with hyperglycemia E11.65 Glycemic state: with hyperglycemia
[2024-04-05 14:01] VITALS: BP 132/78; PULSE 71; BMI 31.7
[2024-04-05 14:10] LABS: Glucose, Whole Blood 190 mg/dL (60-115)
== END 2024-04-05 14:26 | disposition home or self-care (01) ==
PROVIDERS: PCP Family Medicine; Visit Provider Internal Medicine
DX: E11.65 Type 2 diabetes mellitus with hyperglycemia (principal)

== ENCOUNTER → 2024-04-05 13:55 | Outpatient (BNVA) | payer MEDICARE, MEDICAID, SELFPAY | PROVIDERS: PCP Family Medicine; Visit Provider Internal Medicine | DX: E11.65 Type 2 diabetes mellitus with hyperglycemia (principal); Z79.4 Long term (current) use of insulin; Z79.84 Long term (current) use of oral hypoglycemic drugs; Z79.85 Long-term (current) use of injectable non-insulin antidiabetic drugs | CPT/HCPCS: 82947; 99212 ==

== ENCOUNTER → 2024-04-07 12:58 | Outpatient (BNV) | payer MEDICARE, MEDICAID, SELFPAY | PROVIDERS: PCP Family Medicine; Visit Provider Internal Medicine | DX: R94.31 Abnormal electrocardiogram [ECG] [EKG] (principal) | CPT/HCPCS: 93010 ==

== ENCOUNTER 2024-04-18 12:25 | Day surgery (SDC) | payer MEDICARE, MEDICAID, SELFPAY ==
--- NOTE | 2024-04-07 | ECG_ITS ---
Test Reason : PRE OP Blood Pressure : / mmHG Vent. Rate : 077 BPM Atrial Rate : 077 BPM P-R Int : 156 ms QRS Dur : 070 ms QT Int : 396 ms P-R-T Axes : 064 018 059 degrees QTc Int : 448 ms Normal sinus rhythm Nonspecific ST abnormality Abnormal ECG When compared with ECG of 16-APR-2023 21:19, Nonspecific T wave abnormality now evident in Anterior leads Referred By: Ghada Masterson Electronically Signed By:HARLEY HA
[2024-04-07 12:17] VITALS: BP 118/55; PULSE 70; RESP 20; O2SAT 97; BMI 31.4
--- NOTE | 2024-04-07 12:41 | HO.ANESPROP2 ---
Documented by User: Ghada Masterson NP 04/10/24 13:53 HPI - Anesthesia Eval Consult details Narrative: 73yo M for Kidney Cryo-Ablation Hold 4 Hrs, No recent illness No CP./SOB with walks CVA: 2019, resid R side weakness. Plavix, will hold preop. Some resid dizziness, meclazine DM: 130. Has not started ozempic yet. Anesthesia Pre-Procedure Meds Is the patient on any of the following meds?: GLP1/DPP4 and SGLT2 Inhib PMFSH Active Problems Active Problems: All Active Problems Microscopic hematuria (Acute) Renal mass (Acute) Vision changes (Acute) Vertigo (Acute) Hypertension (Acute) Bilateral knee pain (Acute) Cellulitis (Acute) Pancreatic cyst (Acute) CKD (chronic kidney disease) (Acute) Mass of left kidney (Acute) Back pain (Acute) Dizziness (Acute) Depression with anxiety (Acute) Chest wall pain (Acute) Fibromyalgia (Acute) Physical deconditioning (Acute) Fibromyalgia, primary (Acute) Non-proliferative diabetic retinopathy (Acute) Bilateral primary osteoarthritis of knee (Acute) Tendinopathy of right rotator cuff (Acute) Immunization counseling (Acute) Unsteady gait (Acute) Lower extremity weakness (Acute) Trigger finger, left middle finger (Acute) Dermatitis (Acute) Diabetic neuropathy (Acute) Difficulty sleeping (Acute) Foot pain (Acute) Hand pain (Acute) Memory changes (Acute) Depression with suicidal ideation (Acute) Suicidal ideation (Acute) Mental status alteration (Acute) CVA (cerebral vascular accident) (Acute) Combined hyperlipidemia associated with type 2 diabetes mellitus (Acute) Pneumonia (Acute) Headache (Acute) Rash (Acute) Right shoulder pain (Acute) Muscle cramps (Acute) Screening for prostate cancer (Acute) Screening for colon cancer (Acute) Adult general medical exam (Acute) Left hand pain (Acute) Trigger finger, right middle finger (Acute) Dupuytren's contracture of left hand (Acute) Numbness and tingling in both hands (Acute) Thickened nails (Acute) Tenosynovitis (Acute) Diabetes type 2, uncontrolled (Acute) Chest pain (Acute) Laboratory exam ordered as part of routine general medical examination (Acute) Essential hypertension (Acute) Past Medical History Medical History Arthritis GERD (gastroesophageal reflux disease) Diabetes Unsteady gait Physical deconditioning Insomnia Anxiety Depression Diabetic retinopathy Diabetic neuropathy Back pain Pancreatic cyst Chronic renal insufficiency Fibromyalgia Renal mass History of CVA (cerebrovascular accident) Neuropathy Essential hypertension Surgical History Surgical History Hx of cataract extraction History of esophagogastroduodenoscopy (EGD) H/O colonoscopy Social History Social History Household Members: Family Housing: House Are you a primary career development coordinator/teacher to a significant other at home: No Do you presently have visiting nurse or other home services: No Alcohol intake: never Comment: PT refuse bed alarm Patient Tobacco Use Status: Former Tobacco user Tobacco use type: Cigarette Years Smoked: 20 e-Cigarette/Vaping Use: Never Used Second Hand Smoke Exposure: No Use of substances other than those prescribed or required for medical reasons: No Have you been hit, kicked, punched, or otherwise hurt by someone within the past year? If so, by whom?: No Spiritual Healthcare Practices: none Mosque Healthcare Practices: Mormonism Cultural Healthcare Practices: none Are you DNR?: No Advance Directives: No (states son & daughter are HCP) Advance Directives Information Provided: Yes Advance Directives on File: No Recently lost weight without trying: No Eating poorly because of decreased appetite: No Nutrition Risks: No Nutritional Risk Poor oral hygiene: No service: No Current occupational status: disabled Current occupational exposures/hazards: No Cognitive needs: Yes (Cane) Hearing needs: No Vision needs: Yes (Glasses) Meds Allergies Allergy/AdvReac Type Severity Reaction Status Date / Time No Known Allergies Allergy Verified 04/18/24 12:52 [No Known Allergies*] Home Medications ?Medication ?Instructions ?Recorded ?Confirmed ?Last Taken ?Type pen needle, diabetic 31 gauge x #50 ea 08/10/22 02/17/24 Unknown History 09/03 (BD Ultra-Fine Mini Pen Needle) lidocaine 5 % topical patch 1 patch topical DAILY PRN Pain 09/15/23 04/07/24 Unknown History (Lidoderm) dulaglutide 3 mg/0.5 mL 3 mg subcut QWEEK 04/07/24 04/07/24 Unknown History subcutaneous pen injector famotidine 20 mg tablet 20 mg PO BEDTIME 04/07/24 04/07/24 Unknown History gabapentin 600 mg tablet 600 mg PO BID 04/07/24 04/07/24 Unknown History quetiapine 25 mg tablet (Seroquel) 25 mg PO BEDTIME PRN Insomnia 04/07/24 04/07/24 Unknown History Exam Height,Weight and Vital Signs: Height 5 ft 11 in Weight 102.058 kg Last Vital Signs Pulse 70 04/07/24 12:17 Resp 20 04/07/24 12:17 BP 118/55 L 04/07/24 12:17 Pulse Ox 97 04/07/24 12:17 O2 Del Method Room Air 04/07/24 12:17 Pertinent Lab Results Pertinent Lab Results: Lab Results 04/07/24 Range/Units 13:12 WBC 8.5 (4.8-10.8) X10*3/uL RBC 4.46 L (4.60-5.80) X10*6/uL Hgb 12.7 L (14.0-18.0) g/dl Hct 37.6 L (42.0-52.0) % MCV 84.3 (80.0-98.0) fL MCH 28.5 (27.0-33.0) pg MCHC 33.8 (31.0-36.0) g/dl RDW 14.6 (11.0-16.0) % Plt Count 242 (160-400) X10*3/uL MPV 11.3 (9.4-12.4) fL Absolute Nucleated RBC 0.000 (0.0-0.012) X10*3/uL Nucleated RBC % (auto) 0.0 (0.0-0.2) /100WBC Sodium 140 (135-145) mmol/L Potassium 4.4 (3.3-5.1) mmol/L Chloride 105 (96-108) mmol/L Carbon Dioxide 23 (22-29) mmol/L Anion Gap 16 (12-20) BUN 24 H (9-16) mg/dL Creatinine 1.14 (0.5-1.4) mg/dL Estim Creat Clear Calc 71.2 Estimated GFR > 60 Random Glucose 183 H (60-115) mg/dL Calcium 9.3 (8.4-10.2) mg/dL Narrative Narrative: EKG 03/2024 Vent. Rate : 077 BPM Atrial Rate : 077 BPM P-R Int : 156 ms QRS Dur : 070 ms QT Int : 396 ms P-R-T Axes : 064 018 059 degrees QTc Int : 448 ms Normal sinus rhythm Nonspecific ST abnormality Abnormal ECG When compared with ECG of 16-APR-2023 21:19, Nonspecific T wave abnormality now evident in Anterior leads Airway Mallampati Class: III TM Dist: >3cm Neck ROM: Full Denture: Upper and Lower Heart: RRR Lungs: CTAB Assessment and Plan Assessment Anesthesia Assessment: Anesthesia Plan Discussed and PAT Visit Documented by User: Nadiya Peña MD 04/18/24 13:27 [facility] Past Medical History Medical History Arthritis GERD (gastroesophageal reflux disease) Diabetes Unsteady gait Physical deconditioning Insomnia Anxiety Depression Diabetic retinopathy Diabetic neuropathy Back pain Pancreatic cyst Chronic renal insufficiency Fibromyalgia Renal mass History of CVA (cerebrovascular accident) Neuropathy Essential hypertension Family History Family history of problems with anesthesia: No Surgical History Surgical History Hx of cataract extraction History of esophagogastroduodenoscopy (EGD) H/O colonoscopy History of Problems with Anesthesia: No Social History Social History Household Members: Family Housing: House Are you a primary career development coordinator/teacher to a significant other at home: No Do you presently have visiting nurse or other home services: No Alcohol intake: never Comment: PT refuse bed alarm Patient Tobacco Use Status: Former Tobacco user Tobacco use type: Cigarette Years Smoked: 20 e-Cigarette/Vaping Use: Never Used Second Hand Smoke Exposure: No Use of substances other than those prescribed or required for medical reasons: No Have you been hit, kicked, punched, or otherwise hurt by someone within the past year? If so, by whom?: No Spiritual Healthcare Practices: none Mosque Healthcare Practices: Mormonism Cultural Healthcare Practices: none Are you DNR?: No Advance Directives: No (states son & daughter are HCP) Advance Directives Information Provided: Yes Advance Directives on File: No Recently lost weight without trying: No Eating poorly because of decreased appetite: No Nutrition Risks: No Nutritional Risk Poor oral hygiene: No service: No Current occupational status: disabled Current occupational exposures/hazards: No Cognitive needs: Yes (Cane) Hearing needs: No Vision needs: Yes (Glasses) Meds Allergies Allergy/AdvReac Type Severity Reaction Status Date / Time No Known Allergies Allergy Verified 04/18/24 12:52 [No Known Allergies*] Home Medications ?Medication ?Instructions ?Recorded ?Confirmed ?Last Taken ?Type pen needle, diabetic 31 gauge x #50 ea 08/10/22 02/17/24 Unknown History 3/16 (BD Ultra-Fine Mini Pen Needle) lidocaine 5 % topical patch 1 patch topical DAILY PRN Pain 09/15/23 04/07/24 Unknown History (Lidoderm) dulaglutide 3 mg/0.5 mL 3 mg subcut QWEEK 04/07/24 04/07/24 Unknown History subcutaneous pen injector famotidine 20 mg tablet 20 mg PO BEDTIME 04/07/24 04/07/24 Unknown History gabapentin 600 mg tablet 600 mg PO BID 04/07/24 04/07/24 Unknown History quetiapine 25 mg tablet (Seroquel) 25 mg PO BEDTIME PRN Insomnia 04/07/24 04/07/24 Unknown History Assessment and Plan Final Anesthetic Review Family History of Problems with Anesthesia: No History of Problems with Anesthesia: No NPO: Yes ASA Class: III Final Preanesthetic Review: No Changes in Pt Med Stat, Meds/Allgs Chart Reviewed, Consent Obtained/Reviewed and Anes Risks/Benef Reviewed Patient Risk: Intermediate Procedure Risk: Low Anesthetic Plan Anesthetic Plan: GA Disposition: Standard PACU
[2024-04-07 13:30] LABS: Hematocrit 37.6 % (42.0-52.0); Hemoglobin 12.7 g/dl (14.0-18.0); Mean Corpuscular HGB Conc 33.8 g/dl (31.0-36.0); Mean Corpuscular Hemoglobin 28.5 pg (27.0-33.0); Mean Corpuscular Volume 84.3 fL (80.0-98.0); Mean Platelet Volume 11.3 fL (9.4-12.4); Platelet Count 242 X10*3/uL (160-400); Red Blood Count 4.46 X10*6/uL (4.60-5.80); Red Cell Distribution Width 14.6 % (11.0-16.0); White Blood Count 8.5 X10*3/uL (4.8-10.8)
[2024-04-07 14:09] LABS: Anion Gap 16 (12-20); Blood Urea Nitrogen 24 mg/dL (9-16); Calcium 9.3 mg/dL (8.4-10.2); Carbon Dioxide 23 mmol/L (22-29); Chloride 105 mmol/L (96-108); Creatinine Clr Calc Pharmacy 71.2; Estimated Glomerular Filt Rate > 60; Glucose Random 183 mg/dL (60-115); Potassium 4.4 mmol/L (3.3-5.1); Sodium 140 mmol/L (135-145)
[2024-04-18] VITALS (11 sets, daily range): BP systolic 119–145; BP diastolic 54–71; PULSE 66–81; RESP 14–18; TEMP 36–36.5; O2SAT 93–99; BMI 31.4
--- NOTE | ~2024-04-18 | CT_ITS ---
CT/ultrasound-guided left renal mass percutaneous cryoablation COMPLICATIONS: None ESTIMATED BLOOD LOSS: < 5 ml CONTRAST: None SEDATION: SEDATION SERVICES PROVIDED BY ANESTHESIA AND IS RECORDED SEPARATELY PROCEDURE NOTE: The procedure, risks, benefits, and alternatives were carefully explained to the patient and written informed consent was obtained. The patient was placed prone on the CT table. A timeout was performed. A limited CT of the abdomen was performed which demonstrated the left renal midpole mass. A site was selected on the left lower back and the area was sterilely prepped and draped. Under a combination of CT and ultrasound guidance, a [employer] cryoprobe was inserted percutaneously into the center of the left middle renal mass. Cryoablation was then performed using a 10 minute freeze, 6 minute active thaw, 10 minute freeze cycle. Intermittent CT images were obtained demonstrating adequate ice ball with no evidence of risk to adjacent structures. The cryoprobe was then removed while performing a tract ablation. Post intervention CT images demonstrate no evidence of bleeding or other complication. A dressing was applied. The patient was stable after the procedure and was transferred to the post anesthesia care unit. CT/CT Guided Cryo Ablation Renal Impression: Image guided percutaneous cryoablation of left renal mass Electronically signed by: Philip Stevens MD 05/04/2024 01:36 PM [facility]
--- NOTE | 2024-04-18 13:17 | MHC.SHP ---
Pre-Procedural Eval Section A - 24 Hr Update-Section A only Date of Service: 04/18/24 Section B - Complete if H&P > 30 days Chief Complaint: RENAL MASS Details of Present Illness: 73 y/o man with a left renal mass. He presents for a biopsy and cryoablation Relevant Family History (Specify if Yes): No Relevant Social History: None Present Medications: see Short Stay Collaborative assessment Medical History: Significant History History of Previous Operations: Relevant previous surgery/procedure and date(s) Allergies: Allergies Allergy/AdvReac Type Severity Reaction Status Date / Time No Known Allergies Allergy Verified 04/18/24 12:52 [No Known Allergies*] Review of Systems Sugical H&P ROS: Negative: Constitution, Cardiovascular, Respiratory, Gastrointestinal and Integumentary Exam Surgical H&P Exam: Normal: Heart, Normal: Lungs, Normal: Skin and Normal: Neurological Exam Comment: 73 y/o man with left renal mass -Left renal mass and cryoablation Plan I have reviewed the history and physical and performed a pertinent physical examination on my patient. No changes have occurred unless specified. Time Spent With Patient Time: Total time managing care of this patient today ____ minutes.
[2024-04-18 13:31] LABS: Prothrombin Time 11.4 SEC (10.9-12.4)
[2024-04-18 13:34] LABS: Partial Thromboplastin Time 31.9 SEC (26.0-36.8)
[2024-04-18] MEDS: Lactated Ringers 1,000 ML 100 ML IVCONT (13:37)
[2024-04-18 13:41] LABS: Glucose, Whole Blood 140 mg/dL (60-115)
[2024-04-18] MEDS: Acetaminophen 1,000 MG/100 ML PIGGYBACK 400 MG IV (16:49)
== END 2024-04-18 18:35 | disposition home or self-care (01) ==
PROVIDERS: Nurse Practitioner; Physician Assistant Surgical; Student in an Organized Health Care Education/Training Program; PCP Family Medicine; Visit Provider Nurse Practitioner Family
DX: N28.89 Other specified disorders of kidney and ureter (principal); R31.29 Other microscopic hematuria; E11.40 Type 2 diabetes mellitus with diabetic neuropathy, unspecified; I10 Essential (primary) hypertension; N40.0 Benign prostatic hyperplasia without lower urinary tract symptoms; Z86.73 Personal history of transient ischemic attack (TIA), and cerebral infarction without residual deficits; Z79.4 Long term (current) use of insulin; Z79.84 Long term (current) use of oral hypoglycemic drugs; Z79.85 Long-term (current) use of injectable non-insulin antidiabetic drugs; Z79.82 Long term (current) use of aspirin; Z79.51 Long term (current) use of inhaled steroids; Z79.899 Other long term (current) drug therapy; Z87.891 Personal history of nicotine dependence
CPT/HCPCS: 36415; 50593; 76998; 77013; 80048; 82947; 85027; 85610; 85730; 86850; 86900; 86901; 93005; C2618; J0131; J0690; J1100; J2003; J2371; J2405; J2704; J3010

== ENCOUNTER → 2024-04-18 15:00 | Outpatient (BNV) | payer MEDICARE, MEDICAID, SELFPAY | PROVIDERS: PCP Family Medicine; Visit Provider Student in an Organized Health Care Education/Training Program | DX: N28.89 Other specified disorders of kidney and ureter (principal) | CPT/HCPCS: 50593; 76940 ==

== ENCOUNTER 2024-05-01 13:48 | Outpatient (REF) | payer MEDICARE, MEDICAID, SELFPAY | END 2024-05-01 13:49 | disposition home or self-care (01) | LOC: HO.LAB 13:48 | PROVIDERS: PCP Family Medicine; Visit Provider Nurse Practitioner Family | DX: N40.0 Benign prostatic hyperplasia without lower urinary tract symptoms (principal); Z12.5 Encounter for screening for malignant neoplasm of prostate | CPT/HCPCS: 36415; 84153 ==

== ENCOUNTER 2024-05-04 13:37 | Outpatient (AMB) | payer MEDICARE, MEDICAID, SELFPAY ==
--- NOTE | 2024-05-04 13:58 | A.OFFPC_ITS ---
Vital Signs 05/04/24 14:10 Weight 230 lb BP 104/57 L Blood Pressure Location Rt brachial Respiration 16 Pulse 71 Pulse Source Pulse Oximeter Temp 97.9 F Temp Source Temporal Artery Scan Pulse Oximetry (%) 96 Oxygen Delivery Method Room Air Intake Visit Reasons: f/u diabetes, chronic conditions Intake Note: f/u up DM chronic conditions Allergies No Known Allergies [No Known Allergies*] Allergy (Verified 05/04/24 14:08) Tobacco use date assessed: 09/28/23 Dental Screening Dental Screen Date: 09/28/23 HPI f/u diabetes, chronic conditions HPI Details 73 y/o male presents to f/u chronic cond itions. Last A1c 01/11/24 9.1%. Saw Endocrinology 04/05/24. Has an appt. with them in a week. Had started him on ozempic 1mg. Estimated A1c from the monitor around 7.4%. Recent visit with an eye doctor a few weeks ago per pt. Had seen interventional radiology 04/18/24 for L renal mass. Had presented for biopsy and cryoablation. Continues to f/u with urology. Has an appt. with them in May. They report epigastric pain with some vomiting, dizziness though this has been resolving. Denies any chest pain. Has complaints of hyperpigmentation. Denies any recent falls. [facility] Medical History Arthritis GERD (gastroesophageal reflux disease) Diabetes Unsteady gait Physical deconditioning Insomnia Anxiety Depression Diabetic retinopathy Diabetic neuropathy Back pain Pancreatic cyst Chronic renal insufficiency Fibromyalgia Renal mass History of CVA (cerebrovascular accident) Neuropathy Essential hypertension Surgical History Hx of cataract extraction History of esophagogastroduodenoscopy (EGD) H/O colonoscopy Social History Household Members: Family Housing: House Are you a primary primary care provider to a significant other at home: No Do you presently have visiting nurse or other home services: No Alcohol intake: never Comment: PT refuse bed alarm Patient Tobacco Use Status: Former Tobacco user Tobacco use type: Cigarette Years Smoked: 20 e-Cigarette/Vaping Use: Never Used Second Hand Smoke Exposure: No service: No Current occupational status: disabled Current occupational exposures/hazards: No Cognitive needs: Yes (Cane) Hearing needs: No Vision needs: Yes (Glasses) Questionnaire Thrive Questionnaire Date Thrive assessed: 07/08/22 SHAYNA-7 AMB Questionnaire SHAYNA-7 Date SHAYNA - 7 assessed: 07/23/22 Source: Developed by Drs. Tam Andrews, Cathy Barajas, Jesse Stewart and colleagues, with an educational carolin from [employer]. Review of Systems Const Denies chills, Denies fatigue, Denies fever(s), Denies headache(s) and Denies weakness ENT Denies dizziness and Denies headache(s) Card Denies dyspnea Resp Denies cough, Denies dyspnea, Denies wheezing and Denies other (shortness of breath) Musc Denies numbness and Denies tingling Neuro Denies dizziness, Denies headache(s), Denies numbness, Denies tingling and Denies weakness Psych Denies anxiety and Denies depression Endo Denies fatigue Aller/Immun Denies wheezing Physical exam (Primary Care) Vital Signs: Last Vital Signs Temp 97.9 F 05/04/24 14:10 Pulse 71 05/04/24 14:10 Resp 16 05/04/24 14:10 BP 104/57 L 05/04/24 14:10 Pulse Ox 96 05/04/24 14:10 Oxygen Delivery Method Room Air 05/04/24 14:10 Tobacco/Smoking Status: Tobacco use Status Tobacco use date assessed 09/28/23 05/04/24 13:59 Patient Tobacco Use Status Former Tobacco user 05/04/24 13:59 Tobacco use type Cigarette 05/04/24 13:59 e-Cigarette/Vaping Use Never Used 05/04/24 13:59 Thrive Assessment: Date of Thrive Assessment Date Thrive assessed 07/08/22 05/04/24 13:59 Const General: well developed; No acute distress Nutritional Appearance: well nourished Orientation/consciousness: patient oriented x3 HENMT Head: Yes normocephalic and Yes atraumatic Eyes General: appearance normal, both eyes and all related structures Pupils: Equal, round and reactive pupils present EOM: EOMs intact bilaterally Resp Effort & Inspection: normal respiratory effort Neuro General: patient oriented x3 and gait normal Cranial nerves: Yes Equal, round and reactive pupils present Psych Affect: normal affect Coding Level of Care Code Est Pt Level 4 (02444) Diagnoses Epigastric pain R10.13 Uncontrolled type 2 diabetes mellitus with hyperglycemia E11.65 Glycemic state: with hyperglycemia Hyperpigmentation L81.9 Renal mass N28.89 Assessment & Plan Assessment & Plan (1) Epigastric pain: Code(s): R10.13 - Epigastric pain Category: Medical Plan: Recent?epigastric?pain?with?nausea?and?some?vomiting.??This?is?resolving. Had?a?recent?EKG?which?was?okay Will?check?labs?however?including?troponin Blood?pressure?is?a?little?low?today?and?likely?due?to?decreased?p.o.?intake Encouraged?increased?hydration?and?p.o.?intake?as?tolerated Should?continue?to?improve.??He?can?let?me?know?if?not?improving?or?worsens (2) Diabetes type 2, uncontrolled: Code(s): E11.65 - Type 2 diabetes mellitus with hyperglycemia Category: Medical Qualifiers: Glycemic state: with hyperglycemia Qualified Code(s): E11.65 - Type 2 diabetes mellitus with hyperglycemia Plan: Patient?has?continuous?glucose?monitor?showed?significantly?improved?blood?sugar ?control?and?A1c?likely?in?mid?7%?range. He?is?followed?by?endocrinology?and?recently?started?on?Ozempic Continue?current?medication?regimen Follow-up?with?endocrinology?as?recommended (3) Hyperpigmentation: Code(s): L81.9 - Disorder of pigmentation, unspecified Category: Medical Plan: Ongoing/worsening?hyperpigmentation. Katarina ent?has?had?poorly?controlled?diabetes?although?this?is?improving.??This?may?be? associated?with?hyperpigmentation?however?could?have?another?underlying?cause Checking?labs including?thyroid?hormones,? acth,?cortisol,?iron?studies?and?liver?enzymes. He?requests?a?referral?back?to??Misael,?his?cook apprentice.??I?have?made?this?brice العراقي. (4) Renal mass: Code(s): N28.89 - Other specified disorders of kidney and ureter Category: Medical Plan: History?of?renal?mass?and?now?followed?by?Urology. Patient?had?recent interventional?radiology?procedure?described?as biopsy and cryoablation. Currently,?I?do?not?see?any?pathology?regarding?biopsy. Patie nt?is?family?member?is?insistent?that?he?would?like?a?telemedicine?appointment?w ith?patient?and?myself?to?review?pathology.??I?will?ask?the?office?to?inquire?as ?to?pathology?results. He?can?follow-up?with?me?in?a?couple?of?weeks?to?review?this. I?did?however?inform?them?that?he?does?have?an?upcoming?appointment?with?Urology ?regarding?this?procedure. Orders: Orders Troponin-I High Sensitivity Today R10.13 - Epigastric pain Microalbumin, Random (w Creat) Today I10 - Essential (primary) hypertension, R31.29 - Other microscopic hematuria Free T4 (Free Thyroxine) Today E03.9 - Hypothyroidism, unspecified, L81.9 - Disorder of pigmentation, unspecified IRON PROFILE Today L81.9 - Disorder of pigmentation, unspecified Prolactin Today L81.9 - Disorder of pigmentation, unspecified Complete Blood Count Auto Diff Today R10.13 - Epigastric pain, Z00.00 - Encounter for general adult medical examination without abnormal findings UA and rflx microscopic Today R31.29 - Other microscopic hematuria, Z00.00 - Encounter for general adult medical examination without abnormal findings Comprehensive Met. Panel Today L81.9 - Disorder of pigmentation, unspecified Cortisol Random Today L81.9 - Disorder of pigmentation, unspecified Thyroid Stimulating Hormone Today E03.9 - Hypothyroidism, unspecified, L81.9 - Disorder of pigmentation, unspecified Triiodothyronine T3 Total Today E03.9 - Hypothyroidism, unspecified, L81.9 - Disorder of pigmentation, unspecified Adrenocorticotropic Hormone Today L81.9 - Disorder of pigmentation, unspecified Vitamin B12 and Folate Today E53.8 - Deficiency of other specified B group vitamins, L81.9 - Disorder of pigmentation, unspecified Referrals Dermatology Referral L81.9 - Disorder of pigmentation, unspecified
[2024-05-04 14:10] VITALS: BP 104/57; PULSE 71; RESP 16; TEMP 36.6; O2SAT 96
== END 2024-05-04 15:22 | disposition home or self-care (01) ==
PROVIDERS: PCP Family Medicine; Visit Provider Family Medicine
DX: R10.13 Epigastric pain (principal); E11.65 Type 2 diabetes mellitus with hyperglycemia; L81.9 Disorder of pigmentation, unspecified; N28.89 Other specified disorders of kidney and ureter

== ENCOUNTER 2024-05-04 15:06 | Outpatient (REF) | payer MEDICARE, MEDICAID, SELFPAY ==
[2024-05-04 17:47] LABS: MANUAL DIFF FLAG NO
[2024-05-04 17:52] LABS: Appearance Urine Clear; Color Urine Yellow; Glucose Urine UA 100 mg/dL (Negative); Leukocyte Esterase Urine Negative (Negative); Nitrite Urine Negative (Negative); PH 5.5 (5.0-9.0); UMIC TRIGGER UA YES; Urine Blood Trace (Negative); Urine Ketones Trace mg/dL (Negative); Urine Protein 30 (1+) mg/dL (Neg-Trace)
[2024-05-04 17:56] LABS: Bacteria Urine None Seen (None Seen); Hyaline Casts Urine 0-2 /LPF (0-2); RBC Urine 0-2 /HPF (0-2); Squamous Epithelial Cell Urine 0-2 /HPF (0-2); WBC Urine 0-5 /HPF (0-5)
[2024-05-04 17:59] LABS: Basophils Absolute Auto 0.1 X10*3/uL (0.0-0.2); Basophils Percent Auto 0.9 % (0-2); Eosinophils Absolute Auto 0.2 X10*3/uL (0.0-0.4); Eosinophils Percent Auto 2.8 % (0-4); Hematocrit 36.4 % (42.0-52.0); Hemoglobin 12.3 g/dl (14.0-18.0); Imm Gran Abs Auto 0.02 X10*3/uL (0.00-0.03); Imm Gran Pct Auto 0.2 % (0.0-0.4); Lymphocytes Absolute Auto 2.9 X10*3/uL (1.2-4.9); Lymphocytes Percent Auto 35.4 % (20-40); Mean Corpuscular HGB Conc 33.8 g/dl (31.0-36.0); Mean Corpuscular Hemoglobin 28.1 pg (27.0-33.0); Mean Corpuscular Volume 83.3 fL (80.0-98.0); Mean Platelet Volume 11.8 fL (9.4-12.4); Monocytes Absolute Auto 0.6 X10*3/uL (0.1-1.2); Monocytes Percent Auto 7.2 % (2-11); Neutrophils Absolute Auto 4.4 x10*3/uL (2.0-8.3); Neutrophils Percent Auto 53.5 % (45-73); Platelet Count 264 X10*3/uL (160-400); Red Blood Count 4.37 X10*6/uL (4.60-5.80); White Blood Count 8.2 X10*3/uL (4.8-10.8)
[2024-05-04 18:12] LABS: Troponin-I High Sensitivity 2.7 ng/L (<3.5-35.0)
[2024-05-04 18:16] LABS: Creatinine Urine 183.79 mg/dL; Microalbum/Creatinine Ratio Ur 70.1 ug/mg cr (<30)
[2024-05-04 18:21] LABS: Alanine Aminotransferase 20 U/L (0-40); Albumin Level 3.8 g/dL (3.5-5.0); Alkaline Phosphatase 114 U/L (39-117); Anion Gap 13 (12-20); Bilirubin Total 0.3 mg/dL (0.0-1.0); Blood Urea Nitrogen 14 mg/dL (9-16); Carbon Dioxide 26 mmol/L (22-29); Chloride 103 mmol/L (96-108); Estimated Glomerular Filt Rate > 60; Glucose Random 104 mg/dL (60-115); Potassium 4.2 mmol/L (3.3-5.1); Sodium 138 mmol/L (135-145); Total Protein 7.3 g/dL (6.5-8.0)
[2024-05-04 18:26] LABS: Cortisol Random 8.5 ug/dL
[2024-05-04 18:30] LABS: Free T4 (Free Thyroxine) 0.91 ng/dL (0.71-1.85); Thyroid Stimulating Hormone 1.88 uIU/mL (0.32-4.0)
[2024-05-04 18:48] LABS: Aspartate Amino Transferase 20 U/L (5-37)
[2024-05-05 10:29] LABS: Triiodothyronine T3 Total 94 ng/dL (76-181)
[2024-05-09 21:03] LABS: Adrenocorticotropic Hormone 18 pg/mL (6-50)
== END 2024-05-04 15:07 | disposition home or self-care (01) ==
LOC: HO.WFDLDS 15:06
PROVIDERS: Visit Provider Family Medicine
DX: R10.13 Epigastric pain (principal); E11.65 Type 2 diabetes mellitus with hyperglycemia; L81.9 Disorder of pigmentation, unspecified; N28.89 Other specified disorders of kidney and ureter; E03.9 Hypothyroidism, unspecified; R31.29 Other microscopic hematuria; I10 Essential (primary) hypertension; Z00.00 Encounter for general adult medical examination without abnormal findings
CPT/HCPCS: 36415; 80053; 81001; 82024; 82043; 82533; 82570; 84439; 84443; 84480; 84484; 85025; 99212

== ENCOUNTER 2024-05-10 13:51 | Outpatient (AMB) | payer MEDICARE, MEDICAID, SELFPAY ==
--- NOTE | 2024-05-10 13:53 | MHC.OFFVIS ---
Vital Signs 05/10/24 13:55 Height 5 ft 11 in Weight 224 lb 13.944 oz BMI 31.4 BP 122/60 Blood Pressure Location Rt brachial Position Sitting Pulse 63 Pulse Source Pulse Oximeter Intake Visit Reasons: DM Intake Note: Patient presents today for a follow-up on Type 2 Diabetes Mellitus: Last Diabetic Eye exam: DUE Last Podiatry Exam: Does not see a Activities Specialist Most recent HbA1c: 7.8%, 05/10/2024 Random Glucose- 182 mg/dL, Today Trouble Clerk Required: No Accompanied by: Self / Same As Patient Allergies No Known Allergies [No Known Allergies*] Allergy (Verified 05/10/24 13:53) Medication List - Last Reconciled 05/10/24 by Rosette Jim MD aspirin 81 mg PO DAILY atorvastatin 40 mg PO DAILY BD Ultra-Fine Sara Pen Needle (pen needle, diabetic) 1 ea miscellaneous QID 90 days NS cholecalciferol (vitamin D3) (Vitamin D3) 50 mcg PO DAILY 90 days clobetasol 0.05% 1 appl topical BID 2 weeks clopidogrel 75 mg PO DAILY 90 days cyanocobalamin (vitamin B-12) 1,000 mcg PO DAILY 90 days diclofenac sodium 1% (Arthritis Pain (diclofenac)) 2 grams topical QID 30 days dulaglutide 3 mg subcut QWEEK empagliflozin (Jardiance) 25 mg PO QAM 90 days famotidine 20 mg PO BEDTIME flash glucose scanning reader (FreeStyle Nikole 2 [place]) As directed flash glucose sensor (FreeStyle Nikole 2 Sensor kit) As directed change every 14 days gabapentin 600 mg PO BID Humalog KwikPen Insulin (insulin lispro) Inject 25 units subcutaneous daily with breakfast, 20 units daily with dinner. If you eat lunch take 20 units with lunch; 90 days NS insulin degludec (Tresiba FlexTouch U-100 insulin) 40 units (0.4 mL) subcut BID 90 days lidocaine 5% (Lidoderm) 1 patch topical DAILY PRN lisinopril 10 mg PO DAILY meclizine 25 mg PO Q8H PRN 30 days metformin 1,000 mg PO BID 90 days metoprolol succinate ER 12.5 mg (1/2 x 25 mg) PO DAILY 30 days miscellaneous medical supply Diabetic Shoes, Daily As directed. 999 days. 1 Pair miscellaneous medical supply Diabetic shoes. Daily As directed, 999 days. One pair. pen needle, diabetic (BD Ultra-Fine Mini Pen Needle) As directed pen needle, diabetic (BD Ultra-Fine Short Pen Needle) 4 times a day As directed. 90 days quetiapine (Seroquel) 25 mg PO BEDTIME PRN semaglutide 1 mg (0.75 mL) subcut QWEEK topiramate 50 mg PO BID tramadol 50 mg PO Q8H PRN HPI Comments Details: 73 YO M who is seen in follow up for type 2 diabetes Medical history: CVA, HTN, HLD. PCP: Dr Graff Initially diagnosed with T2DM 20 years ago Was initially started on treatment with metformin . Current regimen metformin 1000 mg BID Lantus/Tresiba 40 BID (decreased from 45 units TWICE daily) NovoLog/Humalog 25,20,20 (decreased from 25,20,25) jardiance 25 mg QD Ozempic 1mg weekly (switched from Trulicity 3 mg Qwkly) A1C 12/2023 9.1%. Per the CGM Nikole GMI 6.8 from 7.4%. current high 20%, TGT 80% 0% lows. POC A1C today 7.8% No Family history of T2DM Has eyes checked frequently: (+) retinopathy. Denies neuropathy, , Does sees podiatry. Denies nephropathy, on RADHA/ARB. . Has HLD, on statin. Denies CAD. Hx of CVA ROS CONSTITUTIONAL: Denies weight loss, fever and chills. HEENT: Denies changes in vision and hearing. RESPIRATORY: Denies SOB and cough. CV: Denies palpitations and CP GI: Denies abdominal pain, nausea, vomiting and diarrhea. : Denies dysuria and urinary frequency. MSK: Denies new myalgia and joint pain. SKIN: Denies rash and pruritus. NEUROLOGICAL: Denies headache PSYCHIATRIC: Denies recent changes in mood. PHYSICAL EXAM: GENERAL: Alert and oriented x 3. NAD EYES: EOMI. Anicteric. HENT: Moist mucous membranes. No scleral icterus. No cervical lymphadenopathy. LUNGS: Clear to auscultation bilaterally. CARDIOVASCULAR: Regular rate and rhythm. ABDOMEN: Soft, non-tender +bs EXTREMITIES: No edema. Non-tender. SKIN: No rashes or lesions. Warm. NEUROLOGIC: No NEW focal neurological deficits. PSYCHIATRIC: Cooperative. Appropriate mood and affect [facility], [facility] Medical History (Updated 05/10/24 @ 15:28 by Rosette Jim MD) Arthritis GERD (gastroesophageal reflux disease) Diabetes Unsteady gait Physical deconditioning Insomnia Anxiety Depression Diabetic retinopathy Diabetic neuropathy Back pain Pancreatic cyst Chronic renal insufficiency Fibromyalgia Renal mass History of CVA (cerebrovascular accident) Neuropathy Essential hypertension Surgical History Hx of cataract extraction History of esophagogastroduodenoscopy (EGD) H/O colonoscopy Social History Household Members: Family Housing: House Are you a primary healthcare business analyst to a significant other at home: No Do you presently have visiting nurse or other home services: No Alcohol intake: never Comment: PT refuse bed alarm Patient Tobacco Use Status: Former Tobacco user Tobacco use type: Cigarette Years Smoked: 20 e-Cigarette/Vaping Use: Never Used Second Hand Smoke Exposure: No service: No Current occupational status: disabled Current occupational exposures/hazards: No Cognitive needs: Yes (Cane) Hearing needs: No Vision needs: Yes (Glasses) Physical Exam Vital Signs: Last Vital Signs Pulse 63 05/10/24 13:55 BP 122/60 05/10/24 13:55 BMI result Body Mass Index 31.4 Results AMB Hemoglobin A1c AMB Hemoglobin A1c 7.8 % Last Edit by BITA Plascencia on 05/10/24 14:13 Assessment & Plan Assessment & Plan (1) Diabetes: Code(s): E11.9 - Type 2 diabetes mellitus without complications Category: Medical Qualifiers: Diabetes mellitus complication detail: with polyneuropathy Diabetes mellitus complication status: with neurologic complications Diabetes mellitus penitentiary insulin use: with joint terminal attack controller use Diabetes mellitus type: type 2 Qualified Code(s): E11.42 - Type 2 diabetes mellitus with diabetic polyneuropathy; 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 he would like to optimize weight loss. Increase ozempic to 2mg weekly. He will decrease lantus to 35 units twice daily he has had infrequent lows Orders: Orders AMB Hemoglobin A1c Today E11.69 - Type 2 diabetes mellitus with other specified complication, E78.2 - Mixed hyperlipidemia Medications: New gabapentin 600 mg PO BID 180 tabs 3RF semaglutide 2 mg (0.75 mL) subcut QWEEK 3 mL 3RF Changed From insulin degludec (Tresiba FlexTouch U-100 insulin) 40 units (0.4 mL) subcut BID 90 days 72 mL 4RF To insulin degludec (Tresiba FlexTouch U-100 insulin) 35 units (0.35 mL) subcut BID 90 days 63 mL 4RF Refilled Humalog KwikPen Insulin (insulin lispro) Inject 25 units subcutaneous daily with breakfast, 20 units daily with dinner. If you eat lunch take 20 units with lunch; 90 days 45 mL 3RF NS BD Ultra-Fine Sara Pen Needle (pen needle, diabetic) 1 ea miscellaneous QID 90 days 400 ea 3RF NS E11.65 - Type 2 diabetes mellitus with hyperglycemia Discontinued semaglutide Discontinued Reason: Doctor's Order 1 mg (0.75 mL) subcut QWEEK 3 mL 3RF Coding Level of Care Code Est Pt Level 4 (26768) Diagnoses Type 2 diabetes mellitus with diabetic polyneuropathy, with long-term current use of insulin E11.42; Z79.4 Diabetes mellitus complication detail: with polyneuropathy Diabetes mellitus complication status: with neurologic complications Diabetes mellitus penitentiary insulin use: with penitentiary use Diabetes mellitus type: type 2
[2024-05-10 13:55] VITALS: BP 122/60; PULSE 63; BMI 31.4
[2024-05-10 14:09] LABS: Glucose, Whole Blood 182 mg/dL (60-115)
== END 2024-05-10 14:26 | disposition home or self-care (01) ==
PROVIDERS: PCP Family Medicine; Visit Provider Internal Medicine
DX: E11.69 Type 2 diabetes mellitus with other specified complication (principal); E78.2 Mixed hyperlipidemia; E11.42 Type 2 diabetes mellitus with diabetic polyneuropathy; Z79.4 Long term (current) use of insulin

== ENCOUNTER → 2024-05-10 13:51 | Outpatient (BNVA) | payer MEDICARE, MEDICAID, SELFPAY | PROVIDERS: PCP Family Medicine; Visit Provider Internal Medicine | DX: E11.42 Type 2 diabetes mellitus with diabetic polyneuropathy (principal); Z79.4 Long term (current) use of insulin | CPT/HCPCS: 82947; 83036; 99212 ==

== ENCOUNTER → 2024-05-23 15:23 | Outpatient (AMB) | payer MEDICARE, MEDICAID, SELFPAY ==
--- NOTE | 2024-05-23 15:20 | A.OFFPC_ITS ---
Intake Visit Reasons: f/u Labs Allergies No Known Allergies [No Known Allergies*] Allergy (Verified 05/23/24 15:22) Tobacco use date assessed: 09/28/23 Dental Screening Dental Screen Date: 09/28/23 HPI f/u Labs HPI Details 73 y/o male presents to f/u labs via tel emedicine. Labs drawn 05/04/24. Labs unrevealing for hyperpigmentation. Has an appt. with Adela Spears urology 06/08/24 for renal mass. [facility] Medical History (Updated 05/10/24 @ 15:28 by Rosette Jim MD) Arthritis GERD (gastroesophageal reflux disease) Diabetes Unsteady gait Physical deconditioning Insomnia Anxiety Depression Diabetic retinopathy Diabetic neuropathy Back pain Pancreatic cyst Chronic renal insufficiency Fibromyalgia Renal mass History of CVA (cerebrovascular accident) Neuropathy Essential hypertension Surgical History Hx of cataract extraction History of esophagogastroduodenoscopy (EGD) H/O colonoscopy Social History Household Members: Family Housing: House Are you a primary managed care manager to a significant other at home: No Do you presently have visiting nurse or other home services: No Alcohol intake: never Comment: PT refuse bed alarm Patient Tobacco Use Status: Former Tobacco user Tobacco use type: Cigarette Years Smoked: 20 e-Cigarette/Vaping Use: Never Used Second Hand Smoke Exposure: No service: No Current occupational status: disabled Current occupational exposures/hazards: No Cognitive needs: Yes (Cane) Hearing needs: No Vision needs: Yes (Glasses) Questionnaire Thrive Questionnaire Date Thrive assessed: 07/08/22 AUDIT C Alcohol Use Questionnaire (AUDIT-C) 3. How often do you have six or more drinks on one occasion?: Never Total Score: 0 SHAYNA-7 AMB Questionnaire SHAYNA-7 Date SHAYNA - 7 assessed: 07/23/22 Source: Developed by Drs. Tam Andrews, Cathy Barajas, Jesse Stewart and colleagues, with an educational carolin from [employer]. Review of Systems Const Denies chills, Denies fatigue, Denies fever(s), Denies headache(s) and Denies weakness ENT Denies dizziness and Denies headache(s) Card Denies dyspnea Resp Denies cough, Denies dyspnea, Denies wheezing and Denies other (shortness of breath) Musc Denies numbness and Denies tingling Neuro Denies dizziness, Denies headache(s), Denies numbness, Denies tingling and Denies weakness Psych Denies anxiety and Denies depression Endo Denies fatigue Aller/Immun Denies wheezing Physical exam (Primary Care) Tobacco/Smoking Status: Tobacco use Status Tobacco use date assessed 09/28/23 05/23/24 15:21 Patient Tobacco Use Status Former Tobacco user 05/23/24 15:21 Tobacco use type Cigarette 05/23/24 15:21 e-Cigarette/Vaping Use Never Used 05/23/24 15:21 Thrive Assessment: Date of Thrive Assessment Date Thrive assessed 07/08/22 05/23/24 15:21 Telehealth Telehealth Telehealth Platform: Telephone Location of provider rendering services: practice address Location of patient: address on file Patient Identification confirmed using: Name, : Yes Telehealth method: voice only Patient verbally consented to treatment: Yes Patient verbally consented to billing insurance company: Yes Patient informed of any privacy concerns related to visit: Yes Minutes spent on Phone/Video with Pt.: 4 Coding Level of Care Code Tele Est Pt Level 2 (74319) Diagnoses Hyperpigmentation L81.9 Epigastric pain R10.13 Renal mass N28.89 Assessment & Plan Assessment & Plan (1) Hyperpigmentation: Code(s): L81.9 - Disorder of pigmentation, unspecified Category: Medical Plan: We?reviewed?lab?work?which?included TSH,?free?T4,?total?T3,?acth,?cortisol?and?liver?enzymes. Had?also?ordered?iron?profile?would?for?some?reason?this?was?not?drawn - doubt?this?is?the?underlying?cause?however?and?we?can?check?this?again?at?next?l ab?draw. Patient?has?no?diabetes?with?poor?blood?sugar?control.??Advised?he?work?good?blo od?sugar?control?and?follow-up?with?Endocrinology?as?recommended Referred?him?to?Dermatology?regarding?hyperpigmentation - follow- up?with?dermatology?as?recommended (2) Epigastric pain: Code(s): R10.13 - Epigastric pain Category: Medical Plan: As?above?lab?work?unrevealing Recent?EKG?was?negative?and?troponin?level?at?most?recent?labs?was?negative?as?w ell (3) Renal mass: Code(s): N28.89 - Other specified disorders of kidney and ureter Category: Medical Plan: Patient?and?his?son?had?been?concerned?about?renal? mass?and?procedure.??At?our?last?visit,?note?was?unavailable?it?was?performed?on ?the?same?day. Per?note,?was?biopsy?performed,?just?a?cryoablation?as?intended?there?were?no?co mplications. Reassured?patient He?has?a?follow- up?appointment?with?Urology?scheduled?and?can?discuss?details?further?visit
--- OUTSIDE RECORDS SUMMARY | 2024-05-30 15:16 | XMS_ITS | Clinical Summary ---
Author Organization Unknown Care Team Providers Care Talent Buyer Name Role Phone JORGE MASTERSON, JACQUI Unavailable Unavailable DMITRI RN, BOUBACAR Unavailable Unavailable REEMA CLAIMS SPECIALIST, VIN Unavailable Unavailable RAYMOND OT, THERAPY HAND UMBRELLA TIPPER, JACQUI Unavailabl e Unavailable MARTTHEO PT, BRIDGER Unavailable Unavailable DIAMANTE INCLINOMETER TESTER, IRVING Unavailable Unavailable JOSE CLAIMS SPECIALIST, KEE Unavailable Unavailabl e KALETINA CLAIMS SPECIALIST, MIKE Unavailable Unavailab le Payers Payer Name Policy Type Policy Number Effective Date Expira tion Date MEDICARE - [facility]/[place] - PD [id number] MEDICAID [place] [facility] [id number] Problems Condition Name Condition Details Condition Category Status Onset Date Resolution Date Last Treatment Date Treating Clinician Comments TYPE 2 DIABETES MELLITUS WITH DIABETIC NEUROPATHY, UNSP Active 2021-06 00:00: 00 ESSENTIAL (PRIMARY) HYPERTENSION Active 2021-06 00:00: 00 TYPE 2 DIABETES MELLITUS WITH HYPERGLYCEMI A Active 2021-06 00:00: 00 ANXIETY DISORDER, UNSPECIFIED Active 2021-06 00:00: 00 PNEUMONIA, UNSPECIFIED ORGANISM Active 2021-06 00:00: 00 PALMAR FASCIAL FIBROMATOSIS [[id number]] Active 2021-06 00:00: 00 HYPERLIPIDEM IA, UNSPECIFIED Active 2021-06 00:00: 00 PRSNL HX OF TIA (TIA), AND CEREB INFRC W/O RESID DEFICITS Active 2021-06 00:00: 00 HALF-WAY (CURRENT) USE OF ANTICOAGULAN TS Active 2021-06 00:00: 00 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 Ordering Clinician Indication Dosage Frequency Signature (SIG) Comments Components Novolog Flexpen U-100 Insulin aspart 100 unit/mL (3 mL) subcutaneou s 2021-06 00:00: 00 Yes [id number] Per instruc tions SUBCUTAENO US INJECTION 3 TIMES A DAY Per instructio ns SUBCUTAENO US INJECTION 3 TIMES A DAY (route: subcutaneo us) Med Classific ation: Endocrine cyanocobala min (vit B-12) 1,000 mcg tablet 2021-06 00:00: 00 Yes [id number] Per instruc tions EVERY DAY Per instructio ns EVERY DAY (route: oral) Med Classific ation: Electroly te Balance-N utritiona l Products clopidogrel 75 mg tablet 2021-06 00:00: 00 Yes [id number] Per instruc tions EVERY DAY Per instructio ns EVERY DAY (route: oral) Med Classific ation: Hematolog ical Agents lisinopril 10 mg tablet 2021-06 00:00: 00 Yes [id number] Per instruc tions TWICE A DAY Per instructio ns TWICE A DAY (route: oral) Med Classific ation: Cardiovas cular Therapy Agents metformin 1,000 mg tablet 2021-06 00:00: 00 Yes [id number] Per instruc tions TWICE A DAY Per instructio ns TWICE A DAY (route: oral) Med Classific ation: Endocrine aspirin 81 mg tablet,beau yed release 2021-06 00:00: 00 Yes [id number] 1 tablet DAILY 1 tablet DAILY (route: oral) Med Classific ation: Hematolog ical Agents atorvastati n 40 mg tablet 2021-06 00:00: 00 Yes [id number] 1 tablet DAILY 1 tablet DAILY (route: oral) Med Classific ation: Cardiovas cular Therapy Agents Fioricet 50 mg-300 mg-40 mg capsule 2021-06 00:00: 00 Yes [id number] 1 capsule 4 TIMES DAILY 1 capsule 4 TIMES DAILY (route: oral) Med Classific ation: Analgesic , Anti-infl ammatory or Antipyret ic gabapentin 600 mg tablet 2021-06 00:00: 00 Yes [id number] 1 tablet 3 TIMES DAILY 1 tablet 3 TIMES DAILY (route: oral) Med Classific ation: Central Nervous System Agents Lantus Solostar U-100 Insulin 100 unit/mL (3 mL) subcutaneou s pen 2021-06 00:00: 00 Yes [id number] 65 unit BEDTIME 65 unit BEDTIME (route: subcutaneo us) Med Classific ation: Endocrine meclizine 25 mg tablet 2021-06 00:00: 00 Yes [id number] 1 tablet EVERY 8 HOURS 1 tablet EVERY 8 HOURS (route: oral) Med Classific ation: Gastroint estinal Therapy Agents naproxen 500 mg tablet 2021-06 00:00: 00 Yes [id number] 1 tablet 2 TIMES DAILY 1 tablet 2 TIMES DAILY (route: oral) Med Classific ation: Analgesic , Anti-infl ammatory or Antipyret ic omeprazole 20 mg tablet,beau yed release 2021-06 00:00: 00 Yes [id number] 1 tablet DAILY 1 tablet DAILY (route: oral) Med Classific ation: Gastroint estinal Therapy Agents Tylenol Extra Strength 500 mg tablet 2021-06 00:00: 00 Yes [id number] 2 tablet 4 TIMES DAILY 2 tablet 4 TIMES DAILY (route: oral) Med Classific ation: Analgesic , Anti-infl ammatory or Antipyret ic Vital Signs Vital Name Observation Time Observation Value Commen ts Temperature 2022-06-24 18:19:00.000 97.8 [degF] Temperature 2022-06-18 20:22:00.000 98.6 [degF] Temperature 2022-06-09 11:03:00.000 98.1 [degF] Temperature 2022-06-04 13:12:00.000 98.6 [degF] Temperature 2022-06-02 20:43:00.000 97.6 [degF] Temperature 2022-06-02 11:41:00.000 98.8 [degF] Temperature 2022-05-29 10:54:00.000 97.5 [degF] Temperature 2022-05-28 10:24:00.000 97.6 [degF] Temperature 2022-05-26 11:30:00.000 97.5 [degF] Temperature 2022-05-26 11:26:00.000 97.5 [degF] Temperature 2022-05-21 22:13:00.000 97.8 [degF] Temperature 2022-05-21 09:26:00.000 97.6 [degF] Temperature 2022-05-18 11:06:00.000 97.6 [degF] BMI (%) 2022-05-18 11:06:00.000 28 kg/m2 Height 2022-05-18 11:06:00.000 72 [in_us] Pulse 2022-06-24 18:19:00.000 78 /min Pulse 2022-06-18 20:22:00.000 76 /min Pulse 2022-06-09 11:03:00.000 68 /min Pulse 2022-06-04 13:12:00.000 84 /min Pulse 2022-06-02 20:43:00.000 76 /min Pulse 2022-06-02 11:41:00.000 80 /min Pulse 2022-05-29 10:54:00.000 64 /min Pulse 2022-05-28 12:07:00.000 83 /min Pulse 2022-05-28 10:24:00.000 75 /min Pulse 2022-05-26 11:30:00.000 66 /min Pulse 2022-05-26 11:26:00.000 66 /min Pulse 2022-05-21 22:13:00.000 72 /min Pulse 2022-05-21 09:26:00.000 63 /min Pulse 2022-05-18 11:06:00.000 60 /min O2 Saturation (%) 2022-06-24 18:21:00.000 98 % O2 Saturation (%) 2022-06-18 20:24:00.000 98 % O2 Saturation (%) 2022-06-09 11:03:00.000 98 % O2 Saturation (%) 2022-06-04 13:12:00.000 99 % O2 Saturation (%) 2022-06-02 20:43:00.000 98 % O2 Saturation (%) 2022-06-02 11:41:00.000 98 % O2 Saturation (%) 2022-05-29 10:54:00.000 98 % O2 Saturation (%) 2022-05-28 12:07:00.000 99 % O2 Saturation (%) 2022-05-28 10:24:00.000 97 % O2 Saturation (%) 2022-05-26 11:30:00.000 96 % O2 Saturation (%) 2022-05-26 11:26:00.000 96 % O2 Saturation (%) 2022-05-21 22:13:00.000 97 % O2 Saturation (%) 2022-05-21 09:26:00.000 97 % O2 Saturation (%) 2022-05-18 11:06:00.000 98 % Respirations 2022-06-24 18:19:00.000 20 /min Respirations 2022-06-18 20:22:00.000 20 /min Respirations 2022-06-09 11:03:00.000 18 /min Respirations 2022-06-04 13:12:00.000 19 /min Respirations 2022-06-02 20:43:00.000 17 /min Respirations 2022-06-02 11:41:00.000 18 /min Respirations 2022-05-29 10:54:00.000 20 /min Respirations 2022-05-28 12:07:00.000 18 /min Respirations 2022-05-28 10:24:00.000 18 /min Respirations 2022-05-26 11:30:00.000 18 /min Respirations 2022-05-26 11:26:00.000 18 /min Respirations 2022-05-21 22:13:00.000 20 /min Respirations 2022-05-21 09:26:00.000 18 /min Respirations 2022-05-18 11:06:00.000 20 /min Weight (lbs) 2022-05-18 11:06:00.000 210 [lb_av] Systolic Blood Pressure 2022-06-24 18:19:00.000 118 mm [Hg] Systolic Blood Pressure 2022-06-18 20:22:00.000 140 mm [Hg] Systolic Blood Pressure 2022-06-09 11:03:00.000 142 mm [Hg] Systolic Blood Pressure 2022-06-04 13:12:00.000 140 mm [Hg] Systolic Blood Pressure 2022-06-02 20:43:00.000 132 mm [Hg] Systolic Blood Pressure 2022-06-02 11:41:00.000 142 mm [Hg] Systolic Blood Pressure 2022-05-29 10:54:00.000 156 mm [Hg] Systolic Blood Pressure 2022-05-28 12:07:00.000 110 mm [Hg] Systolic Blood Pressure 2022-05-28 10:24:00.000 126 mm [Hg] Systolic Blood Pressure 2022-05-26 11:30:00.000 132 mm [Hg] Systolic Blood Pressure 2022-05-26 11:26:00.000 132 mm [Hg] Systolic Blood Pressure 2022-05-21 22:13:00.000 138 mm [Hg] Systolic Blood Pressure 2022-05-21 09:26:00.000 116 mm [Hg] Systolic Blood Pressure 2022-05-18 11:06:00.000 132 mm [Hg] Diastolic Blood Pressure 2022-06-24 18:19:00.000 70 mm [Hg] Diastolic Blood Pressure 2022-06-18 20:22:00.000 80 mm [Hg] Diastolic Blood Pressure 2022-06-09 11:03:00.000 90 mm [Hg] Diastolic Blood Pressure 2022-06-04 13:12:00.000 85 mm [Hg] Diastolic Blood Pressure 2022-06-02 20:43:00.000 68 mm [Hg] Diastolic Blood Pressure 2022-06-02 11:41:00.000 72 mm [Hg] Diastolic Blood Pressure 2022-05-29 10:54:00.000 90 mm [Hg] Diastolic Blood Pressure 2022-05-28 12:07:00.000 50 mm [Hg] Diastolic Blood Pressure 2022-05-28 10:24:00.000 70 mm [Hg] Diastolic Blood Pressure 2022-05-26 11:30:00.000 66 mm [Hg] Diastolic Blood Pressure 2022-05-26 11:26:00.000 66 mm [Hg] Diastolic Blood Pressure 2022-05-21 22:13:00.000 70 mm [Hg] Diastolic Blood Pressure 2022-05-21 09:26:00.000 68 mm [Hg] Diastolic Blood Pressure 2022-05-18 11:06:00.000 80 mm [Hg] Plan of Treatment Planned Activity Planned Date Details Comments Future Scheduled Test SKILLED NU RSE TO EVALUATE PATIENT, IDENTIFY PRIMARY AND CO-MORBID CONDITIONS CODED PER CODING GUIDELINES, AND DEVELOP PATIENT SPECIFIC PLAN OF CARE THAT INCLUDES PATIENT GOAL FOR HOME HEALTH. CLINICAL SUMMARY SOC THE PATIENT IS RECEIVING HOMECARE DUE TO DM, HX CVA, MEDICATION NON COMPLIANCE RECENT HOSPITALIZATION/INPATIENT ADMISSION RELATED TO: CHEST PAIN, SOB, PNEUMONIA NEW OR CHANGED MEDICATIONS: FIORICET PATIENT LIVING SITUATION/CAREGIVER STATUS: LIVES WITH AND ADULT CHILDREN RECENT FALLS: NONE SUMMARIZE SKILLED NEED: PATIENT IS IN NEED OF HOME CARE SERVICES FOR TEACHING AND ASSESSMENT DISEASE PROCESS INCLUDING DIABETES, HEART DISEASE, HISTORY OF CVA, MEDICATION NON-COMPLIANCE. QUESTION COGNITIVE DECLINE ADDITIONAL DISCIPLINES NEEDED OR DECLINED ORDERED SERVICES: PHYSICAL THERAPY, OCCUPATIONAL THERAPY, INCLINOMETER TESTER EVALS [code = SKILLED NURSE TO EVALUATE PATIENT, IDENTIFY PRIMARY AND CO-MORBID CONDITIONS CODED PER CODING GUIDELINES, AND DEVELOP PATIENT SPECIFIC PLAN OF CARE THAT INCLUDES PATIENT GOAL FOR HOME HEALTH. CLINICAL SUMMARY SOC THE PATIENT IS RECEIVING HOMECARE DUE TO DM, HX CVA, MEDICATION NON COMPLIANCE RECENT HOSPITALIZATION/INPATIENT ADMISSION RELATED TO: CHEST PAIN, SOB, PNEUMONIA NEW OR CHANGED MEDICATIONS: FIORICET PATIENT LIVING SITUATION/CAREGIVER STATUS: LIVES WITH AND ADULT CHILDREN RECENT FALLS: NONE SUMMARIZE SKILLED NEED: PATIENT IS IN NEED OF HOME CARE SERVICES FOR TEACHING AND ASSESSMENT DISEASE PROCESS INCLUDING DIABETES, HEART DISEASE, HISTORY OF CVA, MEDICATION NON-COMPLIANCE. QUESTION COGNITIVE DECLINE ADDITIONAL DISCIPLINES NEEDED OR DECLINED ORDERED SERVICES: PHYSICAL THERAPY, OCCUPATIONAL THERAPY, INCLINOMETER TESTER EVALS] Future Scheduled Test SKILLED NU RSE FOR O/A OF LOWER EXTREMITIES TO IDENTIFY CHANGES OR LESIONS ASSOCIATED WITH DIABETES MELLITUS FOR EARLY INTERVENTIONS OF COMPLICATIONS. SKILLED NURSE TO PROVIDE INSTRUCTION ON PROPER DIABETIC SKIN/FOOT CARE. [code = SKILLED NURSE FOR O/A OF LOWER EXTREMITIES TO IDENTIFY CHANGES OR LESIONS ASSOCIATED WITH DIABETES MELLITUS FOR EARLY INTERVENTIONS OF COMPLICATIONS. SKILLED NURSE TO PROVIDE INSTRUCTION ON PROPER DIABETIC SKIN/FOOT CARE.] Future Scheduled Test SKILLED NU RSE TO REVIEW PATIENT MEDICATIONS. INSTRUCT PATIENT/CAREGIVER ON MONITORING OF EFFECTIVENESS, ADVERSE DRUG REACTIONS, SIDE EFFECTS OF ALL MEDICATIONS (PRESCRIPTION/-OTC), AND HOW AND WHEN TO REPORT PROBLEMS. [code = SKILLED NURSE TO REVIEW PATIENT MEDICATIONS. INSTRUCT PATIENT/CAREGIVER ON MONITORING OF EFFECTIVENESS, ADVERSE DRUG REACTIONS, SIDE EFFECTS OF ALL MEDICATIONS (PRESCRIPTION/-OTC), AND HOW AND WHEN TO REPORT PROBLEMS.] Future Scheduled Test SKILLED NU RSE TO PERFORM HOME SAFETY AND FALL ASSESSMENT AND PROVIDE INSTRUCTION TO IMPLEMENT HOME SAFETY AND FALL PREVENTION STRATEGIES. [code = SKILLED NURSE TO PERFORM HOME SAFETY AND FALL ASSESSMENT AND PROVIDE INSTRUCTION TO IMPLEMENT HOME SAFETY AND FALL PREVENTION STRATEGIES.] Future Scheduled Test SKILLED NU RSE TO ASSESS ANXIETY AND PROVIDE ASSISTANCE TO PATIENT FOR UNDERSTANDING AND MANAGEMENT OF FEELINGS. [code = SKILLED NURSE TO ASSESS ANXIETY AND PROVIDE ASSISTANCE TO PATIENT FOR UNDERSTANDING AND MANAGEMENT OF FEELINGS.] Future Scheduled Test PATIENT WORRELL S A RISK OF REHOSPITALIZATION. SKILLED NURSE TO ESTABLISH SUPPORT MEASURES TO MINIMIZE RISK OF REHOSPITALIZATION, AND INSTRUCT PATIENT/CAREGIVER ON METHODS TO REDUCE AVOIDABLE HOSPITALIZATION. [code = PATIENT HAS A RISK OF REHOSPITALIZATION. SKILLED NURSE TO ESTABLISH SUPPORT MEASURES TO MINIMIZE RISK OF REHOSPITALIZATION, AND INSTRUCT PATIENT/CAREGIVER ON METHODS TO REDUCE AVOIDABLE HOSPITALIZATION.] Future Scheduled Test SKILLED NU RSE TO PROVIDE INSTRUCTION TO PATIENT/CAREGIVER RELATED TO DISCHARGE PLANNING. [code = SKILLED NURSE TO PROVIDE INSTRUCTION TO PATIENT/CAREGIVER RELATED TO DISCHARGE PLANNING. ] Future Scheduled Test SKILLED NU RSE FOR OBSERVATION AND ASSESSMENT OF PATIENTS PAIN LEVEL AND EFFECTIVENESS OF PAIN MANAGEMENT REGIMEN. SKILLED NURSE TO INSTRUCT PATIENT/CAREGIVER REGARDING PHARMACOLOGIC AND NON-PHARMACOLOGIC PAIN CONTROL MEASURES. SKILLED NURSE TO REPORT TO PHYSICIAN IF PAIN IS UNCONTROLLED WITH CURRENT PAIN MANAGEMENT REGIMEN. [code = SKILLED NURSE FOR OBSERVATION AND ASSESSMENT OF PATIENTS PAIN LEVEL AND EFFECTIVENESS OF PAIN MANAGEMENT REGIMEN. SKILLED NURSE TO INSTRUCT PATIENT/CAREGIVER REGARDING PHARMACOLOGIC AND NON-PHARMACOLOGIC PAIN CONTROL MEASURES. SKILLED NURSE TO REPORT TO PHYSICIAN IF PAIN IS UNCONTROLLED WITH CURRENT PAIN MANAGEMENT REGIMEN.] Future Scheduled Test OCCUPATION AL THERAPIST TO EVALUATE PATIENT FOR DME NEEDS AND ADLS [code = OCCUPATIONAL THERAPIST TO EVALUATE PATIENT FOR DME NEEDS AND ADLS ] Future Scheduled Test MEDICAL SO CIAL WORKER TO EVALUATE PATIENT FOR LTP, HOUSING AND [facility]ASS [facility] SERVICES [code = INSIDE SALES TERRITORY MANAGER TO EVALUATE PATIENT FOR LTP, HOUSING AND [facility] SERVICES ] Future Scheduled Test SKILLED NU RSE FOR O/A OF RESPIRATORY SYSTEM TO IDENTIFY CHANGES ASSOCIATED WITH EXACERBATION AND TO PROVIDE SKILLED TEACHING ON MANAGEMENT OF PNA RESPIRATORY DISEASE PROCESS. [code = SKILLED NURSE FOR O/A OF RESPIRATORY SYSTEM TO IDENTIFY CHANGES ASSOCIATED WITH EXACERBATION AND TO PROVIDE SKILLED TEACHING ON MANAGEMENT OF PNA RESPIRATORY DISEASE PROCESS.] Future Scheduled Test SKILLED NU RSE TO INSTRUCT/REINFORCE MEASURES TO PREVENT BARRIERS TO CARE. [code = SKILLED NURSE TO INSTRUCT/REINFORCE MEASURES TO PREVENT BARRIERS TO CARE.] Future Scheduled Test SKILLED NU RSE TO ASSESS PATIENT'S SKIN INTEGRITY AND INSTRUCT PATIENT/CAREGIVER ON MEASURES TO PREVENT PRESSURE ULCERS [code = SKILLED NURSE TO ASSESS PATIENT'S SKIN INTEGRITY AND INSTRUCT PATIENT/CAREGIVER ON MEASURES TO PREVENT PRESSURE ULCERS] Future Scheduled Test PHYSICAL T HERAPIST TO EVALUATE PATIENT FOR STRENGTH AND GAIT TRAINING [code = PHYSICAL THERAPIST TO EVALUATE PATIENT FOR STRENGTH AND GAIT TRAINING ] Future Scheduled Test SKILLED NU RSE TO PROVIDE TEACHING ON SIGNS AND SYMPTOMS AND MANAGEMENT OF HYPERTENSION. [code = SKILLED NURSE TO PROVIDE TEACHING ON SIGNS AND SYMPTOMS AND MANAGEMENT OF HYPERTENSION.] Future Scheduled Test SKILLED NU RSE TO INSTRUCT PATIENT/CAREGIVER ON WARNING SIGNS OF CVA, RISK FACTORS, AND METHODS TO MANAGE HALF-WAY EFFECTS OF CVA [code = SKILLED NURSE TO INSTRUCT PATIENT/CAREGIVER ON WARNING SIGNS OF CVA, RISK FACTORS, AND METHODS TO MANAGE ORE CRUSHING DUST COLLECTOR EFFECTS OF CVA ] Future Scheduled Test SKILLED NU RSE FOR O/A AND TEACHING OF DIABETIC MANAGEMENT INCLUDING BLOOD SUGAR MONITORING/USE OF GLUCOMETER, DIABETIC DIET, LOWER EXTREMITY SKIN INSPECTION, PROPER SKIN/FOOT CARE, AND SIGNS AND SYMPTOMS HYPO/HYPERGLYCEMIA TO REPORT AND METHODS TO MANAGE). [code = SKILLED NURSE FOR O/A AND TEACHING OF DIABETIC MANAGEMENT INCLUDING BLOOD SUGAR MONITORING/USE OF GLUCOMETER, DIABETIC DIET, LOWER EXTREMITY SKIN INSPECTION, PROPER SKIN/FOOT CARE, AND SIGNS AND SYMPTOMS HYPO/HYPERGLYCEMIA TO REPORT AND METHODS TO MANAGE).] Future Scheduled Test SKILLED NU RSE FOR O/A AND SKILLED TEACHING RELATED TO SIGNS AND SYMPTOMS AND MANAGEMENT OF NEUROPATHY, PALMAR FASCIAL FIBROMATOSIS. [code = SKILLED NURSE FOR O/A AND SKILLED TEACHING RELATED TO SIGNS AND SYMPTOMS AND MANAGEMENT OF NEUROPATHY, PALMAR FASCIAL FIBROMATOSIS. ] Future Scheduled Test MEDICAL SO CIAL WORKER EVALUATION PERFORMED. NO ADDITIONAL VISITS REQUIRED. [code = INSIDE SALES TERRITORY MANAGER EVALUATION PERFORMED. NO ADDITIONAL VISITS REQUIRED.] Future Scheduled Test PHYSICAL T HERAPIST TO EVALUATE PATIENT SECONDARY TO FUNCTIONAL DEFICITS/SAFETY CONCERNS. PHYSICAL THERAPY TO ESTABLISH /UPGRADE/DOWNGRADE THERAPEUTIC EXERCISE PROGRAM AND INSTRUCT PATIENT/CAREGIVER ON EXERCISE PRECAUTIONS WITH WRITTEN HOME PROGRAM. PHYSICAL THERAPY TO INSTRUCT PATIENT/CAREGIVER ON SAFE TRANSFER TECHNIQUES USING PROPER BODY MECHANICS AND EQUIPMENT. PHYSICAL THERAPY TO INSTRUCT PATIENT/CAREGIVER ON GAIT TRAINING TECHNIQUES USING APPROPRIATE ASSISTIVE DEVICE, PROPER BODY MECHANICS TO IMPROVE MOBILITY, AND PREVENT INJURY OF PATIENT AND/OR CAREGIVER. PHYSICAL THERAPY TO ASSESS AND RECOMMEND HOME SAFETY ADAPTATIONS AND EDUCATE PATIENT /CAREGIVER ON FALL PREVENTION STRATEGIES. SUMMARY OF THERAPY EVAL/ASSESSMENT FINDINGS AND REASON(S) SKILLS OF A THERAPIST ARE INDICATED: PATIENT WAS SEEN FOR INITIAL PHYSICAL THERAPY VISIT AND HOME SAFETY ASSESSMENT. 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 PATIENT IS FUNCTIONALLY UNSTEADY WITH TRANSITIONS AND MOBILITY. RECOMMENDED TO PATIENT TO OBTAIN A ROLLATOR HE WOULD BE ABLE TO TRANSITION THROUGHOUT HIS HOME AND OUTSIDE WITH GREATER EASE. PATIENT IS STRUGGLING WITH THE FACT THAT HE NEEDS TO USE A DEVICE. PATIENT BALANCE IMPAIRED. PATIENT LIVES WITH HIS AND HIS SON'S HOUSE WHICH IS VERY SPACIOUS. PATIENT IS APPROPRIATE CANDIDATE FOR SKILLED PHYSICAL THERAPY TO ADDRESS PHYSICAL IMPAIRMENTS AND FUNCTIONAL LIMITATIONS. PATIENT TUG SCORE AND 30 SECONDS AT THE STAND INDICATE THAT HE IS A FALL RISK. PATIENT VERBALIZE AGREEMENT WITH PLAN OF CARE. INITIATED HOME EXERCISE PROGRAM THAT WAS WRITTEN FOR PATIENT USE. MD NOTIFIED [code = PHYSICAL THERAPIST TO EVALUATE PATIENT SECONDARY TO FUNCTIONAL DEFICITS/SAFETY CONCERNS. PHYSICAL THERAPY TO ESTABLISH /UPGRADE/DOWNGRADE THERAPEUTIC EXERCISE PROGRAM AND INSTRUCT PATIENT/CAREGIVER ON EXERCISE PRECAUTIONS WITH WRITTEN HOME PROGRAM. PHYSICAL THERAPY TO INSTRUCT PATIENT/CAREGIVER ON SAFE TRANSFER TECHNIQUES USING PROPER BODY MECHANICS AND EQUIPMENT. PHYSICAL THERAPY TO INSTRUCT PATIENT/CAREGIVER ON GAIT TRAINING TECHNIQUES USING APPROPRIATE ASSISTIVE DEVICE, PROPER BODY MECHANICS TO IMPROVE MOBILITY, AND PREVENT INJURY OF PATIENT AND/OR CAREGIVER. PHYSICAL THERAPY TO ASSESS AND RECOMMEND HOME SAFETY ADAPTATIONS AND EDUCATE PATIENT /CAREGIVER ON FALL PREVENTION STRATEGIES. SUMMARY OF THERAPY EVAL/ASSESSMENT FINDINGS AND REASON(S) SKILLS OF A THERAPIST ARE INDICATED: PATIENT WAS SEEN FOR INITIAL PHYSICAL THERAPY VISIT AND HOME SAFETY ASSESSMENT. 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 PATIENT IS FUNCTIONALLY UNSTEADY WITH TRANSITIONS AND MOBILITY. RECOMMENDED TO PATIENT TO OBTAIN A ROLLATOR HE WOULD BE ABLE TO TRANSITION THROUGHOUT HIS HOME AND OUTSIDE WITH GREATER EASE. PATIENT IS STRUGGLING WITH THE FACT THAT HE NEEDS TO USE A DEVICE. PATIENT BALANCE IMPAIRED. PATIENT LIVES WITH HIS AND HIS SON'S HOUSE WHICH IS VERY SPACIOUS. PATIENT IS APPROPRIATE CANDIDATE FOR SKILLED PHYSICAL THERAPY TO ADDRESS PHYSICAL IMPAIRMENTS AND FUNCTIONAL LIMITATIONS. PATIENT TUG SCORE AND 30 SECONDS AT THE STAND INDICATE THAT HE IS A FALL RISK. PATIENT VERBALIZE AGREEMENT WITH PLAN OF CARE. INITIATED HOME EXERCISE PROGRAM THAT WAS WRITTEN FOR PATIENT USE. MD NOTIFIED] Goal 2022-07-04 Patient Goal - INDEPENDENT Goal Provider Goal - A PLAN OF CARE WILL BE ESTABLISHED THAT MEETS PATIENT'S FDC NEEDS AND INCLUDES PATIENT GOAL FOR HOME HEALTH. Goal Provider Goal - CHANGES IN LOWER EXTREMITIES WILL BE IDENTIFIED AND REPORTED TO MD FOR PROMPT INTERVENTION TO PREVENT ASSOCIATED RISKS THROUGHOUT THE CERTIFICATION PERIOD. PATIENT/CAREGIVER WILL VERBALIZE UNDERSTANDING OF PROPER DIABETIC SKIN/FOOT CARE BY THE END OF THE CERTIFICATION PERIOD. Goal Provider Goal - PATIENT/CAREGIVER WILL VERBALIZE UNDERSTANDING OF EDUCATION PROVIDED ON MEDICATIONS BY THE END OF THE CERTIFICATION PERIOD. Goal Provider Goal - PATIENT/CAREGIVER WILL VERBALIZE/DEMONSTRATE EFFECTIVE HOME SAFETY AND FALL PREVENTION STRATEGIES THROUGHOUT CERTIFICATION PERIOD. Goal Provider Goal - SYMPTOMS OF ANXIETY ARE IDENTIFIED AND INTERVENTIONS INITIATED TO ENABLE PATIENT TO UNDERSTAND AND MANAGE FEELINGS BY THE END OF THE EPISODE Goal Provider Goal - PATIENT WILL HAVE SUPPORT MEASURES ESTABLISHED TO PREVENT REHOSPITALIZATION AND PATIENT/CAREGIVER WILL VERBALIZE/DEMONSTRATE METHODS TO REDUCE AVOIDABLE HOSPITALIZATION BY THE END OF THE EPISODE. Goal Provider Goal - PATIENT/CAREGIVER WILL VERBALIZE UNDERSTANDING OF DISCHARGE PLANNING INSTRUCTIONS BY DATE OF DISCHARGE. Goal Provider Goal - PATIENT/CAREGIVER WILL DEMONSTRATE UNDERSTANDING OF PHARMACOLOGIC AND NONPHARMACOLOGIC PAIN CONTROL MEASURES AND PATIENT WILL HAVE IMPROVEMENT IN PAIN INTERFERING WITH ACTIVITY EVIDENCED BY PAIN CONTROLLED AT LEVEL OF 7 OR LESS BY END OF CERTIFICATION PERIOD. Goal Provider Goal - OCCUPATIONAL THERAPY EVALUATION TO BE COMPLETED WITH RECOMMENDATIONS AND WRITTEN PLAN OF TREATMENT ESTABLISHED FOR THE PHYSICIANS SIGNATURE. Goal Provider Goal - INSIDE SALES TERRITORY MANAGER TO COMPLETE EVALUATION TO ADDRESS THE PATIENTS SOCIAL AND EMOTIONAL FACTORS AND/OR WRITTEN PLAN OF TREATMENT ESTABLISHED FOR THE PHYSICIAN'S SIGNATURE. Goal Provider Goal - PATIENT/CAREGIVER WILL VERBALIZE/DEMONSTRATE MANAGEMENT OF RESPIRATORY DISEASE PROCESS. CHANGES IN RESPIRATORY STATUS WILL BE IDENTIFIED AND REPORTED TO PHYSICIAN FOR PROMPT INTERVENTION THROUGHOUT THE CERTIFICATION PERIOD. Goal Provider Goal - PATIENT / CAREGIVER WILL VERBALIZE UNDERSTANDING OF BARRIERS PREVENTING PROPER CARE AND DEMONSTRATE MEASURES TO ELIMINATE THOSE BARRIERS DURING THIS EPISODE. Goal Provider Goal - PATIENT/CAREGIVER WILL VERBALIZE UNDERSTANDING OF PRESSURE ULCER PREVENTION BY THE END OF THE EPISODE. Goal Provider Goal - A PHYSICAL THERAPY EVALUATION TO BE COMPLETED WITH RECOMMENDATIONS AND/OR WRITTEN PLAN OF TREATMENT ESTABLISHED FOR PHYSICIANS SIGNATURE. Goal Provider Goal - PATIENT/CAREGIVER WILL VERBALIZE SIGNS AND SYMPTOMS OF HYPERTENSION AND WILL BE ABLE TO DEMONSTRATE ABILITY TO MANAGE EXACERBATION BY THE END OF THE EPISODE. Goal Provider Goal - PATIENT/CAREGIVER WILL DEMONSTRATE COMPLIANCE WITH TREATMENT REGIME AND VERBALIZE SIGNS AND SYMPTOMS TO REPORT WELL POSSIBLE COMPLICATIONS OF CVA BY THE END OF THE EPISODE. Goal Provider Goal - PATIENT/CAREGIVER WILL VERBALIZE/DEMONSTRATE KNOWLEDGE OF DIABETIC MANAGEMENT. CHANGES IN DIABETIC STATUS WILL BE IDENTIFIED AND REPORTED TO PHYSICIAN FOR PROMPT INTERVENTION THROUGHOUT THE CERTIFICATION PERIOD. Goal Provider Goal - PATIENT/CAREGIVER WILL VERBALIZE UNDERSTANDING OF MUSCULOSKELETAL DISEASE INCLUDING SIGNS AND SYMPTOMS, MANAGEMENT, AND PRESCRIBED TREATMENT REGIMEN BY END OF EPISODE. Goal Provider Goal - NONE Goal Provider Goal - PHYSICAL THERAPY EVALUATION TO BE COMPLETED WITH RECOMMENDATIONS AND/OR WRITTEN TREATMENT PLAN OF CARE ESTABLISHED FOR THE PHYSICIANS SIGNATURE PATIENT/CAREGIVER WILL PERFORM THERAPEUTIC EXERCISE/S AND DEMONSTRATE PARTICIPATION IN A HOME PROGRAM TO IMPROVE FUNCTION. ONGOING PATIENT/CAREGIVER WILL DEMONSTRATE SAFE TRANSFERS USING APPROPRIATE ASSISTIVE DEVICE, BODY MECHANICS AND EQUIPMENT TO IMPROVE FUNCTIONAL TRANSFERS WITH ROLLATOR FOR SAFETY BY 6TH VISIT. PATIENT/CAREGIVER WILL DEMONSTRATE IMPROVED GAIT TECHNIQUES TO MINIMIZE RISK OF INJURY AND INCREASE FUNCTIONAL AMB TO ACCESS HOME SAFELY AND EXIT FOR MEDICAL APPOINTMENTS BY 6TH VISIT PATIENT/CAREGIVER WILL DEMONSTRATE/VERBALIZE UNDERSTANDING OF RECOMMENDATIONS TO INCREASE SAFETY IN THE HOME AND FALL PREVENTION TO IMPROVE FUNCTION. ONGOING Reason for Visit INDEPENDENT IN THE COMMUNITY Encounters Start Date/Time End Date/Time Encounter Type Admission Type Attending Clinicians Care Facility Care Department Encounter ID Discharge Date Discharge Status Discharge Condition Discharge Reason Percent Goals Met 2022-05-18 00:00:00 2022-07-04 00:00:00 Outpatient NEW ADMISSION BOUBACAR RIZVI [facility] [id number] [id number] 00:00:00 DISCHARGE TO HOME OR SELF CARE INDEPENDEN T IN THE COMMUNITY NON COMPLIANT WITH PLAN OF TREATMENT 76.19
== END ==
LOC: HO.HMCFM 15:23
PROVIDERS: PCP Family Medicine; Visit Provider Family Medicine
DX: R10.13 Epigastric pain (principal); L81.9 Disorder of pigmentation, unspecified; N28.89 Other specified disorders of kidney and ureter

== ENCOUNTER 2024-06-08 13:53 | Outpatient (AMB) | payer MEDICARE, MEDICAID, SELFPAY ==
--- OUTSIDE RECORDS SUMMARY | 2024-06-08 13:55 | XMS_ITS | Clinical Summary ---
Author Organization Unknown Care Team Providers Care Nurse Ortho Name Role Phone JORGE MASTERSON, JACQUI Unavailable Unavailable DMITRI RN, BOUBACAR Unavailable Unavailable REEMA AIR CONDITIONING COIL ASSEMBLER, VIN Unavailable Unavailable RAYMOND OT, THERAPY CLOSED CIRCUIT SCREEN WATCHER, JACQUI Unavailabl e Unavailable MARTTHEO PT, BRIDGER Unavailable Unavailable DIAMANTE CUSTOMER SUCCESS ASSOCIATE, IRVING Unavailable Unavailable JOSE AIR CONDITIONING COIL ASSEMBLER, KEE Unavailable Unavailabl e KALETINA AIR CONDITIONING COIL ASSEMBLER, MIKE Unavailable Unavailab le Payers Payer Name Policy Type Policy Number Effective Date Expira tion Date MEDICARE - [facility]/[place] - [place] [id number] [place] [facility] [id number] Problems Condition Name Condition Details Condition Category [...] W/O RESID DEFICITS Active 2021-06 00:00: 00 CORRECTION (CURRENT) USE OF ANTICOAGULAN TS Active 2021-06 00:00: 00 INSULATION MECHANIC (CURRENT) USE OF ANTITHROMBOT ICS/ANTIPLAT ELETS Active 2021-06 00:00: 00 INSULATION MECHANIC (CURRENT) USE OF ORAL HYPOGLYCEMIC DRUGS Active 2021-06 00:00: 00 INSULATION MECHANIC (CURRENT) USE OF INSULIN Active 2021-06 00:00: [...] mL) subcutaneou s 2021-06 00:00: 00 Yes [id number] Per instruc tions SUBCUTAENO US INJECTION 3 TIMES A DAY Per instructio ns SUBCUTAENO US INJECTION 3 TIMES A DAY (route: subcutaneo us) Med Classific ation: Endocrine cyanocobala min (vit B-12) 1,000 mcg tablet 2021-06 00:00: 00 Yes [id number] Per instruc tions EVERY DAY Per instructio ns EVERY DAY (route: oral) Med Classific ation: Electroly te Balance-N utritiona l Products clopidogrel 75 mg tablet 2021-06 00:00: 00 Yes [id number] Per instruc tions EVERY DAY Per instructio ns EVERY DAY (route: oral) Med Classific ation: Hematolog ical Agents lisinopril 10 mg tablet 2021-06 00:00: 00 Yes [id number] Per instruc tions TWICE A DAY Per instructio ns TWICE A DAY (route: oral) Med Classific ation: Cardiovas cular Therapy Agents metformin 1,000 mg tablet 2021-06 00:00: 00 Yes [id number] Per instruc tions TWICE A DAY Per instructio ns TWICE A DAY (route: oral) Med Classific ation: Endocrine aspirin 81 mg tablet,beau yed release 2021-06 00:00: 00 Yes [id number] 1 tablet DAILY 1 tablet DAILY (route: oral) Med Classific ation: Hematolog ical Agents atorvastati n 40 mg tablet 2021-06 00:00: 00 Yes [id number] 1 tablet DAILY 1 tablet DAILY (route: oral) Med Classific ation: Cardiovas cular Therapy Agents Fioricet 50 mg-300 mg-40 mg capsule 2021-06 00:00: 00 Yes [id number] 1 capsule 4 TIMES DAILY 1 capsule 4 TIMES DAILY (route: oral) Med Classific ation: Analgesic , Anti-infl ammatory or Antipyret ic gabapentin 600 mg tablet 2021-06 00:00: 00 Yes [id number] 1 tablet 3 TIMES DAILY 1 tablet 3 TIMES DAILY (route: oral) Med Classific ation: Central Nervous System Agents Lantus Solostar U-100 Insulin 100 unit/mL (3 mL) subcutaneou s pen 2021-06 00:00: 00 Yes [id number] 65 unit BEDTIME 65 unit BEDTIME (route: subcutaneo us) Med Classific ation: Endocrine meclizine 25 mg tablet 2021-06 00:00: 00 Yes [id number] 1 tablet EVERY 8 HOURS 1 tablet EVERY 8 HOURS (route: oral) Med Classific ation: Gastroint estinal Therapy Agents naproxen 500 mg tablet 2021-06 00:00: 00 Yes [id number] 1 tablet 2 TIMES DAILY 1 tablet 2 TIMES DAILY (route: oral) Med Classific ation: Analgesic , Anti-infl ammatory or Antipyret ic omeprazole 20 mg tablet,beau yed release 2021-06 00:00: 00 Yes [id number] 1 tablet DAILY 1 tablet DAILY (route: oral) Med Classific ation: Gastroint estinal Therapy Agents Tylenol Extra Strength 500 mg tablet 2021-06 00:00: 00 Yes [id number] 2 tablet 4 TIMES DAILY 2 tablet [...] DECLINED ORDERED SERVICES: PHYSICAL THERAPY, OCCUPATIONAL THERAPY, CUSTOMER SUCCESS ASSOCIATE EVALS [code = SKILLED NURSE TO EVALUATE [...] DECLINED ORDERED SERVICES: PHYSICAL THERAPY, OCCUPATIONAL THERAPY, CUSTOMER SUCCESS ASSOCIATE EVALS] Future Scheduled Test SKILLED NU RSE [...] HOUSING AND [facility] [code = GENERAL MANAGER ORACLE DATA CLOUD TO EVALUATE PATIENT FOR LTP, HOUSING AND [...] CVA, RISK FACTORS, AND METHODS TO MANAGE CORRECTION EFFECTS OF CVA [code = SKILLED NURSE TO INSTRUCT PATIENT/CAREGIVER ON WARNING SIGNS OF CVA, RISK FACTORS, AND METHODS TO MANAGE INSULATION MECHANIC EFFECTS OF CVA ] Future Scheduled Test [...] PERFORMED. NO ADDITIONAL VISITS REQUIRED. [code = GENERAL MANAGER ORACLE DATA CLOUD EVALUATION PERFORMED. NO ADDITIONAL VISITS REQUIRED.] Future [...] CARE WILL BE ESTABLISHED THAT MEETS PATIENT'S [facility] NEEDS AND INCLUDES PATIENT GOAL FOR HOME [...] THE PHYSICIANS SIGNATURE. Goal Provider Goal - GENERAL MANAGER ORACLE DATA CLOUD TO COMPLETE EVALUATION TO ADDRESS THE PATIENTS [...] 2022-07-04 00:00:00 Outpatient NEW ADMISSION BOUBACAR RIZVI [facility] [id number] 00:00:00 DISCHARGE TO HOME OR SELF CARE INDEPENDEN T IN THE COMMUNITY NON COMPLIANT WITH PLAN OF TREATMENT 76.19
--- OUTSIDE RECORDS SUMMARY | 2024-06-08 13:55 | XMS_ITS | Clinical Summary ---
Author Organization Unknown Care Team Providers Care Paring Machine Operator Name Role Phone JORGE MASTERSON, JACQUI Unavailable Unavailable DMITRI RN, BOUBACAR Unavailable Unavailable REEMA RECREATION COORDINATOR, VIN Unavailable Unavailable RAYMOND OT, THERAPY HOUSE REPAIRER, JACQUI Unavailabl e Unavailable MARTTHEO PT, BRIDGER Unavailable Unavailable DIAMANTE INDUSTRIAL CUSTODIAN, IRVING Unavailable Unavailable JOSE RECREATION COORDINATOR, KEE Unavailable Unavailabl e KALETINA RECREATION COORDINATOR, MIKE Unavailable Unavailab le Payers Payer Name Policy Type Policy Number Effective Date Expira tion Date MEDICARE - [facility]/[place] - [place] [id number] [place] [facility] [id number] Problems Condition Name Condition Details Condition Category [...] W/O RESID DEFICITS Active 2021-06 00:00: 00 RETIREMENT (CURRENT) USE OF ANTICOAGULAN TS Active 2021-06 00:00: 00 COOK STATION (CURRENT) USE OF ANTITHROMBOT ICS/ANTIPLAT ELETS Active 2021-06 00:00: 00 COOK STATION (CURRENT) USE OF ORAL HYPOGLYCEMIC DRUGS Active 2021-06 00:00: 00 COOK STATION (CURRENT) USE OF INSULIN Active 2021-06 00:00: [...] mL) subcutaneou s 2021-06 00:00: 00 Yes [id number] Per instruc tions SUBCUTAENO US INJECTION 3 TIMES A DAY Per instructio ns SUBCUTAENO US INJECTION 3 TIMES A DAY (route: subcutaneo us) Med Classific ation: Endocrine cyanocobala min (vit B-12) 1,000 mcg tablet 2021-06 00:00: 00 Yes [id number] Per instruc tions EVERY DAY Per instructio ns EVERY DAY (route: oral) Med Classific ation: Electroly te Balance-N utritiona l Products clopidogrel 75 mg tablet 2021-06 00:00: 00 Yes [id number] Per instruc tions EVERY DAY Per instructio ns EVERY DAY (route: oral) Med Classific ation: Hematolog ical Agents lisinopril 10 mg tablet 2021-06 00:00: 00 Yes [id number] Per instruc tions TWICE A DAY Per instructio ns TWICE A DAY (route: oral) Med Classific ation: Cardiovas cular Therapy Agents metformin 1,000 mg tablet 2021-06 00:00: 00 Yes [id number] Per instruc tions TWICE A DAY Per instructio ns TWICE A DAY (route: oral) Med Classific ation: Endocrine aspirin 81 mg tablet,beau yed release 2021-06 00:00: 00 Yes [id number] 1 tablet DAILY 1 tablet DAILY (route: oral) Med Classific ation: Hematolog ical Agents atorvastati n 40 mg tablet 2021-06 00:00: 00 Yes [id number] 1 tablet DAILY 1 tablet DAILY (route: oral) Med Classific ation: Cardiovas cular Therapy Agents Fioricet 50 mg-300 mg-40 mg capsule 2021-06 00:00: 00 Yes [id number] 1 capsule 4 TIMES DAILY 1 capsule 4 TIMES DAILY (route: oral) Med Classific ation: Analgesic , Anti-infl ammatory or Antipyret ic gabapentin 600 mg tablet 2021-06 00:00: 00 Yes [id number] 1 tablet 3 TIMES DAILY 1 tablet 3 TIMES DAILY (route: oral) Med Classific ation: Central Nervous System Agents Lantus Solostar U-100 Insulin 100 unit/mL (3 mL) subcutaneou s pen 2021-06 00:00: 00 Yes [id number] 65 unit BEDTIME 65 unit BEDTIME (route: subcutaneo us) Med Classific ation: Endocrine meclizine 25 mg tablet 2021-06 00:00: 00 Yes [id number] 1 tablet EVERY 8 HOURS 1 tablet EVERY 8 HOURS (route: oral) Med Classific ation: Gastroint estinal Therapy Agents naproxen 500 mg tablet 2021-06 00:00: 00 Yes [id number] 1 tablet 2 TIMES DAILY 1 tablet 2 TIMES DAILY (route: oral) Med Classific ation: Analgesic , Anti-infl ammatory or Antipyret ic omeprazole 20 mg tablet,beau yed release 2021-06 00:00: 00 Yes [id number] 1 tablet DAILY 1 tablet DAILY (route: oral) Med Classific ation: Gastroint estinal Therapy Agents Tylenol Extra Strength 500 mg tablet 2021-06 00:00: 00 Yes [id number] 2 tablet 4 TIMES DAILY 2 tablet [...] DECLINED ORDERED SERVICES: PHYSICAL THERAPY, OCCUPATIONAL THERAPY, INDUSTRIAL CUSTODIAN EVALS [code = SKILLED NURSE TO EVALUATE [...] DECLINED ORDERED SERVICES: PHYSICAL THERAPY, OCCUPATIONAL THERAPY, INDUSTRIAL CUSTODIAN EVALS] Future Scheduled Test SKILLED NU RSE [...] HOUSING AND [facility]ASS [facility] SERVICES [code = MOTOR BIKE MECHANIC TO EVALUATE PATIENT FOR LTP, HOUSING AND [...] CVA, RISK FACTORS, AND METHODS TO MANAGE RETIREMENT EFFECTS OF CVA [code = SKILLED NURSE TO INSTRUCT PATIENT/CAREGIVER ON WARNING SIGNS OF CVA, RISK FACTORS, AND METHODS TO MANAGE COOK STATION EFFECTS OF CVA ] Future Scheduled Test [...] PERFORMED. NO ADDITIONAL VISITS REQUIRED. [code = MOTOR BIKE MECHANIC EVALUATION PERFORMED. NO ADDITIONAL VISITS REQUIRED.] Future [...] CARE WILL BE ESTABLISHED THAT MEETS PATIENT'S LONG-TERM NEEDS AND INCLUDES PATIENT GOAL FOR HOME [...] THE PHYSICIANS SIGNATURE. Goal Provider Goal - MOTOR BIKE MECHANIC TO COMPLETE EVALUATION TO ADDRESS THE PATIENTS [...] 2022-07-04 00:00:00 Outpatient NEW ADMISSION BOUBACAR RIZVI [facility] [id number] 1745-01-14 00:00:00 DISCHARGE TO HOME OR SELF CARE INDEPENDEN T IN THE COMMUNITY NON COMPLIANT WITH PLAN OF TREATMENT 76.19
--- NOTE | 2024-06-08 13:56 | A.OFFVIS_ITS ---
Vital Signs 06/08/24 13:57 Height 5 ft 11 in Weight 218 lb 4.122 oz BMI 30.4 BP 118/70 Blood Pressure Location Rt brachial Position Sitting Pulse 72 Pulse Source Pulse Oximeter Intake Visit Reasons: med change f/u dm/Left vm Intake Note: Patient presents today for a follow-up on Type 2 Diabetes Mellitus: Last Diabetic Eye exam: DUE Last Podiatry Exam: Does not see a Horse Trekking Guide Most recent HbA1c: 7.8%, 05/10/2024 Random Glucose- 157 mg/dL, Today Wood Grinder Operator Required: No Accompanied by: Self / Same As Patient Allergies No Known Allergies [No Known Allergies*] Allergy (Verified 06/08/24 14:04) HPI Comments Details: 73 YO M who is seen in consultation for T2DM at the request of PCP. Initially diagnosed with T2DM in 18 yrs . Was initially started on treatment with metformin . Current regimen metformin 1000 mg BID /Tresiba 35 BID NovoLog/Humalog 25,20,20 Ozempic 2mg weekly Per the CGM Nikole CGMS is active 90%. Average glucose is 146 with G mi of 6.8% and variability 27.1%. 80% range with 19% hyperglycemia at 1% hypoglycemia Reports low sugars very occasionally over night . Treats lows with eats something . Checks sugar after to ensure it is rising. Treats 30 min later No Family history of T2DM Has eyes checked yearly, last eye exam 2 mos a go , has retinopathy. Going for injections Denies neuropathy, , Does sees podiatry. Wants referral locally Denies nephropathy, on RADHA/ARB. . Has HLD, on statin. Denies CAD.Hx of CVA Complaining of GI side effects with 2 mg of Ozempic. Was able to tolerate 0.25 mg wants to go back to this dose [facility] Medical History (Updated 05/10/24 @ 15:28 by Rosette Jim MD) Arthritis GERD (gastroesophageal reflux disease) Diabetes Unsteady gait Physical deconditioning Insomnia Anxiety Depression Diabetic retinopathy Diabetic neuropathy Back pain Pancreatic cyst Chronic renal insufficiency Fibromyalgia Renal mass History of CVA (cerebrovascular accident) Neuropathy Essential hypertension Surgical History Hx of cataract extraction History of esophagogastroduodenoscopy (EGD) H/O colonoscopy Social History Household Members: Family Housing: House Are you a primary adult day care worker to a significant other at home: No Do you presently have visiting nurse or other home services: No Alcohol intake: never Comment: PT refuse bed alarm Patient Tobacco Use Status: Former Tobacco user Tobacco use type: Cigarette Years Smoked: 20 e-Cigarette/Vaping Use: Never Used Second Hand Smoke Exposure: No service: No Current occupational status: disabled Current occupational exposures/hazards: No Cognitive needs: Yes (Cane) Hearing needs: No Vision needs: Yes (Glasses) Physical Exam Absence of Cushingoid features. Absence of acromegalic features. Neck exam reveals nl size thyroid about 15 gms. No thyroid nodules palpable. No carotid bruits present. Lungs CTA. Heart S1 S2, Reg R/R. No M/R/ G. Skin exam reveals absence of vitiligo or acanthosis nigricans. Abdominal exam reveals Soft NT/ND with NA BS. No organomegaly present. Neck Other: . Extrem Other: Visual exam of foot performed. No ulcerations or open lesions. No onchomycosis, no callouses.Pulses 2 + distally Sensation intact to monofilament exam. Vibratory sensation sensed is decreased with 128 Hz tuning fork Assessment & Plan Assessment & Plan (1) Diabetes type 2, uncontrolled: Code(s): E11.65 - Type 2 diabetes mellitus with hyperglycemia Category: Medical Qualifiers: Glycemic state: with hyperglycemia Qualified Code(s): E11.65 - Type 2 diabetes mellitus with hyperglycemia Plan: This is a 73-year-old male with a history of type 2 diabetes being treated with metformin, Jardiance 25 and Trulicity and basal-bolus insulin with i excellent mproved glycemic control and known microvascular and macrovascular complications namely retinopathy, neuropathy and CVA. Plan is to decrease the Ozempic dose is 0.25 mg Q weekly. Patient was asked to report any hyperglycemia for adjustment of the insulin Will have patient follow-up with the Dr. Rosio Alegre in 4 wks . Check lipid profile (2) Combined hyperlipidemia associated with type 2 diabetes mellitus: Code(s): E11.69 - Type 2 diabetes mellitus with other specified complication; E78.2 - Mixed hyperlipidemia Category: Medical Plan: Patient was previously noncompliant with the atorvastatin but now admits to compliance. Recheck lipid profile Medications: New semaglutide (Ozempic) for 4 weeks 0.25 mg (0.368 mL) subcut QWEEK 3 mL 4RF Discontinued semaglutide Discontinued Reason: Doctor's Order 2 mg (0.75 mL) subcut QWEEK 3 mL 3RF Coding Level of Care Code Est Pt Level 4 (30594) Complex EM visit Add On G2211 Diagnoses Uncontrolled type 2 diabetes mellitus with hyperglycemia E11.65 Glycemic state: with hyperglycemia Combined hyperlipidemia associated with type 2 diabetes mellitus E11.69; E78.2
[2024-06-08 13:57] VITALS: BP 118/70; PULSE 72; BMI 30.4
[2024-06-08 14:09] LABS: Glucose, Whole Blood 157 mg/dL (60-115)
== END 2024-06-08 14:19 | disposition home or self-care (01) ==
PROVIDERS: PCP Family Medicine; Visit Provider Internal Medicine Endocrinology, Diabetes & Metabolism
DX: E11.65 Type 2 diabetes mellitus with hyperglycemia (principal); E11.69 Type 2 diabetes mellitus with other specified complication; E78.2 Mixed hyperlipidemia
CPT/HCPCS: 99214; G2211

== ENCOUNTER → 2024-06-08 13:53 | Outpatient (BNVA) | payer MEDICARE, MEDICAID, SELFPAY | PROVIDERS: PCP Family Medicine; Visit Provider Internal Medicine Endocrinology, Diabetes & Metabolism | DX: N28.89 Other specified disorders of kidney and ureter (principal); E11.65 Type 2 diabetes mellitus with hyperglycemia; E11.69 Type 2 diabetes mellitus with other specified complication; E78.2 Mixed hyperlipidemia; Z79.4 Long term (current) use of insulin; Z86.73 Personal history of transient ischemic attack (TIA), and cerebral infarction without residual deficits; Z85.528 Personal history of other malignant neoplasm of kidney; Z79.84 Long term (current) use of oral hypoglycemic drugs | CPT/HCPCS: 81003; 82947; 99212 ==

== ENCOUNTER 2024-06-08 14:26 | Outpatient (AMB) | payer MEDICARE, MEDICAID, SELFPAY ==
--- OUTSIDE RECORDS SUMMARY | 2024-06-08 14:28 | XMS_ITS | Clinical Summary ---
Author Organization Unknown Care Team Providers Care Surgical Instrument Repair Specialist Name Role Phone JORGE MASTERSON, JACQUI Unavailable Unavailable DMITRI RN, BOUBACAR Unavailable Unavailable REEMA COUNSEL, VIN Unavailable Unavailable RAYMOND OT, THERAPY DENTURE WAXER, JACQUI Unavailabl e Unavailable MARTTHEO PT, BRIDGER Unavailable Unavailable DIAMANTE SUSTAINABILITY SPECIALIST, IRVING Unavailable Unavailable JOSE COUNSEL, KEE Unavailable Unavailabl e KALETINA COUNSEL, MIKE Unavailable Unavailab le Payers Payer Name Policy Type Policy Number Effective Date Expira tion Date MEDICARE - [facility]/[place] - [place] [id number] [place] [facility] [id number] Problems Condition Name Condition Details Condition Category [...] W/O RESID DEFICITS Active 2021-06 00:00: 00 FCI (CURRENT) USE OF ANTICOAGULAN TS Active 2021-06 00:00: 00 RISK MANAGEMENT PROFESSIONAL (CURRENT) USE OF ANTITHROMBOT ICS/ANTIPLAT ELETS Active 2021-06 00:00: 00 RISK MANAGEMENT PROFESSIONAL (CURRENT) USE OF ORAL HYPOGLYCEMIC DRUGS Active 2021-06 00:00: 00 RISK MANAGEMENT PROFESSIONAL (CURRENT) USE OF INSULIN Active 2021-06 00:00: [...] mL) subcutaneou s 2021-06 00:00: 00 Yes [id number] Per instruc tions SUBCUTAENO US INJECTION 3 TIMES A DAY Per instructio ns SUBCUTAENO US INJECTION 3 TIMES A DAY (route: subcutaneo us) Med Classific ation: Endocrine cyanocobala min (vit B-12) 1,000 mcg tablet 2021-06 00:00: 00 Yes [id number] Per instruc tions EVERY DAY Per instructio ns EVERY DAY (route: oral) Med Classific ation: Electroly te Balance-N utritiona l Products clopidogrel 75 mg tablet 2021-06 00:00: 00 Yes [id number] Per instruc tions EVERY DAY Per instructio ns EVERY DAY (route: oral) Med Classific ation: Hematolog ical Agents lisinopril 10 mg tablet 2021-06 00:00: 00 Yes [id number] Per instruc tions TWICE A DAY Per instructio ns TWICE A DAY (route: oral) Med Classific ation: Cardiovas cular Therapy Agents metformin 1,000 mg tablet 2021-06 00:00: 00 Yes [id number] Per instruc tions TWICE A DAY Per instructio ns TWICE A DAY (route: oral) Med Classific ation: Endocrine aspirin 81 mg tablet,beau yed release 2021-06 00:00: 00 Yes [id number] 1 tablet DAILY 1 tablet DAILY (route: oral) Med Classific ation: Hematolog ical Agents atorvastati n 40 mg tablet 2021-06 00:00: 00 Yes [id number] 1 tablet DAILY 1 tablet DAILY (route: oral) Med Classific ation: Cardiovas cular Therapy Agents Fioricet 50 mg-300 mg-40 mg capsule 2021-06 00:00: 00 Yes [id number] 1 capsule 4 TIMES DAILY 1 capsule 4 TIMES DAILY (route: oral) Med Classific ation: Analgesic , Anti-infl ammatory or Antipyret ic gabapentin 600 mg tablet 2021-06 00:00: 00 Yes [id number] 1 tablet 3 TIMES DAILY 1 tablet 3 TIMES DAILY (route: oral) Med Classific ation: Central Nervous System Agents Lantus Solostar U-100 Insulin 100 unit/mL (3 mL) subcutaneou s pen 2021-06 00:00: 00 Yes [id number] 65 unit BEDTIME 65 unit BEDTIME (route: subcutaneo us) Med Classific ation: Endocrine meclizine 25 mg tablet 2021-06 00:00: 00 Yes [id number] 1 tablet EVERY 8 HOURS 1 tablet EVERY 8 HOURS (route: oral) Med Classific ation: Gastroint estinal Therapy Agents naproxen 500 mg tablet 2021-06 00:00: 00 Yes [id number] 1 tablet 2 TIMES DAILY 1 tablet 2 TIMES DAILY (route: oral) Med Classific ation: Analgesic , Anti-infl ammatory or Antipyret ic omeprazole 20 mg tablet,beau yed release 2021-06 00:00: 00 Yes [id number] 1 tablet DAILY 1 tablet DAILY (route: oral) Med Classific ation: Gastroint estinal Therapy Agents Tylenol Extra Strength 500 mg tablet 2021-06 00:00: 00 Yes [id number] 2 tablet 4 TIMES DAILY 2 tablet [...] DECLINED ORDERED SERVICES: PHYSICAL THERAPY, OCCUPATIONAL THERAPY, SUSTAINABILITY SPECIALIST EVALS [code = SKILLED NURSE TO EVALUATE [...] DECLINED ORDERED SERVICES: PHYSICAL THERAPY, OCCUPATIONAL THERAPY, SUSTAINABILITY SPECIALIST EVALS] Future Scheduled Test SKILLED NU RSE [...] HOUSING AND MASS HE[facility] SERVICES [code = RESORT MANAGER TO EVALUATE PATIENT FOR LTP, HOUSING [...] CVA, RISK FACTORS, AND METHODS TO MANAGE FCI EFFECTS OF CVA [code = SKILLED NURSE TO INSTRUCT PATIENT/CAREGIVER ON WARNING SIGNS OF CVA, RISK FACTORS, AND METHODS TO MANAGE RISK MANAGEMENT PROFESSIONAL EFFECTS OF CVA ] Future Scheduled Test [...] PERFORMED. NO ADDITIONAL VISITS REQUIRED. [code = RESORT MANAGER EVALUATION PERFORMED. NO ADDITIONAL VISITS REQUIRED.] [...] CARE WILL BE ESTABLISHED THAT MEETS PATIENT'S [facility] NEEDS AND INCLUDES PATIENT GOAL FOR HOME [...] THE PHYSICIANS SIGNATURE. Goal Provider Goal - RESORT MANAGER TO COMPLETE EVALUATION TO ADDRESS THE [...] 2022-07-04 00:00:00 Outpatient NEW ADMISSION BOUBACAR RIZVI [facility] [id number] 00:00:00 DISCHARGE TO HOME OR SELF CARE INDEPENDEN T IN THE COMMUNITY NON COMPLIANT WITH PLAN OF TREATMENT 76.19
--- OUTSIDE RECORDS SUMMARY | 2024-06-08 14:28 | XMS_ITS | Clinical Summary ---
Author Organization Unknown Care Team Providers Care Housekeeper/Custodian/Laundry Worker Name Role Phone JORGE MASTERSON, JACQUI Unavailable Unavailable DMITRI RN, BOUBACAR Unavailable Unavailable REEMA CODE NUMBER STAMPER, VIN Unavailable Unavailable RAYMOND OT, THERAPY UNDERGROUND PRODUCTION FOREPERSON, JACQUI Unavailabl e Unavailable MARTTHEO PT, BRIDGER Unavailable Unavailable DIAMANTE THREADING MACHINE FEEDER AUTOMATIC, IRVING Unavailable Unavailable JOSE CODE NUMBER STAMPER, KEE Unavailable Unavailabl e KALETINA CODE NUMBER STAMPER, MIKE Unavailable Unavailab le Payers Payer Name Policy Type Policy Number Effective Date Expira tion Date MEDICARE - [facility] [id number] [place] [facility] [id number] Problems Condition Name Condition Details Condition Category [...] W/O RESID DEFICITS Active 2021-06 00:00: 00 [facility] (CURRENT) USE OF ANTICOAGULAN TS Active 2021-06 00:00: 00 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 (CURRENT) USE OF ANTITHROMBOT ICS/ANTIPLAT ELETS Active 2021-06 00:00: 00 HOUSE WIRER (CURRENT) USE OF ORAL HYPOGLYCEMIC DRUGS Active 2021-06 00:00: 00 HOUSE WIRER (CURRENT) USE OF INSULIN Active 2021-06 00:00: [...] mL) subcutaneou s 2021-06 00:00: 00 Yes [id number] Per instruc tions SUBCUTAENO US INJECTION 3 TIMES A DAY Per instructio ns SUBCUTAENO US INJECTION 3 TIMES A DAY (route: subcutaneo us) Med Classific ation: Endocrine cyanocobala min (vit B-12) 1,000 mcg tablet 2021-06 00:00: 00 Yes [id number] Per instruc tions EVERY DAY Per instructio ns EVERY DAY (route: oral) Med Classific ation: Electroly te Balance-N utritiona l Products clopidogrel 75 mg tablet 2021-06 00:00: 00 Yes [id number] Per instruc tions EVERY DAY Per instructio ns EVERY DAY (route: oral) Med Classific ation: Hematolog ical Agents lisinopril 10 mg tablet 2021-06 00:00: 00 Yes [id number] Per instruc tions TWICE A DAY Per instructio ns TWICE A DAY (route: oral) Med Classific ation: Cardiovas cular Therapy Agents metformin 1,000 mg tablet 2021-06 00:00: 00 Yes [id number] Per instruc tions TWICE A DAY Per instructio ns TWICE A DAY (route: oral) Med Classific ation: Endocrine aspirin 81 mg tablet,beau yed release 2021-06 00:00: 00 Yes [id number] 1 tablet DAILY 1 tablet DAILY (route: oral) Med Classific ation: Hematolog ical Agents atorvastati n 40 mg tablet 2021-06 00:00: 00 Yes [id number] 1 tablet DAILY 1 tablet DAILY (route: oral) Med Classific ation: Cardiovas cular Therapy Agents Fioricet 50 mg-300 mg-40 mg capsule 2021-06 00:00: 00 Yes [id number] 1 capsule 4 TIMES DAILY 1 capsule 4 TIMES DAILY (route: oral) Med Classific ation: Analgesic , Anti-infl ammatory or Antipyret ic gabapentin 600 mg tablet 2021-06 00:00: 00 Yes [id number] 1 tablet 3 TIMES DAILY 1 tablet 3 TIMES DAILY (route: oral) Med Classific ation: Central Nervous System Agents Lantus Solostar U-100 Insulin 100 unit/mL (3 mL) subcutaneou s pen 2021-06 00:00: 00 Yes [id number] 65 unit BEDTIME 65 unit BEDTIME (route: subcutaneo us) Med Classific ation: Endocrine meclizine 25 mg tablet 2021-06 00:00: 00 Yes [id number] 1 tablet EVERY 8 HOURS 1 tablet EVERY 8 HOURS (route: oral) Med Classific ation: Gastroint estinal Therapy Agents naproxen 500 mg tablet 2021-06 00:00: 00 Yes [id number] 1 tablet 2 TIMES DAILY 1 tablet 2 TIMES DAILY (route: oral) Med Classific ation: Analgesic , Anti-infl ammatory or Antipyret ic omeprazole 20 mg tablet,beau yed release 2021-06 00:00: 00 Yes [id number] 1 tablet DAILY 1 tablet DAILY (route: oral) Med Classific ation: Gastroint estinal Therapy Agents Tylenol Extra Strength 500 mg tablet 2021-06 00:00: 00 Yes [id number] 2 tablet 4 TIMES DAILY 2 tablet [...] DECLINED ORDERED SERVICES: PHYSICAL THERAPY, OCCUPATIONAL THERAPY, THREADING MACHINE FEEDER AUTOMATIC EVALS [code = SKILLED NURSE TO EVALUATE [...] DECLINED ORDERED SERVICES: PHYSICAL THERAPY, OCCUPATIONAL THERAPY, THREADING MACHINE FEEDER AUTOMATIC EVALS] Future Scheduled Test SKILLED NU RSE [...] HOUSING AND [facility] [code = CONSTRUCTION INSPECTOR TO EVALUATE PATIENT FOR LTP, HOUSING AND [...] CVA, RISK FACTORS, AND METHODS TO MANAGE [facility] EFFECTS OF CVA [code = SKILLED NURSE TO INSTRUCT PATIENT/CAREGIVER ON WARNING SIGNS OF CVA, RISK FACTORS, AND METHODS TO MANAGE HOUSE WIRER EFFECTS OF CVA ] Future Scheduled Test [...] PERFORMED. NO ADDITIONAL VISITS REQUIRED. [code = CONSTRUCTION INSPECTOR EVALUATION PERFORMED. NO ADDITIONAL VISITS REQUIRED.] Future [...] CARE WILL BE ESTABLISHED THAT MEETS PATIENT'S CORRECTION NEEDS AND INCLUDES PATIENT GOAL FOR HOME [...] THE PHYSICIANS SIGNATURE. Goal Provider Goal - CONSTRUCTION INSPECTOR TO COMPLETE EVALUATION TO ADDRESS THE PATIENTS [...] 2022-07-04 00:00:00 Outpatient NEW ADMISSION BOUBACAR RIZVI [facility] [id number] 00:00:00 DISCHARGE TO HOME OR SELF CARE INDEPENDEN T IN THE COMMUNITY NON COMPLIANT WITH PLAN OF TREATMENT 76.19
--- NOTE | 2024-06-08 14:49 | MHC.OFFVIS ---
Intake Visit Reasons: follow up/labs Intake Note: New Patient presents for initial visit for renal mass Urology Medications: none Blood Thinner: aspirin and clopidogrel Package Delivery Room Service Runner Required: No Accompanied by: Self / Same As Patient Allergies No Known Allergies [No Known Allergies*] Allergy (Verified 06/09/24 00:02) Medication List - Last Reconciled 06/09/24 by MONIQUE Cobos-BC aspirin 81 mg PO DAILY atorvastatin 40 mg PO DAILY BD Ultra-Fine Sara Pen Needle (pen needle, diabetic) 1 ea miscellaneous QID 90 days NS cholecalciferol (vitamin D3) (Vitamin D3) 50 mcg PO DAILY 90 days clobetasol 0.05% 1 appl topical BID 2 weeks clopidogrel 75 mg PO DAILY 90 days cyanocobalamin (vitamin B-12) 1,000 mcg PO DAILY 90 days diclofenac sodium 1% (Arthritis Pain (diclofenac)) 2 grams topical QID 30 days empagliflozin (Jardiance) 25 mg PO QAM 90 days famotidine 20 mg PO BEDTIME flash glucose scanning reader (EnevoStyle Nikole 2 [place]) As directed flash glucose sensor (FreeStyle Nikole 2 Sensor kit) As directed change every 14 days gabapentin 600 mg PO BID Humalog KwikPen Insulin (insulin lispro) Inject 25 units subcutaneous daily with breakfast, 20 units daily with dinner. If you eat lunch take 20 units with lunch; 90 days NS insulin degludec (Tresiba FlexTouch U-100 insulin) 35 units (0.35 mL) subcut BID 90 days lidocaine 5% (Lidoderm) 1 patch topical DAILY PRN lisinopril 10 mg PO DAILY meclizine 25 mg PO Q8H PRN 30 days metformin 1,000 mg PO BID 90 days metoprolol succinate ER 12.5 mg (1/2 x 25 mg) PO DAILY 30 days miscellaneous medical supply Diabetic Shoes, Daily As directed. 999 days. 1 Pair miscellaneous medical supply Diabetic shoes. Daily As directed, 999 days. One pair. pen needle, diabetic (BD Ultra-Fine Mini Pen Needle) As directed pen needle, diabetic (BD Ultra-Fine Short Pen Needle) 4 times a day As directed. 90 days quetiapine (Seroquel) 25 mg PO BEDTIME PRN semaglutide (Ozempic) 0.25 mg (0.368 mL) subcut QWEEK topiramate 50 mg PO BID tramadol 50 mg PO Q8H PRN HPI Comments Details: Anupama is a pleasant 73-year-old male patient of . He has a past medical history of CVA, type 2 diabetes, neuropathy, and hypertension. He presents to the office today for follow-up. Of note, patient was seen approximately 3 months ago at which time recommendations were made for left renal biopsy with cryoablation as patient with CT and MRI imaging noting 2.3 mid pole left renal mass suspicious for neoplasm. This was previously identified on renal ultrasound performed 05/13. In discussion with the patient today he reports to be doing and feeling well. In review of patient's chart it appears left-sided cryoablation was performed however no biopsy was taken at the time of cryoablation 04/13. He currently denies any bothersome urinary issues or concerns. He denies urinary urgency, urinary frequency, incontinence, nocturia, hematuria, dysuria, foul smelling urine, changes to urinary stream, flank pain, fever, and or chills. He is happy with his current voiding parameters. In office urinalysis results reviewed with the patient today. He reports following up with PCP and endocrinology for his diabetes as well as overall health. We discussed surveillance monitoring with MRI imaging at 6 months and 2 years with renal ultrasounds in between. Also discussed plan of care with patient's son per his request. All questions were answered. He otherwise offers no other issues or concerns at this time. [facility] Medical History Arthritis GERD (gastroesophageal reflux disease) Diabetes Unsteady gait Physical deconditioning Insomnia Anxiety Depression Diabetic retinopathy Diabetic neuropathy Back pain Pancreatic cyst Chronic renal insufficiency Fibromyalgia Renal mass History of CVA (cerebrovascular accident) Neuropathy Essential hypertension Surgical History Hx of cataract extraction History of esophagogastroduodenoscopy (EGD) H/O colonoscopy Social History Household Members: Family Housing: House Are you a primary district manager primary care sales to a significant other at home: No Do you presently have visiting nurse or other home services: No Alcohol intake: never Comment: PT refuse bed alarm Patient Tobacco Use Status: Former Tobacco user Tobacco use type: Cigarette Years Smoked: 20 e-Cigarette/Vaping Use: Never Used Second Hand Smoke Exposure: No service: No Current occupational status: disabled Current occupational exposures/hazards: No Cognitive needs: Yes (Cane) Hearing needs: No Vision needs: Yes (Glasses) Review of Systems Eyes Reports no additional complaints ENT Reports no additional complaints Card Reports as per HPI Resp Reports no additional complaints GI Reports no additional complaints Reports as per HPI Musc Reports as per HPI Neuro Reports as per HPI Psych Reports no additional complaints Endo Reports as per HPI Merlin/Lymph Reports no additional complaints Aller/Immun Reports no additional complaints Physical Exam Const General: cooperative, comfortable, no acute distress, well developed, alert and awake Nutritional Appearance: overweight Orientation/consciousness: patient oriented x3 Limitations: ambulation with cane HEENT Head: Yes normal to inspection, Yes normocephalic and Yes atraumatic Ears: hearing grossly normal bilaterally Eyes General: appearance normal, both eyes and all related structures Neck Neck: Yes normal visual inspection and Yes trachea midline Chest Chest palpation & inspection: normal inspection of the chest Resp Effort & Inspection: normal respiratory effort and able to speak in complete sentences Cardio Rate: regular rate GI Inspection: Yes normal to inspection General: Yes no CVA tenderness Back/Spine/Pelvis Back: no CVA tenderness Skin General skin exam: no rashes or lesions noted Neuro General: patient oriented x3 Extrem General: Yes normal to inspection Psych Appearance: grossly normal and well kempt Mental Status: mental status grossly normal Speech and movement: Normal speech and movement present and Clear speech present Affect: normal affect Attitude: cooperative Thought process: Normal thought process present Thought content: Normal thought content present Insight: Fair insight present (Psych) Judgement: Fair judgement present (Psych) Results AMB Urinalysis, Automated UA Leukoctes 0 Mary/uL Last Edit by Button Ryan on 06/08/24 15:30 UA Nitrite Last Edit by Curverider on 06/08/24 15:30 UA Urobilinogen 0.2 mg/dL Last Edit by MTM Technologiesaudra Davis on 06/08/24 15:30 UA Protein 15 mg/dL Last Edit by Curverider on 06/08/24 15:30 UA pH 6.0 Last Edit by Button Ryan on 06/08/24 15:30 UA Blood 10 Sudheer/uL Last Edit by Skye Davis on 06/08/24 15:30 UA Specific Horton 1.015 Last Edit by Skye Torresclarice on 06/08/24 15:30 UA Ketone Last Edit by Skye Torresclarice on 06/08/24 15:30 UA Bilirubin 0 mg/dL Last Edit by Skye Torresclarice on 06/08/24 15:30 UA Glucose 1000 mg/dL Last Edit by Skye Torresclraice on 06/08/24 15:30 Results Reviewed Results Reviewed: Laboratory Last Values Urine pH (Auto) 6.0 06/08/24 15:29 Specific Horton (Auto) 1.015 06/08/24 15:29 Urine Protein (Auto) 15 mg/dL 06/08/24 15:29 Glucose (UA)(Auto) 1000 mg/dL 06/08/24 15:29 Urine Blood (Auto) 10 Sudheer/uL 06/08/24 15:29 Urine Bilirubin (Auto) 0 mg/dL 06/08/24 15:29 Urine Urobilinogen (Auto) 0.2 mg/dL 06/08/24 15:29 Leukocyte Esterase (Auto) 0 Mary/uL 06/08/24 15:29 Assessment & Plan Assessment & Plan (1) Renal mass: Code(s): N28.89 - Other specified disorders of kidney and ureter Category: Medical (2) Renal cancer: Code(s): C64.9 - Malignant neoplasm of unspecified kidney, except renal pelvis Category: Medical Plan Patient currently denies any bothersome urinary issues. He reports be happy with current voiding parameters. In office urinalysis results reviewed with the patient today; as noted above. We discussed importance of surveillance imaging. Will obtain MRI renal mass protocol as well as CT of the chest. All questions were answered Unable to review pathology as a biopsy was never performed. Follow-up in 3-4 months with imaging to be completed prior; or sooner with any issues, concerns, and or questions. Orders: Orders CT chest wo/w IV con 3 Months N28.89 - Other specified disorders of kidney and ureter AMB Urinalysis Automated 06/08/24 Z13.9 - Encounter for screening, unspecified MR abdomen wo/w con 3 Months Z85.528 - Personal history of other malignant neoplasm of kidney Patient Instructions: The patient had an opportunity to ask questions regarding the treatment plan. All questions were answered. Physical exam, labs, and imaging were discussed and reviewed in detail. As well as risks, benefits, and discussion of treatment choices. No major barriers to understanding were identified. The patient expressed understanding and agreement with the above treatment plan. The patient was made aware they should contact our office by phone for worsening of their current condition, the appearance of new symptoms, or with any questions or concerns. Compliance is encouraged with any medications and follow up testing that is ordered. It is a privilege to be allowed the opportunity to participate in? your urological care.? Again, if you have any questions or concerns If you have any questions or concerns please do not hesitate to contact me. The office is [phone]. This note is constructed using voice recognition software. While every effort has been made to ensure accuracy legal transcriptionist errors may have been included. Yours sincerely, WILD Cobos Coding Level of Care Code Est Pt Level 4 (13070) Complex EM visit Add On G2211 Diagnoses Renal mass N28.89 Renal cancer C64.9 Time Spent (min) 35
== END 2024-06-08 15:24 | disposition home or self-care (01) ==
PROVIDERS: PCP Family Medicine; Visit Provider Nurse Practitioner Family
DX: N28.89 Other specified disorders of kidney and ureter (principal); C64.9 Malignant neoplasm of unspecified kidney, except renal pelvis
CPT/HCPCS: 99214; G2211

== ENCOUNTER 2024-07-05 14:19 | Outpatient (AMB) | payer MEDICARE, MEDICAID, SELFPAY ==
--- NOTE | 2024-07-05 14:28 | MHC.PC.OV ---
Vital Signs 07/05/24 14:37 Height 5 ft 11 in Weight 222 lb 6 oz BMI 31.0 BP 120/70 Blood Pressure Location Rt brachial Position Sitting Respiration 12 Pulse 70 Pulse Source Pulse Oximeter Temp 97.9 F Temp Source Oral Pulse Oximetry (%) 95 Oxygen Delivery Method Room Air Intake Visit Reasons: f/u HTN, diabetes, chronic conditions Intake Note: f/u htn dm Allergies No Known Allergies [No Known Allergies*] Allergy (Verified 07/05/24 14:40) Medication List - Last Reconciled 07/05/24 by John Graff MD aspirin 81 mg PO DAILY atorvastatin 40 mg PO DAILY BD Ultra-Fine Sara Pen Needle (pen needle, diabetic) 1 ea miscellaneous QID 90 days NS cholecalciferol (vitamin D3) (Vitamin D3) 50 mcg PO DAILY 90 days clobetasol 0.05% 1 appl topical BID 2 weeks clopidogrel 75 mg PO DAILY 90 days cyanocobalamin (vitamin B-12) 1,000 mcg PO DAILY 90 days diclofenac sodium 1% (Arthritis Pain (diclofenac)) 2 grams topical QID 30 days empagliflozin (Jardiance) 25 mg PO QAM 90 days famotidine 20 mg PO BEDTIME flash glucose scanning reader (FreeStyle Nikole 2 [place]) As directed flash glucose sensor (FreeStyle Nikole 2 Sensor kit) As directed change every 14 days gabapentin 600 mg PO BID Humalog KwikPen Insulin (insulin lispro) Inject 25 units subcutaneous daily with breakfast, 20 units daily with dinner. If you eat lunch take 20 units with lunch; 90 days NS insulin degludec (Tresiba FlexTouch U-100 insulin) 35 units (0.35 mL) subcut BID 90 days lidocaine 5% (Lidoderm) 1 patch topical DAILY PRN lisinopril 10 mg PO DAILY meclizine 25 mg PO Q8H PRN 30 days metformin 1,000 mg PO BID 90 days metoprolol succinate ER 12.5 mg (1/2 x 25 mg) PO DAILY 30 days miscellaneous medical supply Diabetic Shoes, Daily As directed. 999 days. 1 Pair miscellaneous medical supply Diabetic shoes. Daily As directed, 999 days. One pair. pen needle, diabetic (BD Ultra-Fine Mini Pen Needle) As directed pen needle, diabetic (BD Ultra-Fine Short Pen Needle) 4 times a day As directed. 90 days quetiapine (Seroquel) 25 mg PO BEDTIME PRN semaglutide (Ozempic) 0.25 mg (0.368 mL) subcut QWEEK topiramate 50 mg PO BID Tobacco use date assessed: 09/28/23 Dental Screening Dental Screen Date: 09/28/23 HPI f/u HTN, diabetes, chronic conditions HPI Details 73 y/o male presents to f/u hypertension, diabetes, chronic conditions. A1c today 07/05/24 7.4%. He is on Tresiba 35 units, metformin 1000mg b.i.d., Jardiance, Ozempic. Notes memory changes has been getting worse. Hx of stroke. Had already made referral to neuropsychiatry but pt notes they have not contacted him. Reports ongoing dizziness. [facility] Medical History Arthritis GERD (gastroesophageal reflux disease) Diabetes Unsteady gait Physical deconditioning Insomnia Anxiety Depression Diabetic retinopathy Diabetic neuropathy Back pain Pancreatic cyst Chronic renal insufficiency Fibromyalgia Renal mass History of CVA (cerebrovascular accident) Neuropathy Essential hypertension Surgical History Hx of cataract extraction History of esophagogastroduodenoscopy (EGD) H/O colonoscopy Social History Household Members: Family Housing: House Are you a primary anesthesiologist and critical care to a significant other at home: No Do you presently have visiting nurse or other home services: No Alcohol intake: never Comment: PT refuse bed alarm Patient Tobacco Use Status: Former Tobacco user Tobacco use type: Cigarette Years Smoked: 20 e-Cigarette/Vaping Use: Never Used Second Hand Smoke Exposure: No service: No Current occupational status: disabled Current occupational exposures/hazards: No Cognitive needs: Yes (Cane) Hearing needs: No Vision needs: Yes (Glasses) Questionnaire Thrive Questionnaire Date Thrive assessed: 07/08/22 SHAYNA-7 AMB Questionnaire SHAYNA-7 Date SHAYNA - 7 assessed: 07/23/22 Source: Developed by Drs. Tam Andrews, Cathy Barajas, Jesse Stewart and colleagues, with an educational carolin from [employer]. Review of Systems Const Denies chills, Denies fatigue, Denies fever(s), Denies headache(s) and Denies weakness ENT Denies dizziness and Denies headache(s) Card Denies chest pain, Denies lightheadedness, Denies dyspnea and Denies other (Palpitations) Resp Denies cough, Denies dyspnea, Denies wheezing and Denies other ( shortness of breath) Musc Denies numbness and Denies tingling Neuro Denies dizziness, Denies headache(s), Denies numbness, Denies tingling, Denies paresthesias and Denies weakness Psych Denies anxiety and Denies depression Endo Denies fatigue Aller/Immun Denies wheezing Physical exam (Primary Care) Vital Signs: Last Vital Signs Temp 97.9 F 07/05/24 14:37 Pulse 70 07/05/24 14:37 Resp 12 07/05/24 14:37 BP 120/70 07/05/24 14:37 Pulse Ox 95 07/05/24 14:37 Oxygen Delivery Method Room Air 07/05/24 14:37 BMI result Body Mass Index 31.0 Tobacco/Smoking Status: Tobacco use Status Tobacco use date assessed 09/28/23 07/05/24 14:29 Patient Tobacco Use Status Former Tobacco user 07/05/24 14:29 Tobacco use type Cigarette 07/05/24 14:29 e-Cigarette/Vaping Use Never Used 07/05/24 14:29 Thrive Assessment: Date of Thrive Assessment Date Thrive assessed 07/08/22 07/05/24 14:29 Const General: no acute distress and well developed Nutritional Appearance: well nourished Orientation/consciousness: patient oriented x3 [facility]: Yes normocephalic and Yes atraumatic Eyes General: appearance normal, both eyes and all related structures Pupils: Equal, round and reactive pupils present EOM: EOMs intact bilaterally Resp Effort & Inspection: normal respiratory effort Auscultation: clear to auscultation bilaterally Cardio Rate: regular rate Rhythm: regular rhythm Heart sounds: S1 normal heart sound present, S2 normal heart sound present, no gallops, no murmurs and no rubs Neuro General: patient oriented x3 and gait normal Cranial nerves: Yes Equal, round and reactive pupils present Psych Affect: normal affect Results AMB Hemoglobin A1c AMB Hemoglobin A1c 7.4 % Last Edit by Ana Lilia Gonzalez CMA on 07/05/24 14:46 Results Reviewed Results Reviewed: Laboratory Last Values Hgb A1c (Clinic) 7.4 % (4.0-6.0) H 07/05/24 14:44 Coding Level of Care Code Est Pt Level 4 (23180) Diagnoses Uncontrolled type 2 diabetes mellitus with hyperglycemia E11.65 Glycemic state: with hyperglycemia Essential hypertension I10 Memory changes R41.3 Physical deconditioning R53.81 Lower extremity weakness R29.898 Sleep apnea G47.30 Assessment & Plan Assessment & Plan (1) Diabetes type 2, uncontrolled: Code(s): E11.65 - Type 2 diabetes mellitus with hyperglycemia Category: Medical Qualifiers: Glycemic state: with hyperglycemia Qualified Code(s): E11.65 - Type 2 diabetes mellitus with hyperglycemia Plan: A1c?continues?to?improve?no?at?7.4%. Getting?closer?to?his?goal?of?about?7.0% Continue?current?medication?regimen Continue?diabetic?diet Follow-up?with?endocrinology?as?recommended Says he has eye dr finney coming up (2) Essential hypertension: Comment: BP has improved after stopping Lisinopril HCT 20/.5 daily during last visit Code(s): I10 - Essential (primary) hypertension Category: Medical Plan: Blood?pressure?appears?well?controlled.??Goal?is?less?than?130/80 Continue?current?medications (3) Memory changes: Code(s): R41.3 - Other amnesia Category: Medical Plan: Worsening?complaints?of?memory?changes. Patient?has?history?of?CVA.??Also?has?history?of?anxiety?depression Had?been?referred?to?neuropsychiatry?in?12/09/2023.??I?not?see?any?evidence?that?he?attended?or?was?contacted. Had?referred?him?to?Neurology?in?past No?focal?neurologic?changes Will?refer?him?to?neuropsychiatry?again. (4) Physical deconditioning: Code(s): R53.81 - Other malaise Category: Medical Plan: Physical?deconditioning?with?lower?extremity?weakness?and?patient?has?bilateral?lower?extremity?neuropathy?and?unsteady?gait Referred?to?physical?therapy (5) Lower extremity weakness: Code(s): R29.898 - Other symptoms and signs involving the musculoskeletal system Category: Medical Plan: As?above (6) Sleep apnea: Code(s): G47.30 - Sleep apnea, unspecified Category: Medical Plan: Difficulty?sleeping?and?wakes?up?frequently?gasping. 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
[2024-07-05 14:37] VITALS: BP 120/70; PULSE 70; RESP 12; TEMP 36.6; O2SAT 95; BMI 31.0
--- OUTSIDE RECORDS SUMMARY | 2024-07-05 16:58 | XMS_ITS | Clinical Summary ---
Author Organization Unknown Care Team Providers Care Tie Layer Name Role Phone JORGE MASTERSON, JACQUI Unavailable Unavailable DMITRI RN, BOUBACAR Unavailable Unavailable REEMA LABORER POWERHOUSE, VIN Unavailable Unavailable RAYMOND OT, THERAPY AUTISTIC TEACHER, JACQUI Unavailabl e Unavailable MARTTHEO PT, BRIDGER Unavailable Unavailable DIAMANTE DRIVING INSTRUCTOR, IRVING Unavailable Unavailable JOSE LABORER POWERHOUSE, KEE Unavailable Unavailabl e KALETINA LABORER POWERHOUSE, MIKE Unavailable Unavailab le Payers Payer Name Policy Type Policy Number Effective Date Expira tion Date MEDICARE - [facility] - [place] [id number] [place] [facility] [id number] Problems Condition Name Condition Details Condition Category [...] W/O RESID DEFICITS Active 2021-06 00:00: 00 CUSTODIAL (CURRENT) USE OF ANTICOAGULAN TS Active 2021-06 00:00: 00 SUMATRA OPENER (CURRENT) USE OF ANTITHROMBOT ICS/ANTIPLAT ELETS Active 2021-06 00:00: 00 SUMATRA OPENER (CURRENT) USE OF ORAL HYPOGLYCEMIC DRUGS Active 2021-06 00:00: 00 SUMATRA OPENER (CURRENT) USE OF INSULIN Active 2021-06 00:00: [...] mL) subcutaneou s 2021-06 00:00: 00 Yes [id number] Per instruc tions SUBCUTAENO US INJECTION 3 TIMES A DAY Per instructio ns SUBCUTAENO US INJECTION 3 TIMES A DAY (route: subcutaneo us) Med Classific ation: Endocrine cyanocobala min (vit B-12) 1,000 mcg tablet 2021-06 00:00: 00 Yes [id number] Per instruc tions EVERY DAY Per instructio ns EVERY DAY (route: oral) Med Classific ation: Electroly te Balance-N utritiona l Products clopidogrel 75 mg tablet 2021-06 00:00: 00 Yes [id number] Per instruc tions EVERY DAY Per instructio ns EVERY DAY (route: oral) Med Classific ation: Hematolog ical Agents lisinopril 10 mg tablet 2021-06 00:00: 00 Yes [id number] Per instruc tions TWICE A DAY Per instructio ns TWICE A DAY (route: oral) Med Classific ation: Cardiovas cular Therapy Agents metformin 1,000 mg tablet 2021-06 00:00: 00 Yes [id number] Per instruc tions TWICE A DAY Per instructio ns TWICE A DAY (route: oral) Med Classific ation: Endocrine aspirin 81 mg tablet,beau yed release 2021-06 00:00: 00 Yes [id number] 1 tablet DAILY 1 tablet DAILY (route: oral) Med Classific ation: Hematolog ical Agents atorvastati n 40 mg tablet 2021-06 00:00: 00 Yes [id number] 1 tablet DAILY 1 tablet DAILY (route: oral) Med Classific ation: Cardiovas cular Therapy Agents Fioricet 50 mg-300 mg-40 mg capsule 2021-06 00:00: 00 Yes [id number] 1 capsule 4 TIMES DAILY 1 capsule 4 TIMES DAILY (route: oral) Med Classific ation: Analgesic , Anti-infl ammatory or Antipyret ic gabapentin 600 mg tablet 2021-06 00:00: 00 Yes [id number] 1 tablet 3 TIMES DAILY 1 tablet 3 TIMES DAILY (route: oral) Med Classific ation: Central Nervous System Agents Lantus Solostar U-100 Insulin 100 unit/mL (3 mL) subcutaneou s pen 2021-06 00:00: 00 Yes [id number] 65 unit BEDTIME 65 unit BEDTIME (route: subcutaneo us) Med Classific ation: Endocrine meclizine 25 mg tablet 2021-06 00:00: 00 Yes [id number] 1 tablet EVERY 8 HOURS 1 tablet EVERY 8 HOURS (route: oral) Med Classific ation: Gastroint estinal Therapy Agents naproxen 500 mg tablet 2021-06 00:00: 00 Yes [id number] 1 tablet 2 TIMES DAILY 1 tablet 2 TIMES DAILY (route: oral) Med Classific ation: Analgesic , Anti-infl ammatory or Antipyret ic omeprazole 20 mg tablet,beau yed release 2021-06 00:00: 00 Yes [id number] 1 tablet DAILY 1 tablet DAILY (route: oral) Med Classific ation: Gastroint estinal Therapy Agents Tylenol Extra Strength 500 mg tablet 2021-06 00:00: 00 Yes [id number] 2 tablet 4 TIMES DAILY 2 tablet [...] DECLINED ORDERED SERVICES: PHYSICAL THERAPY, OCCUPATIONAL THERAPY, DRIVING INSTRUCTOR EVALS [code = SKILLED NURSE TO EVALUATE [...] DECLINED ORDERED SERVICES: PHYSICAL THERAPY, OCCUPATIONAL THERAPY, DRIVING INSTRUCTOR EVALS] Future Scheduled Test SKILLED NU RSE [...] HOUSING AND [facility] SERVICES [code = MARBLE CLEANER TO EVALUATE PATIENT FOR LTP, HOUSING AND [...] CVA, RISK FACTORS, AND METHODS TO MANAGE CUSTODIAL EFFECTS OF CVA [code = SKILLED NURSE TO INSTRUCT PATIENT/CAREGIVER ON WARNING SIGNS OF CVA, RISK FACTORS, AND METHODS TO MANAGE SUMATRA OPENER EFFECTS OF CVA ] Future Scheduled Test [...] PERFORMED. NO ADDITIONAL VISITS REQUIRED. [code = MARBLE CLEANER EVALUATION PERFORMED. NO ADDITIONAL VISITS REQUIRED.] Future [...] CARE WILL BE ESTABLISHED THAT MEETS PATIENT'S SHELTER NEEDS AND INCLUDES PATIENT GOAL FOR HOME [...] THE PHYSICIANS SIGNATURE. Goal Provider Goal - MARBLE CLEANER TO COMPLETE EVALUATION TO ADDRESS THE PATIENTS [...] 00:00:00 Outpatient NEW ADMISSION BOUBACAR RIZVI [facility] [id number] 00:00:00 DISCHARGE TO HOME OR SELF CARE INDEPENDEN T IN THE COMMUNITY NON COMPLIANT WITH PLAN OF TREATMENT 76.19
--- OUTSIDE RECORDS SUMMARY | 2024-07-05 16:58 | XMS_ITS | Clinical Summary ---
Author Organization Unknown Care Team Providers Care Hand Ii Blocker Name Role Phone JORGE MASTERSON, JACQUI Unavailable Unavailable DMITRI RN, BOUBACAR Unavailable Unavailable REEMA FIELD SERVICES MANAGER, VIN Unavailable Unavailable RAYMOND OT, THERAPY RELAY ENGINEER, JACQUI Unavailabl e Unavailable MARTTHEO PT, BRIDGER Unavailable Unavailable DIAMANTE DIRECTOR PUBLIC SERVICE, IRVING Unavailable Unavailable JOSE FIELD SERVICES MANAGER, KEE Unavailable Unavailabl e KALETINA FIELD SERVICES MANAGER, MIKE Unavailable Unavailab le Payers Payer Name Policy Type Policy Number Effective Date Expira tion Date MEDICARE - [facility] [id number] [place] [facility] [id number] Problems Condition Name Condition Details Condition Category [...] W/O RESID DEFICITS Active 2021-06 00:00: 00 PENITENTIARY (CURRENT) USE OF ANTICOAGULAN TS Active 2021-06 00:00: 00 DIRECTOR OF CONVENTION SERVICES (CURRENT) USE OF ANTITHROMBOT ICS/ANTIPLAT ELETS Active 2021-06 00:00: 00 DIRECTOR OF CONVENTION SERVICES (CURRENT) USE OF ORAL HYPOGLYCEMIC DRUGS Active 2021-06 00:00: 00 DIRECTOR OF CONVENTION SERVICES (CURRENT) USE OF INSULIN Active 2021-06 00:00: [...] mL) subcutaneou s 2021-06 00:00: 00 Yes [id number] Per instruc tions SUBCUTAENO US INJECTION 3 TIMES A DAY Per instructio ns SUBCUTAENO US INJECTION 3 TIMES A DAY (route: subcutaneo us) Med Classific ation: Endocrine cyanocobala min (vit B-12) 1,000 mcg tablet 2021-06 00:00: 00 Yes [id number] Per instruc tions EVERY DAY Per instructio ns EVERY DAY (route: oral) Med Classific ation: Electroly te Balance-N utritiona l Products clopidogrel 75 mg tablet 2021-06 00:00: 00 Yes [id number] Per instruc tions EVERY DAY Per instructio ns EVERY DAY (route: oral) Med Classific ation: Hematolog ical Agents lisinopril 10 mg tablet 2021-06 00:00: 00 Yes [id number] Per instruc tions TWICE A DAY Per instructio ns TWICE A DAY (route: oral) Med Classific ation: Cardiovas cular Therapy Agents metformin 1,000 mg tablet 2021-06 00:00: 00 Yes [id number] Per instruc tions TWICE A DAY Per instructio ns TWICE A DAY (route: oral) Med Classific ation: Endocrine aspirin 81 mg tablet,beau yed release 2021-06 00:00: 00 Yes [id number] 1 tablet DAILY 1 tablet DAILY (route: oral) Med Classific ation: Hematolog ical Agents atorvastati n 40 mg tablet 2021-06 00:00: 00 Yes [id number] 1 tablet DAILY 1 tablet DAILY (route: oral) Med Classific ation: Cardiovas cular Therapy Agents Fioricet 50 mg-300 mg-40 mg capsule 2021-06 00:00: 00 Yes [id number] 1 capsule 4 TIMES DAILY 1 capsule 4 TIMES DAILY (route: oral) Med Classific ation: Analgesic , Anti-infl ammatory or Antipyret ic gabapentin 600 mg tablet 2021-06 00:00: 00 Yes [id number] 1 tablet 3 TIMES DAILY 1 tablet 3 TIMES DAILY (route: oral) Med Classific ation: Central Nervous System Agents Lantus Solostar U-100 Insulin 100 unit/mL (3 mL) subcutaneou s pen 2021-06 00:00: 00 Yes [id number] 65 unit BEDTIME 65 unit BEDTIME (route: subcutaneo us) Med Classific ation: Endocrine meclizine 25 mg tablet 2021-06 00:00: 00 Yes [id number] 1 tablet EVERY 8 HOURS 1 tablet EVERY 8 HOURS (route: oral) Med Classific ation: Gastroint estinal Therapy Agents naproxen 500 mg tablet 2021-06 00:00: 00 Yes [id number] 1 tablet 2 TIMES DAILY 1 tablet 2 TIMES DAILY (route: oral) Med Classific ation: Analgesic , Anti-infl ammatory or Antipyret ic omeprazole 20 mg tablet,beau yed release 2021-06 00:00: 00 Yes [id number] 1 tablet DAILY 1 tablet DAILY (route: oral) Med Classific ation: Gastroint estinal Therapy Agents Tylenol Extra Strength 500 mg tablet 2021-06 00:00: 00 Yes [id number] 2 tablet 4 TIMES DAILY 2 tablet [...] DECLINED ORDERED SERVICES: PHYSICAL THERAPY, OCCUPATIONAL THERAPY, DIRECTOR PUBLIC SERVICE EVALS [code = SKILLED NURSE TO EVALUATE [...] DECLINED ORDERED SERVICES: PHYSICAL THERAPY, OCCUPATIONAL THERAPY, DIRECTOR PUBLIC SERVICE EVALS] Future Scheduled Test SKILLED NU RSE [...] HOUSING AND MASS HEALTH SERVICES [code = STRAIGHTENING MACHINE FEEDER TO EVALUATE PATIENT FOR LTP, HOUSING AND [...] CVA, RISK FACTORS, AND METHODS TO MANAGE PENITENTIARY EFFECTS OF CVA [code = SKILLED NURSE TO INSTRUCT PATIENT/CAREGIVER ON WARNING SIGNS OF CVA, RISK FACTORS, AND METHODS TO MANAGE DIRECTOR OF CONVENTION SERVICES EFFECTS OF CVA ] Future Scheduled Test [...] PERFORMED. NO ADDITIONAL VISITS REQUIRED. [code = STRAIGHTENING MACHINE FEEDER EVALUATION PERFORMED. NO ADDITIONAL VISITS REQUIRED.] Future [...] CARE WILL BE ESTABLISHED THAT MEETS PATIENT'S HALFWAY NEEDS AND INCLUDES PATIENT GOAL FOR HOME [...] THE PHYSICIANS SIGNATURE. Goal Provider Goal - STRAIGHTENING MACHINE FEEDER TO COMPLETE EVALUATION TO ADDRESS THE PATIENTS [...] 2022-07-04 00:00:00 Outpatient NEW ADMISSION BOUBACAR RIZVI [facility] [id number] 00:00:00 DISCHARGE TO HOME OR SELF CARE INDEPENDEN T IN THE COMMUNITY NON COMPLIANT WITH PLAN OF TREATMENT 76.19
== END 2024-07-05 15:13 | disposition home or self-care (01) ==
PROVIDERS: PCP Family Medicine; Visit Provider Family Medicine
DX: E11.65 Type 2 diabetes mellitus with hyperglycemia (principal); I10 Essential (primary) hypertension; R41.3 Other amnesia; R53.81 Other malaise; R29.898 Other symptoms and signs involving the musculoskeletal system; G47.30 Sleep apnea, unspecified; E11.42 Type 2 diabetes mellitus with diabetic polyneuropathy; Z79.4 Long term (current) use of insulin

== ENCOUNTER → 2024-07-05 14:19 | Outpatient (BNVA) | payer MEDICARE, MEDICAID, SELFPAY | PROVIDERS: PCP Family Medicine; Visit Provider Family Medicine | DX: E11.65 Type 2 diabetes mellitus with hyperglycemia (principal); I10 Essential (primary) hypertension; R41.3 Other amnesia; R53.81 Other malaise; R29.898 Other symptoms and signs involving the musculoskeletal system; G47.30 Sleep apnea, unspecified | CPT/HCPCS: 83036; 99212 ==

== ENCOUNTER 2024-07-06 14:05 | Outpatient (AMB) | payer MEDICARE, MEDICAID, SELFPAY ==
[2024-07-06 14:11] VITALS: BP 124/72; PULSE 75; BMI 31.1
--- NOTE | 2024-07-06 14:11 | A.OFFVIS_ITS ---
Vital Signs 07/06/24 14:11 Height 5 ft 11 in Weight 222 lb 10.67 oz BMI 31.1 BP 124/72 Blood Pressure Location Rt brachial Position Sitting Pulse 75 Pulse Source Pulse Oximeter Intake Visit Reasons: DM Intake Note: Patient presents today for a follow-up on Type 2 Diabetes Mellitus: Last Diabetic Eye exam: DUE Last Podiatry Exam: Does not see a [employer] Cook Most recent HbA1c: 7.8%, 05/10/2024 Random Glucose- 149 mg/dL, Today Laundry Equipment Operator Required: No Accompanied by: Self / Same As Patient Allergies No Known Allergies [No Known Allergies*] Allergy (Verified 07/05/24 14:40) HPI Comments Details: 73 YO M who is seen in follow up for type 2 diabetes Medical history: CVA, HTN, HLD. PCP: Dr Graff Initially diagnosed with T2DM 20 years ago Was initially started on treatment with metformin . Current regimen metformin 1000 mg BID Lantus/Tresiba 35 BID (decreased from 45 units TWICE daily) NovoLog/Humalog 25,20,20 (decreased from 25,20,25) jardiance 25 mg QD Ozempic 0.25 weekly (switched from Trulicity 3 mg Qwkly then decreased from 1mg to 0.25) Per the CGM Nikole GMI 6.9 from 6.8% from 7.4%. 0% hypoglycemia! POC 04/2024 7.8% No Family history of T2DM Has eyes checked frequently: (+) retinopathy. Denies neuropathy, , Does sees podiatry. Denies nephropathy, on RADHA/ARB. . Has HLD, on statin. Denies CAD. Hx of CVA ROS CONSTITUTIONAL: Denies weight loss, fever and chills. HEENT: Denies changes in vision and hearing. RESPIRATORY: Denies SOB and cough. CV: Denies palpitations and CP GI: Denies abdominal pain, nausea, vomiting and diarrhea. : Denies dysuria and urinary frequency. MSK: Denies new myalgia and joint pain. SKIN: Denies rash and pruritus. NEUROLOGICAL: Denies headache PSYCHIATRIC: Denies recent changes in mood. PHYSICAL EXAM: GENERAL: Alert and oriented x 3. NAD EYES: EOMI. Anicteric. HENT: Moist mucous membranes. No scleral icterus. No cervical lymphadenopathy. LUNGS: Clear to auscultation bilaterally. CARDIOVASCULAR: Regular rate and rhythm. ABDOMEN: Soft, non-tender +bs EXTREMITIES: No edema. Non-tender. SKIN: No rashes or lesions. Warm. NEUROLOGIC: No NEW focal neurological deficits. PSYCHIATRIC: Cooperative. Appropriate mood and affect [facility] Medical History Arthritis GERD (gastroesophageal reflux disease) Diabetes Unsteady gait Physical deconditioning Insomnia Anxiety Depression Diabetic retinopathy Diabetic neuropathy Back pain Pancreatic cyst Chronic renal insufficiency Fibromyalgia Renal mass History of CVA (cerebrovascular accident) Neuropathy Essential hypertension Surgical History Hx of cataract extraction History of esophagogastroduodenoscopy (EGD) H/O colonoscopy Social History Household Members: Family Housing: House Are you a primary grounds caretaker to a significant other at home: No Do you presently have visiting nurse or other home services: No Alcohol intake: never Comment: PT refuse bed alarm Patient Tobacco Use Status: Former Tobacco user Tobacco use type: Cigarette Years Smoked: 20 e-Cigarette/Vaping Use: Never Used Second Hand Smoke Exposure: No service: No Current occupational status: disabled Current occupational exposures/hazards: No Cognitive needs: Yes (Cane) Hearing needs: No Vision needs: Yes (Glasses) Physical Exam Vital Signs: Last Vital Signs Pulse 75 07/06/24 14:11 BP 124/72 07/06/24 14:11 BMI result Body Mass Index 31.1 Results Reviewed Results Reviewed: Laboratory Last Values Glucose (Clinic) 149 mg/dL (60-115) H 07/06/24 14:14 Assessment & Plan Assessment & Plan (1) Diabetes: Code(s): E11.9 - Type 2 diabetes mellitus without complications Category: Medical Qualifiers: Diabetes mellitus type: type 2 Diabetes mellitus cutter woodwind reeds insulin use: with mcc use Diabetes mellitus complication status: with neurologic complications Diabetes mellitus complication detail: with polyneuropathy Qualified Code(s): E11.42 - Type 2 diabetes mellitus with diabetic polyneuropathy; Z79.4 - half-way (current) use of insulin Plan: well controlled on current therapy. No longer having any hypoglycemia He may return in 2 months for A1C and follow up Orders: Orders PT Evaluation and Treatment Today R42 - Dizziness and giddiness Coding Level of Care Code Est Pt Level 4 (60349) Diagnoses Type 2 diabetes mellitus with diabetic polyneuropathy, with long-term current use of insulin E11.42; Z79.4 Diabetes mellitus type: type 2 Diabetes mellitus cutter woodwind reeds insulin use: with mcc use Diabetes mellitus complication status: with neurologic complications Diabetes mellitus complication detail: with polyneuropathy
[2024-07-06 14:20] LABS: Glucose, Whole Blood 149 mg/dL (60-115)
== END 2024-07-06 14:45 | disposition home or self-care (01) ==
PROVIDERS: PCP Family Medicine; Visit Provider Internal Medicine
DX: E11.42 Type 2 diabetes mellitus with diabetic polyneuropathy (principal); Z79.4 Long term (current) use of insulin

== ENCOUNTER → 2024-07-06 14:05 | Outpatient (BNVA) | payer MEDICARE, MEDICAID, SELFPAY | PROVIDERS: PCP Family Medicine; Visit Provider Internal Medicine | DX: E11.42 Type 2 diabetes mellitus with diabetic polyneuropathy (principal); Z79.4 Long term (current) use of insulin | CPT/HCPCS: 82947; 99212 ==

== ENCOUNTER 2024-07-18 13:58 | Outpatient (AMB) | payer MEDICARE, MEDICAID, SELFPAY ==
--- NOTE | 2024-07-18 14:01 | A.OFFVIS_ITS ---
Vital Signs 07/18/24 14:07 Height 5 ft 11 in Weight 221 lb 6 oz BMI 30.9 BP 116/70 Blood Pressure Location Lt brachial Position Sitting Pulse 78 Pulse Source Pulse Oximeter Pulse Oximetry (%) 96 Oxygen Delivery Method Room Air Intake Visit Reasons: INP-JOSÉ LUIS Intake Note: Patient presents for a new patient evaluation for JOSÉ LUIS. Patient reports headaches and dizziness. He also reports forgetfulness. Accompanied by: Self / Same As Patient Allergies No Known Allergies [No Known Allergies*] Allergy (Verified 07/18/24 14:07) Medication List - Last Reconciled 07/18/24 by Arlyn Burr PA-C aspirin 81 mg PO DAILY atorvastatin 40 mg PO DAILY BD Ultra-Fine Sara Pen Needle (pen needle, diabetic) 1 ea miscellaneous QID 90 days NS cholecalciferol (vitamin D3) (Vitamin D3) 50 mcg PO DAILY 90 days clobetasol 0.05% 1 appl topical BID 2 weeks clopidogrel 75 mg PO DAILY 90 days cyanocobalamin (vitamin B-12) 1,000 mcg PO DAILY 90 days diclofenac sodium 1% (Arthritis Pain (diclofenac)) 2 grams topical QID 30 days empagliflozin (Jardiance) 25 mg PO QAM 90 days famotidine 20 mg PO BEDTIME flash glucose scanning reader ([employer]Style Nikole 2 [place]) As directed flash glucose sensor (FreeStyle Nikole 2 Sensor kit) As directed change every 14 days gabapentin 600 mg PO BID Humalog KwikPen Insulin (insulin lispro) Inject 25 units subcutaneous daily with breakfast, 20 units daily with dinner. If you eat lunch take 20 units with lunch; 90 days NS insulin degludec (Tresiba FlexTouch U-100 insulin) 35 units (0.35 mL) subcut BID 90 days lidocaine 5% (Lidoderm) 1 patch topical DAILY PRN lisinopril 10 mg PO DAILY magnesium oxide 400 mg PO DAILY MDD 400mg meclizine 25 mg PO Q8H PRN 30 days metformin 1,000 mg PO BID 90 days metoprolol succinate ER 12.5 mg (1/2 x 25 mg) PO DAILY 30 days miscellaneous medical supply Diabetic Shoes, Daily As directed. 999 days. 1 Pair miscellaneous medical supply Diabetic shoes. Daily As directed, 999 days. One pair. pen needle, diabetic (BD Ultra-Fine Mini Pen Needle) As directed pen needle, diabetic (BD Ultra-Fine Short Pen Needle) 4 times a day As directed. 90 days pyridoxine (vitamin B6) 250 mg PO DAILY quetiapine (Seroquel) 25 mg PO BEDTIME PRN semaglutide (Ozempic) 0.25 mg (0.368 mL) subcut QWEEK topiramate 50 mg PO BID HPI Comments Details: 73 year old R. handed male presents for sleep evaluation by Dr Graff. He is not sleeping well, goes to bed at 1030pm, he gets up at 7am, feels fatigued. 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 He c/o nocturia, headaches, cognitive decline. He suffers from Insomnia, and excessive daytime fatigue. He moves from his bed to the reclining chair, then back to the bed throughout the night. He has difficulty walking, burning pain on dorsal aspect of feet, uses a cane to ambulate. His A1c is elevated and is being managed by his Endocrine. His blood pressure is managed. He has daily headaches, with dizziness, vertigo, nausea, and balance difficulty and takes. Denies photophobia and phonophobia and sensitivity to smells. PENDING SALE TO [facility] Medical History Arthritis GERD (gastroesophageal reflux disease) Diabetes Unsteady gait Physical deconditioning Insomnia Anxiety Depression Diabetic retinopathy Diabetic neuropathy Back pain Pancreatic cyst Chronic renal insufficiency Fibromyalgia Renal mass History of CVA (cerebrovascular accident) Neuropathy Essential hypertension Surgical History Hx of cataract extraction History of esophagogastroduodenoscopy (EGD) H/O colonoscopy Social History Household Members: Family Housing: House Are you a primary client care representative to a significant other at home: No Do you presently have visiting nurse or other home services: No Alcohol intake: never Comment: PT refuse bed alarm Patient Tobacco Use Status: Former Tobacco user Tobacco use type: Cigarette Years Smoked: 20 e-Cigarette/Vaping Use: Never Used Second Hand Smoke Exposure: No service: No Current occupational status: disabled Current occupational exposures/hazards: No Cognitive needs: Yes (Cane) Hearing needs: No Vision needs: Yes (Glasses) Review of Systems Const All systems reviewed & are unremarkable except as noted in HPI and below Physical Exam Vital Signs: Last Vital Signs Pulse 78 07/18/24 14:07 BP 116/70 07/18/24 14:07 Pulse Ox 96 07/18/24 14:07 Oxygen Delivery Method Room Air 07/18/24 14:07 BMI result Body Mass Index 30.9 Const General: cooperative, no acute distress, ill appearing and tired appearing Nutritional Appearance: average body habitus Orientation/consciousness: patient oriented x3 Limitations: ambulation with cane HEENT Face and sinus: Yes other (L. side droop of face.) Teeth and gingiva: other ([place] score of 3 ) Throat: Yes other Eyes Other: Wears glasses, followed by Opthalmologist for Diabetic Retinopathy. Pupils: Equal, round and reactive pupils present Neck Neck: Yes other (Limited ROM on Extension with pain elicted.) Resp Effort & Inspection: normal respiratory effort and able to speak in complete sentences Neuro General: patient oriented x3 and moves all extremities Cranial nerves: Yes Facial sensation intact/muscles of mastication intact, Yes Equal, round and reactive pupils present, Yes Normal accommodation reflex present, Yes Bilaterally intact EOM present, Yes Nystagmus not present, Yes Normal facial strength present, Yes Midline tongue present, Yes Ability to bilaterally elevate shoulders present and Yes Other cranial nerve findings present (ROM Limited on extension and R>L) Cognition (Neuro): normal cognition Gait exam (Neuro): Ataxic gait present, Assisted gait required and Assistive device used Motor exam (neuro): Abnormal motor strength present (3/5) and Abnormal muscle tone present Deep tendon reflexes (DTR's): Right triceps reflex intensity grade: 1+, Left triceps reflex intensity grade: 1+, Rt Biceps (C5, C6): 1+, Left biceps reflex intensity grade: 1+, Right brachioradialis reflex intensity grade: 1+, Left brachioradialis reflex intensity grade: 1+, Right patellar reflex intensity grade: 1+, Left patellar reflex intensity grade: 1+, Right ankle reflex intensity grade: 1+ and Left ankle reflex intensity grade: 1+ Coordination: rapid alternating movements of the distal upper extremity normal (Slow to open and close hands) and rapid alternating movements of the distal lower extremity normal (Slow to tap toes/ heels) Psych Appearance: grossly normal Speech and movement: Echolalia present (Psych) and Slowed movement present (Neuro) Affect: normal affect Attitude: cooperative Insight: Fair insight present (Psych) Results Reviewed Results Reviewed: Labs CT scans [facility] ED Apr 2022 CVA Endocrine note A1c management 7.8 RENAL mass: [id number] US/US guide intraoperative ,Impression: Image guided percutaneous cryoablation of left renal mass Assessment & Plan Assessment & Plan (1) Sleep apnea: Code(s): G47.30 - Sleep apnea, unspecified Category: Medical Qualifiers: Sleep apnea type: unspecified type Qualified Code(s): G47.30 - Sleep apnea, unspecified (2) Fatigue due to sleep pattern disturbance: Code(s): R53.83 - Other fatigue; G47.9 - Sleep disorder, unspecified Category: Medical (3) Lethargy: Code(s): R53.83 - Other fatigue Category: Medical (4) Forgetfulness: Code(s): R68.89 - Other general symptoms and signs Category: Medical (5) Chronic right-sided headaches: Code(s): R51.9 - Headache, unspecified; G89.29 - Other chronic pain Category: Medical (6) CVA (cerebral vascular accident): Code(s): I63.9 - Cerebral infarction, unspecified Category: Medical Qualifiers: CVA mechanism: unspecified Qualified Code(s): I63.9 - Cerebral infarction, unspecified (7) RLS (restless legs syndrome): Code(s): G25.81 - Restless legs syndrome Category: Medical Plan HST Daytime Fatigue and Lethargy Cognitive decline : MRI imaging to compare with CTscan - CVA ischemic infarction L. corpus callosum acute punctate Ataxia: Gait imbalance and vertigo dizziness, multiple falls, will order him a wheel chair (automatic operated) decreased muscular strength and difficulty ambulating. Labs: will f/u, pending B12/ Folate/ TSH/ CBC and CMP Vitamin D. will send in Folate MMA/ Homocysteine and Follow up in 2 months for Sleep Apnea Evaluation and Cpap therapy. Patient Education: Sleep Hygiene provided : Dark room, cool environment temp below 68. No fluids 2 hours prior to bed. Limit caffeine 6 hours prior to bedtime, may use essential oils to help with sleep. A1c is elevated, significant improvement in patients who improve A1c levels post CVA events, Retinopathy, Neuropathy and CKD. HTN management, HTN is the #1 modifiable RF for future CV events. Orders: Orders RT home sleep study Today G47.30 - Sleep apnea, unspecified, G47.9 - Sleep dis order, unspecified, R53.83 - Other fatigue Medications: New chair, wheel (Wheel chair) As directed 1 ea 0RF difficulty ambulating G25.81 - Restless legs syndrome, I63.9 - Cerebral infarction, unspecified pyridoxine (vitamin B6) take one tablet daily at bedtime 250 mg PO DAILY 30 tabs 2RF RLS magnesium oxide take one tablet at night daily. 400 mg PO DAILY 30 tabs 2RF cramps MDD 400mg G25.81 - Restless legs syndrome Coding Level of Care Code New Pt Level 4 (14331) Diagnoses Sleep apnea, unspecified type G47.30 Sleep apnea type: unspecified type Fatigue due to sleep pattern disturbance R53.83; G47.9 Lethargy R53.83 Forgetfulness R68.89 Chronic right-sided headaches R51.9; G89.29 Cerebrovascular accident (CVA), unspecified mechanism I63.9 CVA mechanism: unspecified RLS (restless legs syndrome) G25.81 Sleep Questionnaire Difficulty falling asleep: Yes Difficulty staying asleep?: Yes Number of arousals: 3-4 Snoring: Yes Witnessed apneas: Yes Gasping arousals: Yes Nocturia: Yes GERD: Yes Vivid dreams: No Acting out dreams: No Abnormal behavior in sleep: No Abnormal movements in sleep: No Morning headaches: Yes Excessive daytime sleepiness: Yes Daytime naps: Yes Restless legs: No Hallucinations: No Sleep paralysis: No Drop attacks: No Sleep Study: No CPAP: No
[2024-07-18 14:07] VITALS: BP 116/70; PULSE 78; O2SAT 96; BMI 30.9
--- OUTSIDE RECORDS SUMMARY | 2024-07-18 14:55 | XMS_ITS | Clinical Summary ---
Author Organization [facility] Address [address] [place] [address] Care Team Providers Care Barrel Bridge Assembler Name Role Phone Unavailable Primary Care Provider Unavailabl e Source Comments PLEASE NOTE, if this patient is a minor, it may be UNLAWFUL to discuss sensitive information that is contained in these records (such as FAMILY PLANNING, MENTAL HEALTH or SUBSTANCE ABUSE) with the minor patient's parent or other person without the patient's specific authorization.[facility] Social History Tobacco Use Types Packs/Day Years Used Date Smoking Tobacco: Never Assessed Social Connections Answer Date Recorded Connectedness 0 03/09/2024 Financial Resource Strain Answer Date R ecorded Financial Resource Strain 0 2021 Stress Answer Date Recorded Stress 0 09/17/2021 Physical Activity Answer Date Recorded Physical Activity 0 09/17/2021 Food Insecurity Answer Date Recorded Food 0 03/16/2024 Transportation Needs Answer Date Record ed Transportation 0 09/17/2021 Housing Stability Answer Date Recorded Housing 0 09/17/2021 Safety and Environment Answer Date Carlos rded Safety 0 09/17/2021 Utilities Answer Date Recorded Utilities 0 09/17/2021 Employment Answer Date Recorded Stress 0 03/09/2024 Sex and Gender Information Value Date Recorded Sex Assigned at Not on file Legal Sex Male 10:50 AM PDT Gender Identity Not on file Sexual Orientation Not on file Plan of Treatment Health Maintenance Due Date Last Done Comments Hepatitis C Screening 1950 Lipid Screening 1950 Tobacco Screening 1950 Hypertension Screening (#1) 08/23/1969 CT Colonography 08/23/1996 Colonoscopy 08/23/1996 Colorectal Cancer Screening 08/23/1996 FIT/gFOBT 08/23/1996 Fecal DNA 08/23/1996 Flexible Sigmoidoscopy 08/23/1996 Imm-Zoster, Recombinant (1 of 2) 08/23/2001 Abdominal Aortic Aneurysm Screening 08/23/2016 Falls Prevention 08/23/2016 Imm-Pneumococcal 65+ (2 of 2 - PCV) 04/02/202004/02 [id number] (2 - 2023- season) 2024 021 Imm-Influenza (#1) 2024 04/09/2021, 04/02/2019 Alcohol and Drug Screen 06/21/2024 Depression Annual Screen 06/21/2024 Imm-DTaP/Tdap/Td (2 - Td or Tdap) 01/31/2030 020 [facility] [place]
== END 2024-07-18 15:02 | disposition home or self-care (01) ==
PROVIDERS: PCP Family Medicine; Visit Provider Physician Assistant Medical
DX: G47.30 Sleep apnea, unspecified (principal); R53.83 Other fatigue; G47.9 Sleep disorder, unspecified; R68.89 Other general symptoms and signs; R51.9 Headache, unspecified; G89.29 Other chronic pain; I69.398 Other sequelae of cerebral infarction; G25.81 Restless legs syndrome
CPT/HCPCS: 99204

== ENCOUNTER → 2024-07-18 13:58 | Outpatient (BNVA) | payer MEDICARE, MEDICAID, SELFPAY | PROVIDERS: PCP Family Medicine; Visit Provider Physician Assistant Medical | DX: G47.30 Sleep apnea, unspecified (principal); G89.29 Other chronic pain; G25.81 Restless legs syndrome; R42 Dizziness and giddiness; R53.83 Other fatigue; R68.89 Other general symptoms and signs; R51.9 Headache, unspecified; Z86.73 Personal history of transient ischemic attack (TIA), and cerebral infarction without residual deficits | CPT/HCPCS: 99202 ==

== ENCOUNTER → 2024-08-28 10:26 | Outpatient (BNV) | payer MEDICARE, MEDICAID, SELFPAY | PROVIDERS: PCP Family Medicine; Visit Provider Radiology Diagnostic Radiology | DX: K80.20 Calculus of gallbladder without cholecystitis without obstruction (principal); K86.2 Cyst of pancreas | CPT/HCPCS: 74183 ==

== ENCOUNTER 2024-08-28 10:32 | Outpatient (REF) | payer MEDICARE, MEDICAID, SELFPAY ==
--- NOTE | ~2024-08-28 | MR_ITS ---
EXAMINATION: MRI Abdomen without and with contrast HISTORY: Z85.528 - Personal history of other malignant neoplasm of kidney COMPARISON: Comparison is made with the prior examination dated 12/31/2023. TECHNIQUE: Axial in and out of phase T1-weighted gradient echo, axial diffusion weighted, and axial and coronal HASTE T2 with fat saturation images were obtained through the abdomen. Subsequently, fat suppressed axial and coronal T1-weighted images were obtained after the intravenous administration of 10 mL Gadavist. FINDINGS: There is a 2.5 cm area of decreased T2 signal intensity and increased T1 signal intensity at the lateral aspect of the interpolar region of the left kidney at the site of the previously seen mass. There is no appreciable enhancement. There is surrounding linear scarring of the perinephric fat. 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 The kidneys are otherwise unremarkable in appearance. There is no significant signal loss within the liver on opposed phase imaging to suggest steatosis. There is no enhancing liver mass. The hepatic and portal veins are patent. There is cholelithiasis. The common bile duct is normal in caliber. Again seen is a 7 mm cyst in the pancreatic head. The pancreatic duct is normal in caliber. The spleen and adrenals are unremarkable. No retroperitoneal lymphadenopathy or ascites is identified in the upper abdomen. The visualized bones demonstrate normal signal intensity. MR/MR abdomen wo/w con IMPRESSION: 1. 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 No abnormal enhancement. 2. Cholelithiasis. 3. 7 mm cyst in the pancreatic head. Follow-up is recommended. Electronically signed by: Tam Torres MD 08/29/2024 08:45 AM EDT
[2024-08-28] MEDS: gadobutroL 10 ML VIAL IVPUSH (11:40)
--- OUTSIDE RECORDS SUMMARY | 2024-08-28 11:55 | XMS_ITS | Continuity of Care Document ---
Author Organization [facility] Address [address] [place] [address]- Care Team Providers Care Training Administrator Name Role Phone Prerna MASTERSON, John Caldera Primary Care Physician Encounter [place] Date(s): 07/06/24 - 08/05/24 [facility] [address] [place] [address]- Encounter Type: Triage Allergies, Adverse Reactions, Alerts No Known Allergies Medications aspirin 81 mg oral tablet 1 tablet = 81 mg, By Mouth, Daily, # 30 tablet, 0 Refills, Maintenance, 04/06/19 5:34:40 PM EDT, Tablet Start Date: 04/06/19 Status: Ordered Quantity: 30.0 Unit: tablet Repeat number: 1 docusate sodium 100 mg oral capsule 100 mg, 1, capsule, By Mouth, 2 times a day, # 60 capsule, Refills 0, Tot. Refills 0, Maintenance, 04/19/19 9:32:29 AM EDT, Print Requisition Start Date: 04/19/19 Status: Ordered Quantity: 60.0 Unit: capsule Repeat number: 1 gabapentin 600 mg oral tablet 1 tablet = 600 mg, By Mouth, 3 times a day, # 270 tablet, 0 Refills, Maintenance, 10/30/23 3:31:00 PM EDT, Tablet, Partial fill upon patient request if the prescription is for a schedule II opioid drug. Start Date: 10/30/23 Status: Ordered Quantity: 270.0 Unit: tablet Repeat number: 1 insulin glargine 100 units/mL subcutaneous solution 0.55 mL = 55 units, Subcutaneous Injection, Daily at bedtime, # 16.5 mL, 0 Refills, Maintenance, 04/19/19 8:17:54 AM EDT, Injection Start Date: 04/19/19 Status: Ordered Quantity: 16.5 Unit: mL Repeat number: 1 insulin lispro 100 u/ml subcutaneous injection = 20 units, Subcutaneous Injection, 3 times a day before meals, # 10 mL, 0 Refills, Maintenance, 04/19/19 8:18:54 AM EDT, Injection Start Date: 04/19/19 Status: Ordered Quantity: 10.0 Unit: mL Repeat number: 1 Jardiance 25 mg oral tablet 1 tablet = 25 mg, By Mouth, Daily in AM, # 30 tablet, 0 Refills, Maintenance, 10/30/23 3:30:00 PM EDT, Tablet, Partial fill upon patient request if the prescription is for a schedule II opioid drug. Start Date: 10/30/23 Status: Ordered Quantity: 30.0 Unit: tablet Repeat number: 1 Lipitor 80 mg oral tablet 1 tablet = 80 mg, By Mouth, Daily, # 90 tablet, 1 Refills, Maintenance, 10/31/23 9:26:00 AM EDT, Tablet, [facility]/pharmacy #[id number], Partial fill upon patient request if the prescription is for a schedule II opioid drug., 180, cm, 10/31/23 7:47:00 EDT, Height, 84, kg, 10/30/23 17:05:00 EDT, Dry Weight Start Date: 10/31/23 Status: Ordered Quantity: 90.0 Unit: tablet Repeat number: 2 lisinopril 10 mg oral tablet 10 mg, 1, tablet, By Mouth, Daily, # 30 tablet, Refills 0, Maintenance, 04/06/19 5:35:03 PM EDT Start Date: 04/06/19 Status: Ordered Quantity: 30.0 Unit: tablet Repeat number: 1 metFORMIN 1000 mg oral tablet 1 tablet = 1,000 mg, By Mouth, 2 times a day, # 60 tablet, 0 Refills, Maintenance, 04/06/19 5:31:59PM EDT, Tablet Start Date: 04/06/19 Status: Ordered Quantity: 60.0 Unit: tablet Repeat number: 1 omeprazole 20 mg oral enteric coated capsule TAKE 2 CAPSULES (40 MG) ORALLY DAILY FOR 90 DAYS Start Date: 10/30/23 Status: Ordered Repeat number: 1 Vitamin B-12 1000 mcg oral tablet 1,000 mcg, 1, tablet, By Mouth, Daily, # 30 tablet, Refills 0, Tot. Refills 0, Maintenance, 04/19/19 8:17:18 AM EDT, Print Requisition Start Date: 04/19/19 Status: Ordered Quantity: 30.0 Unit: tablet Repeat number: 1 wheeled walker wheeled walker, See Instructions, # 1 units, Refills 0, Tot. Refills 0, Maintenance, as dorected, 04/12/19 11:36:09 AM EDT, Compound Start Date: 04/12/19 Status: Ordered Quantity: 1.0 Unit: Units Repeat number: 1 Problem List Condition Confirmation Course Effective Dates Status H ealth Status Informant CVA (cerebral vascular accident) Confirmed Active DM (diabetes mellitus) Confirmed Active GERD (gastroesophageal reflux disease) Confirmed Active Hyperlipidemia Confirmed Active HTN (hypertension) Confirmed Active OA (osteoarthritis) Confirmed Active Patient Care team information Care Team Personnel Name: Sandor Barrios RN Position: [facility] RN Member Role: Primary Care Nurse Name: Tete Quinones RN Position: [facility] Onco RN Member Role: Primary Care Nurse Name: Binta Calloway NP Position: [facility] PCO Associate Professional Member Role: Primary Care Nurse Name: Liz Loo RN Position: [facility] AMB Nurse Member Role: Primary Care Nurse Name: John Graff MD Position: [facility] Outreach Member Role: PCP Address: [address] [place] [address] Telecom: Name: Kishore Castañeda RN Position: [facility] RN Member Role: Primary Care Nurse Name: Gerri Mckee RN Position: [facility] RN Member Role: Primary Care Nurse Care Team Related Persons Name: YAMILEX STILL Name: JIMENA VALVERDE Insurance Providers Guarantor name: PATRICK Health Plan Information #: 1 Payer: MEDICARE PART B OUTPT Member Number: NA Policy Number: NA Group Number: NA Health Plan Information #: 2 Payer: [facility] Member Number: NA Policy Number: NA Group Number: NA
--- OUTSIDE RECORDS SUMMARY | 2024-08-28 11:55 | XMS_ITS | Clinical Summary ---
Author Organization [facility] Address [address] [place] [address] Care Team Providers Care Coke Worker Name Role Phone Unavailable Primary Care Provider [...] 65+ (2 of 2 - PCV) 04/02/202004/02 [id number] (2 - 2023- season) 2024 021 Imm-Influenza (#1) 2024 04/09/2021, 04/02/2019 Alcohol and Drug Screen 06/21/2024 Depression Annual Screen 06/21/2024 Imm-DTaP/Tdap/Td (2 - Td or Tdap) 01/31/2030 020 [facility] [place]
== END 2024-08-28 10:33 | disposition home or self-care (01) ==
LOC: HO.MRI 10:32
PROVIDERS: PCP Family Medicine; Visit Provider Nurse Practitioner Family
DX: Z85.528 Personal history of other malignant neoplasm of kidney (principal)
CPT/HCPCS: 74183; A9585

== ENCOUNTER 2024-09-06 15:52 | Outpatient (AMB) | payer MEDICARE, MEDICAID, SELFPAY ==
--- NOTE | 2024-09-06 15:56 | A.OFFVIS_ITS ---
Intake Visit Reasons: [address](set) Intake Note: Patient presents to office today for 3 month/MRI Imagin08/28/24 Urology Medications: none Blood Thinner: aspirin and clopidogrel Catalyst Unit Operator Required: No Accompanied by: Self / Same As Patient Allergies No Known Allergies [No Known Allergies*] Allergy (Verified 09/06/24 16:30) Medication List - Last Reconciled 09/06/24 by WILD Cobos aspirin 81 mg PO DAILY atorvastatin 40 mg PO DAILY BD Ultra-Fine Sara Pen Needle (pen needle, diabetic) 1 ea miscellaneous QID 90 days NS chair, wheel (Wheel chair) As directed cholecalciferol (vitamin D3) (Vitamin D3) 50 mcg PO DAILY 90 days clobetasol 0.05% 1 appl topical BID 2 weeks clopidogrel 75 mg PO DAILY 90 days cyanocobalamin (vitamin B-12) 1,000 mcg PO DAILY 90 days diclofenac sodium 1% (Arthritis Pain (diclofenac)) 2 grams topical QID 30 days empagliflozin (Jardiance) 25 mg PO QAM 90 days famotidine 20 mg PO BEDTIME flash glucose scanning reader (FreeStyle Nikole 2 Widen) As directed flash glucose sensor (FreeStyle Nikole 2 Sensor kit) As directed change every 14 days gabapentin 600 mg PO BID Humalog KwikPen Insulin (insulin lispro) Inject 25 units subcutaneous daily with breakfast, 20 units daily with dinner. If you eat lunch take 20 units with lunch; 90 days NS insulin degludec (Tresiba FlexTouch U-100 insulin) 35 units (0.35 mL) subcut BID 90 days lidocaine 5% (Lidoderm) 1 patch topical DAILY PRN lisinopril 10 mg PO DAILY magnesium oxide 400 mg PO DAILY MDD 400mg meclizine 25 mg PO Q8H PRN 30 days metformin 1,000 mg PO BID 90 days metoprolol succinate ER 12.5 mg (1/2 x 25 mg) PO DAILY 30 days miscellaneous medical supply Diabetic Shoes, Daily As directed. 999 days. 1 Pair miscellaneous medical supply Diabetic shoes. Daily As directed, 999 days. One pair. pen needle, diabetic (BD Ultra-Fine Mini Pen Needle) As directed pen needle, diabetic (BD Ultra-Fine Short Pen Needle) 4 times a day As directed. 90 days pyridoxine (vitamin B6) 250 mg PO DAILY quetiapine (Seroquel) 25 mg PO BEDTIME PRN semaglutide 0.5 mg (0.736 mL) subcut QWEEK 28 days topiramate 50 mg PO BID HPI Comments Details: Anupama is a pleasant 74 year-old male patient of . He has a past medical history of CVA, type 2 diabetes, neuropathy, and hypertension. He presents to the office today for follow-up of his renal mass. In discussion with the patient today reports to be doing and feeling well. He discusses having followed up with his flag maker and has recently had injections for retinopathy. He otherwise denies having had any bothersome urinary issues or concerns. He denies urinary urgency, urinary frequency, incontinence, nocturia, hematuria, dysuria, foul smelling urine, changes to urinary stream, flank pain, fever, and or chills. He is happy with his current voiding parameters. Recent MRI imaging results reviewed with the patient today 09/12 ablation cavity in the interpolar region of the left kidney. No abnormal enhancement. 7 mm cyst in the pancreatic head. Follow-up is recommended. Of note patient is status post left-sided cryo ablation 04/13. CT of the chest was also ordered during last office visit however this is not scheduled to be performed until next week on the per patient. Will await results. We discussed importance of management and diabetes for overall health and well-being as well as surveillance monitoring of renal cancer. All questions were answered. He otherwise offers no other issues or concerns at this time. PSA 05/14 0.4 PFSH Medical History Arthritis GERD (gastroesophageal reflux disease) Diabetes Unsteady gait Physical deconditioning Insomnia Anxiety Depression Diabetic retinopathy Diabetic neuropathy Back pain Pancreatic cyst Chronic renal insufficiency Fibromyalgia Renal mass History of CVA (cerebrovascular accident) Neuropathy Essential hypertension Surgical History Hx of cataract extraction History of esophagogastroduodenoscopy (EGD) H/O colonoscopy Social History Household Members: Family Housing: House Are you a primary resident care aide to a significant other at home: No Do you presently have visiting nurse or other home services: No Alcohol intake: never Comment: PT refuse bed alarm Patient Tobacco Use Status: Former Tobacco user Tobacco use type: Cigarette Years Smoked: 20 e-Cigarette/Vaping Use: Never Used Second Hand Smoke Exposure: No service: No Current occupational status: disabled Current occupational exposures/hazards: No Cognitive needs: Yes (Cane) Hearing needs: No Vision needs: Yes (Glasses) Review of Systems Eyes Reports no additional complaints ENT Reports no additional complaints Card Reports as per HPI Resp Reports no additional complaints GI Reports no additional complaints Reports as per HPI Musc Reports as per HPI Neuro Reports as per HPI Psych Reports no additional complaints Endo Reports as per HPI Merlin/Lymph Reports no additional complaints Aller/Immun Reports no additional complaints Physical Exam Const General: cooperative, comfortable, no acute distress, well developed, alert and awake Nutritional Appearance: overweight Orientation/consciousness: patient oriented x3 Limitations: ambulation with cane HEENT Head: Yes normal to inspection, Yes normocephalic and Yes atraumatic Ears: hearing grossly normal bilaterally Eyes General: appearance normal, both eyes and all related structures Neck Neck: Yes normal visual inspection and Yes trachea midline Chest Chest palpation & inspection: normal inspection of the chest Resp Effort & Inspection: normal respiratory effort and able to speak in complete sentences Cardio Rate: regular rate GI Inspection: Yes normal to inspection General: Yes no CVA tenderness Back/Spine/Pelvis Back: no CVA tenderness Skin General skin exam: no rashes or lesions noted Neuro General: patient oriented x3 Extrem General: Yes normal to inspection Psych Appearance: grossly normal and well kempt Mental Status: mental status grossly normal Speech and movement: Normal speech and movement present and Clear speech present Affect: normal affect Attitude: cooperative Thought process: Normal thought process present Thought content: Normal thought content present Insight: Fair insight present (Psych) Judgement: Fair judgement present (Psych) Results AMB Urinalysis, Automated UA Leukoctes 0 Mary/uL Last Edit by Domenica Vela on 09/06/24 16:14 UA Nitrite Negative Last Edit by Domenica Vela on 09/06/24 16:14 UA Urobilinogen 3.5 mg/dL Last Edit by Crystal Vela on 09/06/24 16:14 UA Protein 0.3 mg/dL Last Edit by Crystal Vela on 09/06/24 16:14 UA pH 5.0 Last Edit by Crystal Vela on 09/06/24 16:14 UA Blood 0 Sudheer/uL Last Edit by Crystal Vela on 09/06/24 16:14 UA Specific [place] 1.030 Last Edit by Crystal Vela on 09/06/24 16:14 UA Ketone Negative Last Edit by Crystal Vela on 09/06/24 16:14 UA Bilirubin 17 mg/dL Last Edit by Crystal Vela on 09/06/24 16:14 UA Glucose 0 mg/dL Last Edit by Crystal Vela on 09/06/24 16:14 Results Reviewed Results Reviewed: Laboratory Last Values Urine pH (Auto) 5.0 09/06/24 16:06 Specific [place] (Auto) 1.030 09/06/24 16:06 Urine Protein (Auto) 0.3 mg/dL 09/06/24 16:06 Glucose (UA)(Auto) 0 mg/dL 09/06/24 16:06 Urine Ketones (Auto) Negative 09/06/24 16:06 Urine Blood (Auto) 0 Sudheer/uL 09/06/24 16:06 Urine Nitrite (Auto) Negative 09/06/24 16:06 Urine Bilirubin (Auto) 17 mg/dL 09/06/24 16:06 Urine Urobilinogen (Auto) 3.5 mg/dL 09/06/24 16:06 Leukocyte Esterase (Auto) 0 Mary/uL 09/06/24 16:06 Date of Service: 08/28/24 Procedure(s): MR abdomen wo/w con EXAMINATION: MRI Abdomen without and with contrast FINDINGS: There is a 2.5 cm area of decreased T2 signal intensity and increased T1 signal intensity at the lateral aspect of the interpolar region of the left kidney at the site of the previously seen mass. There is no appreciable enhancement. There is surrounding linear scarring of the perinephric fat. 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 The kidneys are otherwise unremarkable in appearance. There is no significant signal loss within the liver on opposed phase imaging to suggest steatosis. There is no enhancing liver mass. The hepatic and portal veins are patent. There is cholelithiasis. The common bile duct is normal in caliber. Again seen is a 7 mm cyst in the pancreatic head. The pancreatic duct is normal in caliber. The spleen and adrenals are unremarkable. No retroperitoneal lymphadenopathy or ascites is identified in the upper abdomen. The visualized bones demonstrate normal signal intensity. IMPRESSION: 1. 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 No abnormal enhancement. 2. Cholelithiasis. 3. 7 mm cyst in the pancreatic head. Follow-up is recommended. Assessment & Plan Assessment & Plan (1) Renal mass: Code(s): N28.89 - Other specified disorders of kidney and ureter Category: Medical (2) Renal cancer: Code(s): C64.9 - Malignant neoplasm of unspecified kidney, except renal pelvis Category: Medical Plan In office urinalysis results reviewed with the patient today; as noted above. Recent MRI results reviewed with the patient today; as noted above. Patient currently denies any bothersome urinary issues or concerns. He reports be happy with current voiding parameters. We discussed importance of surveillance monitoring. Will await CT chest results as patient with upcoming appointment 09/12 Will obtain renal ultrasound in 6 months for surveillance monitoring. Follow-up in 6 months with imaging to be completed prior; or sooner with any issues, concerns, and or questions. Orders: Orders US renal BI 6 Months C64.9 - Malignant neoplasm of unspecified kidney, except renal pelvis, N28.89 - Other specified disorders of kidney and ureter AMB Urinalysis Automated Today Z13.9 - Encounter for screening, unspecified Patient Instructions: The patient had an opportunity to ask questions regarding the treatment plan. All questions were answered. Physical exam, labs, and imaging were discussed and reviewed in detail. As well as risks, benefits, and discussion of treatment choices. No major barriers to understanding were identified. The patient expressed understanding and agreement with the above treatment plan. The patient was made aware they should contact our office by phone for worsening of their current condition, the appearance of new symptoms, or with any questions or concerns. Compliance is encouraged with any medications and follow up testing that is ordered. It is a privilege to be allowed the opportunity to participate in? your urological care.? Again, if you have any questions or concerns If you have any questions or concerns please do not hesitate to contact me. The office is [phone]. This note is constructed using voice recognition software. While every effort has been made to ensure accuracy information systems security developer errors may have been included. Yours sincerely, WILD Cobos Coding Level of Care Code Est Pt Level 3 (64803) Complex EM visit Add On G2211 Diagnoses Renal mass N28.89 Renal cancer C64.9
--- OUTSIDE RECORDS SUMMARY | 2024-09-06 17:41 | XMS_ITS | Clinical Summary ---
Author Organization [facility] Address [address] [place] [address] Care Team Providers Care Manager Compensation Name Role Phone Unavailable Primary Care Provider [...] 65+ (2 of 2 - PCV) 04/02/202004/02 [id number] (2 - 2023- season) 2024 021 Imm-Influenza (#1) 2024 04/09/2021, 04/02/2019 Alcohol and Drug Screen 06/21/2024 Depression Annual Screen 06/21/2024 Imm-DTaP/Tdap/Td (2 - Td or Tdap) 01/31/2030 020 [facility] DENT[facility] [place] DENTAL
== END 2024-09-06 16:25 | disposition home or self-care (01) ==
LOC: HO.HUSH 15:52
PROVIDERS: PCP Family Medicine; Visit Provider Nurse Practitioner Family
DX: N28.89 Other specified disorders of kidney and ureter (principal); C64.9 Malignant neoplasm of unspecified kidney, except renal pelvis; Z13.9 Encounter for screening, unspecified
CPT/HCPCS: 99213; G2211

== ENCOUNTER → 2024-09-06 15:52 | Outpatient (BNVA) | payer MEDICARE, MEDICAID, SELFPAY | PROVIDERS: PCP Family Medicine; Visit Provider Nurse Practitioner Family | DX: N28.89 Other specified disorders of kidney and ureter (principal); C64.9 Malignant neoplasm of unspecified kidney, except renal pelvis | CPT/HCPCS: 81003; 99212 ==

== ENCOUNTER 2024-09-08 09:48 | Outpatient (AMB) | payer MEDICARE, MEDICAID, SELFPAY ==
--- NOTE | 2024-09-08 07:28 | A.OFFVIS_ITS ---
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 He was last seen by Dr. Rosio Alegre on 07/06/2024. Hemoglobin A1c 07/05 7.4% 05/10/2024 7.8%. He had hypoglycemia prior to Dr. Alegre's visit which had resolved with reduction in insulin dosing. Initially diagnosed with T2DM approx 2004 Was initially started on treatment with metformin. Had been on Trulicity which was ineffective and he was switched over to Ozempic. This was reduced from 1 mg to 0.25mg weekly. He is now back up to .5mg weekly Current regimen: metformin 1000 mg BID Tresiba 35 BID due to intolerance Humalog Breakfast 25 units Lunch 20 units Supper 20 units jardiance 25 mg QD Ozempic 0.5mg weekly Higinio average glucose: [135 ] 14 day continuous glucose monitor report reviewed Glucose Managment indicator 6.5 % Days with CGM data 88 % TIme in ranges: 4 % very high (above 250) 13 % high ?(181-250) 81 % in range ?(70-180] 2 % low (69-55) 0 % ?very low (below 54) Interpretation [in good control with some hypoglycemia at 06:00 and some postprandial increase after supper ] No Family history of T2DM Has retinopathy: Last eye exam 09/12 injection both eyes Has neuropathy, on gabapentin has numbness, tingling, no pain or cramping in lower extremities, would like to see podiatry Has nephropathy, on Lico inhibitor 05/04/24 129 eGFR>60 Has HLD, on statin. 09/15/23 169 No CAD. Hx of CVA Has a appointment with neurologist due to decreasing memory. [facility] Medical History (Updated 09/08/24 @ 07:38 by Cat Jennings NP) Nephropathy Arthritis GERD (gastroesophageal reflux disease) Diabetes Unsteady gait Physical deconditioning Insomnia Anxiety Depression Diabetic retinopathy Diabetic neuropathy Back pain Pancreatic cyst Chronic renal insufficiency Fibromyalgia Renal mass History of CVA (cerebrovascular accident) Neuropathy Essential hypertension Surgical History Hx of cataract extraction History of esophagogastroduodenoscopy (EGD) H/O colonoscopy Social History Household Members: Family Housing: House Are you a primary foster care worker to a significant other at home: No Do you presently have visiting nurse or other home services: No Alcohol intake: never Comment: PT refuse bed alarm Patient Tobacco Use Status: Former Tobacco user Tobacco use type: Cigarette Years Smoked: 20 e-Cigarette/Vaping Use: Never Used Second Hand Smoke Exposure: No service: No Current occupational status: disabled Current occupational exposures/hazards: No Cognitive needs: Yes (Cane) Hearing needs: No Vision needs: Yes (Glasses) Physical Exam Vital Signs: Last Vital Signs Pulse 78 09/08/24 09:57 BP 128/76 09/08/24 09:57 Pulse Ox 98 09/08/24 09:57 Oxygen Delivery Method Room Air 09/08/24 09:57 BMI result Body Mass Index 32.6 Const Other: Absence of Cushingoid features. Absence of acromegalic features. Neck exam reveals nl size thyroid about 15 gms. No thyroid nodules palpable. No carotid bruits present. Lungs CTA. Heart S1 S2, Reg R/R. No M/R G. Skin exam reveals absence of vitiligo or acanthosis nigricans. No edema Visual exam of foot performed. No ulcerations or open lesions. No inter digit maceration or fissuring. No onychomycosis, no callouses. Sensation absent to monofilament exam. Vibratory sensation is absent with 128 Hz tuning fork. Office Procedures Glucose Monitoring Details Details: see [facility] [id number] - Glucose monitoring, continuous-physician I&R Procedure code (CPT) selection complete Results Reviewed Results Reviewed: Laboratory Last Values Glucose (Clinic) 148 mg/dL (60-115) H 09/08/24 10:02 Assessment & Plan Assessment & Plan (1) Diabetes type 2, uncontrolled: Code(s): E11.65 - Type 2 diabetes mellitus with hyperglycemia Category: Medical Qualifiers: Glycemic state: with hyperglycemia Qualified Code(s): E11.65 - Type 2 diabetes mellitus with hyperglycemia Plan: 74-year-old type 2 diabetic with neuropathy on gabapentin, retinopathy and nephropathy with preserved renal function with the an A1c of 7.4%. Current sensor download shows a GME my of 6.5% with some hypoglycemia at 06:00am. He will continue all doses with the exception of reducing Tresiba to 32 units in the evening. If you develop significant illness with vomiting or fever keep hydrated and temporarily stop metformin. Notify Endocrine Clinic if sugars are over 250. Stop metformin prior to surgery or tests in which dye is injected in the body. The patient had an opportunity to ask questions regarding treatment plan. The patient expressed understanding and agreement with the above treatment plan. The patient is aware they should contact our office by phone for worsening glucose readings or for any low blood sugars which may warrant a change in diabetes medication. Compliance is encouraged with medications and any followup testing/consults which may have been ordered. (2) Combined hyperlipidemia associated with type 2 diabetes mellitus: Code(s): E11.69 - Type 2 diabetes mellitus with other specified complication; E78.2 - Mixed hyperlipidemia Category: Medical Plan: On statin. Last LDL 2023 169. Due for rechecked. Patient was advised to have fasting blood work (3) Diabetic neuropathy: Code(s): E11.40 - Type 2 diabetes mellitus with diabetic neuropathy, unspecified Category: Medical Qualifiers: Diabetes mellitus type: type 2 Diabetes mellitus complication detail: diabetic polyneuropathy Qualified Code(s): E11.42 - Type 2 diabetes mellitus with diabetic polyneuropathy Plan: Sensation absent to both vibratory and monofilament. He is at greater risk for foot ulcer due to insensate foot. I reinforced foot care essential oils and he has requested a referral to a supervisor electronic testing. Orders: Orders Lipid Panel Today E11.69 - Type 2 diabetes mellitus with other specified complication, E78.2 - Mixed hyperlipidemia AMB Glucose Monitoring Today E11.65 - Type 2 diabetes mellitus with hyperglycemia Referrals Podiatry Referral E11.42 - Type 2 diabetes mellitus with diabetic polyneuropathy Medications: Changed From insulin degludec (Tresiba FlexTouch U-100 insulin) 35 units (0.35 mL) subcut BID 90 days 63 mL 4RF To insulin degludec (Tresiba FlexTouch U-100 insulin) 35 units am 32 units pm subcutaneously 2 times a day; 90 days 63 mL 4RF Patient Instructions: Take 15 carb carbohydrate grams to treat a low sugar (3-4 glucose tablets, half a glass of juice or 15 carbohydrate grams of soft candy such as gummie snacks). Recheck your sugar in 15 minutes and re-treat again with 15 carbohydrate grams if low or still with symptoms. Do not drive a car or operate machinery if you do not know what your blood sugar is, if it is low or in excess of 300. Check your feet daily looking for any signs of infection, drainage, redness, ulceration and seek medical attention if this occurs. Break in shoes gradually and do not wear open-toed shoes or walk stocking footed or barefooted. Coding Level of Care Code Est Pt Level 4 (67039) Complex EM visit Add On G2211 Diagnoses Uncontrolled type 2 diabetes mellitus with hyperglycemia E11.65 Glycemic state: with hyperglycemia Combined hyperlipidemia associated with type 2 diabetes mellitus E11.69; E78.2 Diabetic polyneuropathy associated with type 2 diabetes mellitus E11.42 Diabetes mellitus type: type 2 Diabetes mellitus complication detail: diabetic polyneuropathy CPT Codes Details - CPT: 60005 - Glucose monitoring, continuous-physician I&R ([id number]) Time Spent (min) 30 Comment Time spent reviewing labs/provider notes, glucose,sensor reports, face to face, chart doc
[2024-09-08 09:57] VITALS: BP 128/76; PULSE 78; O2SAT 98; BMI 32.6
[2024-09-08 10:10] LABS: Glucose, Whole Blood 148 mg/dL (60-115)
--- OUTSIDE RECORDS SUMMARY | 2024-09-08 11:24 | XMS_ITS | Clinical Summary ---
Author Organization [facility] Address [address] [place] [address] Care Team Providers Care Office Messenger Helper Name Role Phone Unavailable Primary Care Provider [...] 65+ (2 of 2 - PCV) 04/02/202004/02 [id number] (2 - 2023- season) 2024 021 Imm-Influenza (#1) 2024 04/09/2021, 04/02/2019 Alcohol and Drug Screen 06/21/2024 Depression Annual Screen 06/21/2024 Imm-DTaP/Tdap/Td (2 - Td or Tdap) 01/31/2030 020 [facility] DENT[place]
== END 2024-09-08 10:27 | disposition home or self-care (01) ==
LOC: HO.ENCR 09:49
PROVIDERS: PCP Family Medicine; Visit Provider Nurse Practitioner Adult Health
DX: E11.65 Type 2 diabetes mellitus with hyperglycemia (principal); E11.69 Type 2 diabetes mellitus with other specified complication; E78.2 Mixed hyperlipidemia; E11.42 Type 2 diabetes mellitus with diabetic polyneuropathy
CPT/HCPCS: 95251; 99214; G2211

== ENCOUNTER → 2024-09-08 09:48 | Outpatient (BNVA) | payer MEDICARE, MEDICAID, SELFPAY | PROVIDERS: PCP Family Medicine; Visit Provider Nurse Practitioner Adult Health | DX: E11.69 Type 2 diabetes mellitus with other specified complication (principal); E11.65 Type 2 diabetes mellitus with hyperglycemia; E11.42 Type 2 diabetes mellitus with diabetic polyneuropathy; E78.2 Mixed hyperlipidemia; Z79.4 Long term (current) use of insulin; Z79.84 Long term (current) use of oral hypoglycemic drugs | CPT/HCPCS: 82947; 99212 ==

== ENCOUNTER 2024-09-12 13:24 | Outpatient (AMB) | payer MEDICARE, MEDICAID, SELFPAY ==
[2024-09-12 13:44] VITALS: PULSE 73; O2SAT 96; BMI 32.1
--- NOTE | 2024-09-12 13:44 | MHC.OFFVIS ---
Vital Signs 09/12/24 13:44 Height 5 ft 11 in Weight 230 lb BMI 32.1 Pulse 73 Pulse Source Pulse Oximeter Pulse Oximetry (%) 96 Oxygen Delivery Method Room Air Intake Visit Reasons: Follow Up-2mo Intake Note: Patient presents follow up JOSÉ LUIS. Patient went for HST but did they did not have any machine available. He is now scheduled for 10/02/24. Allergies No Known Allergies [No Known Allergies*] Allergy (Verified 09/08/24 10:06) HPI Comments Details: 73 year old R. handed male presents for sleep evaluation by Dr Graff. He is not sleeping well, goes to bed at 1030pm, he stays up most of the night, and feels exhausted most days. He has insomnia, and multiple trips to the bathroom at night. 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 He c/o nocturia, headaches, and cognitive decline. He has difficulty recalling words, forgetful of tasks and no longer drives. He moves from his bed to the reclining chair, then back to the bed throughout the night and paces back and forth. He has difficulty walking, burning pain on dorsal aspect of feet, uses a cane to ambulate and request a wheel chair today. His A1c is elevated and is being managed by his Endocrine on short and long acting insulin. His blood pressure is well managed. He has daily headaches, with dizziness, vertigo, nausea, and balance difficulties. Denies photophobia and phonophobia and sensitivity to smells. He recently had an abdominal MRI and renal mass on l. kidney. [facility] Medical History Nephropathy Arthritis GERD (gastroesophageal reflux disease) Diabetes Unsteady gait Physical deconditioning Insomnia Anxiety Depression Diabetic retinopathy Diabetic neuropathy Back pain Pancreatic cyst Chronic renal insufficiency Fibromyalgia Renal mass History of CVA (cerebrovascular accident) Neuropathy Essential hypertension Surgical History Hx of cataract extraction History of esophagogastroduodenoscopy (EGD) H/O colonoscopy Social History Household Members: Family Housing: House Are you a primary direct care staffer to a significant other at home: No Do you presently have visiting nurse or other home services: No Alcohol intake: never Comment: PT refuse bed alarm Patient Tobacco Use Status: Former Tobacco user Tobacco use type: Cigarette Years Smoked: 20 e-Cigarette/Vaping Use: Never Used Second Hand Smoke Exposure: No service: No Current occupational status: disabled Current occupational exposures/hazards: No Cognitive needs: Yes (Cane) Hearing needs: No Vision needs: Yes (Glasses) Physical Exam Vital Signs: Last Vital Signs Pulse 73 09/12/24 13:44 Pulse Ox 96 09/12/24 13:44 Oxygen Delivery Method Room Air 09/12/24 13:44 BMI result Body Mass Index 32.1 Const General: cooperative, no acute distress, ill appearing and tired appearing Nutritional Appearance: average body habitus Orientation/consciousness: patient oriented x3 Limitations: ambulation with cane HEENT Face and sinus: Yes other (L. side droop of face.) Teeth and gingiva: other ([place] score of 3 ) Throat: Yes other Eyes Other: Wears glasses, followed by Opthalmologist for Diabetic Retinopathy. Pupils: Equal, round and reactive pupils present Neck Neck: Yes other (Limited ROM on Extension with pain elicted.) Resp Effort & Inspection: normal respiratory effort and able to speak in complete sentences Neuro General: patient oriented x3 and moves all extremities Cranial nerves: Yes Facial sensation intact/muscles of mastication intact, Yes Equal, round and reactive pupils present, Yes Normal accommodation reflex present, Yes Bilaterally intact EOM present, Yes Nystagmus not present, Yes Normal facial strength present, Yes Midline tongue present, Yes Ability to bilaterally elevate shoulders present and Yes Other cranial nerve findings present (ROM Limited on extension and R>L) Cognition (Neuro): normal cognition Gait exam (Neuro): Ataxic gait present, Assisted gait required and Assistive device used Motor exam (neuro): Abnormal motor strength present (3/5) and Abnormal muscle tone present Deep tendon reflexes (DTR's): Right triceps reflex intensity grade: 1+, Left triceps reflex intensity grade: 1+, Rt Biceps (C5, C6): 1+, Left biceps reflex intensity grade: 1+, Right brachioradialis reflex intensity grade: 1+, Left brachioradialis reflex intensity grade: 1+, Right patellar reflex intensity grade: 1+, Left patellar reflex intensity grade: 1+, Right ankle reflex intensity grade: 1+ and Left ankle reflex intensity grade: 1+ Coordination: rapid alternating movements of the distal upper extremity normal (Slow to open and close hands) and rapid alternating movements of the distal lower extremity normal (Slow to tap toes/ heels) Psych Appearance: grossly normal Speech and movement: Echolalia present (Psych) and Slowed movement present (Neuro) Affect: normal affect Attitude: cooperative Insight: Fair insight present (Psych) Results Reviewed Results Reviewed: 08/2024 Abdominal MRI reviewed. FINDINGS: There is a 2.5 cm area of decreased T2 signal intensity and increased T1 signal intensity at the lateral aspect of the interpolar region of the left kidney at the site of the previously seen mass. There is no appreciable enhancement. There is surrounding linear scarring of the perinephric fat. 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 The kidneys are otherwise unremarkable in appearance. There is no significant signal loss within the liver on opposed phase imaging to suggest steatosis. There is no enhancing liver mass. The hepatic and portal veins are patent. There is cholelithiasis. The common bile duct is normal in caliber. Again seen is a 7 mm cyst in the pancreatic head. The pancreatic duct is normal in caliber. The spleen and adrenals are unremarkable. No retroperitoneal lymphadenopathy or ascites is identified in the upper abdomen. The visualized bones demonstrate normal signal intensity. Assessment & Plan Assessment & Plan (1) Fatigue due to depression: Code(s): F32.A - Depression, unspecified; R53.83 - Other fatigue Category: Medical (2) Cognitive decline: Code(s): R41.89 - Other symptoms and signs involving cognitive functions and awareness Category: Medical Plan Insomnia HST evaluate for intermittent sleep. Cognitive Decline MRI compare with old MRI and Lacunar Infarcts. Wheel Chair, prevent injury due to risk of falls. Headaches will evaluate after MRI. Orders: Orders MR head/brain wo/w con Today G89.29 - Other chronic pain, R51.9 - Headache, unspecified Medications: Refilled chair, wheel (Wheel chair) As directed 1 ea 0RF difficulty ambulating G25.81 - Restless legs syndrome, I63.9 - Cerebral infarction, unspecified Patient Instructions: Sleep Hygiene provided: set a scheduled bedtime and wake time to help regulate the circadian rhythm and balance the release of pituitary hormones. Sleep in a dark room, temperatures below 68 degrees, and no devices n bed. Limit caffeinated products 6 hours prior to bed, and limit fluids 2-4 hours prior to bed. Gentle night yoga, diffusing essential oils, and playing soft music can be relaxing. Monitor A1c, take all medications on time and control BP. Will f/u after HST for Insomnia. Coding Level of Care Code Est Pt Level 4 (01185) Diagnoses Fatigue due to depression F32.A; R53.83 Cognitive decline R41.89 Time Spent (min) 25
--- OUTSIDE RECORDS SUMMARY | 2024-09-12 16:18 | XMS_ITS | Clinical Summary ---
Author Organization [facility] Address [address] [place] [address] Care Team Providers Care Physician Extender Name Role Phone Unavailable Primary Care Provider [...] 65+ (2 of 2 - PCV) 04/02/202004/02 [id number] (2 - 2023- season) 2024 021 Imm-Influenza (#1) 2024 04/09/2021, 04/02/2019 Alcohol and Drug Screen 06/21/2024 Depression Annual Screen 06/21/2024 Imm-DTaP/Tdap/Td (2 - Td or Tdap) 01/31/2030 020 [facility] [place]ENTAL [place]
== END 2024-09-12 14:21 | disposition home or self-care (01) ==
LOC: HO.HSMS 13:24
PROVIDERS: PCP Family Medicine; Visit Provider Physician Assistant Medical
DX: F32.A Depression, unspecified (principal); R53.83 Other fatigue; R41.89 Other symptoms and signs involving cognitive functions and awareness
CPT/HCPCS: 99214

== ENCOUNTER 2024-09-12 14:59 | Outpatient (REF) | payer MEDICARE, MEDICAID, SELFPAY ==
--- NOTE | ~2024-09-12 | CT_ITS ---
CLINICAL HISTORY: N28.89 - Other specified disorders of kidney and ureter CT chest with contrast Comparison: None Findings: The heart size is normal. Atherosclerosis calcification of the coronary artery. The visualized thyroid and mediastinum are unremarkable. No consolidation. 4.5 mm para fissure nodular density of the right middle lobe series 6, image 70. There are gallstones in the gallbladder. The bones are intact. IMPRESSION: Small indeterminate para fissural nodular density of the right middle lobe. Fleischner Society 2017 Guidelines for incidentally detected indeterminate nodules in persons 35 years of age or older. Single Solid Nodules: 5 mm or smaller nodules need no follow-up in low risk, and [address] follow-up is optional in high risk patients. 6-8 mm nodules have optional [address] follow-up in low risk, and 6-[address] follow-up followed by 18-[address] follow-up if no change in high risk patients. 9 mm or larger nodules should consider CT, PET/CT, or biopsy at 3 months regardless of patient risk. Multiple Solid Nodules: 5 mm or smaller nodules need no follow-up in low risk, and [address] follow-up is optional in high risk patients. 6-8 mm nodules need 3-[address] follow-up followed by an optional 18-[address] follow-up regardless of patient risk. 9 mm or larger nodules should consider 3-[address] follow-up. For low risk 18-24 month follow-up is optional, whereas for high risk it is needed. Single Ground Glass Nodules: 5 mm or smaller nodules need no followup 6 mm and larger nodules need CT at 6-12 months to confirm persistence, then CT every 2 years until 5 years Single Subsolid Nodules: 5 mm or smaller nodules need no followup 6 mm and larger nodules need CT at 3-6 months to confirm persistence. If no change and solid component /T/lt;6 mm, then CT every year until 5 years Multiple Ground Glass or Subsolid Nodules: 5 mm or smaller nodules need CT at 3-6 months. If stable, optional CT at 2 and 4 years. 6 mm or larger nodules need CT at 3-6 months. Subsequent management based on most suspicious nodule This document has been electronically signed by: Gurvinder Umaña MD on 09/13/2024 13:21:58
[2024-09-12] MEDS: iohexoL 350 MG/ML 75 ML INFUS..BTL 65 ML IV (16:12)
--- OUTSIDE RECORDS SUMMARY | 2024-09-12 18:42 | XMS_ITS | Clinical Summary ---
Author Organization [facility] Address [address] [place] [address] Care Team Providers Care Human Resource Internship Name Role Phone Unavailable Primary Care Provider [...] 65+ (2 of 2 - PCV) 04/02/202004/02 [id number] (2 - 2023- season) 2024 021 Imm-Influenza (#1) 2024 04/09/2021, 04/02/2019 Alcohol and Drug Screen 06/21/2024 Depression Annual Screen 06/21/2024 Imm-DTaP/Tdap/Td (2 - Td or Tdap) 01/31/2030 020 [facility] [place]
[2024-09-13 10:12] LABS: GFR POC > 60
== END 2024-09-12 15:00 | disposition home or self-care (01) ==
LOC: HO.CT 14:59
PROVIDERS: PCP Family Medicine; Visit Provider Nurse Practitioner Family
DX: N28.89 Other specified disorders of kidney and ureter (principal)
CPT/HCPCS: 71260; 82565; 99212; Q9967

== ENCOUNTER → 2024-09-12 15:02 | Outpatient (BNV) | payer MEDICARE, MEDICAID, SELFPAY | PROVIDERS: PCP Family Medicine; Visit Provider Nuclear Medicine | DX: I25.10 Atherosclerotic heart disease of native coronary artery without angina pectoris (principal); R91.8 Other nonspecific abnormal finding of lung field | CPT/HCPCS: 71260 ==

== ENCOUNTER → 2024-10-02 10:21 | Outpatient (REF) | payer MEDICARE, MEDICAID, SELFPAY ==
--- OUTSIDE RECORDS SUMMARY | 2024-10-02 11:49 | XMS_ITS | Clinical Summary ---
Author Organization [facility] Address [address] [place] [address] Care Team Providers Care Wool Hat Finisher Name Role Phone Unavailable Primary Care Provider [...] 65+ (2 of 2 - PCV) 04/02/202004/02 [id number] (2 - 2023- season) 2024 021 Imm-Influenza (#1) 2024 04/09/2021, 04/02/2019 Alcohol and Drug Screen 06/21/2024 Depression Annual Screen 06/21/2024 Imm-DTaP/Tdap/Td (2 - Td or Tdap) 01/31/2030 020 [facility] [place]
== END ==
LOC: HO.SL 10:21
PROVIDERS: PCP Family Medicine; Visit Provider Physician Assistant Medical
DX: G47.30 Sleep apnea, unspecified (principal); G47.9 Sleep disorder, unspecified; R53.83 Other fatigue
CPT/HCPCS: 95806

== ENCOUNTER → 2024-10-02 10:45 | Outpatient (BNV) | payer MEDICARE, MEDICAID, SELFPAY | PROVIDERS: PCP Family Medicine; Visit Provider Psychiatry & Neurology Neurology | DX: G47.33 Obstructive sleep apnea (adult) (pediatric) (principal) | CPT/HCPCS: 95806 ==

== ENCOUNTER 2024-10-11 09:56 | Outpatient (AMB) | payer MEDICARE, MEDICAID, SELFPAY ==
--- NOTE | 2024-10-11 10:10 | MHC.PC.OV ---
Vital Signs 10/11/24 10:13 Height 5 ft 11 in Weight 226 lb 6 oz BMI 31.6 BP 130/80 Blood Pressure Location Rt brachial Position Sitting Respiration 16 Pulse 75 Pulse Source Pulse Oximeter Temp 97.5 F Temp Source Oral Pulse Oximetry (%) 97 Oxygen Delivery Method Room Air Intake Visit Reasons: f/u chronic conditions Intake Note: patient is scheduled for chronic conditions Pricing Coordinator Required: No Allergies No Known Allergies [No Known Allergies*] Allergy (Verified 10/11/24 10:11) Tobacco use date assessed: 09/28/23 Dental Screening Dental Screen Date: 09/28/23 HPI f/u chronic conditions HPI Details 74 y/o male presents to f/u chronic conditions. Has been following up with endocrinology for diabetes. Continuous glucose mintor last month indicated A1c 6.5% with some lows. They had decreased Tresiba a bit. Blood pressure today 130/80, 75p. He is on lisinopril 10mg daily. He notes he had been following up with neurology for cognitive decline, fatigue. [facility] Medical History Nephropathy Arthritis GERD (gastroesophageal reflux disease) Diabetes Unsteady gait Physical deconditioning Insomnia Anxiety Depression Diabetic retinopathy Diabetic neuropathy Back pain Pancreatic cyst Chronic renal insufficiency Fibromyalgia Renal mass History of CVA (cerebrovascular accident) Neuropathy Essential hypertension Surgical History Hx of cataract extraction History of esophagogastroduodenoscopy (EGD) H/O colonoscopy Social History Household Members: Family Housing: House Are you a primary respiratory care specialist to a significant other at home: No Do you presently have visiting nurse or other home services: No Alcohol intake: never Comment: PT refuse bed alarm Patient Tobacco Use Status: Former Tobacco user Tobacco use type: Cigarette Years Smoked: 20 e-Cigarette/Vaping Use: Never Used Second Hand Smoke Exposure: No service: No Current occupational status: disabled Current occupational exposures/hazards: No Cognitive needs: Yes (Cane) Hearing needs: No Vision needs: Yes (Glasses) Questionnaire Thrive Questionnaire Date Thrive assessed: 07/08/22 SHAYNA-7 AMB Questionnaire SHAYNA-7 Date SHAYNA - 7 assessed: 02/02/23 Source: Developed by Drs. Tam Andrews, Cathy Barajas, Jesse Stewart and colleagues, with an educational carolin from [employer]. Review of Systems Const Denies chills, Denies fatigue, Denies fever(s), Denies headache(s) and Denies weakness ENT Denies dizziness and Denies headache(s) Card Denies chest pain, Denies lightheadedness, Denies dyspnea and Denies other (Palpitations) Resp Denies cough, Denies dyspnea, Denies wheezing and Denies other ( shortness of breath) Musc Denies numbness and Denies tingling Neuro Denies dizziness, Denies headache(s), Denies numbness, Denies tingling, Denies paresthesias and Denies weakness Psych Denies anxiety and Denies depression Endo Denies fatigue Aller/Immun Denies wheezing Physical exam (Primary Care) Vital Signs: Last Vital Signs Temp 97.5 F 10/11/24 10:13 Pulse 75 10/11/24 10:13 Resp 16 10/11/24 10:13 BP 130/80 10/11/24 10:13 Pulse Ox 97 10/11/24 10:13 Oxygen Delivery Method Room Air 10/11/24 10:13 BMI result Body Mass Index 31.6 Tobacco/Smoking Status: Tobacco use Status Tobacco use date assessed 09/28/23 10/11/24 10:16 Patient Tobacco Use Status Former Tobacco user 10/11/24 10:16 Tobacco use type Cigarette 10/11/24 10:16 e-Cigarette/Vaping Use Never Used 10/11/24 10:16 Thrive Assessment: Date of Thrive Assessment Date Thrive assessed 07/08/22 10/11/24 10:16 Const General: no acute distress and well developed Nutritional Appearance: well nourished Orientation/consciousness: patient oriented x3 HENMT Head: Yes normocephalic and Yes atraumatic Eyes General: appearance normal, both eyes and all related structures Pupils: Equal, round and reactive pupils present EOM: EOMs intact bilaterally Resp Effort & Inspection: normal respiratory effort Auscultation: clear to auscultation bilaterally Cardio Rate: regular rate Rhythm: regular rhythm Heart sounds: S1 normal heart sound present, S2 normal heart sound present, no gallops, no murmurs and no rubs Neuro Other: RLE weakness General: patient oriented x3 and No gait normal Cranial nerves: Yes Equal, round and reactive pupils present Psych Affect: normal affect Coding Level of Care Code Est Pt Level 4 (72925) Diagnoses Type 2 diabetes mellitus with diabetic polyneuropathy, with long-term current use of insulin E11.42; Z79.4 Diabetes mellitus complication detail: with polyneuropathy Diabetes mellitus complication status: with neurologic complications Diabetes mellitus buttermaker continuous churn insulin use: with senior care use Diabetes mellitus type: type 2 Essential hypertension I10 Pancreatic cyst K86.2 Fatigue R53.83 Lower extremity weakness R29.898 Unsteady gait R26.81 Assessment & Plan Assessment & Plan (1) Diabetes: Code(s): E11.9 - Type 2 diabetes mellitus without complications Category: Medical Qualifiers: Diabetes mellitus complication detail: with polyneuropathy Diabetes mellitus complication status: with neurologic complications Diabetes mellitus senior care insulin use: with buttermaker continuous churn use Diabetes mellitus type: type 2 Qualified Code(s): E11.42 - Type 2 diabetes mellitus with diabetic polyneuropathy; Z79.4 - termite 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 He?was?getting?some?hypoglycemia?in?the?decreased?Tresiba Continue?medication?regimen (2) Essential hypertension: Code(s): I10 - Essential (primary) hypertension Category: Medical Plan: Blood?pressure?is?fairly well controlled.??Goal?is?less?than?130/80 Continue?current?medications (3) Pancreatic cyst: Code(s): K86.2 - Cyst of pancreas Category: Medical Plan: 7?mm?pancreatic?head?cyst?seen?incidentally?on?MRI?December?2023?and?recommended?2?year?follow-up. Seen?again?in?August 2024.??No?significant?change. Will?repeat?imaging?in?about?a?year? (4) Fatigue: Code(s): R53.83 - Other fatigue Category: Medical Plan: Some?ongoing?fatigue. He?has?a?sleep?study?completed?and?will?follow-up?with?Neurology?regarding?this I?have?ordered?[facility]NA?for?physical?therapy?at?home?for?deconditioning?as?well?as?lower?extremity?weakness?and?unsteady?gait. (5) Lower extremity weakness: Code(s): R29.898 - Other symptoms and signs involving the musculoskeletal system Category: Medical Plan: As?above?VNA?strength?balance Neurology?has?or?a?wheelchair?for?patient?for?long?distances.??He?has?a?cane?for?short?distances (6) Unsteady gait: Code(s): R26.81 - Unsteadiness on feet Category: Medical Plan: As?above Orders: Orders MR abdomen wo/w con 1 Year K86.2 - Cyst of pancreas [facility]errals [facility] Referral I63.9 - Cerebral infarction, unspecified, R26.81 - Unsteadiness on feet, R29.898 - Other symptoms and signs involving the musculoskeletal system, R53.81 - Other malaise Medications: Refilled meclizine 25 mg PO Q8H 30 days PRN 30 tabs 1RF Dizziness
[2024-10-11 10:13] VITALS: BP 130/80; PULSE 75; RESP 16; TEMP 36.4; O2SAT 97; BMI 31.6
--- OUTSIDE RECORDS SUMMARY | 2024-10-11 11:24 | XMS_ITS | Clinical Summary ---
Author Organization [facility] Address [address] [place] [address] Care Team Providers Care Supervisor Pyrotechnic Loading Name Role Phone Unavailable Primary Care Provider [...] 65+ (2 of 2 - PCV) 04/02/202004/02 [id number] (2 - 2023- season) 2024 021 Imm-Influenza (#1) 2024 04/09/2021, 04/02/2019 Alcohol and Drug Screen 06/21/2024 Depression Annual Screen 06/21/2024 Imm-DTaP/Tdap/Td (2 - Td or Tdap) 01/31/2030 020 [facility] [place]ENTAL [place]
== END 2024-10-11 10:49 | disposition home or self-care (01) ==
LOC: HO.HMCFM 09:56
PROVIDERS: PCP Family Medicine; Visit Provider Family Medicine
DX: E11.42 Type 2 diabetes mellitus with diabetic polyneuropathy (principal); Z79.4 Long term (current) use of insulin; I10 Essential (primary) hypertension; K86.2 Cyst of pancreas; R53.83 Other fatigue; R29.898 Other symptoms and signs involving the musculoskeletal system; R26.81 Unsteadiness on feet

== ENCOUNTER → 2024-10-11 09:56 | Outpatient (BNVA) | payer MEDICARE, MEDICAID, SELFPAY | PROVIDERS: PCP Family Medicine; Visit Provider Family Medicine | DX: E11.42 Type 2 diabetes mellitus with diabetic polyneuropathy (principal); I10 Essential (primary) hypertension; K86.2 Cyst of pancreas; R53.83 Other fatigue; R26.81 Unsteadiness on feet; R29.898 Other symptoms and signs involving the musculoskeletal system; Z79.4 Long term (current) use of insulin | CPT/HCPCS: 99212 ==

== ENCOUNTER 2024-11-07 14:29 | Outpatient (AMB) | payer MEDICARE, MEDICAID, SELFPAY ==
--- NOTE | 2024-11-07 14:37 | MHC.OFFVIS ---
Vital Signs 11/07/24 14:39 Height 5 ft 11 in Weight 228 lb BMI 31.8 Pulse 60 Pulse Source Pulse Oximeter Pulse Oximetry (%) 98 Oxygen Delivery Method Room Air Intake Visit Reasons: 2 mnts f/u Intake Note: Patient presents follow up Cognitive decline. MRI report in chart. Patient needs electric wheelchair. Allergies No Known Allergies [No Known Allergies*] Allergy (Verified 11/10/24 14:20) HPI Comments Details: 74 year old r. handed male presents for sleep evaluation referred to us by Dr Graff. H/O CVA Apr 2022, acute ischemic infarction with punctate l. corpus collosum. HST 09/2024 AHI is 22 and oxygen Navin is 69%, start cpap therapy at 5-20cm H20, will f/u for compliance. He is not sleeping well, goes to bed at 1030pm, he stays up most of the night, and feels exhausted most days. He has insomnia, and multiple trips to the bathroom at night, he feels dizzy and off balance.He moves from his bed to the reclining chair, then back to the bed throughout the night and paces back and forth. He is unable ambulate safely for longer than a few minutes, he is limited to the recliner or the bed, unable to maneuver a manual wheel chair as he lacks the motor strength to do so. He holds on to his or the lay in the house to transfer from his bed to the recliner and feels confined to his bedroom. He c/o nocturia, headaches, and cognitive decline. He has difficulty recalling words, lack of focus and attention, loses train of thought in conversation, forgetful of tasks and no longer drives.He has difficulty walking, transferring, toileting, and he needs help with all his ADLs. His is his primary health care legal assistant, she helps him get dressed, bathing, meals and eating. He c/o burning pain on dorsal aspect of feet, uses a cane to ambulate less than 200feet in the house and feels trapped in the house, as he feels dizzy and has had many near falls during the day. He is unable to get out of his chair without help, he doesn't leave the house because he is afraid to fall. He had a fall in the home, did not hit his head, but was unable to get up for 2 hours from the floor as he is de-conditioned and does not have the upper motor strength to push himself out of a chair or pick himself up off the ground to stand. Today he reluctantly requests a wheel chair for fall prevention as he is extremely weak in his upper body and lower body motor strength, he feels embarrassed to ask for help, despite having family support, he gets frustrated to be a burden upon others. He feels depressed, and isolated being in the home and most of his days are spent sitting in a recliner. He has difficulty with most of his daily tasks and drops things easily from his hands, like cups and plates. His A1c is elevated and is being managed by his Endocrine on short and long acting insulin. His blood pressure is well managed. He has daily headaches, with dizziness, vertigo, nausea, and balance, gait difficulties and weakness of upper motor strength and lower extremities. He denies photophobia/ phonophobia, n/v and sensitivity to smells. He recently had an abdominal MRI and renal mass on l. kidney. [facility] Medical History Nephropathy Arthritis GERD (gastroesophageal reflux disease) Diabetes Unsteady gait Physical deconditioning Insomnia Anxiety Depression Diabetic retinopathy Diabetic neuropathy Back pain Pancreatic cyst Chronic renal insufficiency Fibromyalgia Renal mass History of CVA (cerebrovascular accident) Neuropathy Essential hypertension Surgical History Hx of cataract extraction History of esophagogastroduodenoscopy (EGD) H/O colonoscopy Social History Household Members: Family Housing: House Are you a primary health care legal assistant to a significant other at home: No Do you presently have visiting nurse or other home services: No Alcohol intake: never Comment: PT refuse bed alarm Patient Tobacco Use Status: Former Tobacco user Tobacco use type: Cigarette Years Smoked: 20 e-Cigarette/Vaping Use: Never Used Second Hand Smoke Exposure: No service: No Current occupational status: disabled Current occupational exposures/hazards: No Cognitive needs: Yes (Cane) Hearing needs: No Vision needs: Yes (Glasses) Physical Exam Vital Signs: Last Vital Signs Pulse 60 11/07/24 14:39 Pulse Ox 98 11/07/24 14:39 Oxygen Delivery Method Room Air 11/07/24 14:39 BMI result Body Mass Index 31.8 Const General: cooperative, anxious and tired appearing Nutritional Appearance: obese Orientation/consciousness: patient oriented x3 Limitations: ambulation with walker and wheelchair HEENT Ears: hearing grossly normal bilaterally Face and sinus: Yes other (assymetric facial exam l side droop) Teeth and gingiva: other Throat: Yes other (mallampti score of 3) Eyes Pupils: Equal, round and reactive pupils present Neck Neck: Yes other (Limited rom due to vertigo) Resp Effort & Inspection: normal respiratory effort and able to speak in complete sentences Neuro General: patient oriented x3 Cranial nerves: Yes Facial sensation intact/muscles of mastication intact, Yes Equal, round and reactive pupils present, Yes Normal accommodation reflex present, Yes Normal facial strength present, Yes Midline tongue present and Yes Ability to bilaterally rotate head present (limited rom to the l/r) Gait exam (Neuro): Assisted gait required and Assistive device used (rolling walker or wheel chair) Motor exam (neuro): Normal motor muscle tone present throughout (lower extremities), Abnormal motor strength present (3/5 Upper motor strenght) bilateral upper extremity flexion 3 / 5, extension 3 / 5, ABduction 2 / 5, ADduction 2 / 5 and opposition 3 / 5, bilateral lower extremity flexion Negative for 2 / 5, extension 2 / 5, ABduction 3 / 5, ADduction 3 / 5 and opposition 2 / 5, Abnormal muscle tone present (deconditioning lower and upper extremities) bilateral distal and Motor abnormalites present (slowed movements) Deep tendon reflexes (DTR's): Right triceps reflex intensity grade: 1+, Left triceps reflex intensity grade: 1+, Rt Biceps (C5, C6): 1+, Left biceps reflex intensity grade: 1+, Right brachioradialis reflex intensity grade: 1+, Left brachioradialis reflex intensity grade: 1+, Right patellar reflex intensity grade: 1+, Left patellar reflex intensity grade: 1+, Right ankle reflex intensity grade: 1+ and Left ankle reflex intensity grade: 1+ Coordination: [id number] test normal and Romberg test positive Romberg Test: Positive Extrem Other: muscle atrophy upper extremities bilaterally General: Yes muscle atrophy (bilateral upper and lower extremity) Right upper extremity: shoulder/upper arm Details: abnormal ROM (limited extension and flexion bilateral upper extremiteis) Psych Appearance: well kempt Mental Status: mental status grossly normal Speech and movement: Slowed movement present (Neuro) Attitude: cooperative Thought process: Normal thought process present Thought content: Normal thought content present Results Reviewed Results Reviewed: reviewed labs with patient today glucose is elevated, renal cystic mass. MRI Apr 2022 No acute intracaranial pahtology is seen. 2. slight progression of nonspecific periventricular T2 hyperintense foci suggestive of chronic microvascular ischemic or gliotic changes, chronic demyelinating foci can have similar appearance, 3. small lacunar infarction with in the basal ganglia and cerebral white matter as before. 4. Generalized volume loss MRI Lumbar 12/2022 L1/L2 no stenosis L2/L3 spinal canal stenosis, L4/L5, Severe facet arthropathy, L5/S1 Disc Bulging arthropahty of the facet, with multilevel degenerative changes at L4/L5 spinal canal stenosis, neural foraminal stenosis R>L, with spondylolytic chagnes. HST 09/2024 AHI is 22 and oxygen Navin is 69%, start cpap therapy at 5-20cm H20, will f/u for compliance. Assessment & Plan Assessment & Plan (1) JOSÉ LUIS (obstructive sleep apnea): Code(s): G47.33 - Obstructive sleep apnea (adult) (pediatric) Category: Medical (2) Fatigue due to depression: Comment: recommended he follow up with [facility]TRAN or a good family friend, to speak with. Code(s): F32.A - Depression, unspecified; R53.83 - Other fatigue Category: Medical (3) Cognitive decline: Comment: continue to stay active with friends and family, socialize, puzzles, and make time to rest. Code(s): R41.89 - Other symptoms and signs involving cognitive functions and awareness Category: Medical (4) Weakness of both upper extremities: Comment: Referral to PT- deconditioning Code(s): R29.898 - Other symptoms and signs involving the musculoskeletal system Category: Medical (5) Weakness of both lower extremities: Comment: Referral to PT- strenght training Code(s): R29.898 - Other symptoms and signs involving the musculoskeletal system Category: Medical (6) CVA (cerebral vascular accident): Code(s): I63.9 - Cerebral infarction, unspecified Category: Medical Qualifiers: CVA mechanism: unspecified Qualified Code(s): I63.9 - Cerebral infarction, unspecified (7) Impaired functional mobility, balance, gait, and endurance: Code(s): Z74.09 - Other reduced mobility Category: Medical Plan HST 09/2024 AHI is 22 and oxygen Navin to 69% start cpap at [id number] and f/u for compliance, cpap rx sent to [facility]. Cognitive Decline MRI compare with old MRI and Lacunar Infarcts. Powered Wheel Chair to prevent injury due to risk of falls, with balance and gait instability. Headaches will evaluate after MRI, start seroquel 25mg PO daily for insomnia. f/u in 3 months for compliance Medications: Changed From quetiapine 25 mg PO BEDTIME PRN Insomnia G47.00 - Insomnia, unspecified To quetiapine (Seroquel) 25 mg PO daily at night. 25 mg PO BEDTIME PRN 30 tabs 2RF Insomnia 90 days MDD 25mg G47.00 - Insomnia, unspecified Refilled topiramate 50 mg PO BID 60 tabs 0RF M79.7 - Fibromyalgia Patient Instructions: Sleep Hygiene provided: set a scheduled bedtime and wake time to help regulate the circadian rhythm and balance the release of pituitary hormones. Sleep in a dark room, temperatures below 68 degrees, and no devices n bed. Limit caffeinated products 6 hours prior to bed, and limit fluids 2-4 hours prior to bed. Gentle night yoga, diffusing essential oils, and playing soft music can be relaxing. Coding Level of Care Code Est Pt Level 4 (91871) Complex EM visit Add On G2211 Diagnoses JOSÉ LUIS (obstructive sleep apnea) G47.33 Fatigue due to depression F32.A; R53.83 Cognitive decline R41.89 Weakness of both upper extremities R29.898 Weakness of both lower extremities R29.898 Cerebrovascular accident (CVA), unspecified mechanism I63.9 CVA mechanism: unspecified Impaired functional mobility, balance, gait, and endurance Z74.09 Time Spent (min) 30 Comment Worsening falls
[2024-11-07 14:39] VITALS: PULSE 60; O2SAT 98; BMI 31.8
--- OUTSIDE RECORDS SUMMARY | 2024-11-07 15:52 | XMS_ITS | Clinical Summary ---
Author Organization [facility] Address [address] [place] [address] Care Team Providers Care Guest Services Name Role Phone Unavailable Primary Care Provider [...] 65+ (2 of 2 - PCV) 04/02/202004/02 [id number] (2 - 2023- season) 2024 021 Imm-Influenza (#1) 2024 04/09/2021, 04/02/2019 Alcohol and Drug Screen 06/21/2024 Depression Annual Screen 06/21/2024 Imm-DTaP/Tdap/Td (2 - Td or Tdap) 01/31/2030 020 [facility] DENTAL [place]AL
--- OUTSIDE RECORDS SUMMARY | 2024-11-07 15:52 | XMS_ITS | Clinical Summary ---
Author Organization [address] [place] [address] Address [address] [place] [address] Phone Care Team Providers Care Assistant Boiler Operator Name Role Phone John Graff MD Primary Care Provider Social History Tobacco Use Types Packs/Day Years Used Date Smoking Tobacco: Never Assessed Sex and Gender Information Value Date Recorded Sex Assigned at Not on file Legal Sex Male 3:51 AM EST Gender Identity Not on file Sexual Orientation Not on file Plan of Treatment Upcoming Encounters Date Type Department Care Team ([facility] Contact Info) Description 11/20/2024 2:30 PM EDT Consult Orthopedic Surgery [address] [phone] Troy Lebron DPM [address] [address] Health Maintenance Due Date Last Done Comments Diabetes: Annual GFR (Glomer ular Filtration Rate) 1951 Diabetes: Annual Foot Exam 08/23/1961 Diabetes: Annual Retina Eye Exam 08/23/1961 DTaP,Tdap,and Td Vaccines (1 - Tdap) 08/23/1970 Pneumococcal Vaccine: 50+ Ye ars (1 of 2 - PCV) 08/23/1970 Zoster Vaccines (1 of 2) 08/23/2001 RSV Immunization Adult Patie nts (1 - Risk 60-74 years 1-dose series) 2011 COVID-19 Vaccine ( - 2023-2 5 season) 2024 Abdominal Aortic Aneurysm (A AA) Screen 10/16/2024 Cholesterol Screening (Lipid Panel) 10/16/2024 Colorectal Cancer Screening: Colonoscopy 10/16/2024 Depression Screening 10/16/2024 Diabetes: Annual Urine Albumin-Creatinine Ratio (uACR) 10/16/2024 Diabetes: Blood Sugar Contro l Test (HGBA1C) 10/16/2024 Falls Risk Assessment 10/16/2024 Hepatitis C Screening 10/16/2024 Medicare Annual Wellness Visit 10/16/2024 Social Influencers of Health Screening 10/16/2024 Influenza Vaccine (Season Ended) 2025 HIB Vaccines Aged Out No longer eligi ble based on patient's age to complete this topic HPV Vaccines Aged Out No longer eligi ble based on patient's age to complete this topic Hepatitis A Vaccines Aged Out No long er eligible based on patient's age to complete this topic Hepatitis B Vaccines Aged Out No long er eligible based on patient's age to complete this topic IPV Vaccines Aged Out No longer eligi ble based on patient's age to complete this topic MMR Vaccines Aged Out No longer eligi ble based on patient's age to complete this topic Meningococcal ACWY Vaccine Aged Out N o longer eligible based on patient's age to complete this topic Meningococcal B Vaccine Aged Out No l onger eligible based on patient's age to complete this topic RSV Immunization Patients Un kaylee 20 months Aged Out No longer eligible b ased on patient's age to complete this topic Varicella Vaccines Aged Out No longer eligible based on patient's age to complete this topic Insurance MEDICARE MEDICAID - [place] Care Teams Assistant Boiler Operator Relationship Specialty Start Date End Date John Graff MD [address] [place] [address] Dr Scarlet [place] PCP - General Family Medicine 10/16/24
== END 2024-11-07 15:42 | disposition home or self-care (01) ==
LOC: HO.HSMS 14:29
PROVIDERS: PCP Family Medicine; Visit Provider Physician Assistant Medical
DX: G47.33 Obstructive sleep apnea (adult) (pediatric) (principal); F32.A Depression, unspecified; R53.83 Other fatigue; R41.89 Other symptoms and signs involving cognitive functions and awareness; R29.898 Other symptoms and signs involving the musculoskeletal system; I69.30 Unspecified sequelae of cerebral infarction; Z74.09 Other reduced mobility
CPT/HCPCS: 99214; G2211

== ENCOUNTER → 2024-11-07 14:29 | Outpatient (BNVA) | payer MEDICARE, MEDICAID, SELFPAY | PROVIDERS: PCP Family Medicine; Visit Provider Physician Assistant Medical | DX: G47.33 Obstructive sleep apnea (adult) (pediatric) (principal); F32.A Depression, unspecified; R53.83 Other fatigue; R41.89 Other symptoms and signs involving cognitive functions and awareness; R29.898 Other symptoms and signs involving the musculoskeletal system; Z74.09 Other reduced mobility; Z86.73 Personal history of transient ischemic attack (TIA), and cerebral infarction without residual deficits | CPT/HCPCS: 99212 ==

== ENCOUNTER 2024-11-10 14:15 | Outpatient (AMB) | payer MEDICARE, MEDICAID, SELFPAY ==
--- NOTE | 2024-11-10 12:25 | A.OFFVIS_ITS ---
Vital Signs 11/10/24 14:29 Height 5 ft 11 in Weight 231 lb 7.766 oz BMI 32.3 BP 150/70 H Blood Pressure Location Rt brachial Position Sitting Pulse 62 Pulse Source Pulse Oximeter Pulse Oximetry (%) 98 Oxygen Delivery Method Room Air Intake Visit Reasons: T2DM Intake Note: Patient presents today for a follow-up on Type 2 Diabetes Mellitus: Last Diabetic Eye exam: 09/21/2024 [facility] Last Podiatry Exam: Does not see a Fire Prevention Inspector Most recent HbA1c: 7.4%, 11/10/2024 Random Glucose- 212 mg/dL, Today Greeter Guest Services Required: No Accompanied by: Self / Same As Patient Allergies No Known Allergies [No Known Allergies*] Allergy (Verified 11/10/24 14:20) HPI Comments Details: 74 YO M who is seen in follow up for type 2 diabetes. He was last seen by Dr. Rosio Alegre on 07/06/2024. Hemoglobin A1c 11/10 7.4% 05/10/2024 7.8%. He had hypoglycemia prior to Dr. Alegre's visit which had resolved with reduction in insulin dosing. Initially diagnosed with T2DM approx 2004 Was initially started on treatment with metformin. Had been on Trulicity which was ineffective and he was switched over to Ozempic. This was reduced from 1 mg to 0.25mg weekly. He is now back up to .5mg weekly Current regimen: metformin 1000 mg BID Tresiba he has been taking 32 units twice daily and at times adds additional Humalog Breakfast 25 units Lunch 25 units Supper 25 units jardiance 25 mg QD Ozempic 0.5mg weekly Freestyle average glucose: 145 14 day continuous glucose monitor report reviewed Glucose Managment indicator 6.8 % TIme in ranges: Four % very high (above 250) 20 % high ?(181-250) 76 % in range ?(70-180] 0 % low (69-55) 0 % ?very low (below 54) Interpretation excellent control No Family history of T2DM Has retinopathy: Last eye exam 09/12 injection both eyes Has neuropathy, on gabapentin has numbness, tingling, no pain or cramping in lower extremities, would like to see podiatry Has nephropathy, on Lico inhibitor 05/04/24 129 eGFR>60 Has HLD, on statin. 09/15/23 169 No CAD. Hx of CVA Has a appointment with neurologist due to decreasing memory. [facility] Medical History Nephropathy Arthritis GERD (gastroesophageal reflux disease) Diabetes Unsteady gait Physical deconditioning Insomnia Anxiety Depression Diabetic retinopathy Diabetic neuropathy Back pain Pancreatic cyst Chronic renal insufficiency Fibromyalgia Renal mass History of CVA (cerebrovascular accident) Neuropathy Essential hypertension Surgical History Hx of cataract extraction History of esophagogastroduodenoscopy (EGD) H/O colonoscopy Social History Household Members: Family Housing: House Are you a primary memory care director to a significant other at home: No Do you presently have visiting nurse or other home services: No Alcohol intake: never Comment: PT refuse bed alarm Patient Tobacco Use Status: Former Tobacco user Tobacco use type: Cigarette Years Smoked: 20 e-Cigarette/Vaping Use: Never Used Second Hand Smoke Exposure: No service: No Current occupational status: disabled Current occupational exposures/hazards: No Cognitive needs: Yes (Cane) Hearing needs: No Vision needs: Yes (Glasses) Physical Exam Vital Signs: Last Vital Signs Pulse 62 11/10/24 14:29 BP 150/70 H 11/10/24 14:29 Pulse Ox 98 11/10/24 14:29 Oxygen Delivery Method Room Air 11/10/24 14:29 BMI result Body Mass Index 32.3 Const Other: Absence of Cushingoid features. Absence of acromegalic features. Neck exam reveals nl size thyroid about 15 gms. No thyroid nodules palpable. Heart S1 S2, Reg R/R. No M/R G. Skin exam reveals absence of vitiligo or acanthosis nigricans. No edema Visual exam of foot performed. No ulcerations or open lesions. Results Reviewed Results Reviewed: Laboratory Last Values Glucose (Clinic) 212 mg/dL (60-115) H 11/10/24 14:37 Assessment & Plan Assessment & Plan (1) Diabetes type 2, uncontrolled: Code(s): E11.65 - Type 2 diabetes mellitus with hyperglycemia Category: Medical Qualifiers: Glycemic state: with hyperglycemia Qualified Code(s): E11.65 - Type 2 diabetes mellitus with hyperglycemia Plan: 74-year-old type 2 diabetic with retinopathy, neuropathy and a frothy with the an A1c of 7.4%. He is having some memory issues and we will be seeing a neurologist. We will continue all of his current medications. I would recommend since he is on multiple daily injections that he continue with freestyle glucose sensor would recommend recommend an upgrade to freestyle Nikole 3+ as freestyle to his being discontinued Orders: Orders AMB Hemoglobin A1c 11/10/24 E11.42 - Type 2 diabetes mellitus with diabetic polyneuropathy, Z79.4 - alf (current) use of insulin Medications: New insulin degludec (Tresiba FlexTouch U-200 insulin) 60 units (0.3 mL) subcut DAILY 27 mL 3RF 90 days Changed From Humalog KwikPen Insulin Inject 25 units subcutaneous daily with breakfast, 20 units daily with dinner. If you eat lunch take 20 units with lunch; 90 days 45 mL 3RF NS To Humalog KwikPen Insulin (insulin lispro) Inject 25 units subcutaneous tid before meals 45 mL 3RF 90 days NS Discontinued insulin degludec Discontinued Reason: Doctor's Order 35 units am 32 units pm subcutaneously 2 times a day; 90 days 63 mL 4RF Coding Level of Care Code Est Pt Level 4 (98962) Complex EM visit Add On G2211 Diagnoses Uncontrolled type 2 diabetes mellitus with hyperglycemia E11.65 Glycemic state: with hyperglycemia Time Spent (min) 30 Comment Time spent reviewing labs/provider notes, face to face, chart doc
--- OUTSIDE RECORDS SUMMARY | 2024-11-10 14:17 | XMS_ITS | Clinical Summary ---
Author Organization [facility] Address [address] [place] [address] Care Team Providers Care Repeater Operator Name Role Phone Unavailable Primary Care Provider [...] 65+ (2 of 2 - PCV) 04/02/202004/02 [id number] (2 - 2023- season) 2024 021 Imm-Influenza (#1) 2024 04/09/2021, 04/02/2019 Alcohol and Drug Screen 06/21/2024 Depression Annual Screen 06/21/2024 Imm-DTaP/Tdap/Td (2 - Td or Tdap) 01/31/2030 020 [facility] [place] [place]
[2024-11-10 14:29] VITALS: BP 150/70; PULSE 62; O2SAT 98; BMI 32.3
[2024-11-10 14:41] LABS: Glucose, Whole Blood 212 mg/dL (60-115)
== END 2024-11-10 15:09 | disposition home or self-care (01) ==
LOC: HO.ENCR 14:16
PROVIDERS: PCP Family Medicine; Visit Provider Nurse Practitioner Adult Health
DX: E11.65 Type 2 diabetes mellitus with hyperglycemia (principal)
CPT/HCPCS: 99214; G2211

== ENCOUNTER → 2024-11-10 14:15 | Outpatient (BNVA) | payer MEDICARE, MEDICAID, SELFPAY | PROVIDERS: PCP Family Medicine; Visit Provider Nurse Practitioner Adult Health | DX: E11.65 Type 2 diabetes mellitus with hyperglycemia (principal); Z79.4 Long term (current) use of insulin | CPT/HCPCS: 82947; 99212 ==

== ENCOUNTER 2024-12-08 15:03 | Outpatient (AMB) | payer MEDICARE, MEDICAID, SELFPAY ==
--- NOTE | 2024-12-08 12:23 | A.OFFVIS_ITS ---
Vital Signs 12/08/24 15:21 Height 5 ft 11 in Weight 235 lb 14.314 oz BMI 32.9 BP 136/78 Blood Pressure Location Rt brachial Position Sitting Pulse 69 Pulse Source Pulse Oximeter Pulse Oximetry (%) 95 Oxygen Delivery Method Room Air Intake Visit Reasons: T2DM Intake Note: Patient presents today for a follow-up on Type 2 Diabetes Mellitus: Last Diabetic Eye exam: 09/21/2024 [facility] Last Podiatry Exam: Does not see a Wicker Worker Most recent HbA1c: 7.4%, 11/10/2024 Random Glucose- 137 mg/dL, Today Wiring Technician Required: No Accompanied by: Self / Same As Patient Allergies No Known Allergies (No Known Allergies*) Allergy (Verified 12/08/24 15:22) HPI Comments Details: 74 YO M who is seen in follow up for type 2 diabetes. He was last seen 11/10/24. Hemoglobin A1c 11/10 7.4% 05/10/2024 7.8%. Initially diagnosed with T2DM approx 2004 Was initially started on treatment with metformin. Had been on Trulicity which was ineffective and he was switched over to Ozempic. This was reduced from 1 mg to 0.25mg weekly. He is now back up to .5mg weekly Had hypoglycemia when he was on Lantus insulin and was changed to Tresiba. Current regimen: metformin 1000 mg BID Tresiba 60 units once daily Humalog Breakfast 25 units Lunch 25 units Supper 25 units jardiance 25 mg QD Ozempic 0.5mg weekly Dexcom average glucose: [ 133 14 day continuous glucose monitor report reviewed Glucose Managment indicator 6.6 % Days with CGM data 92 % TIme in ranges: 3 % very high (above 250) 15 % high ?(181-250) 80 % in range ?(70-180] 2 % low (69-55) 0 % ?very low (below 54) Interpretation overnight lows No Family history of T2DM Has retinopathy: Last eye exam 09/12 injection both eyes Has neuropathy, on gabapentin has numbness, tingling, no pain or cramping in lower extremities, would like to see podiatry Has nephropathy, on Lico inhibitor 05/04/24 129 eGFR>60 Has HLD, on statin. 09/15/23 169 No CAD. Hx of CVA Has a appointment with neurologist due to decreasing memory. [facility] Medical History Nephropathy Arthritis GERD (gastroesophageal reflux disease) Diabetes Unsteady gait Physical deconditioning Insomnia Anxiety Depression Diabetic retinopathy Diabetic neuropathy Back pain Pancreatic cyst Chronic renal insufficiency Fibromyalgia Renal mass History of CVA (cerebrovascular accident) Neuropathy Essential hypertension Surgical History Hx of cataract extraction History of esophagogastroduodenoscopy (EGD) H/O colonoscopy Social History Household Members: Family Housing: House Are you a primary primary care nurse practitioner to a significant other at home: No Do you presently have visiting nurse or other home services: No Alcohol intake: never Comment: PT refuse bed alarm Patient Tobacco Use Status: Former Tobacco user Tobacco use type: Cigarette Years Smoked: 20 e-Cigarette/Vaping Use: Never Used Second Hand Smoke Exposure: No service: No Current occupational status: disabled Current occupational exposures/hazards: No Cognitive needs: Yes (Cane) Hearing needs: No Vision needs: Yes (Glasses) Physical Exam Vital Signs: Last Vital Signs Pulse 69 12/08/24 15:21 BP 136/78 12/08/24 15:21 Pulse Ox 95 12/08/24 15:21 Oxygen Delivery Method Room Air 12/08/24 15:21 BMI result Body Mass Index 32.9 Const Other: Absence of Cushingoid features. Absence of acromegalic features. Neck exam reveals nl size thyroid about 15 gms. No thyroid nodules palpable. Heart S1 S2, Reg R/R. No M/R G. Skin exam reveals absence of vitiligo or acanthosis nigricans. No edema Results Reviewed Results Reviewed: Laboratory Last Values Glucose (Clinic) 137 mg/dL (60-115) H 12/08/24 15:32 Assessment & Plan Assessment & Plan (1) Diabetes type 2, uncontrolled: Code(s): E11.65 - Type 2 diabetes mellitus with hyperglycemia Category: Medical Qualifiers: Glycemic state: with hyperglycemia Qualified Code(s): E11.65 - Type 2 diabetes mellitus with hyperglycemia Plan: 74-year-old type 2 diabetic with neuropathy, retinopathy and microalbuminuria with well-controlled diabetes with some lows overnight. Continue all current medications with the exception of decrease Tresiba to 56 units. The patient had an opportunity to ask questions regarding treatment plan. The patient expressed understanding and agreement with the above treatment plan. The patient is aware they should contact our office by phone for worsening glucose readings or for any low blood sugars which may warrant a change in diabetes medication. Compliance is encouraged with medications and any followup testing/consults which may have been ordered. Medications: Changed From insulin degludec (Tresiba FlexTouch U-200 insulin) 60 units (0.3 mL) subcut DAILY 90 days 27 mL 3RF To insulin degludec (Tresiba FlexTouch U-200 insulin) 56 units (0.28 mL) subcut DAILY 27 mL 3RF 90 days Refilled pen needle, diabetic 4 times a day As directed. 90 days 400 ea 2RF E11.65 - Type 2 diabetes mellitus with hyperglycemia flash glucose sensor (FreeStyle Nikole 2 Sensor kit) As directed change every 14 days 6 ea 3RF E11.65 - Type 2 diabetes mellitus with hyperglycemia Coding Level of Care Code Est Pt Level 4 (48144) Complex EM visit Add On G2211 Diagnoses Uncontrolled type 2 diabetes mellitus with hyperglycemia E11.65 Glycemic state: with hyperglycemia Time Spent (min) 30 Comment Time spent reviewing labs/provider notes, face to face, chart doc
--- OUTSIDE RECORDS SUMMARY | 2024-12-08 15:05 | XMS_ITS | Clinical Summary ---
Author Organization [facility] Address [address] [place] [address] Care Team Providers Care Videotape Sales Representative Name Role Phone Unavailable Primary Care Provider [...] 65+ (2 of 2 - PCV) 04/02/202004/02 [id number] (2 - season) 2024 021 Alcohol and Drug Screen 06/21/2024 Depression Annual Screen 06/21/2024 Imm-Influenza (Season Ended) 2025 04/09/2021, 04/02/2019 Imm-DTaP/Tdap/Td (2 - Td or Tdap) 01/31/2030 020 [facility] [place]
[2024-12-08 15:21] VITALS: BP 136/78; PULSE 69; O2SAT 95; BMI 32.9
[2024-12-08 15:37] LABS: Glucose, Whole Blood 137 mg/dL (60-115)
== END 2024-12-08 16:07 | disposition home or self-care (01) ==
LOC: HO.ENCR 15:04
PROVIDERS: PCP Family Medicine; Visit Provider Nurse Practitioner Adult Health
DX: E11.65 Type 2 diabetes mellitus with hyperglycemia (principal)
CPT/HCPCS: 99214; G2211

== ENCOUNTER → 2024-12-08 15:03 | Outpatient (BNVA) | payer MEDICARE, MEDICAID, SELFPAY | PROVIDERS: PCP Family Medicine; Visit Provider Nurse Practitioner Adult Health | DX: E11.65 Type 2 diabetes mellitus with hyperglycemia (principal); Z79.84 Long term (current) use of oral hypoglycemic drugs; Z79.4 Long term (current) use of insulin | CPT/HCPCS: 82947; 99212 ==

== ENCOUNTER 2024-12-18 14:14 | Outpatient (AMB) | payer MEDICARE, MEDICAID, SELFPAY ==
--- OUTSIDE RECORDS SUMMARY | 2024-12-18 14:47 | XMS_ITS | Clinical Summary ---
Author Organization [facility] Address [address] [place] [address] Care Team Providers Care Mandrel Press Hand Name Role Phone Unavailable Primary Care Provider [...] Aneurysm Screening 08/23/2016 Falls Prevention 08/23/2016 Imm-Pneumococcal 50+ (2 of 2 - PCV) 04/02/202004/02 [id number] (2 - season) 2024 021 Alcohol and Drug Screen 06/21/2024 Depression Annual Screen 06/21/2024 Imm-Influenza (Season Ended) 2025 04/09/2021, 04/02/2019 Imm-DTaP/Tdap/Td (2 - Td or Tdap) 01/31/2030 020 [facility] [place]
--- OUTSIDE RECORDS SUMMARY | 2024-12-18 14:47 | XMS_ITS | Patient Health Record ---
Author Organization [facility] Address [address] [place] [id number] Care Team Providers Care Machining Supervisor Name Role Phone Thea MASTERSON, Edgar Primary Care Provider Unavailab Tam Banda Unavailable [phone] Reason For Referral No Information Medications Medication SIG (Take, Route, Fr equency, Duration) Notes Start Date End Date Status Lantus 100 UNIT/ML Subcutaneous Active metFORMIN HCl 1000 MG 1 tablet with meal s Orally Twice a day Active Omeprazole 20 MG 1 capsule Orally Once a day Active Diflucan 100 MG 2 tablets on day # 1 , then 1 tablet QD for 6 days Orally Once a day for 7 days 05/28/2017 Active Januvia 100 MG 1 tablet Orally Once a day Active Invokana 300 MG 1 tablet Orally Once a day Active Social History Tobacco Use: Social History Observation Description Date Details (start date - stop date) Never Smoker NA - NA Tobacco Use/Smoking Question Answer Notes Patient is a nonsmoker Alcohol Screen Question Answer Notes Did you have a drink containing alcohol in the p ast year? 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 Problem 78369792 Esophageal dysphagia (R13.10) Active confirmed Problem 599328290 Esophageal diverticulum (Q39.6) Active confirmed Plan Of Treatment Pending Test Test Name Order Date XR BARIUM SWALLOW-ESOPHAGUS 06/04/2017 Future Test Test Name Order Date UPPER GI ENDOSCOPY BALLOOON DILATION OF ESOPH 05/20/2017 COLONOSCOPY 08/20/2017 Insurance Providers Payer Name Payer Address Payer Phone Subscriber Number Group Number Insured Name Patient Relationship to Insured Coverage Start Date Coverage End Date MEDICARE RUPALI LALA ÁNGEL [id number] [place] [id number] DEMETRIUS VILLAFUERTE Self - patient is the insured Medical (General) History Medical History History ICD Code IDDM Denies [place],CVA,Lung disease,renal disease EGD 05/2017--esophageal dive rticulum at 30cm, mild miesha esophagitis treated with a course of Diflucan, small HH--no esophagitis---a Barium swallow with a barium tablet did not show any sign of obstruction from the esophageal diverticulum
--- OUTSIDE RECORDS SUMMARY | 2024-12-18 14:47 | XMS_ITS | Clinical Summary ---
Author Organization [address] [place] [address] Address [address] [place] [address] Phone Care Team Providers Care Container Washer Name Role Phone John Graff MD Primary Care Provider Social History Tobacco Use Types Packs/Day Years Used Date Smoking Tobacco: Never Assessed Sex and Gender Information Value Date Recorded Sex Assigned at Not on file Legal Sex Male 3:51 AM EST Gender Identity Not on file Sexual Orientation Not on file Plan of Treatment Upcoming Encounters Date Type Department Care Team ([facility] Contact Info) Description 01/31/2025 1:45 PM EDT Consult Orthopedic Surgery [address] [phone] Troy Lebron DPM [address] [address] Health Maintenance Due Date Last Done Comments [...] Insurance MEDICARE MEDICAID - [place] Care Teams Container Washer Relationship Specialty Start Date End Date John Graff MD [address] [place] [address] Dr Paulyoke PA PCP - General Family Medicine 10/16/24
--- NOTE | 2024-12-18 15:01 | A.OFFPC_ITS ---
Vital Signs 12/18/24 15:11 12/18/24 15:14 Height 5 ft 11 in Weight 238 lb 8 oz BMI 33.3 BP 150/80 H 150/78 H Blood Pressure Location Lt brachial Lt brachial Position Sitting Sitting Respiration 16 Pulse 67 Pulse Source Pulse Oximeter Temp 98.3 F Temp Source Oral Pulse Oximetry (%) 96 Oxygen Delivery Method Room Air Intake Visit Reasons: f/u chronic conditions Intake Note: patient is scheduled for chronic condition follow up. patient has an abrasion on his left knee due to a fall x2days ago Assistant Clinical Nurse Manager Required: No Allergies No Known Allergies (No Known Allergies*) Allergy (Verified 12/18/24 15:09) Medication List - Last Reconciled 12/18/24 by John Graff MD aspirin 81 mg PO DAILY atorvastatin 40 mg PO DAILY 90 days BD Ultra-Fine Sara Pen Needle (pen needle, diabetic) 1 ea miscellaneous QID 90 days NS chair, wheel (Wheel chair) As directed cholecalciferol (vitamin D3) (Vitamin D3) 50 mcg PO DAILY 90 days clobetasol 0.05% 1 appl topical BID 2 weeks clopidogrel 75 mg PO DAILY 90 days cyanocobalamin (vitamin B-12) 1,000 mcg PO DAILY 90 days diclofenac sodium 1% (Arthritis Pain (diclofenac)) 2 grams topical QID 30 days empagliflozin (Jardiance) 25 mg PO QAM 90 days famotidine 20 mg PO BEDTIME flash glucose scanning reader (The PoshpackerStyle Nikole 2 [place]) As directed flash glucose sensor (FreeStyle Nikole 2 Sensor kit) As directed change every 14 days gabapentin 600 mg PO BID Humalog KwikPen Insulin (insulin lispro) Inject 25 units subcutaneous tid before meals 90 days NS insulin degludec (Tresiba FlexTouch U-200 insulin) 56 units (0.28 mL) subcut DAILY 90 days lidocaine 5% (Lidoderm) 1 patch topical DAILY PRN lisinopril 20 mg PO BID 90 days magnesium oxide 400 mg PO DAILY MDD 400mg meclizine 25 mg PO Q8H PRN 30 days metformin 1,000 mg PO BID 90 days metoprolol succinate ER 12.5 mg (1/2 x 25 mg) PO DAILY 30 days miscellaneous medical supply Diabetic Shoes, Daily As directed. 999 days. 1 Pair miscellaneous medical supply Diabetic shoes. Daily As directed, 999 days. One pair. pen needle, diabetic (BD Ultra-Fine Mini Pen Needle) As directed pen needle, diabetic 4 times a day As directed. 90 days [powered wheel chair As directed, patient requires a heavy duty wheel, powered wheel chair due to CVA, and motor / function disability, and fall risk. ] pyridoxine (vitamin B6) 250 mg PO DAILY quetiapine (Seroquel) 25 mg PO BEDTIME PRN 90 days MDD 25mg semaglutide 0.5 mg (0.736 mL) subcut QWEEK 28 days topiramate 50 mg PO BID Tobacco use date assessed: 09/28/23 Fall risk assessment: 1 Fall in past year Last assessed Fall Risk: 12/18/24 Dental Screening Dental Screen Date: 09/28/23 HPI f/u chronic conditions HPI Details 74 y/o male [facility] to f[facility]. He reports he has been going to physical therapy to make his legs stronger. He notes ongoing unsteadiness Blood pressure today 150/78, 67p. He is on metoprolol 12.5mg daily, lisinopril 20mg b.i.d. Last A1c in October 7.3%. He continues to follow up with Endocrinology. Pt reports ongoing GERD. He notes he has trialed omeprazole before which did not help. Reports ongoing neck/shoulder pain. HPI Comments History of Present Illness Details Documentation assistance for oJhn Graff MD, was provided by Leonardo Mclean,? Volcanologist on 12/18/2024 at 3:37 PM EST. I, Dr. Graff, have read, observed, and verified documentation. [facility] Medical History (Updated 12/18/24 @ 15:50 by Leonardo Mclean) Nephropathy Arthritis GERD (gastroesophageal reflux disease) Diabetes Unsteady gait Physical deconditioning Insomnia Anxiety Depression Diabetic retinopathy Diabetic neuropathy Back pain Pancreatic cyst Chronic renal insufficiency Fibromyalgia Renal mass History of CVA (cerebrovascular accident) Neuropathy Essential hypertension Surgical History Hx of cataract extraction History of esophagogastroduodenoscopy (EGD) H/O colonoscopy Social History Household Members: Family Housing: House Are you a primary wild animal caretaker to a significant other at home: No Do you presently have visiting nurse or other home services: No Alcohol intake: never Comment: PT refuse bed alarm Patient Tobacco Use Status: Former Tobacco user Tobacco use type: Cigarette Years Smoked: 20 e-Cigarette/Vaping Use: Never Used Second Hand Smoke Exposure: No service: No Current occupational status: disabled Current occupational exposures/hazards: No Cognitive needs: Yes (Cane) Hearing needs: No Vision needs: Yes (Glasses) Questionnaire Thrive Questionnaire Date Thrive assessed: 07/08/22 SHAYNA-7 AMB Questionnaire SHAYNA-7 Date SHAYNA - 7 assessed: 07/23/22 Source: Developed by Drs. Tam Andrews, Cathy Barajas, Jesse Stewart and colleagues, with an educational carolin from [employer]. Review of Systems Const Denies chills, Denies fatigue, Denies fever(s), Denies headache(s) and Denies weakness ENT Denies dizziness and Denies headache(s) Card Denies chest pain, Denies lightheadedness, Denies dyspnea and Denies other (Palpitations) Resp Denies cough, Denies dyspnea, Denies wheezing and Denies other ( shortness of breath) Musc Denies numbness and Denies tingling Neuro Denies dizziness, Denies headache(s), Denies numbness, Denies tingling, Denies paresthesias and Denies weakness Psych Denies anxiety and Denies depression Endo Denies fatigue Aller/Immun Denies wheezing Physical exam (Primary Care) Vital Signs: Last Vital Signs Temp 98.3 F 12/18/24 15:11 Pulse 67 12/18/24 15:11 Resp 16 12/18/24 15:11 BP 150/78 H 12/18/24 15:14 Pulse Ox 96 12/18/24 15:11 Oxygen Delivery Method Room Air 12/18/24 15:11 BMI result Body Mass Index 33.3 Tobacco/Smoking Status: Tobacco use Status Tobacco use date assessed 09/28/23 12/18/24 15:02 Patient Tobacco Use Status Former Tobacco user 12/18/24 15:02 Tobacco use type Cigarette 12/18/24 15:02 e-Cigarette/Vaping Use Never Used 12/18/24 15:02 Thrive Assessment: Date of Thrive Assessment Date Thrive assessed 07/08/22 12/18/24 15:02 Const General: no acute distress and well developed Nutritional Appearance: well nourished Orientation/consciousness: patient oriented x3 [facility] Head: Yes normocephalic and Yes atraumatic Eyes General: appearance normal, both eyes and all related structures Pupils: Equal, round and reactive pupils present EOM: EOMs intact bilaterally Resp Effort & Inspection: normal respiratory effort Auscultation: clear to auscultation bilaterally Cardio Rate: regular rate Rhythm: regular rhythm Heart sounds: S1 normal heart sound present, S2 normal heart sound present, no gallops, no murmurs and no rubs Neuro General: patient oriented x3 and No gait normal Cranial nerves: Yes Equal, round and reactive pupils present Psych Affect: normal affect Coding Level of Care Code Est Pt Level 5 (44621) Diagnoses Hypertension I10 Type 2 diabetes mellitus with diabetic polyneuropathy, with long-term current use of insulin E11.42; Z79.4 Diabetes mellitus complication detail: with polyneuropathy Diabetes mellitus complication status: with neurologic complications Diabetes mellitus intermediate designer insulin use: with longterm use Diabetes mellitus type: type 2 CKD (chronic kidney disease) N18.9 Unsteady gait R26.81 GERD (gastroesophageal reflux disease) K21.9 Neck pain M54.2 Shoulder pain M25.519 Assessment & Plan Assessment & Plan (1) Hypertension: Code(s): I10 - Essential (primary) hypertension Category: Medical Plan: Blood?pressures?are?too?high.??Goal?is?less?than?140/90 Continue?lisinopril?and?metoprolol Will?add?a?low?dose?of?hydrochlorothiazide?and?watch?kidney?function (2) Diabetes: Code(s): E11.9 - Type 2 diabetes mellitus without complications Category: Medical Qualifiers: Diabetes mellitus complication detail: with polyneuropathy Diabetes mellitus complication status: with neurologic complications Diabetes mellitus intermediate designer insulin use: with longterm use Diabetes mellitus type: type 2 Qualified Code(s): E11.42 - Type 2 diabetes mellitus with diabetic polyneuropathy; Z79.4 - care home (current) use of insulin Plan: A1c?in?May?was?7.3%.??Fair?control Followed?by?endocrinology Continue?diabetic?diet No?medication?changes?made?today. Refilled?script?for?diabetic?shoes (3) CKD (chronic kidney disease): Comment: Mild CKD with microalbuminuria due to underlying diabetic kidney disease Code(s): N18.9 - Chronic kidney disease, unspecified Category: Medical Plan: History?of?chronic?kidney?disease. Creatinine?levels?are?within?normal?range?and?we?will?monitor?this (4) Unsteady gait: Code(s): R26.81 - Unsteadiness on feet Category: Medical Plan: Unsteady?gait Continue?to?work?at?balance?and?lower?extremity?strength?with?visiting?nurse,?ph ysical?therapy Patient?is?awaiting?walker (5) GERD (gastroesophageal reflux disease): Code(s): K21.9 - Gastro-esophageal reflux disease without esophagitis Category: Medical Plan: Patient?had?been?on?famotidine?past Will?give?him?a?script?for?famotidine?b.i.d. Will?give?adjust?this?subsequently (6) Neck pain: Code(s): M54.2 - Cervicalgia Category: Medical (7) Shoulder pain: Code(s): M25.519 - Pain in unspecified shoulder Category: Medical Plan Ongoing?neck?and?shoulder?pain?causing?headaches Referred?to?physiatry He?will?return?in?1?month?follow-up?hypertension. Orders: Orders Basic Metabolic Panel Today N18.9 - Chronic kidney disease, unspecified, Z00.00 - Encounter for general adult medical examination without abnormal findings Referrals Physiatry Referral M25.519 - Pain in unspecified shoulder, M54.2 - Cervicalgia Medications: New hydrochlorothiazide 12.5 mg PO QAM 90 tabs 3RF 90 days Changed From famotidine 20 mg PO BEDTIME To famotidine 20 mg PO Q12H 180 tabs 3RF 90 days Refilled miscellaneous medical supply Diabetic Shoes, Daily As directed. 999 days. 1 Pair 1 ea 0RF E11.42 - Type 2 diabetes mellitus with diabetic polyneuropathy, E11.65 - Type 2 diabetes mellitus with hyperglycemia miscellaneous medical supply Diabetic Shoes, Daily As directed. 999 days. 1 Pair 1 ea 0RF E11.42 - Type 2 diabetes mellitus with diabetic polyneuropathy, E11.65 - Type 2 diabetes mellitus with hyperglycemia
[2024-12-18 15:11] VITALS: BP 150/80; PULSE 67; RESP 16; TEMP 36.8; O2SAT 96; BMI 33.3
[2024-12-18 15:14] VITALS: BP 150/78
== END 2024-12-18 16:00 | disposition home or self-care (01) ==
LOC: HO.HMCFM 14:14
PROVIDERS: PCP Family Medicine; Visit Provider Family Medicine
DX: I12.9 Hypertensive chronic kidney disease with stage 1 through stage 4 chronic kidney disease, or unspecified chronic kidney disease (principal); E11.42 Type 2 diabetes mellitus with diabetic polyneuropathy; Z79.4 Long term (current) use of insulin; N18.9 Chronic kidney disease, unspecified; R26.81 Unsteadiness on feet; M25.511 Pain in right shoulder; M25.512 Pain in left shoulder; K21.9 Gastro-esophageal reflux disease without esophagitis; M54.2 Cervicalgia

== ENCOUNTER → 2024-12-18 14:14 | Outpatient (BNVA) | payer MEDICARE, MEDICAID, SELFPAY | PROVIDERS: PCP Family Medicine; Visit Provider Family Medicine | DX: E11.42 Type 2 diabetes mellitus with diabetic polyneuropathy (principal); I12.9 Hypertensive chronic kidney disease with stage 1 through stage 4 chronic kidney disease, or unspecified chronic kidney disease; E11.22 Type 2 diabetes mellitus with diabetic chronic kidney disease; N18.9 Chronic kidney disease, unspecified; R26.81 Unsteadiness on feet; K21.9 Gastro-esophageal reflux disease without esophagitis; M54.2 Cervicalgia; Z79.4 Long term (current) use of insulin | CPT/HCPCS: 99212 ==

== ENCOUNTER 2025-01-10 14:13 | Outpatient (REF) | payer MEDICARE, MEDICAID, SELFPAY ==
--- NOTE | 2025-01-10 14:28 | EMG_ITS ---
Chief complaint: Bilateral hand numbness. History of peripheral neuropathy, diabetes and kidney disorder. Reason for referral: Evaluate for Carpal Tunnel Syndrome Referred by: Lawrence HANDLEY Procedure done: Bilateral upper extremities NCS/EMG Precautions and/or limitations: None The limb temperature was monitored continuously and remained between 32-36 degrees C during the performance of the NCS. Ulnar motor NCS was performed with moderate elbow flexion between 70-90 degrees, with across-elbow distance of 10 cm. Nerve Conduction Studies Anti Sensory Summary Table ?Stim Site NR Onset (ms) Norm Onset (ms) Peak (ms) Norm Peak (ms) O-P Amp (?V) Norm O-P Amp Site1 Site2 Delta-0 (ms) Dist (cm) Edu (m/s) Norm Edu (m/s) Left Median Anti Sensory (2nd Digit) Wrist NR <3.6 >10 Wrist 2nd Digit 14.0 Right Median Anti Sensory (2nd Digit) Wrist NR <3.6 >10 Wrist 2nd Digit 14.0 Left Radial Anti Sensory (Thumb) Forearm ? 1.7 2.1 <3.1 4.5 Forearm Thumb 1.7 0.0 Right Radial Anti Sensory (Thumb) Forearm ? 0.9 2.2 <3.1 11.5 Forearm Thumb 0.9 0.0 Left Ulnar Anti Sensory (5th Digit) Wrist ? 2.7 3.5 <3.7 2.8 >15.0 Wrist 5th Digit 2.7 14.0 52 Right Ulnar Anti Sensory (5th Digit) Wrist NR <3.7 >15.0 Wrist 5th Digit 14.0 Motor Summary Table ?Stim Site NR Onset (ms) Norm Onset (ms) O-P Amp (mV) Norm O-P Amp iAmp (mV) Amp (1st) (%) Site1 Site2 Delta-0 (ms) Dist (cm) Edu (m/s) Norm Edu (m/s) Left Median Motor (Abd Poll Brev) Wrist ? 4.7 <3.9 4.2 >4.5 5.1 100.0 Elbow Wrist 4.8 24.5 51 >45 Elbow ? 9.5 3.8 4.8 90.5 Right Median Motor (Abd Poll Brev) Wrist ? 5.3 <3.9 2.5 >4.5 2.8 100.0 Elbow Wrist 4.4 0.0 >45 Elbow ? 9.7 2.0 2.3 80.0 Left Ulnar Motor (Abd Dig Minimi) Wrist ? 3.6 <3.0 6.8 >5 8.1 100.0 B Elbow Wrist 4.0 21.0 53 >45 B Elbow ? 7.6 7.1 8.6 104.4 A Elbow B Elbow 1.9 10.0 53 >45 A Elbow ? 9.5 6.9 8.5 101.5 Right Ulnar Motor (Abd Dig Minimi) Wrist ? 3.4 <3.0 6.3 >5 7.3 100.0 B Elbow Wrist 4.4 21.0 48 >45 B Elbow ? 7.8 5.9 7.1 93.7 A Elbow B Elbow 1.7 10.0 59 >45 A Elbow ? 9.5 5.5 6.7 87.3 EMG ?Side Muscle Nerve Root Ins Act Fibs Psw Amp Dur Poly Recrt Int Pat Comment Right 1stDorInt Ulnar C8-T1 Nml Nml Nml Nml Nml 0 Nml Complete Right FlexCarRad Median C6-7 Nml Nml Nml Nml Nml 0 Nml Complete Right Biceps Musculocut C5-6 Nml Nml Nml Nml Nml 0 Nml Complete Right Triceps Radial C6-7-8 Nml Nml Nml Nml Nml 0 Nml Complete Right Deltoid Axillary C5-6 Nml Nml Nml Nml Nml 0 Nml Complete Left 1stDorInt Ulnar C8-T1 Nml Nml Nml Nml Nml 0 Nml Complete Left FlexCarRad Median C6-7 Nml Nml Nml Nml Nml 0 Nml Complete Left Biceps Musculocut C5-6 Nml Nml Nml Nml Nml 0 Nml Complete Left Triceps Radial C6-7-8 Nml Nml Nml Nml Nml 0 Nml Complete Left Deltoid Axillary C5-6 Nml Nml Nml Nml Nml 0 Nml Complete FINDINGS: Bilateral median motor nerves showed prolonged distal latency, small amplitude and normal conduction velocity. Bilateral ulnar motor nerves showed prolonged distal latency, normal amplitude and normal conduction velocity. No conduction block across the elbow. Bilateral median sensory nerves showed absent response. Right ulnar sensory nerve showed absent response. Left ulnar sensory nerve showed normal peak latencies but small amplitude. Left radial sensory nerve showed normal peak latency but small amplitude. All other nerves tested were within normal. Concentric needle EMG was performed in selected muscles of the bilateral upper extremities. Study did not reveal signs of electric abnormalities as shown in the table above. IMPRESSION: 1. This is an abnormal study. 2. 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 3. There is no electrodiagnostic evidence for brachial plexopathy or cervical radiculopathy. Thank you for your kind referral. Barbara Gaspar MD, GUNJAN Board Certified, [place] [employer] and Rehabilitation (ABPMR) Board Certified, [place] Board of Electrodiagnostic Medicine (ABEM) CODIN [phone] x [phone] MTDD
--- OUTSIDE RECORDS SUMMARY | 2025-01-10 14:54 | XMS_ITS | Clinical Summary ---
Author Organization [address] [place] [address] Address [address] [place] [address] Phone Care Team Providers Care Business Technology Professor Name Role Phone John Graff MD Primary Care Provider Social History Tobacco Use Types Packs/Day Years Used Date Smoking Tobacco: Never Assessed Sex and Gender Information Value Date Recorded Sex Assigned at Not on file Legal Sex Male 3:51 AM EST Gender Identity Not on file Sexual Orientation Not on file Plan of Treatment Upcoming Encounters Date Type Department Care Team ([facility] Contact Info) Description 01/31/2025 1:45 PM EDT Consult Orthopedic Surgery [address] [phone] Troy Lebron DPM [address] [address] Health Maintenance Due Date Last Done Comments [...] Vaccine ( - 2023-2 5 season) 2024 Depression Screening 06/21/2024 Abdominal Aortic Aneurysm (A AA) Screen 10/16/2024 Cholesterol Screening (Lipid Panel) 10/16/2024 Colorectal Cancer Screening: Colonoscopy 10/16/2024 Diabetes: Annual Urine Albumin-Creatinine Ratio (uACR) 10/16/2024 Diabetes: Blood Sugar Contro l Test (HGBA1C) 10/16/2024 Falls Risk Assessment 10/16/2024 Hepatitis C Screening 10/16/2024 Medicare Annual Wellness Visit 10/16/2024 Social Influencers of Health Screening 10/16/2024 Influenza Vaccine (#1) 2025 HIB Vaccines Aged Out No longer [...] Insurance MEDICARE MEDICAID - [place] Care Teams Business Technology Professor Relationship Specialty Start Date End Date John Graff MD [address] [place] [address] Dr [place] PCP - General Family Medicine 10/16/24
--- OUTSIDE RECORDS SUMMARY | 2025-01-10 14:54 | XMS_ITS | Clinical Summary ---
Author Organization [facility] Address [address] [place] [address] Care Team Providers Care Ethnoarchaeology Professor Name Role Phone Unavailable Primary Care Provider [...] 50+ (2 of 2 - PCV) 04/02/202004/02 [id number] (2 - season) 2024 021 Alcohol and Drug Screen 06/21/2024 Depression Annual Screen 06/21/2024 Imm-Influenza (#1) 2025 04/09/2021, 04/02/2019 Imm-DTaP/Tdap/Td (2 - Td or Tdap) 01/31/2030 020 [facility] DENTAL [place] DENTAL
--- OUTSIDE RECORDS SUMMARY | 2025-01-10 14:55 | XMS_ITS | Patient Health Record ---
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 Problem 60593483 Esophageal dysphagia (R13.10) Active confirmed Problem 996486102 Esophageal diverticulum (Q39.6) Active confirmed Plan Of [...] RUPALI LALA ÁNGEL [address] [place] [address] [id number] DEMETRIUS VILLAFUERTE Self - patient is the insured Medical (General) History Medical History History ICD Code IDDM Denies [place],CVA,Lung disease,renal disease EGD 05/2017--esophageal dive rticulum at 30cm, mild miesha esophagitis treated with a course of Diflucan, small HH--no esophagitis---a Barium swallow with a barium tablet did not show any sign of obstruction from the esophageal diverticulum
[2025-01-10 15:46] LABS: Anion Gap 11 (12-20); Blood Urea Nitrogen 22 mg/dL (9-16); Calcium 9.5 mg/dL (8.4-10.2); Carbon Dioxide 28 mmol/L (22-29); Chloride 107 mmol/L (96-108); Estimated Glomerular Filt Rate > 60; Iron 69 mcg/dL (45-160); Percent Iron Saturation 24 % (15-50); Potassium 4.9 mmol/L (3.3-5.1); Sodium 141 mmol/L (135-145); Total Iron Binding Capacity 289 mcg/dL (228-428); Unsaturated Iron Binding 220 ug/dL
[2025-01-10 15:47] LABS: Blood Urea Nitrogen 22 mg/dL (9-16)
[2025-01-10 16:20] LABS: Folate 10.0 ng/mL (> or = 4.0); Vitamin B12 254 pg/mL (200-900)
== END 2025-01-10 14:14 | disposition home or self-care (01) ==
LOC: HO.NEURO 14:13
PROVIDERS: Nurse Practitioner Family; PCP Family Medicine
DX: Z00.00 Encounter for general adult medical examination without abnormal findings (principal); L81.9 Disorder of pigmentation, unspecified; N18.9 Chronic kidney disease, unspecified; E53.8 Deficiency of other specified B group vitamins; C64.9 Malignant neoplasm of unspecified kidney, except renal pelvis; N28.89 Other specified disorders of kidney and ureter; R31.29 Other microscopic hematuria; R20.0 Anesthesia of skin; R20.2 Paresthesia of skin; R94.131 Abnormal electromyogram [EMG]
CPT/HCPCS: 36415; 80048; 82607; 82746; 83540; 84146; 84520; 95886; 95911

== ENCOUNTER → 2025-01-10 14:28 | Outpatient (BNV) | payer MEDICARE, MEDICAID, SELFPAY | PROVIDERS: PCP Family Medicine; Visit Provider Physical Medicine & Rehabilitation | DX: G56.03 Carpal tunnel syndrome, bilateral upper limbs (principal); G56.23 Lesion of ulnar nerve, bilateral upper limbs | CPT/HCPCS: 95886; 95911 ==

== ENCOUNTER 2025-01-16 11:22 | Outpatient (AMB) | payer MEDICARE, MEDICAID, SELFPAY ==
--- NOTE | 2025-01-16 11:46 | A.OFFVIS_ITS ---
Vital Signs 01/16/25 11:49 Height 5 ft 11 in Weight 238 lb 6 oz BMI 33.2 BP 128/60 Blood Pressure Location Rt brachial Position Sitting Respiration 14 Pulse 69 Pulse Source Pulse Oximeter Temp 98.8 F Temp Source Oral Pulse Oximetry (%) 98 Oxygen Delivery Method Room Air Intake Visit Reasons: Hypertension Intake Note: patient is scheduled for htn follow up Employment Educational Coord Required: No Allergies No Known Allergies (No Known Allergies*) Allergy (Verified 01/16/25 11:47) HPI HPI Hypertension: Details: 74 y/o male presents to f/u hypertension. Had added a low dose of hydrochlorothiazide. BP today 128/60, 69p. He is on lisinopril 20mg b.i.d., HCTZ 12.5mg. Most recent kidney functions are fine. Had reported changes to the color of his skin. Labs had been unrevealing for this. HPI Comments Details: Documentation assistance for John Graff MD, was provided by Leonardo Mclean,? Integration Engineer on 01/15/2025 at 12:30 PM EST. I, Dr. Graff, have read, observed, and verified documentation. ? PFSH Medical History (Updated 12/18/24 @ 15:50 by Leonardo Mclean) Nephropathy Arthritis GERD (gastroesophageal reflux disease) Diabetes Unsteady gait Physical deconditioning Insomnia Anxiety Depression Diabetic retinopathy Diabetic neuropathy Back pain Pancreatic cyst Chronic renal insufficiency Fibromyalgia Renal mass History of CVA (cerebrovascular accident) Neuropathy Essential hypertension Surgical History Hx of cataract extraction History of esophagogastroduodenoscopy (EGD) H/O colonoscopy Social History Household Members: Family Housing: House Are you a primary care program resident to a significant other at home: No Do you presently have visiting nurse or other home services: No Alcohol intake: never Comment: PT refuse bed alarm Patient Tobacco Use Status: Former Tobacco user Tobacco use type: Cigarette Years Smoked: 20 e-Cigarette/Vaping Use: Never Used Second Hand Smoke Exposure: No service: No Current occupational status: disabled Current occupational exposures/hazards: No Cognitive needs: Yes (Cane) Hearing needs: No Vision needs: Yes (Glasses) Review of Systems Const Denies chills, Denies fatigue, Denies fever(s), Denies headache(s) and Denies weakness ENT Denies dizziness and Denies headache(s) Card Denies chest pain, Denies lightheadedness, Denies dyspnea and Denies other (Palpitations) Resp Denies cough, Denies dyspnea, Denies wheezing and Denies other ( shortness of breath) Musc Denies numbness and Denies tingling Neuro Denies dizziness, Denies headache(s), Denies numbness, Denies tingling, Denies paresthesias and Denies weakness Psych Denies anxiety and Denies depression Endo Denies fatigue Aller/Immun Denies wheezing Physical Exam Vital Signs: Last Vital Signs Temp 98.8 F 01/16/25 11:49 Pulse 69 01/16/25 11:49 Resp 14 01/16/25 11:49 BP 128/60 01/16/25 11:49 Pulse Ox 98 01/16/25 11:49 Oxygen Delivery Method Room Air 01/16/25 11:49 BMI result Body Mass Index 33.2 Const General: no acute distress and well developed Nutritional Appearance: well nourished Orientation/consciousness: patient oriented x3 HEENT Head: Yes normocephalic and Yes atraumatic Eyes General: appearance normal, both eyes and all related structures Pupils: Equal, round and reactive pupils present EOM: EOMs intact bilaterally Resp Effort & Inspection: normal respiratory effort Auscultation: clear to auscultation bilaterally Cardio Rate: regular rate Rhythm: regular rhythm Heart sounds: S1 normal heart sound present, S2 normal heart sound present, no gallops, no murmurs and no rubs Neuro General: patient oriented x3 and gait normal Cranial nerves: Yes Equal, round and reactive pupils present Psych Affect: normal affect Assessment & Plan Assessment & Plan (1) Essential hypertension: Code(s): I10 - Essential (primary) hypertension Category: Medical Plan: Blood pressure now controlled. Goal is less than 130/80 Continue current medication regimen Will continue to watch renal function as well (2) Hyperpigmentation: Code(s): L81.9 - Disorder of pigmentation, unspecified Category: Medical Plan: Ongoing hyperpigmentation. ACTH and cortisol were within normal range in prolactin was only mildly above normal range. Doubt this is related. Will refer him to Dermatology. Orders: Orders Basic Metabolic Panel Today I10 - Essential (primary) hypertension, Z00.00 - Encounter for general adult medical examination without abnormal findings Referrals Dermatology Referral L81.9 - Disorder of pigmentation, unspecified Coding Level of Care Code Est Pt Level 3 (75798) Diagnoses Essential hypertension I10 Hyperpigmentation L81.9
[2025-01-16 11:49] VITALS: BP 128/60; PULSE 69; RESP 14; TEMP 37.1; O2SAT 98; BMI 33.2
--- OUTSIDE RECORDS SUMMARY | 2025-01-16 12:34 | XMS_ITS | Clinical Summary ---
Author Organization [facility] Address [address] [place] [address] Care Team Providers Care Hand Thermal Cutter Name Role Phone Unavailable Primary Care Provider [...] 50+ (2 of 2 - PCV) 04/02/202004/02 [id number] (2 - season) 2024 021 Alcohol and Drug Screen 06/21/2024 Depression Annual Screen 06/21/2024 Imm-Influenza (#1) 2025 04/09/2021, 04/02/2019 Imm-DTaP/Tdap/Td (2 - Td or Tdap) 01/31/2030 020 [facility] [place]ENTAL [place] DENTAL
--- OUTSIDE RECORDS SUMMARY | 2025-01-16 12:34 | XMS_ITS | Clinical Summary ---
Author Organization [address] [place] [address] Address [address] [place] [address] Phone Care Team Providers Care Laborer Driver Name Role Phone John Graff MD Primary Care Provider Social History Tobacco Use Types Packs/Day Years Used Date Smoking Tobacco: Never Assessed Sex and Gender Information Value Date Recorded Sex Assigned at Not on file Legal Sex Male 3:51 AM EST Gender Identity Not on file Sexual Orientation Not on file Plan of Treatment Upcoming Encounters Date Type Department Care Team ([facility] Contact Info) Description 01/31/2025 1:45 PM EDT Consult Orthopedic Surgery [address] [phone] Troy Lebron DPM [address] [address] Health Maintenance Due Date Last Done Comments [...] Insurance MEDICARE MEDICAID - [place] Care Teams Laborer Driver Relationship Specialty Start Date End Date John Graff MD [address] [place] [address] Dr [place] PCP - General Family Medicine 10/16/24
--- OUTSIDE RECORDS SUMMARY | 2025-01-16 12:34 | XMS_ITS | Patient Health Record ---
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 confirmed Problem 25257324 Esophageal dysphagia (R13.10) Active confirmed Problem 211305151 Esophageal diverticulum (Q39.6) Active confirmed Plan Of [...] RUPALI LALA ÁNGEL [address] [place] [address] [id number] DEMETRIUS VILLAFUERTE Self - patient is the insured Medical (General) History Medical History History ICD Code IDDM Denies [place],CVA,Lung disease,renal disease EGD 05/2017--esophageal dive rticulum at 30cm, mild miesha esophagitis treated with a course of Diflucan, small HH--no esophagitis---a Barium swallow with a barium tablet did not show any sign of obstruction from the esophageal diverticulum
== END 2025-01-16 12:31 | disposition home or self-care (01) ==
LOC: HO.HMCFM 11:23
PROVIDERS: PCP Family Medicine; Visit Provider Family Medicine
DX: I10 Essential (primary) hypertension (principal); L81.9 Disorder of pigmentation, unspecified

== ENCOUNTER → 2025-01-16 11:22 | Outpatient (BNVA) | payer MEDICARE, MEDICAID, SELFPAY | PROVIDERS: PCP Family Medicine; Visit Provider Family Medicine | DX: I10 Essential (primary) hypertension (principal); L81.9 Disorder of pigmentation, unspecified | CPT/HCPCS: 99212 ==

== ENCOUNTER 2025-02-06 14:28 | Outpatient (AMB) | payer MEDICARE, MEDICAID, SELFPAY ==
--- NOTE | 2025-02-06 14:39 | A.OFFVIS_ITS ---
Intake Visit Reasons: O/V-B/L hands EMG review Intake Note: Anupama 74 yr old male presents today for his EMG review. States he continues to have numbness and tingling. Patient is diabetic but is not sure of his A1C. IMPRESSION: 1. This is an abnormal study. 2. 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 3. There is no electrodiagnostic evidence for brachial plexopathy or cervical radiculopathy. Allergies No Known Allergies (No Known Allergies*) Allergy (Verified 02/06/25 14:46) HPI HPI O/V-B/L hands EMG review: Details: Anupama is a 74 year old right hand dominant man who returns for a NCS review of his bilateral hand numbness. He complains of numbness in the fingers of his bilateral hands, symptoms intermittent, but daily, worse at night. He says his numbness in his left middle finger is most bothersome, and is accompanied by a burning sensation. He has a Dupuytrens contracture of his left middle finger, and Dupuytrens nodules in his right palm, without contractures. He has a Hx of multiple trigger fingers, which have been managed with injections. He is a Diabetic, which he says is better controlled. His most recent HgA1c was 7.4% on 07/05/24. He has a Hx of a CVA, Fibromyalgia, cognitive impairment, and Diabetic neuropathy. He is a fall risk with unsteady gait and uses a wheelchair at times. [facility] Medical History (Updated 02/06/25 @ 14:42 by Ernesto Corbin) Nephropathy Arthritis GERD (gastroesophageal reflux disease) Diabetes Unsteady gait Physical deconditioning Insomnia Anxiety Depression Diabetic retinopathy Diabetic neuropathy Back pain Pancreatic cyst Chronic renal insufficiency Fibromyalgia Renal mass History of CVA (cerebrovascular accident) Neuropathy Essential hypertension Surgical History Hx of cataract extraction History of esophagogastroduodenoscopy (EGD) H/O colonoscopy Social History Household Members: Family Housing: House Are you a primary senior care provider to a significant other at home: No Do you presently have visiting nurse or other home services: No Alcohol intake: never Comment: PT refuse bed alarm Patient Tobacco Use Status: Former Tobacco user Tobacco use type: Cigarette Years Smoked: 20 e-Cigarette/Vaping Use: Never Used Second Hand Smoke Exposure: No service: No Current occupational status: disabled Current occupational exposures/hazards: No Cognitive needs: Yes (Cane) Hearing needs: No Vision needs: Yes (Glasses) Review of Systems Const All systems reviewed & are unremarkable except as noted in HPI and below Physical Exam Const General: no acute distress and alert Orientation/consciousness: patient oriented x3 Neuro General: patient oriented x3 Extrem Other: Evaluation of Left Upper Extremity: The patient is alert, oriented, and in no acute distress Neuro: He has dense numbness to the middle finger, and more normal to the other digits Good APB muscle belly firing Vascular: Cap refill brisk ROM: He can make a fist and extend his digits again with no locking or catching. He also has a Dupuytren's nodule at the mid palmar crease level of the right middle finger and a less obvious nodule at the mid palmar crease of the right ring finger. Regarding the left hand, he does appear to have a Dupuytren's cord extending from the palm to the PIP joint of the left middle finger MCP 30/PIP 0 Nerve Conduction Study: IMPRESSION: 1. This is an abnormal study. 2. 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 3. There is no electrodiagnostic evidence for brachial plexopathy or cervical radiculopathy. Barbara Gaspar MD, GUNJAN 01/10/25 Psych Appearance: grossly normal Affect: normal affect Attitude: cooperative Assessment & Plan Assessment & Plan (1) Carpal tunnel syndrome of left wrist: Code(s): G56.02 - Carpal tunnel syndrome, left upper limb Category: Medical (2) Dupuytren's contracture of left hand: Code(s): M72.0 - Palmar fascial fibromatosis [Dupuytren] Category: Medical (3) Cubital tunnel syndrome on left: Code(s): G56.22 - Lesion of ulnar nerve, left upper limb Category: Medical (4) Carpal tunnel syndrome of right wrist: Code(s): G56.01 - Carpal tunnel syndrome, right upper limb Category: Medical (5) Cubital tunnel syndrome on right: Code(s): G56.21 - Lesion of ulnar nerve, right upper limb Category: Medical (6) Diabetes: Code(s): E11.9 - Type 2 diabetes mellitus without complications Category: Medical Qualifiers: Diabetes mellitus complication detail: with polyneuropathy Diabetes mellitus complication status: with neurologic complications Diabetes mellitus detention insulin use: with medical terminologist use Diabetes mellitus type: type 2 Qualified Code(s): E11.42 - Type 2 diabetes mellitus with diabetic polyneuropathy; Z79.4 - snf (current) use of insulin (7) Fibromyalgia: Code(s): M79.7 - Fibromyalgia Category: Medical (8) CVA (cerebral vascular accident): Code(s): I63.9 - Cerebral infarction, unspecified Category: Medical Qualifiers: CVA mechanism: unspecified Qualified Code(s): I63.9 - Cerebral infarction, unspecified (9) Cognitive decline: Comment: continue to stay active with friends and family, socialize, puzzles, and make time to rest. Code(s): R41.89 - Other symptoms and signs involving cognitive functions and awareness Category: Medical (10) Diabetic neuropathy: Code(s): E11.40 - Type 2 diabetes mellitus with diabetic neuropathy, unspecified Category: Medical Qualifiers: Diabetes mellitus complication detail: diabetic polyneuropathy Diabetes mellitus type: type 2 Qualified Code(s): E11.42 - Type 2 diabetes mellitus with diabetic polyneuropathy Plan Assessment and plan: 1. Left carpal tunnel syndrome With dense numbness to the middle finger, normal sensation to the thumb & index fingers 2. Left middle finger Dupuytren's contracture MCP 30/ PIP 5 I educated him about carpal tunnel syndrome, Dupuytren's disease and Dupuytren's contractures. I discussed operative and non-operative treatment options. It Is possible that he may benefit from a more limited palmar fasciectomy that can be performed under local, rather than a more involved partial fasciectomy to remove the entire cord. The patient would like to proceed with surgery, beginning with the left side The risks and benefits of operative treatment were discussed with the patient and the patient wishes to proceed with surgery. These risks include, but are not limited to risk of damage to blood vessels, nerves, tendons, infection, recurrence, incomplete relief of preoperative symptoms, persistent pain, possible need for further surgery and the risks associated with regional blocks and anesthesia. The plan is to take the patient to the operating room sometime in the next few weeks for the following procedures: 1. Left carpal tunnel release, under local 2. Left middle finger partial Dupuytrens fasciectomy, under local All of the preoperative paperwork including the consent was reviewed today. All the patient's questions were answered. The patient understands that they will be contacted by our principal architect soon to schedule this procedure He denies blood thinners, asthma, lung, kidney issues He is a Diabetic, his most recent HgA1c was 7.4% on 07/05/24. They will need an updated HgA1c that is <8.1% in order to proceed with surgery, and they expressed understanding He has a Hx of a CVA, Fibromyalgia, cognitive impairment, and Diabetic neuropathy. He is a fall risk with unsteady gait and uses a wheelchair at times. 3. Left cubital tunnel syndrome Symptoms intermittent & occasional Not particularly bothersome today 4. Right carpal tunnel syndrome Symptoms intermittent & occasional Not particularly bothersome today 5. Right cubital tunnel syndrome Symptoms intermittent & occasional Not particularly bothersome today 6. Right Dupuytren's nodule in line with the ring finger At the mid palmar crease level No contracture 7. Right Dupuytren's nodule in line with the middle finger At the mid palmar crease level. This is bothersome and symptomatic. No contracture. 8. Right ring trigger finger, S/P injection Date of Injection: 07/17/22, 04/30/21 No locking or catching in clinic today 9. Left middle trigger finger, S/P injection Date of injection: 07/17/22 He has no locking or catching today in clinic 10. Right middle trigger finger, S/P injection Date of Injection: 06/17/22 With good relief of his symptoms Please note that greater than 40 minutes was spent with this patient going over the history, evaluating the patient and radiographs, formulating possible treatment options, discussing them with the patient, and documenting the visit. Scribed for Rebecca Pacheco MD by Ernesto Corbin, medical technologist prn, on 02/06/25 at 2:40 PM, EST. Coding Level of Care Code Est Pt Level 4 (66404) Diagnoses Carpal tunnel syndrome of left wrist G56.02 Dupuytren's contracture of left hand M72.0 Cubital tunnel syndrome on left G56.22 Carpal tunnel syndrome of right wrist G56.01 Cubital tunnel syndrome on right G56.21 Type 2 diabetes mellitus with diabetic polyneuropathy, with long-term current use of insulin E11.42; Z79.4 Diabetes mellitus complication detail: with polyneuropathy Diabetes mellitus complication status: with neurologic complications Diabetes mellitus medical terminologist insulin use: with medical terminologist use Diabetes mellitus type: type 2 Fibromyalgia M79.7 Cerebrovascular accident (CVA), unspecified mechanism I63.9 CVA mechanism: unspecified Cognitive decline R41.89 Diabetic polyneuropathy associated with type 2 diabetes mellitus E11.42 Diabetes mellitus complication detail: diabetic polyneuropathy Diabetes mellitus type: type 2
--- OUTSIDE RECORDS SUMMARY | 2025-02-06 15:49 | XMS_ITS | Patient Health Record ---
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 confirmed Problem [id number] Esophageal dysphagia (R13.10) Active confirmed Problem [id number] Esophageal diverticulum (Q39.6) Active confirmed Plan Of [...] RUPALI LALA ÁNGEL [address] [place] [address] [id number] DEMETRIUS VILLAFUERTE Self - patient is the insured Medical (General) History Medical History History ICD Code IDDM Denies VT,CVA,Lung disease,renal disease EGD 05/2017--esophageal dive rticulum at 30cm, mild miesha esophagitis treated with a course of Diflucan, small HH--no esophagitis---a Barium swallow with a barium tablet did not show any sign of obstruction from the esophageal diverticulum
--- OUTSIDE RECORDS SUMMARY | 2025-02-06 15:49 | XMS_ITS | Clinical Summary ---
Author Organization [facility] Address [address] [place] [address] Care Team Providers Care Ekg/Ecg Technician Name Role Phone Unavailable Primary Care Provider [...] 50+ (2 of 2 - PCV) 04/02/202004/02 [id number] (2 - season) 2024 021 Alcohol and Drug Screen 06/21/2024 Depression Annual Screen 06/21/2024 Imm-Influenza (#1) 2025 04/09/2021, 04/02/2019 Imm-DTaP/Tdap/Td (2 - Td or Tdap) 01/31/2030 020 [facility] [place]
== END 2025-02-06 15:11 | disposition home or self-care (01) ==
PROVIDERS: PCP Family Medicine; Visit Provider Orthopaedic Surgery
DX: G56.03 Carpal tunnel syndrome, bilateral upper limbs (principal); M72.0 Palmar fascial fibromatosis [Dupuytren]; G56.22 Lesion of ulnar nerve, left upper limb; G56.21 Lesion of ulnar nerve, right upper limb; E11.42 Type 2 diabetes mellitus with diabetic polyneuropathy; Z79.4 Long term (current) use of insulin; M79.7 Fibromyalgia; I63.9 Cerebral infarction, unspecified; R41.89 Other symptoms and signs involving cognitive functions and awareness
CPT/HCPCS: 99214

== ENCOUNTER → 2025-02-06 14:28 | Outpatient (BNVA) | payer MEDICARE, MEDICAID, SELFPAY | PROVIDERS: PCP Family Medicine; Visit Provider Orthopaedic Surgery | DX: G56.03 Carpal tunnel syndrome, bilateral upper limbs (principal); G56.23 Lesion of ulnar nerve, bilateral upper limbs; M72.0 Palmar fascial fibromatosis [Dupuytren]; M79.7 Fibromyalgia; E11.42 Type 2 diabetes mellitus with diabetic polyneuropathy; R41.89 Other symptoms and signs involving cognitive functions and awareness; Z79.4 Long term (current) use of insulin; I63.9 Cerebral infarction, unspecified | CPT/HCPCS: 99212 ==

== ENCOUNTER 2025-02-08 14:13 | Outpatient (AMB) | payer MEDICARE, MEDICAID, SELFPAY ==
--- OUTSIDE RECORDS SUMMARY | 2025-02-08 14:22 | XMS_ITS | Clinical Summary ---
Author Organization [facility] Address [address] [place] [address] Care Team Providers Care Children'S Program Coordinator Name Role Phone Unavailable Primary Care Provider [...] 50+ (2 of 2 - PCV) 04/02/202004/02 [id number] (2 - season) 2024 021 Alcohol and Drug Screen 06/21/2024 Depression Annual Screen 06/21/2024 Imm-Influenza (#1) 2025 04/09/2021, 04/02/2019 Imm-DTaP/Tdap/Td (2 - Td or Tdap) 01/31/2030 020 [facility] [place]
[2025-02-08 14:24] VITALS: BP 126/70; PULSE 70; O2SAT 95; BMI 33.5
--- NOTE | 2025-02-08 14:24 | A.OFFVIS_ITS ---
Vital Signs 02/08/25 14:24 Height 5 ft 11 in Weight 240 lb 6 oz BMI 33.5 BP 126/70 Blood Pressure Location Lt brachial Position Sitting Pulse 70 Pulse Source Pulse Oximeter Pulse Oximetry (%) 95 Oxygen Delivery Method Room Air Intake Visit Reasons: 3 mnts f/u Intake Note: Patient presents follow up JOSÉ LUIS/Cognitive medication. PT declined CPAP. Forgot number for PT for motor wheelchair. Accompanied by: Self / Same As Patient Allergies No Known Allergies (No Known Allergies*) Allergy (Verified 02/08/25 14:28) HPI Comments Details: 74 year old r. handed male with cognitive decline presents for sleep apnea follow up visit. 2021 H/O CVA Apr 2022, acute ischemic infarction with punctate l. corpus collosum, reviewed with pt. 09/2024 HST c/w AHI of 22 and oxygen Nadirs to 69%, start cpap therapy at 5-20cm H20, will f/u for compliance. Pt to call [facility], for a motor function physical evaluation of upper and lower ext. He picked up his machine but had no support using it, since he forgets easily he returned the machine as he did not understand he needs to use the cpap machine daily and for >4 hours nightly. Patient is forgetful. He forgets names, forgets tasks, has difficulty with word recall, gets lost in conversation and is slow to process. He stays up most of the night, he goes to bed at 1030pm, however can not fall asleep. He has insomnia, and has multiple trips to the bathroom at night, he feels dizzy and off balance. He moves from his bed to the reclining chair, then back to the bed throughout the night and paces back and forth. He is unable to walk safely for longer than a few minutes, he is limited to the either recliner or the bed, unable to maneuver a manual wheel chair as he lacks the motor strength to do so. He holds on to his or the lay in the house to transfer from his bed to the recliner and feels confined to his bedroom. He dropped his medication on the floor recently and waited for hours until his came home so she could chicken picker the tablets and put them back into the bottle. He falls to the floor and is not able to stand up, sits on the floor and forgets how to get up his grand-kids have to lift him into the chair. He has difficulty walking, transferring, toileting, and needs help with all his ADLs. His is his primary home care physical therapist, she helps him get dressed, bathing, meals and eating. He c/o burning pain on dorsal aspect of feet, uses a cane to ambulate less than 200 feet as he feels dizzy and has had many falls. He is unable to get out of his chair without help, he doesn't leave the house because he is afraid to fall. He had a fall in the home, did not hit his head, but was unable to get up for 2 hours from the floor as he does not have the upper motor strength to push himself out of a chair or pick himself up off the ground to stand. He gets depressed, and isolated being in the home and most of his days are spent sitting in a recliner. He has difficulty with most of his daily tasks, he drops things easily from his hands, such as utensils, cups and plates. His A1c is elevated and is being managed by his Endocrine on short and long acting insulin. His blood pressure is well managed. He has daily headaches, with dizziness, vertigo, nausea, and balance, gait difficulties and weakness of upper motor strength and lower extremities. He denies photophobia/ phonophobia, n/v and sensitivity to smells. IMPRESSION: 1. This is an abnormal study. 2. 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 3. There is no electrodiagnostic evidence for brachial plexopathy or cervical radiculopathy. Dementia - MMSE20- in one month- [facility] Medical History Nephropathy Arthritis GERD (gastroesophageal reflux disease) Diabetes Unsteady gait Physical deconditioning Insomnia Anxiety Depression Diabetic retinopathy Diabetic neuropathy Back pain Pancreatic cyst Chronic renal insufficiency Fibromyalgia Renal mass History of CVA (cerebrovascular accident) Neuropathy Essential hypertension Surgical History Hx of cataract extraction History of esophagogastroduodenoscopy (EGD) H/O colonoscopy Social History Household Members: Family Housing: House Are you a primary home care physical therapist to a significant other at home: No Do you presently have visiting nurse or other home services: No Alcohol intake: never Comment: PT refuse bed alarm Patient Tobacco Use Status: Former Tobacco user Tobacco use type: Cigarette Years Smoked: 20 e-Cigarette/Vaping Use: Never Used Second Hand Smoke Exposure: No service: No Current occupational status: disabled Current occupational exposures/hazards: No Cognitive needs: Yes (Cane) Hearing needs: No Vision needs: Yes (Glasses) Physical Exam Vital Signs: Last Vital Signs Pulse 70 02/08/25 14:24 BP 126/70 02/08/25 14:24 Pulse Ox 95 02/08/25 14:24 Oxygen Delivery Method Room Air 02/08/25 14:24 BMI result Body Mass Index 33.5 Const General: cooperative, anxious and tired appearing Nutritional Appearance: obese Orientation/consciousness: patient oriented x3 Limitations: ambulation with walker and wheelchair HEENT Ears: hearing grossly normal bilaterally Face and sinus: Yes other (assymetric facial exam l side droop) Teeth and gingiva: other Throat: Yes other (mallampti score of 3) Eyes Pupils: Equal, round and reactive pupils present Neck Neck: Yes other (Limited rom due to vertigo) Resp Effort & Inspection: normal respiratory effort and able to speak in complete sentences Neuro General: patient oriented x3 Cranial nerves: Yes Facial sensation intact/muscles of mastication intact, Yes Equal, round and reactive pupils present, Yes Normal accommodation reflex present, Yes Normal facial strength present, Yes Midline tongue present and Yes Ability to bilaterally rotate head present (limited rom to the l/r) Gait exam (Neuro): Assisted gait required and Assistive device used (rolling wa lker or wheel chair) Motor exam (neuro): Abnormal motor strength present (3/5 Upper motor strenght) bilateral upper extremity flexion 3 / 5, extension 3 / 5, ABduction 2 / 5, A Dduction 2 / 5 and opposition 3 / 5, bilateral lower extremity flexion Negative for 2 / 5, extension 2 / 5, ABduction 3 / 5, ADduction 3 / 5 and opposition 2 / 5, Abnormal muscle tone present (deconditioning lower and upper extremities) and Motor abnormalites present (slowed movements) Extrem Other: muscle atrophy upper extremities bilaterally General: Yes muscle atrophy (bilateral upper and lower extremity) Right upper extremity: shoulder/upper arm Details: abnormal ROM (limited extension and flexion bilateral upper extremiteis) Psych Appearance: well kempt Mental Status: mental status grossly normal Speech and movement: Slowed movement present (Neuro) Attitude: cooperative Thought process: Normal thought process present Thought content: Normal thought content present Orientation What is the (year) (season) (date) (day) (month)?: year, season, date, day and month Where are we (state) (county) (town or city) (hospital) (floor)?: state, town or city, hospital/clinic and floor Registration Name of 3 unrelated objects clearly and slowly, then ask patient to repeat all 3 of them. (1st repeat determines score. Make sure they can repeat all three): object 1, object 2 and object 3 Attention & Calculation (CHOOSE ONE) Ask pt to begin with 100 & count backward by 7. Stop after 5 repeats. If pt cannot ask them to spell the word WORLD backward.: 93 and 86 Recall Ask patient to repeat the 3 items from question #3.: object 1, object 2 and object 3 Language Show patient a wristwatch & ask what it is. Repeat for pencil.: watch and pencil Ask the patient to 'take a piece of paper with their right hand' 'fold paper in half' 'place paper on floor': take paper in right hand Print the sentence 'CLOSE YOUR EYES' on a piece. If patient actually closes eyes then score.: followed written direction Score Score: 21 Assessment & Plan Assessment & Plan (1) JOSÉ LUIS (obstructive sleep apnea): Comment: he picked up his machine and then returned it b/c he did not have a clear understanding for the use of this machine as he is forgetful/ has dementia Code(s): G47.33 - Obstructive sleep apnea (adult) (pediatric) Category: Medical (2) Fatigue due to depression: Comment: he follow up with [facility] or a good family friend, to speak with. Code(s): F32.A - Depression, unspecified; R53.83 - Other fatigue Category: Medical (3) Cognitive decline: Comment: continue to stay active with friends and family, socialize, puzzles, and make time to rest. Code(s): R41.89 - Other symptoms and signs involving cognitive functions and awareness Category: Medical (4) Weakness of both upper extremities: Comment: Referral to PT- deconditioning of motor skills Code(s): R29.898 - Other symptoms and signs involving the musculoskeletal system Category: Medical (5) Weakness of both lower extremities: Comment: Referral to PT- strength training Code(s): R29.898 - Other symptoms and signs involving the musculoskeletal system Category: Medical (6) CVA (cerebral vascular accident): Code(s): I63.9 - Cerebral infarction, unspecified Category: Medical Qualifiers: CVA mechanism: unspecified Qualified Code(s): I63.9 - Cerebral infarction, unspecified (7) Impaired functional mobility, balance, gait, and endurance: Code(s): Z74.09 - Other reduced mobility Category: Medical Plan HST 09/2024 AHI is 22 and oxygen Navin to 69% start cpap at [id number] and f/u for compliance, cpap rx sent to [facility]. He picked up his machine, yet did not understand how to use it or why he had it, due to forgetfulness, he returned the machine. Cognitive Decline MRI compare with old MRI and Lacunar Infarcts. Pt. has dementia he is forgetful and unable to process information, he returned his cpap machine to his cpap company bc he is not clear as to why he has the machine. Powered Wheel Chair to prevent injury due to risk of falls, with balance and gait instability, pending Motor function evaluation of limbs. Headaches will evaluate after MRI, start seroquel 25mg PO daily for insomnia. f/u in 1months for compliance. Patient Instructions: Sleep Hygiene provided: set a scheduled bedtime and wake time to help regulate the circadian rhythm and balance the release of pituitary hormones. Sleep in a dark room, temperatures below 68 degrees, and no devices n bed. Limit caffeinated products 6 hours prior to bed, and limit fluids 2-4 hours prior to bed. Gentle night yoga, diffusing essential oils, and playing soft music can be relaxing. Coding Level of Care Code Est Pt Level 4 (94420) Diagnoses JOSÉ LUIS (obstructive sleep apnea) G47.33 Fatigue due to depression F32.A; R53.83 Cognitive decline R41.89 Weakness of both upper extremities R29.898 Weakness of both lower extremities R29.898 Cerebrovascular accident (CVA), unspecified mechanism I63.9 CVA mechanism: unspecified Impaired functional mobility, balance, gait, and endurance Z74.09
== END 2025-02-08 15:43 | disposition home or self-care (01) ==
LOC: HO.HSMS 14:14
PROVIDERS: PCP Family Medicine; Visit Provider Physician Assistant Medical
DX: G47.33 Obstructive sleep apnea (adult) (pediatric) (principal); F32.A Depression, unspecified; R53.83 Other fatigue; R41.89 Other symptoms and signs involving cognitive functions and awareness; R29.898 Other symptoms and signs involving the musculoskeletal system; I63.9 Cerebral infarction, unspecified; Z74.09 Other reduced mobility
CPT/HCPCS: 99214

== ENCOUNTER → 2025-02-08 14:13 | Outpatient (BNVA) | payer MEDICARE, MEDICAID, SELFPAY | PROVIDERS: PCP Family Medicine; Visit Provider Physician Assistant Medical | DX: G47.33 Obstructive sleep apnea (adult) (pediatric) (principal); F32.A Depression, unspecified; R53.83 Other fatigue; R41.89 Other symptoms and signs involving cognitive functions and awareness; R29.898 Other symptoms and signs involving the musculoskeletal system; Z74.09 Other reduced mobility; Z86.73 Personal history of transient ischemic attack (TIA), and cerebral infarction without residual deficits | CPT/HCPCS: 99212 ==

== ENCOUNTER 2025-02-26 13:33 | Outpatient (REF) | payer MEDICARE, MEDICAID, SELFPAY ==
--- NOTE | ~2025-02-26 | US_ITS ---
EXAMINATION: US RETROPERITONEAL LIMITED (RENAL ONLY) CLINICAL INFORMATION: C64.9. Malignant neoplasm of unspecified kidney, except renal pelvis.. COMPARISON: April 23, 2023. Correlated to MRI abdomen dated August 28, 2024 reporting ablation cavity, left kidney. No abnormal enhancement. TECHNIQUE: Real-time ultrasound kidneys using grayscale and color Doppler technique. FINDINGS: RIGHT KIDNEY: 11 x 5 x 5 cm (SAG x AP x TRV). Normal echotexture. Normal renal cortical thickness. No hydronephrosis. No gross solid or cystic lesion detected. LEFT KIDNEY: 10 x 6 x 5 cm (SAG x AP x TRV). Normal echotexture. Normal renal cortical thickness. No hydronephrosis. There is a 2.2 cm exophytic intermediate to slightly hyperechoic lesion in the lateral aspect without flow on color Doppler interrogation. US/US renal BI IMPRESSION: 2.2 cm exophytic lesion without color Doppler flow, left kidney which may correspond to the treated lesion. No hydronephrosis.. Electronically signed by: Cristopher Ryder MD 02/26/2025 02:58 PM EDT
--- OUTSIDE RECORDS SUMMARY | 2025-02-26 15:48 | XMS_ITS | Patient Health Record ---
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 Problem 67650535 Esophageal dysphagia (R13.10) Active confirmed Problem 842310338 Esophageal diverticulum (Q39.6) Active confirmed Plan Of [...] RUPALI LALA ÁNGEL [address] [place] [address] [id number] DEMETRIUS VILLAFUERTE Self - patient is the insured Medical (General) History Medical History History ICD Code IDDM Denies [place],CVA,Lung disease,renal disease EGD 05/2017--esophageal dive rticulum at 30cm, mild miesha esophagitis treated with a course of Diflucan, small HH--no esophagitis---a Barium swallow with a barium tablet did not show any sign of obstruction from the esophageal diverticulum
--- OUTSIDE RECORDS SUMMARY | 2025-02-26 15:48 | XMS_ITS | Clinical Summary ---
Author Organization [facility] Address [address] [place] [address] Care Team Providers Care Pole Frame Construction Worker Name Role Phone Unavailable Primary Care [...] 50+ (2 of 2 - PCV) 04/02/202004/02 Alcohol and Drug Screen 06/21/2024 Depression Annual Screen 06/21/2024 Atz-[id number]-92 (2 - 2024- season) 2025 021 Imm-Influenza (#1) 2025 04/09/2021, 04/02/2019 Imm-DTaP/Tdap/Td (2 - Td or Tdap) 01/31/2030 020 [facility] DENTAL [place]
--- OUTSIDE RECORDS SUMMARY | 2025-02-26 15:48 | XMS_ITS | Clinical Summary ---
Author Organization [address] [place] [address] Address [address] [place] [address] Phone Care Team Providers Care Form Coverer Name Role Phone John Graff MD Primary Care Provider Social History Tobacco Use Types Packs/Day Years Used Date Smoking Tobacco: Never Assessed Sex and Gender Information Value Date Recorded Sex Assigned at Not on file Legal Sex Male 3:51 AM EST Gender Identity Not on file Sexual Orientation Not on file Plan of Treatment Upcoming Encounters Date Type Department Care Team (Late st Contact Info) Description 03/09/2025 1:30 PM EDT Evaluation Outpatient [address] [address] Amos Chatman, PT [address] [place] [address] Health Maintenance Due Date Last Done Comments DTaP,Tdap,and Td Vaccines (1 - Tdap) 08/23/1970 Pneumococcal Vaccine: 50+ Ye ars (1 of 2 - PCV) 08/23/1970 Zoster Vaccines (1 of 2) 08/23/2001 RSV Immunization Adult Patie nts (1 - Risk 60-74 years 1-dose series) 2011 Depression Screening 06/21/2024 Abdominal Aortic Aneurysm (A AA) Screen 10/16/2024 Cholesterol Screening (Lipid Panel) 10/16/2024 Colorectal Cancer Screening: Colonoscopy 10/16/2024 Falls Risk Assessment 10/16/2024 Hepatitis C Screening 10/16/2024 Medicare Annual Wellness Visit 10/16/2024 Social Influencers of Health Screening 10/16/2024 COVID-19 Vaccine (1 - 2023-2 5 season) 2025 Influenza Vaccine (#1) 2025 HIB Vaccines Aged [...] Insurance MEDICARE MEDICAID - [place] Care Teams Form Coverer Relationship Specialty Start Date End Date John Graff MD [address] [place] [address] [place] PCP - General Family Medicine 10/16/24
== END 2025-02-26 13:34 | disposition home or self-care (01) ==
LOC: HO.US 13:33
PROVIDERS: PCP Family Medicine; Visit Provider Nurse Practitioner Family
DX: C64.9 Malignant neoplasm of unspecified kidney, except renal pelvis (principal); N28.89 Other specified disorders of kidney and ureter
CPT/HCPCS: 76775

== ENCOUNTER → 2025-02-26 13:36 | Outpatient (BNV) | payer MEDICARE, MEDICAID, SELFPAY | PROVIDERS: PCP Family Medicine; Visit Provider Radiology Diagnostic Radiology | DX: C64.9 Malignant neoplasm of unspecified kidney, except renal pelvis (principal) | CPT/HCPCS: 76775 ==

== ENCOUNTER 2025-03-05 11:31 | Outpatient (AMB) | payer MEDICARE, MEDICAID, SELFPAY ==
--- NOTE | 2025-03-05 11:33 | A.OFFVIS_ITS ---
Vital Signs 03/05/25 11:34 Height 5 ft 11 in Weight 23 lb 6 oz BMI 3.3 BP 122/72 Blood Pressure Location Rt brachial Position Sitting Pulse 83 Pulse Source Pulse Oximeter Pulse Oximetry (%) 96 Oxygen Delivery Method Room Air Intake Visit Reasons: 1 mo follow up Intake Note: Patient presents follow up JOSÉ LUIS/Cognitive. Patient has appointment for PT on 03/09. Accompanied by: Daughter Allergies No Known Allergies (No Known Allergies*) Allergy (Verified 03/05/25 16:58) HPI Comments Details: 74 year old r. handed male with cognitive decline presents for sleep apnea follow up visit. Apr 2022 h/o CVA, acute ischemic infarction with punctate l. corpus collosum. Sep 2024 HST c/w AHI of 22 and oxygen nadirs to 69%, start cpap therapy at 5- 20cm H20, and f/u for compliance. Pt to call [facility], for a motor function physical evaluation of upper and lower extremity strength. Patient is forgetful. He forgets names, forgets tasks, has difficulty with word recall, gets lost in conversation and is slow to process. He picked up his machine but had no support using it, since he forgets easily he returned the machine as he did not understand he needs to use the cpap machine daily and for >4 hours nightly. He stays up most of the night, goes to bed at 1030pm, however can not fall asleep. He has insomnia, with multiple trips to the bathroom at night. He feels dizzy, unstable balance and gait is off. He moves from his bed to the reclining chair, then back to bed. He gets up and paces back and forth. He is unable to walk safely for longer than a few minutes, and limited to the either recliner or the bed. He is unable to maneuver a manual wheel chair as he lacks the upper motor strength to do so. He holds on to his or the lay in the house to transfer from his bed to the recliner and feels confined to his bedroom. He fell to the floor and was not able to get up. He sat on the floor until daughter helped him up when she came home from work. He has difficulty walking, transferring, toileting, dressing, and needs help with all his ADLs. His is his primary resident care aide, she helps him get dressed, helps with bathing, meals and feeds him as he can easily drop food from the spoon onto the table due to weakness of the hands to grasp utensils. His hands shake when trying to accomplish a task. He has daily headaches, with dizziness, vertigo, nausea, balance, and gait difficulties with weakness of upper motor strength and lower extremities. He denies photophobia/ phonophobia, n/v and sensitivity to smells. He gets fatigued, depressed, and feels isolated being in the home, most days are spent sitting in a recliner as he is afraid to go outside due to fear of falling. He c/o burning pain on dorsal aspect of feet, uses a cane to ambulate, can walk less than 200 feet as he feels vertigo, dizziness, and is afraid of falling. He is unable to get out of his chair without help, he needs help to pull himself off the chair. His A1c is elevated and is being managed by his Endocrine on short and long acti ng insulin. Daughter is the point of contact as he is forgetful. Henrique Woods [phone] point of contact for wheel chair assessment and pickup of wheel chair 03/09 tricia [facility] crane- PT assessment. [facility] Medical History Nephropathy Arthritis GERD (gastroesophageal reflux disease) Diabetes Unsteady gait Physical deconditioning Insomnia Anxiety Depression Diabetic retinopathy Diabetic neuropathy Back pain Pancreatic cyst Chronic renal insufficiency Fibromyalgia Renal mass History of CVA (cerebrovascular accident) Neuropathy Essential hypertension Surgical History Hx of cataract extraction History of esophagogastroduodenoscopy (EGD) H/O colonoscopy Social History Household Members: Family Housing: House Are you a primary resident care aide to a significant other at home: No Do you presently have visiting nurse or other home services: No Alcohol intake: never Comment: PT refuse bed alarm Patient Tobacco Use Status: Former Tobacco user Tobacco use type: Cigarette Years Smoked: 20 e-Cigarette/Vaping Use: Never Used Second Hand Smoke Exposure: No service: No Current occupational status: disabled Current occupational exposures/hazards: No Cognitive needs: Yes (Cane) Hearing needs: No Vision needs: Yes (Glasses) Physical Exam Vital Signs: Last Vital Signs Pulse 83 03/05/25 11:34 BP 122/72 03/05/25 11:34 Pulse Ox 96 03/05/25 11:34 Oxygen Delivery Method Room Air 03/05/25 11:34 BMI result Body Mass Index 3.3 Const General: cooperative, anxious and tired appearing Nutritional Appearance: obese Orientation/consciousness: patient oriented x3 Limitations: ambulation with walker and wheelchair HEENT Ears: hearing grossly normal bilaterally Face and sinus: Yes other (assymetric facial exam l side droop) Teeth and gingiva: other Throat: Yes other (mallampti score of 3) Eyes Pupils: Equal, round and reactive pupils present Neck Neck: Yes other (Limited rom due to vertigo) Resp Effort & Inspection: normal respiratory effort and able to speak in complete sentences Neuro General: patient oriented x3 Cranial nerves: Yes Facial sensation intact/muscles of mastication intact, Yes Equal, round and reactive pupils present, Yes Normal accommodation reflex present, Yes Normal facial strength present, Yes Midline tongue present and Yes Ability to bilaterally rotate head present (limited rom to the l/r) Gait exam (Neuro): Assisted gait required and Assistive device used (rolling walker or wheel chair) Motor exam (neuro): Abnormal motor strength present (3/5 Upper motor strenght) bilateral upper extremity flexion 3 / 5, extension 3 / 5, ABduction 2 / 5, ADduction 2 / 5 and opposition 3 / 5, bilateral lower extremity flexion Negative for 2 / 5, extension 2 / 5, ABduction 3 / 5, ADduction 3 / 5 and opposition 2 / 5, Abnormal muscle tone present (deconditioning lower and upper extremities) and Motor abnormalites present (slowed movements) Extrem Other: muscle atrophy upper extremities bilaterally General: Yes muscle atrophy (bilateral upper and lower extremity) Right upper extremity: shoulder/upper arm Details: abnormal ROM (limited extension and flexion bilateral upper extremiteis) Psych Appearance: well kempt Mental Status: mental status grossly normal Speech and movement: Slowed movement present (Neuro) Attitude: cooperative Results AMB Urinalysis, Automated UA Leukoctes 0 Mary/uL Last Edit by SHANNAN Swift on 03/05/25 16:22 UA Nitrite Last Edit by SHANNAN Swift on 03/05/25 16:22 UA Urobilinogen 0.2 mg/dL Last Edit by Paloma James [facility] on 03/05/25 16:2 2 UA Protein 15 mg/dL Last Edit by Paloma James [facility] on 03/05/25 16:22 UA pH 5.5 Last Edit by Paloma James [facility] on 03/05/25 16:22 UA Blood 0 Sudheer/uL Last Edit by Paloma James [facility] on 03/05/25 16:22 UA Specific [place] 1.030 Last Edit by Paloma James [facility] on 03/05/25 16: 22 UA Ketone Last Edit by Paloma James [facility] on 03/05/25 16:22 UA Bilirubin 0 mg/dL Last Edit by Paloma James [facility] on 03/05/25 16:22 UA Glucose 0 mg/dL Last Edit by Paloma James [facility] on 03/05/25 16:22 Results Reviewed Results Reviewed: IMPRESSION: 1. This is an abnormal study. 2. There is electro-diagnostic evidence for bilateral median neuropathy at the wrist (Carpal Tunnel Syndrome) and bilateral ulnar neuropathy, in the setting of peripheral neuropathy history. 3. There is no electrodiagnostic evidence for brachial plexopathy or cervical radiculopathy. Dementia - MMSE 20 in one month Assessment & Plan Assessment & Plan (1) CVA (cerebral vascular accident): Code(s): I63.9 - Cerebral infarction, unspecified Category: Medical Qualifiers: CVA mechanism: unspecified Qualified Code(s): I63.9 - Cerebral infarction, unspecified (2) JOSÉ LUIS (obstructive sleep apnea): Comment: he picked up his machine and then returned it b/c he did not have a clear understanding for the use of this machine as he is forgetful/ has dementia. Code(s): G47.33 - Obstructive sleep apnea (adult) (pediatric) Category: Medical (3) Cognitive decline: Comment: continue to stay active with friends and family, socialize, puzzles, and make time to rest. Code(s): R41.89 - Other symptoms and signs involving cognitive functions and awareness Category: Medical (4) Fatigue due to depression: Comment: he follow up with [email or web address] or a good family friend, to speak with. Code(s): F32.A - Depression, unspecified; R53.83 - Other fatigue Category: Medical (5) Weakness of both upper extremities: Comment: Referral to PT- deconditioning of motor skills Code(s): R29.898 - Other symptoms and signs involving the musculoskeletal system Category: Medical (6) Weakness of both lower extremities: Comment: Referral to PT- strength training Code(s): R29.898 - Other symptoms and signs involving the musculoskeletal system Category: Medical (7) Impaired functional mobility, balance, gait, and endurance: Code(s): Z74.09 - Other reduced mobility Category: Medical Plan Moderate to Severe JOSÉ LUIS with nocturnal hypoxemia HST 09/2024 AHI is 22 and oxygen Navin to 69% start cpap at [id number] and f/u for compliance, cpap rx sent to [facility]. He picked up his machine, yet did not understand how to use it or why he had it, due to forgetfulness, so he returned the machine. Cognitive Decline reviewed MRI to compare with old MRI w/ Lacunar Infarcts. Pt is forgetful and unable to process information. Start Metanex 1 -2 tablets daily at bedtime rx with [facility]. Falls due to CVA Assessment with DIY. Powered Wheel Chair to prevent injury due to risk of falls with balance and gait instability, pending Motor function evaluation of limbs. Pt to call [facility], for a motor function physical evaluation of upper and lower extremity strength. Headaches will evaluate after MRI, start seroquel 25mg PO daily for insomnia. Continue Topiramate 50mg po BID Insomnia with sleep difficulties Continue Gabapentin per pcp for sleep, renal dosing. Continue Seroquel 25mg po at bedtime. Start B12 1000mcg po daily at bedtime every other day. Start Melatonin 3mg -5mg po daily at bedtime. Patient Instructions: Sleep Hygiene provided: set a scheduled bedtime and wake time to help regulate the circadian rhythm and balance the release of pituitary hormones. Sleep in a dark room, temperatures below 68 degrees, and no devices n bed. Limit caffeinated products 6 hours prior to bed, and limit fluids 2-4 hours prior to bed. Gentle night yoga, diffusing essential oils, and playing soft music can be relaxing. Coding Level of Care Code Est Pt Level 4 (97636) Complex EM visit Add On G2211 Diagnoses Cerebrovascular accident (CVA), unspecified mechanism I63.9 CVA mechanism: unspecified JOSÉ LUIS (obstructive sleep apnea) G47.33 Cognitive decline R41.89 Fatigue due to depression F32.A; R53.83 Weakness of both upper extremities R29.898 Weakness of both lower extremities R29.898 Impaired functional mobility, balance, gait, and endurance Z74.09
[2025-03-05 11:34] VITALS: BP 122/72; PULSE 83; O2SAT 96
--- OUTSIDE RECORDS SUMMARY | 2025-03-05 15:48 | XMS_ITS | Clinical Summary ---
Author Organization [address] [place] [address] Address [address] [place] [address] Phone Care Team Providers Care Mobile Device Engineer Name Role Phone John Graff MD Primary [...] Description 03/09/2025 1:30 PM EDT Evaluation Outpatient [address] [address] Amos Chatman, PT [address] [place] [address] Health Maintenance Due Date Last Done Comments [...] Insurance MEDICARE MEDICAID - [place] Care Teams Mobile Device Engineer Relationship Specialty Start Date End Date John Graff MD [address] [place] [address] [place] PCP - General Family Medicine 10/16/24
--- OUTSIDE RECORDS SUMMARY | 2025-03-05 15:48 | XMS_ITS | Clinical Summary ---
Author Organization [facility] Address [address] [place] [address] Care Team Providers Care National Insurance Officer Name Role Phone Unavailable Primary Care Provider [...] Drug Screen 06/21/2024 Depression Annual Screen 06/21/2024 [id number] (2 - 2024- season) 2025 021 Imm-Influenza (#1) 2025 04/09/2021, 04/02/2019 Imm-DTaP/Tdap/Td (2 - Td or Tdap) 01/31/2030 020 [facility] [place]
--- OUTSIDE RECORDS SUMMARY | 2025-03-05 15:49 | XMS_ITS | Patient Health Record ---
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 Problem 53778390 Esophageal dysphagia (R13.10) Active confirmed Problem 173064019 Esophageal diverticulum (Q39.6) Active confirmed Plan Of [...] RUPALI LALA ÁNGEL [address] [place] [address] [id number] DEMETRIUS VILLAFUERTE Self - patient is the insured Medical (General) History Medical History History ICD Code IDDM Denies [place],CVA,Lung disease,renal disease EGD 05/2017--esophageal dive rticulum at 30cm, mild miseha esophagitis treated with a course of Diflucan, small HH--no esophagitis---a Barium swallow with a barium tablet did not show any sign of obstruction from the esophageal diverticulum
== END 2025-03-05 12:18 | disposition home or self-care (01) ==
LOC: HO.HSMS 11:32
PROVIDERS: PCP Family Medicine; Visit Provider Physician Assistant Medical
DX: I69.398 Other sequelae of cerebral infarction (principal); G47.33 Obstructive sleep apnea (adult) (pediatric); F32.A Depression, unspecified; R53.83 Other fatigue; R29.898 Other symptoms and signs involving the musculoskeletal system; Z74.09 Other reduced mobility
CPT/HCPCS: 99214; G2211

== ENCOUNTER → 2025-03-05 11:31 | Outpatient (BNVA) | payer MEDICARE, MEDICAID, SELFPAY | PROVIDERS: PCP Family Medicine; Visit Provider Physician Assistant Medical | DX: N28.89 Other specified disorders of kidney and ureter (principal); Z13.9 Encounter for screening, unspecified; G47.33 Obstructive sleep apnea (adult) (pediatric); Z99.89 Dependence on other enabling machines and devices; F32.A Depression, unspecified; R53.83 Other fatigue; R29.898 Other symptoms and signs involving the musculoskeletal system; Z74.09 Other reduced mobility; Z86.73 Personal history of transient ischemic attack (TIA), and cerebral infarction without residual deficits | CPT/HCPCS: 81003; 99212 ==

== ENCOUNTER 2025-03-05 15:20 | Outpatient (AMB) | payer MEDICARE, MEDICAID, SELFPAY ==
--- NOTE | 2025-03-05 15:56 | MHC.OFFVIS ---
Intake Visit Reasons: 6m/ US Intake Note: patient present today for: 6mo/US urology medications: vit b6, vit b12 blood thinners: aspirin imaging done: 02/26/25 Fiber Artist Required: No Accompanied by: Self / Same As Patient Allergies No Known Allergies (No Known Allergies*) Allergy (Verified 03/05/25 16:58) Medication List - Last Reconciled 03/05/25 by MONIQUE Cobos-AUSTIN aspirin 81 mg PO DAILY atorvastatin 40 mg PO DAILY 90 days BD Ultra-Fine Sara Pen Needle (pen needle, diabetic) 1 ea miscellaneous QID 90 days NS chair, wheel (Wheel chair) As directed cholecalciferol (vitamin D3) (Vitamin D3) 50 mcg PO DAILY 90 days clobetasol 0.05% 1 appl topical BID 2 weeks clopidogrel 75 mg PO DAILY 90 days cyanocobalamin (vitamin B-12) 1,000 mcg PO DAILY 90 days diclofenac sodium 1% (Arthritis Pain (diclofenac)) 2 grams topical QID 30 days empagliflozin (Jardiance) 25 mg PO QAM 90 days famotidine 20 mg PO Q12H 90 days flash glucose scanning reader ([employer] Nikole 2 [place]) As directed flash glucose sensor (FreeStyle Nikole 2 Sensor kit) As directed change every 14 days gabapentin 600 mg PO BID Humalog KwikPen Insulin (insulin lispro) Inject 25 units subcutaneous tid before meals 90 days NS hydrochlorothiazide 12.5 mg PO QAM 90 days insulin degludec (Tresiba FlexTouch U-200 insulin) 56 units (0.28 mL) subcut DAILY 90 days lidocaine 5% (Lidoderm) 1 patch topical DAILY PRN lisinopril 20 mg PO BID 90 days magnesium oxide 400 mg PO DAILY MDD 400mg meclizine 25 mg PO Q8H PRN 30 days metformin 1,000 mg PO BID 90 days metoprolol succinate ER 12.5 mg (1/2 x 25 mg) PO DAILY 30 days miscellaneous medical supply Diabetic shoes. Daily As directed, 999 days. One pair. miscellaneous medical supply Diabetic Shoes, Daily As directed. 999 days. 1 Pair pen needle, diabetic (BD Ultra-Fine Mini Pen Needle) As directed pen needle, diabetic 4 times a day As directed. 90 days [powered wheel chair As directed, patient requires a heavy duty wheel, powered wheel chair] pyridoxine (vitamin B6) 250 mg PO DAILY quetiapine (Seroquel) 25 mg PO BEDTIME PRN 90 days MDD 25mg semaglutide 0.5 mg (0.736 mL) subcut QWEEK 28 days topiramate 50 mg PO BID HPI Comments Details: Anupama is a pleasant 74 year-old male patient of . He has a past medical history of CVA, type 2 diabetes, neuropathy, and hypertension. He presents to the office today for follow-up of his renal mass. In discussion with the patient today reports to be doing and feeling well. He discusses having recently followed up with orthopedics here at [facility] and will soon be undergoing left-sided carpal tunnel release surgical intervention. He denies having had any bothersome urinary issues or concerns since his last office visit here. In office urinalysis results reviewed with the patient today. He denies urinary urgency, urinary frequency, incontinence, nocturia, hematuria, dysuria, foul smelling urine, changes to urinary stream, flank pain, fever, and or chills. He is happy with his current voiding parameters. Recent renal ultrasound results reviewed with the patient today. 02/12 2.2 cm exophytic lesion without color Doppler flow, left kidney which may correspond to treated lesion. No hydronephrosis noted bilaterally. Of note patient is status post left-sided cryo ablation. We discussed continuation of surveillance monitoring. He is agreeable. We discussed importance of management and diabetes for overall health and well-being as well as surveillance monitoring of renal cancer. All questions were answered. He otherwise offers no other issues or concerns at this time. PSA 05/14 0.4 PFSH Medical History Nephropathy Arthritis GERD (gastroesophageal reflux disease) Diabetes Unsteady gait Physical deconditioning Insomnia Anxiety Depression Diabetic retinopathy Diabetic neuropathy Back pain Pancreatic cyst Chronic renal insufficiency Fibromyalgia Renal mass History of CVA (cerebrovascular accident) Neuropathy Essential hypertension Surgical History Hx of cataract extraction History of esophagogastroduodenoscopy (EGD) H/O colonoscopy Social History Household Members: Family Housing: House Are you a primary pediatric acute care unit nurse to a significant other at home: No Do you presently have visiting nurse or other home services: No Alcohol intake: never Comment: PT refuse bed alarm Patient Tobacco Use Status: Former Tobacco user Tobacco use type: Cigarette Years Smoked: 20 e-Cigarette/Vaping Use: Never Used Second Hand Smoke Exposure: No service: No Current occupational status: disabled Current occupational exposures/hazards: No Cognitive needs: Yes (Cane) Hearing needs: No Vision needs: Yes (Glasses) Review of Systems Eyes Reports no additional complaints ENT Reports no additional complaints Card Reports as per HPI Resp Reports no additional complaints GI Reports no additional complaints Reports as per HPI Musc Reports as per HPI Neuro Reports as per HPI Psych Reports no additional complaints Endo Reports as per HPI Merlin/Lymph Reports no additional complaints Aller/Immun Reports no additional complaints Physical Exam Const General: cooperative, comfortable, no acute distress, well developed, alert and awake Nutritional Appearance: overweight Orientation/consciousness: patient oriented x3 Limitations: ambulation with cane HEENT Head: Yes normal to inspection, Yes normocephalic and Yes atraumatic Ears: hearing grossly normal bilaterally Eyes General: appearance normal, both eyes and all related structures Neck Neck: Yes normal visual inspection and Yes trachea midline Chest Chest palpation & inspection: normal inspection of the chest Resp Effort & Inspection: normal respiratory effort and able to speak in complete sentences Cardio Rate: regular rate GI Inspection: Yes normal to inspection General: Yes no CVA tenderness Back/Spine/Pelvis Back: no CVA tenderness Skin General skin exam: no rashes or lesions noted Neuro General: patient oriented x3 Extrem General: Yes normal to inspection Psych Appearance: grossly normal and well kempt Mental Status: mental status grossly normal Speech and movement: Normal speech and movement present and Clear speech present Affect: normal affect Attitude: cooperative Thought process: Normal thought process present Thought content: Normal thought content present Insight: Fair insight present (Psych) Judgement: Fair judgement present (Psych) Results AMB Urinalysis, Automated UA Leukoctes 0 Mary/uL Last Edit by SHANNAN Swift on 03/05/25 16:22 UA Nitrite Last Edit by SHANNAN Swift on 03/05/25 16:22 UA Urobilinogen 0.2 mg/dL Last Edit by SHANNAN Swift on 03/05/25 16:22 UA Protein 15 mg/dL Last Edit by SHANNAN Swift on 03/05/25 16:22 UA pH 5.5 Last Edit by SHANNAN Swift on 03/05/25 16:22 UA Blood 0 Sudheer/uL Last Edit by SHANNAN Swift on 03/05/25 16:22 UA Specific Ramey 1.030 Last Edit by SHANNAN Swift on 03/05/25 16:22 UA Ketone Last Edit by SHANNAN Swift on 03/05/25 16:22 UA Bilirubin 0 mg/dL Last Edit by SHANNAN Swift on 03/05/25 16:22 UA Glucose 0 mg/dL Last Edit by SHANNAN Swift on 03/05/25 16:22 Results Reviewed Results Reviewed: Laboratory Last Values Urine pH (Auto) 5.5 03/05/25 16:21 Specific Ramey (Auto) 1.030 03/05/25 16:21 Urine Protein (Auto) 15 mg/dL 03/05/25 16:21 Glucose (UA)(Auto) 0 mg/dL 03/05/25 16:21 Urine Blood (Auto) 0 Sudheer/uL 03/05/25 16:21 Urine Bilirubin (Auto) 0 mg/dL 03/05/25 16:21 Urine Urobilinogen (Auto) 0.2 mg/dL 03/05/25 16:21 Leukocyte Esterase (Auto) 0 Mary/uL 03/05/25 16:21 Date of Service: 02/26/25 Procedure(s): US renal BI FINDINGS: RIGHT KIDNEY: 11 x 5 x 5 cm (SAG x AP x TRV). Normal echotexture. Normal renal cortical thickness. No hydronephrosis. No gross solid or cystic lesion detected. LEFT KIDNEY: 10 x 6 x 5 cm (SAG x AP x TRV). Normal echotexture. Normal renal cortical thickness. No hydronephrosis. There is a 2.2 cm exophytic intermediate to slightly hyperechoic lesion in the lateral aspect without flow on color Doppler interrogation. IMPRESSION: 2.2 cm exophytic lesion without color Doppler flow, left kidney which may correspond to the treated lesion. No hydronephrosis.. Assessment & Plan Assessment & Plan (1) Renal cancer: Code(s): C64.9 - Malignant neoplasm of unspecified kidney, except renal pelvis Category: Medical (2) Renal mass: Code(s): N28.89 - Other specified disorders of kidney and ureter Category: Medical Plan In office urinalysis results reviewed with the patient today; as noted above. Recent renal imaging results reviewed with the patient today; as noted above Patient currently denies any bothersome urinary issues or concerns. He reports be happy with current voiding parameters. We discussed importance of surveillance monitoring. Will obtain CT of the chest, MRI renal mass protocol, and PSA Follow-up in 6 months with imaging and lab to be completed prior; or sooner with any issues, concerns, and or questions. Orders: Orders CT chest wo/w IV con 6 Months C64.9 - Malignant neoplasm of unspecified kidney, except renal pelvis AMB Urinalysis Automated Today Z13.9 - Encounter for screening, unspecified MR abdomen wo/w con 6 Months C64.9 - Malignant neoplasm of unspecified kidney, except renal pelvis Patient Instructions: The patient had an opportunity to ask questions regarding the treatment plan. All questions were answered. Physical exam, labs, and imaging were discussed and reviewed in detail. As well as risks, benefits, and discussion of treatment choices. No major barriers to understanding were identified. The patient expressed understanding and agreement with the above treatment plan. The patient was made aware they should contact our office by phone for worsening of their current condition, the appearance of new symptoms, or with any questions or concerns. Compliance is encouraged with any medications and follow up testing that is ordered. It is a privilege to be allowed the opportunity to participate in? your urological care.? Again, if you have any questions or concerns If you have any questions or concerns please do not hesitate to contact me. The office is [phone]. This note is constructed using voice recognition software. While every effort has been made to ensure accuracy boarding house manager errors may have been included. Yours sincerely, WILD Cobos Coding Level of Care Code Est Pt Level 3 (51849) Complex EM visit Add On G2211 Diagnoses Renal cancer C64.9 Renal mass N28.89
== END 2025-03-05 16:43 | disposition home or self-care (01) ==
LOC: HO.HUSH 15:20
PROVIDERS: PCP Family Medicine; Visit Provider Nurse Practitioner Family
DX: C64.9 Malignant neoplasm of unspecified kidney, except renal pelvis (principal); N28.89 Other specified disorders of kidney and ureter; Z13.9 Encounter for screening, unspecified
CPT/HCPCS: 99213; G2211

== ENCOUNTER 2025-03-07 15:08 | Outpatient (AMB) | payer MEDICARE, MEDICAID, SELFPAY ==
[2025-03-07 15:10] VITALS: BP 130/80; PULSE 86; O2SAT 96; BMI 32.9
--- NOTE | 2025-03-07 15:10 | A.OFFVIS_ITS ---
Vital Signs 03/07/25 15:10 Height 5 ft 11 in Weight 235 lb 14.314 oz BMI 32.9 BP 130/80 Blood Pressure Location Rt brachial Position Sitting Pulse 86 Pulse Source Pulse Oximeter Pulse Oximetry (%) 96 Oxygen Delivery Method Room Air Intake Visit Reasons: Type 2 dm Intake Note: Patient presents today for a follow-up on Type 2 Diabetes Mellitus: Last Diabetic Eye exam: 09/21/2024, [facility] Last Podiatry Exam: Does not see a Home Health Care Coordinator Most recent HbA1c: 7.6%, 03/07/2025 Random Glucose- 142 mg/dL, Today Delivery Sales Worker Required: No Accompanied by: Self / Same As Patient Allergies No Known Allergies (No Known Allergies*) Allergy (Verified 03/07/25 15:11) HPI Comments Details: 74 year old male follow up for type 2 diabetes for follow up Initially diagnosed with T2DM approx 2004 Current regimen: metformin 1000 mg BID Tresiba 75 once daily (this is higher than he was last told) Humalog --Breakfast 25 units --Lunch 25 units --Supper 25 units -will switch to 15 units Jardiance 25 mg QD Ozempic 0.5mg weekly Will acarbose 50mg dinner Trulicity was switched to ozempic A1C 7.6% from 7.4%, 7.8% Higinio average glucose: Glucose Managment indicator 7.4 % TIme in ranges: 37% high 62 % in range ? 1 % low Hypolgycemia is primarily overnight/early am No Family history of T2DM Has retinopathy: Last eye exam 09/12 injection both eyes Has neuropathy, on gabapentin has numbness, tingling-referred to podiatry Has nephropathy, on Lico inhibitor 05/04/24 129 eGFR>60 Has HLD, on statin. 09/15/23 169 No CAD. Hx of CVA Seeing neurology for memory issues ROS CONSTITUTIONAL: Denies weight loss, fever and chills. HEENT: Denies changes in vision and hearing. RESPIRATORY: Denies SOB and cough. CV: Denies palpitations and CP GI: Denies abdominal pain, nausea, vomiting and diarrhea. : Denies dysuria and urinary frequency. MSK: Denies new myalgia and joint pain. SKIN: Denies rash and pruritus. NEUROLOGICAL: Denies headache PSYCHIATRIC: Denies recent changes in mood. PHYSICAL EXAM: GENERAL: Alert and oriented x 3. NAD EYES: EOMI. Anicteric. HENT: Moist mucous membranes. No scleral icterus. No cervical lymphadenopathy. LUNGS: Clear to auscultation bilaterally. CARDIOVASCULAR: Regular rate and rhythm. No murmur. No JVD. ABDOMEN: Soft, non-tender +bs EXTREMITIES: No edema. Non-tender. SKIN: No rashes or lesions. Warm. NEUROLOGIC: No focal neurological deficits. CN II-XII grossly intact PSYCHIATRIC: Cooperative. Appropriate mood and affect. [facility] Medical History Nephropathy Arthritis GERD (gastroesophageal reflux disease) Diabetes Unsteady gait Physical deconditioning Insomnia Anxiety Depression Diabetic retinopathy Diabetic neuropathy Back pain Pancreatic cyst Chronic renal insufficiency Fibromyalgia Renal mass History of CVA (cerebrovascular accident) Neuropathy Essential hypertension Surgical History Hx of cataract extraction History of esophagogastroduodenoscopy (EGD) H/O colonoscopy Social History Household Members: Family Housing: House Are you a primary care coordinator to a significant other at home: No Do you presently have visiting nurse or other home services: No Alcohol intake: never Comment: PT refuse bed alarm Patient Tobacco Use Status: Former Tobacco user Tobacco use type: Cigarette Years Smoked: 20 e-Cigarette/Vaping Use: Never Used Second Hand Smoke Exposure: No service: No Current occupational status: disabled Current occupational exposures/hazards: No Cognitive needs: Yes (Cane) Hearing needs: No Vision needs: Yes (Glasses) Physical Exam Vital Signs: Last Vital Signs Pulse 86 03/07/25 15:10 BP 130/80 03/07/25 15:10 Pulse Ox 96 03/07/25 15:10 Oxygen Delivery Method Room Air 03/07/25 15:10 BMI result Body Mass Index 32.9 Results AMB Hemoglobin A1c AMB Hemoglobin A1c 7.6 % Last Edit by BITA Plascencia on 03/07/25 15:35 Results Reviewed Results Reviewed: Laboratory Last Values Glucose (Clinic) 142 mg/dL (60-115) H 03/07/25 15:26 Hgb A1c (Clinic) 7.6 % (4.0-6.0) H 03/07/25 15:34 Assessment & Plan Assessment & Plan (1) Diabetes type 2, uncontrolled: Code(s): E11.65 - Type 2 diabetes mellitus with hyperglycemia Category: Medical Qualifiers: Glycemic state: with hyperglycemia Qualified Code(s): E11.65 - Type 2 diabetes mellitus with hyperglycemia (2) Hypertension: Code(s): I10 - Essential (primary) hypertension Category: Medical Qualifiers: Hypertension type: primary hypertension Qualified Code(s): I10 - Essential (primary) hypertension Plan DM-A1C just over goal <7.0-7.5% Having some overnight/early am hypoglycemia-decrease supper humalog to 15-20 units Continue current tresiba dose Add acarbose 50mg with dinner Treat hypoglycemia by rules of 15s Follow up in 3 months or sooner as needed Orders: Orders AMB Hemoglobin A1c 03/07/25 E11.65 - Type 2 diabetes mellitus with hyperglycemia Medications: New acarbose Daily AT DINNER 50 mg PO DAILY 90 tabs 1RF Coding Level of Care Code Est Pt Level 4 (42298) Diagnoses Uncontrolled type 2 diabetes mellitus with hyperglycemia E11.65 Glycemic state: with hyperglycemia Primary hypertension I10 Hypertension type: primary hypertension
[2025-03-07 15:31] LABS: Glucose, Whole Blood 142 mg/dL (60-115)
--- OUTSIDE RECORDS SUMMARY | 2025-03-07 18:41 | XMS_ITS | Clinical Summary ---
Author Organization [address] [place] [address] Address [address] [place] [address] Phone Care Team Providers Care Count Team Clerk Name Role Phone John Graff MD Primary [...] Description 03/09/2025 1:30 PM EDT Evaluation Outpatient [address] [id number] Amos Chatman, PT [address] [place] [address] Health Maintenance Due Date Last Done Comments [...] Insurance MEDICARE MEDICAID - [place] Care Teams Count Team Clerk Relationship Specialty Start Date End Date John Graff MD [address] [place] [address] [place] PCP - General Family Medicine 10/16/24
--- OUTSIDE RECORDS SUMMARY | 2025-03-07 18:41 | XMS_ITS | Clinical Summary ---
Author Organization [facility] Address [address] [place] [address] Care Team Providers Care Allied Health Instructor Name Role Phone Unavailable Primary Care Provider [...] Drug Screen 06/21/2024 Depression Annual Screen 06/21/2024 [id number] (2 - 2024- season) 2025 021 Imm-Influenza (#1) 2025 04/09/2021, 04/02/2019 Imm-DTaP/Tdap/Td (2 - Td or Tdap) 01/31/2030 020 [facility] [place]AL [place] DENTAL
--- OUTSIDE RECORDS SUMMARY | 2025-03-07 18:41 | XMS_ITS | Patient Health Record ---
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 Problem [id number] Esophageal dysphagia (R13.10) Active confirmed Problem [id number] Esophageal diverticulum (Q39.6) Active confirmed Plan Of [...] RUPALI LALA ÁNGEL [address] [place] [address] [id number] DEMETRIUS VILLAFUERTE Self - patient is the insured Medical (General) History Medical History History ICD Code IDDM Denies [place],CVA,Lung disease,renal disease EGD 05/2017--esophageal dive rticulum at 30cm, mild miesha esophagitis treated with a course of Diflucan, small HH--no esophagitis---a Barium swallow with a barium tablet did not show any sign of obstruction from the esophageal diverticulum
== END 2025-03-07 15:51 | disposition home or self-care (01) ==
LOC: HO.ENCR 15:09
PROVIDERS: PCP Family Medicine; Visit Provider Internal Medicine
DX: E11.65 Type 2 diabetes mellitus with hyperglycemia (principal); I10 Essential (primary) hypertension

== ENCOUNTER → 2025-03-07 15:08 | Outpatient (BNVA) | payer MEDICARE, MEDICAID, SELFPAY | PROVIDERS: PCP Family Medicine; Visit Provider Internal Medicine | DX: E11.65 Type 2 diabetes mellitus with hyperglycemia (principal); I10 Essential (primary) hypertension | CPT/HCPCS: 82947; 83036; 99212 ==